=== PATIENT | female | born 1955 | race Caucasian/White ===

== ENCOUNTER → 2019-01-27 16:03 | Outpatient (CLI) | payer BC, SELFPAY ==
--- NOTE | 2019-01-27 16:05 | MM_ITS ---
PROCEDURE: MM DIG SCREENING MAMM BI W/CAD Patient Age:63Y CLINICAL INDICATION: SCREENING Screening outside films requested from [facility] patient has palpable area on chest wall superior margin of breast on right COMPARISON: DIG MAMMO BILAT SCREENING from 12/21/2009 from [facility]. TECHNIQUE: Standard CC and MLO images were obtained. R2 CAD reviewed. Bilateral axillary CC views as well as multiple additional CC views right breast included. Nipple profile MLO view left breast FINDINGS: Low-density breast with generalized fatty replacement. Scattered benign dense spherical calcifications No focal areas significant concern either breast. No dominant or suspicious mass. No suspicious calcifications Left breast. Minimal asymmetric breast tissue inferior left breast dissipates on one-view to another supporting merely minimal normal fibroglandular tissue.. Also note that is stable since previous studies. Not of concern Right breast: Stable No new findings Note the patient does have a palpable area this superior most aspect of the right breast at 11 o'clock position. No significant findings here on mammography. Only fatty density tissue is seen through this region. No areas of concern. Based on mammography follow-up in 1 year be recommended and encouraged. If the clinically palpable area should progress ultrasound may be of benefit to further evaluate although most likely it is merely focal fatty tissue based on mammography IMPRESSION: Stable mammogram no area of significant concern .No significant change since outside studies 2009 Bilateral follow-up 1 year recommended Added note:. The clinical palpable area at the superior most margin right breast shows no findings on mammography-Only fatty density tissue here. BI-RAD Category: 1 Negative FOLLOW-UP: 1YR 1 Year Follow-up (A letter has been sent to the patient regarding results of the study.) Dictated by: Stef Smart MD 01/28/2019 21:29 Electronically signed by Stef Smart MD in [place] 02/01/2019 10:33
== END ==
PROVIDERS: PCP Nurse Practitioner Family; Visit Provider Nurse Practitioner Family
DX: Z12.31 Encounter for screening mammogram for malignant neoplasm of breast (principal)
CPT/HCPCS: 77067

== ENCOUNTER 2021-07-04 17:32 | Observation (INO) | payer SELFPAY ==
[2021-07-04] VITALS (22 sets, daily range): BP systolic 121–202; BP diastolic 54–87; PULSE 70–88; RESP 16–18; TEMP 36.8–37.1; O2SAT 95–100; BMI 46.0
--- NOTE | 2021-07-04 17:40 | PC.NURSE ---
at bedside, Addison notified of stroke protocol
--- NOTE | 2021-07-04 17:43 | CT_ITS ---
PROCEDURE INFORMATION: Exam: CT Head Without Contrast Exam date and time: 07/04/2021 5:42 PM Age: 65 years old Clinical indication: Speech disturbance; Additional info: Expressive aphasia TECHNIQUE: Imaging protocol: Computed tomography of the head without contrast. Radiation optimization: All CT scans at this facility use at least one of these dose optimization techniques: automated exposure control; mA and/or kV adjustment per patient size (includes targeted exams where dose is matched to clinical indication); or iterative reconstruction. Other technique: STROKE PROTOCOL was implemented. COMPARISON: No relevant prior studies available. FINDINGS: Brain: There is white matter lucency most consistent with mild chronic microvascular disease. No evidence of acute infarct. No hemorrhage or extra-axial collection. No mass. Cerebral ventricles: There is no hydrocephalus. Paranasal sinuses: Visualized sinuses are unremarkable. No fluid levels. Mastoid air cells: Visualized mastoid air cells are well aerated. Bones/joints: Unremarkable. No acute fracture. Soft tissues: Unremarkable. IMPRESSION: No acute intracranial lesion or injury. ASSESSMENT: ASPECTS ([place] Stroke Program Early CT Score) is 10.
--- NOTE | 2021-07-04 17:44 | PC.NURSE ---
Pt to CT
[2021-07-04 17:56] LABS: Basophils # 0.1 K/mm3 (0-0.2); Basophils % 2.3 % (0.1-2.0); Eosinophils # 0.1 K/mm3 (0.0-0.4); Eosinophils % 1.7 % (0.1-12.0); Hematocrit 49.5 % (37.0-47.0); Hemoglobin 14.6 g/dL (12.2-16.2); Lymphocytes # 1.5 K/mm3 (0.7-4.5); Lymphocytes % 24.6 % (10-50); Mean Corpuscular HGB Conc 29.5 g/dL (31.8-35.4); Mean Corpuscular Hemoglobin 27.5 pg (27.0-31.2); Mean Corpuscular Volume 93.1 fl (81-99); Mean Platelet Volume 9.1 fl (7.4-10.4); Monocytes # 0.3 K/mm3 (0.1-1.0); Monocytes % 4.7 % (1.7-9.3); Neutrophils # 4.1 K/mm3 (1.8-7.8); Neutrophils % 66.7 % (37.0-80.0); Platelet Count 261 K/mm3 (142-424); Red Blood Count 5.32 M/mm3 (4.20-5.40); Red Cell Distribution Width 14.4 % (11.5-17.5); White Blood Count 6.2 K/mm3 (4.8-10.8)
[2021-07-04 18:01] LABS: Alanine Aminotransferase 38 U/L (12-78); Alkaline Phosphatase 266 U/L (38-126); Aspartate Amino Transferase 32 U/L (14-36); Bilirubin,Total 0.9 mg/dl (0.2-1.3); Blood Urea Nitrogen 25 mg/dl (7-17); Carbon Dioxide 31 mmol/L (22.0-30.0); Chloride 96 mmol/L (98-107); Estimated Glomerular Filt Rate 41 ml/min (>60); GFR (African American) 50 ML/MIN (>60); Globulin 4.2 g/dL (1.3-3.2); Sodium 133 mmol/L (136-145); Total Protein,Serum 8.2 g/dl (6.3-8.2)
[2021-07-04 18:03] LABS: Activated Partial Thrombo Time 26.5 seconds (22.8-30.6); INR 0.96 (0.9-1.1); Prothrombin Time 10.9 seconds (10.1-12.5)
--- NOTE | 2021-07-04 18:04 | PC.NURSE ---
speaking with virtual rad
[2021-07-04 18:05] LABS: Acetone, Serum (Rapid) None Detected (None Detect); Glucose 429 mg/dl (74-100)
--- NOTE | 2021-07-04 18:13 | CT_ITS ---
PROCEDURE INFORMATION: Exam: CT Angiography Neck With Contrast Exam date and time: 07/04/2021 6:18 PM Age: 65 years old Clinical indication: Speech disturbance; Slurred speech; Additional info: Trouble with speech TECHNIQUE: Imaging protocol: Computed tomography angiography of the neck with contrast. 3D rendering (Not supervised by radiologist): MIP and/or 3D reconstructed images were created by the technologist. Radiation optimization: All CT scans at this facility use at least one of these dose optimization techniques: automated exposure control; mA and/or kV adjustment per patient size (includes targeted exams where dose is matched to clinical indication); or iterative reconstruction. Contrast material: ISOVUE; Contrast volume: 100 ml; Contrast route: INTRAVENOUS (IV); COMPARISON: CT HEAD/BRAIN WO CON 07/04/2021 5:42 PM FINDINGS: Right common carotid artery: No stenosis. No dissection or occlusion. Right internal carotid artery: There is mild calcified plaque at the origin of the right internal carotid artery. No stenosis. No dissection. Right external carotid artery: No occlusion or stenosis of the origin. Left common carotid artery: No stenosis. No dissection or occlusion. Left internal carotid artery: There is mild calcified plaque at the origin of the left internal carotid artery. No stenosis. No dissection. Left external carotid artery: No occlusion or stenosis of the origin. Right vertebral artery: No stenosis. No dissection or occlusion. Left vertebral artery: No stenosis. No dissection or occlusion. Soft tissues: Normal. No significant soft tissue swelling. Bones/joints: No acute fracture. Heart: There is cardiomegaly. IMPRESSION: No carotid or vertebral artery stenosis. REFERENCES: NASCET CRITERIA. The degree of internal carotid artery stenosis is based on NASCET criteria. Normal is no stenosis. Mild is less than 50% stenosis. Moderate is 50-69% stenosis. Severe is 70% to 99% stenosis. Total occlusion is no detectable patent lumen.
--- NOTE | 2021-07-04 18:13 | CT_ITS ---
PROCEDURE INFORMATION: Exam: CT Angiography Head With Contrast, Venography Exam date and time: 07/04/2021 6:18 PM Age: 65 years old Clinical indication: Speech disturbance; Slurred speech; Additional info: Trouble with speech TECHNIQUE: Imaging protocol: Computed tomography angiography of the head with contrast. Exam focused on the veins. 3D rendering (Not supervised by radiologist): MIP and/or 3D reconstructed images were created by the technologist. Radiation optimization: All CT scans at this facility use at least one of these dose optimization techniques: automated exposure control; mA and/or kV adjustment per patient size (includes targeted exams where dose is matched to clinical indication); or iterative reconstruction. Contrast material: ISOVUE; Contrast volume: 75 ml; Contrast route: INTRAVENOUS (IV); COMPARISON: CT HEAD/BRAIN WO CON 07/04/2021 5:42 PM FINDINGS: ANTERIOR CIRCULATION: Right internal carotid artery: There is calcified plaque in the right carotid siphon. No stenosis. No aneurysm. Left internal carotid artery: There is calcified plaque in the left carotid siphon. No stenosis. No aneurysm. POSTERIOR CIRCULATION: Left posterior cerebral artery: There is a origin of the left posterior cerebral artery. No stenosis. No aneurysm. Cavernous Sinus: No thrombosis. Veins: Visualized superior sagittal sinus, straight sinus, deep venous system, transverse sinuses, sigmoid sinuses are patent. Limited visualized internal jugular veins are patent. Brain: See head CT IMPRESSION: No intracranial stenosis or occlusion.
[2021-07-04 18:18] LABS: Troponin I < 0.01 ng/ml (0.00-0.034)
--- NOTE | 2021-07-04 18:40 | ECG_ITS ---
APPROVED REPORT Exam: Resting ECG HR:72 bpm ECG Measurements Heart Rate 72 AXES AZ 172 P 54 QRSd 130 QRS -75 QT 395 T 13 QTc 419 Conclusion SINUS RHYTHM RIGHT BUNDLE BRANCH BLOCK [120+ ms QRS DURATION, UPRIGHT V1, 40+ ms S IN I/aVL/V4/V5/V6] LEFT ANTERIOR FASCICULAR BLOCK [QRS AXIS <= -45, QR IN I, RS IN II] MODERATE VOLTAGE CRITERIA FOR LVH, CONSIDER NORMAL VARIANT [MEETS CRITERIA IN ONE OF: R(aVL), S(V1), R(V5), R(V5/V6)+S(V1)] ANTERIOR MYOCARDIAL INFARCTION , OF INDETERMINATE AGE [40+ ms Q WAVE AND/OR ST/T ABNORMALITY IN V3/V4] INFERIOR MYOCARDIAL INFARCTION , PROBABLY OLD [40+ ms Q WAVE AND/OR ST/T ABNORMALITY IN II/aVF] ABNORMAL ECG UNCONFIRMED REPORT Electronically signed by : Donn Quinonez MD 07/07/2021 16:21:43
[2021-07-04 18:43] LABS: VBG Base Excess 0.6 mmol/L (-2.4-2.3); VBG HCO3 27.7 mmol/L (23-30); VBG Oxygen Saturation 61.6 % (50-70); VBG PH 7.25 mmol/L (7.31-7.41); VBG PO2 30.7 mmol/L (28-40); VBG Total CO2 29.7 mmol/L (23-27)
[2021-07-04 18:47] LABS: VBG PCO2 64.1 mmol/L (35-51)
--- NOTE | 2021-07-04 18:58 | PC.NURSE ---
speaking with Dr. Rehman. PT resting in bed. No new needs at this time. Daughter at bedside
--- NOTE | 2021-07-04 19:02 | HMH.EDGENADL ---
ED Disposition Clinical Impression: Transient cerebral ischemia Disposition: Admitted As Inpatient Condition on Discharge: Good - Critical Care Critical Care Time: Yes Attestation: On 07/04/21, the high probability of a clinically significant, sudden or life threatening deterioration of the following system(s) required my full and direct attention, intervention and personal management. The time I documented below is in addition to time spent performing reported procedures but includes the following listed in this critical care notation. Total Critical Care Time: 30 Vital system(s) involved:: Central Nervous System My critical care processes included: Assessment & monitoring of V/S, Initial and Re-exams, Data Review/Interpretation, Coordinating Care, Medication Orders and management Medical Decision Making - Medical Records Medical records reviewed: Yes: I reviewed the patient's medical records. - Mac Inquiry Pt receiving controlled substance: No Vital Signs: 07/04/21 17:32 07/04/21 18:01 07/04/21 18:10 Temperature 98.3 F Temperature Source Oral Pulse Rate 82 Pulse Rate [Right] 88 Respiratory Rate 16 Blood Pressure 177/81 H 187/87 H Blood Pressure [Right Arm] 202/86 H Blood Pressure Mean 113 Blood Pressure Mean [Right Arm] 124 Blood Pressure Source [Right Arm] Automatic Cuff Blood Pressure Position [Right Arm] Sitting 02 Sat by Pulse Oximetry 98 98 Oxygen Delivery Method Room Air 07/04/21 18:11 07/04/21 19:01 07/04/21 19:31 Temperature Temperature Source Pulse Rate 75 71 70 Pulse Rate [Right] Respiratory Rate Blood Pressure 155/72 H 160/75 H 136/54 L Blood Pressure [Right Arm] Blood Pressure Mean 99 Blood Pressure Mean [Right Arm] Blood Pressure Source [Right Arm] Blood Pressure Position [Right Arm] 02 Sat by Pulse Oximetry 96 96 98 Oxygen Delivery Method Room Air Room Air - Lab Data Lab results reviewed: Yes: I reviewed the patient's lab results. Lab Results 07/04/21 17:10: WBC 6.2, RBC 5.32, Hgb 14.6, Hct 49.5 H, MCV 93.1, MCH 27.5, MCHC 29.5 L, RDW 14.4, Plt Count 261, MPV 9.1, Neut % (Auto) 66.7, Lymph % (Auto) 24.6, [place] % (Auto) 4.7, Eos % (Auto) 1.7, Baso % (Auto) 2.3 H, Neut # (Auto) 4.1, Lymph # (Auto) 1.5, [place] # (Auto) 0.3, Eos # (Auto) 0.1, Baso # (Auto) 0.1 07/04/21 17:10: PT 10.9, INR 0.96, APTT 26.5 07/04/21 17:10: Sodium 133 L, Potassium 4.0, Chloride 96 L, Carbon Dioxide 31 H, Anion Gap 10.0, BUN 25 H, Creatinine 1.30 H, Estimated GFR 41 L, Est GFR ( Amer) 50 L, Glucose 429 H*, Calcium 9.0, Total Bilirubin 0.9, AST 32, ALT 38, Alkaline Phosphatase 266 H, Troponin I < 0.01, Total Protein 8.2, Albumin 4.0, Globulin 4.2 H, Albumin/Globulin Ratio 1.0 L 07/04/21 17:10: Acetone Level None detected 07/04/21 19:05: SARS-CoV-2 (PCR) Not detected, Influenza A Untype (PCR) Not detected, Influenza Type B (PCR) Not detected Result diagrams: 07/04/21 17:10 07/04/21 17:10 Orders (Tests/Meds): ED MEDICATIONS Generic Name Dose Route Start Last Admin Trade Name Freq PRN Reason Stop Dose Admin Atorvastatin Calcium 40 mg 07/05/21 09:00 Atorvastatin 40mg Tablet PO 08/04/21 08:59 DAILY CATHI Clopidogrel Bisulfate 75 mg 07/05/21 09:00 Clopidogrel 75mg Tab PO 08/04/21 08:59 DAILY CATHI Furosemide 20 mg 07/05/21 09:00 Furosemide 20mg Tablet PO 08/04/21 08:59 DAILY CATHI Glipizide 5 mg 07/05/21 07:00 Glipizide 5mg Tablet PO 08/04/21 06:59 DAILYDM CATHI Irbesartan 75 mg 07/05/21 09:00 Irbesartan 75mg Tablet PO 08/04/21 08:59 DAILY CATHI Discontinued Medications Generic Name Dose Route Start Last Admin Trade Name Freq PRN Reason Stop Dose Admin Iopamidol 100 ml 07/04/21 18:26 07/04/21 18:27 Iopamidol-370 (76%);100ml Bottle IV 07/04/21 18:27 100 ml ONCE ONE Administration Labetalol HCl 10 mg 07/04/21 17:44 07/04/21 18:10 Labetalol 5mg/Ml 20ml Mdv IV 07/04/21
--- NOTE | 2021-07-04 19:08 | PC.NURSE ---
Spoke with transfer center and was advised that it would be a few minutes before the DR would be available to speak, so they are going to call back.
[2021-07-04 19:12] LABS: Coronavirus 19, PCR Not Detected (NotDetected); Influenza A, PCR Not Detected (NotDetected); Influenza B, PCR Not Detected (NotDetected)
--- NOTE | 2021-07-04 19:27 | PC.NURSE ---
Dr. Rehman paged at this time
--- NOTE | 2021-07-04 19:27 | INFXCTL.NOTE ---
Dr. Rehman paged at this time.
--- NOTE | 2021-07-04 19:28 | PC.NURSE ---
ALEXIS RHOADES speaking with Dr. Rehman
--- NOTE | 2021-07-04 21:36 | PC.NURSE ---
NO ACUTE DISTRESS NOTED. PT AWARE OF PLAN TO ADMIT TO 2ND FLOOR. PT DENIES QUESTIONS. PT ASSISTED WITH REPOSITIONING FOR COMFORT. MEDICATIONS VERFIED WITH PATIENT. NO NEURO DEFICITS NOTED OR REPORTED.
--- NOTE | 2021-07-04 21:40 | PC.NURSE ---
patient up to floor via wheelchair @ this time.
[2021-07-04 22:01] LABS: Troponin I < 0.01 ng/ml (0.00-0.034)
[2021-07-04 22:15] LABS: POC Glucose,Bedside 295 (70-110)
[2021-07-05] VITALS: BP 147/64; PULSE 71; RESP 17; TEMP 36.9; O2SAT 94
[2021-07-05 04:00] VITALS: BP 175/71; PULSE 71; RESP 17; TEMP 36.8; O2SAT 97
[2021-07-05 06:00] VITALS: BMI 47.4
[2021-07-05 06:27] LABS: POC Glucose,Bedside 318 (70-110)
--- NOTE | 2021-07-05 07:08 | P.CONPHA_ITS ---
[facility] Pharmacy VTE Monitoring - Patient Demographics Admission date: 07/04/21 Report Date: 07/05/21 Time: 07:08 Allergies/Adverse Reactions: Patient Allergies No Known Allergies Allergy (Verified 04/06/21 09:36) Height: 1.73 m Weight: 142.02 kg Patient Problems: Current Active Problems Transient cerebral ischemia (Acute) - VTE Risk Labs: VTE Related Lab Results Hgb 14.6 g/dL (12.2-16.2) 07/04/21 17:10 Hct 49.5 % (37.0-47.0) H 07/04/21 17:10 Plt Count 261 K/mm3 (142-424) 07/04/21 17:10 PT 10.9 seconds (10.1-12.5) 07/04/21 17:10 INR 0.96 (0.9-1.1) 07/04/21 17:10 APTT 26.5 seconds (22.8-30.6) 07/04/21 17:10 BUN 25 mg/dl (7-17) H 07/04/21 17:10 Creatinine 1.30 mg/dl (0.52-1.04) H 07/04/21 17:10 VTE Risk Level: Low Risk - Prophylaxis VTE Prophylaxis Ordered?: Yes Types of VTE Prophylaxis: TEDS Knee High Location of Applied Device: Bilateral Lower Extremeties
[2021-07-05 07:17] LABS: INR 0.96 (0.9-1.1); Prothrombin Time 10.9 seconds (10.1-12.5)
[2021-07-05 07:18] LABS: Basophils % 0.6 % (0.1-2.0); Eosinophils # 0.1 K/mm3 (0.0-0.4); Eosinophils % 2.4 % (0.1-12.0); Hematocrit 42.4 % (37.0-47.0); Hemoglobin 13.5 g/dL (12.2-16.2); Lymphocytes # 1.1 K/mm3 (0.7-4.5); Lymphocytes % 23.7 % (10-50); Mean Corpuscular HGB Conc 31.8 g/dL (31.8-35.4); Mean Corpuscular Hemoglobin 29.5 pg (27.0-31.2); Mean Corpuscular Volume 92.7 fl (81-99); Mean Platelet Volume 8.9 fl (7.4-10.4); Monocytes # 0.3 K/mm3 (0.1-1.0); Monocytes % 5.2 % (1.7-9.3); Neutrophils # 3.2 K/mm3 (1.8-7.8); Neutrophils % 68.1 % (37.0-80.0); Platelet Count 200 K/mm3 (142-424); Red Blood Count 4.57 M/mm3 (4.20-5.40); Red Cell Distribution Width 14.6 % (11.5-17.5); White Blood Count 4.8 K/mm3 (4.8-10.8)
[2021-07-05 07:20] LABS: Alanine Aminotransferase 28 U/L (12-78); Albumin Level 3.1 g/dl (3.5-5.0); Albumin/Globulin Ratio 0.9 (1.1-1.8); Alkaline Phosphatase 223 U/L (38-126); Anion Gap 4.9 mEq/L (5-15); Aspartate Amino Transferase 24 U/L (14-36); Bilirubin,Total 0.8 mg/dl (0.2-1.3); Blood Urea Nitrogen 20 mg/dl (7-17); Calcium 8.4 mg/dl (8.4-10.2); Carbon Dioxide 30 mmol/L (22.0-30.0); Chloride 100 mmol/L (98-107); Chol/HDL Ratio 4.6 (1-3.5); Cholesterol 125 mg/dl (140-200); Creatinine Clearance Estimated 53 mL/min (50-200); Estimated Glomerular Filt Rate 50 ml/min (>60); GFR (African American) 61 ML/MIN (>60); Globulin 3.3 g/dL (1.3-3.2); Glucose 324 mg/dl (74-100); HDL Cholesterol 27 mg/dl (40-60); Potassium 3.9 mmoL/L (3.5-5.1); Sodium 131 mmol/L (136-145); Total Protein,Serum 6.4 g/dl (6.3-8.2); Triglycerides 182 mg/dl (30-150); VLDL Cholesterol 36 mg/dL (0-40)
[2021-07-05 07:31] LABS: Direct LDL Cholesterol 57.09 mg/dL (100-129)
--- NOTE | 2021-07-05 07:41 | CT_ITS ---
FINAL REPORT CLINICAL HISTORY: Stroke Alert FINDINGS: Axial images of the head were obtained without contrast. Coronal reformatted images were also obtained. This study was performed with techniques to keep radiation doses as low as reasonably achievable (ALARA). Individualized dose reduction techniques using automated exposure control or adjustment of mA and/or kV according to the patient's size were employed. Note is made of motion artifact. There is generalized age-appropriate atrophy. Periventricular low-attenuation areas are seen consistent with mild chronic ischemic changes. There is no evidence of intracranial hemorrhage or mass. There is no evidence of acute infarct. There is no evidence of shift of the midline structures. No skull abnormality is seen on the bone window images. IMPRESSION: Atrophy and mild periventricular chronic ischemic changes. No acute intracranial abnormality identified. Reviewed, Interpreted and Dictated by Chris Solorzano III, MD Transcribed by Melva Rosen Authenticated by Chris Solorzano III, MD on 07/05/2021 08:03:34 AM [facility]
--- NOTE | 2021-07-05 07:44 | PC.NURSE ---
stroke alert called at 0740. 0741 pt off of unit with primary RN and charge nurse r/t ct with stroke protocol and stroke alert.
[2021-07-05 08:00] VITALS: BP 153/60; PULSE 82; RESP 20; O2SAT 88
--- NOTE | 2021-07-05 08:03 | HMH.PHAINT ---
home medication list verified using list from outpatient pharmacy
[2021-07-05 08:04] VITALS: TEMP 36.9; O2SAT 93
--- NOTE | 2021-07-05 08:06 | PC.NURSE ---
Addendum entered by Yang Hammond RN 07/05/21 10:36: Stroke alert called at 0739. Addendum entered by Yang Hammond RN 07/05/21 08:35: Blood glucose also checked and it was 334. Original Note: Family member called at 0734 and stated she was just talking to pt and she stopped talking. This RN went and assessed pt to find her flaccid in mary grace arms, drool with blood noted coming out of R side of mouth, and tongue appears to be bitten on that side. Stroke alert called and pt was having ct at 0745 of head. BP stable as well as all other v/s. 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 She is resting with hob elevated. Seizure pads placed on bed rails. Mx continues. Dr. Vilchis and Flash Travis, LETICIA aware. Family on way to see pt as well.
--- NOTE | 2021-07-05 10:10 | MR_ITS ---
FINAL REPORT CLINICAL HISTORY: tia/seizure? FINDINGS: Multiplanar MR imaging of the brain was performed without contrast. Motion artifact is identified on many of the images. There is mild age-appropriate atrophy. There are scattered foci of increased T2 signal in the cerebral white matter that have a nonspecific appearance but likely represent moderate chronic ischemic/gliotic changes. There is no evidence of intracranial hemorrhage or mass. No abnormal ventricular dilatation is identified. No abnormal extra-axial fluid collection is seen. No abnormality is seen on the diffusion weighted images. The posterior fossa and brainstem are unremarkable. Normal major vessel vascular flow voids are seen. IMPRESSION: Age-appropriate atrophy and moderate chronic ischemic/gliotic changes. No acute intracranial abnormality. Reviewed, Interpreted and Dictated by Chris Solorzano III, MD Transcribed by Melva Rosen Authenticated by Chris Solorzano III, MD on 07/05/2021 01:45:49 PM [facility]
--- NOTE | 2021-07-05 10:10 | CA_ITS ---
APPROVED REPORT EXAM: Comprehensive 2D, Doppler, and color-flow Echocardiogram Cruise Agent: Erin Garcia, RCS, RVS Ht: 5 ft 8 in Wt: 313lbs BSA: 2.47 BP: 187/87 mmHg Rhythm: NSR Indications: TIA, HTN, Smoker, HLD, HTN, DM 2D Dimensions IVSd 1.54 cm LA Volume 91.50 mL PWd 1.23 cm LA Volume Index 37.00 mL/m2 (M/F) 16-34 LVDd 4.61 cm Aortic Root 2.66 cm Left Atrium 4.71 cm LVOT 1.95 cm (M/F) 1.5-2.5 M-Mode Dimensions RVDd 3.89 cm (0.9-2.6) LA Diam 5.31 cm (1.9-4.0) LVDd 5.10 cm (3.5-5.7) Ao Diam 3.05 cm (2.0-3.7) LVDs 3.31 cm (3.5-5.7) IVSd 1.52 cm (0.6-1.1) PWd 1.16 cm (0.6-1.1) EF (Teich) 64.10% EPSs 0.22 cm FS 35.10% EDV (Teich) 123.80 mL TAPSE 2.40 (<1.7) ESV (Teich) 44.50 mL LV Diastology E Decel Time 303.00 (160-240 msec) E/A Ratio 0.76 MED E' 4.30 (< 7 cm/sec) MED A' 10.50 cm/s E'/MED E' Ratio 24.79 (>14) LAT E' 4.40 (<10 cm/sec) LAT A' 10.20 cm/s E/LAT E' Ratio 24.23 (>14) Aortic Valve LVOT Max 114.00 (70-110 cm/s) LVOT VTI 27.47 cm AoV Peak Raymundo. 226.00 (50-130 cm/s) AO Peak GR. 20.40 mmHg AO Mean GR. 9.80 (<5 mmHg) AO VTI 45.10 (18-25 cm) GENET (VTI) 1.82 (2.5-4.5 cm2) Mitral Valve MV A Velocity 139.00 (40-130 cm/s) E/A Ratio 0.76 MV Decel. Time 303.00 (160-240 ms) MV Mean Gr. 3.70 (<2mmHg) MV PHT 90.00 ms Pulmonary Valve PV Peak Velocity 129.00 (50-150 cm/s) Tricuspid Valve TR P. Velocity 348.00 cm/s RAP Estimate 10.00 mmHg RVSP 58.40 mmHg Left Ventricle Left atrium is mildly enlarged, left ventricle is normal size, mild concentric left ventricular hypertrophy, visually estimated ejection fraction 55% with no regional wall motion abnormality, grade 1 diastolic dysfunction seen with tissue Doppler evidence of raise left atrial pressure. Right Ventricle Right atrium and right ventricle are normal size and contractility. Aortic Valve Aortic valve is thickened and calcified without significant aortic stenosis or aortic insufficiency. Mitral Valve Mitral valve grossly normal, there is trace mitral regurgitation. Tricuspid Valve Tricuspid grossly normal, there is trace tricuspid regurgitation, tricuspid regurgitation jet velocity is inadequate for calculation of the right ventricular systolic pressure. Pulmonic Valve Pulmonic valve is poorly visualized. Great Vessels Aortic root is normal size. Inferior vena cava is poorly visualized. Pericardium No significant pericardial effusion noted. Conclusion 1. Mildly enlarged left atrium, normal left ventricular size, mild concentric left ventricular hypertrophy, visually estimated ejection fraction 55% with no regional wall motion abnormality, grade 1 diastolic dysfunction seen with tissue Doppler evidence of raise left atrial pressure. 2. Thickened and calcified aortic valve without significant aortic stenosis or aortic insufficiency. 3. Trace mitral and tricuspid regurgitation. 4. No significant pericardial effusion 5. Inferior vena cava is poorly visualized. Electronically signed by : Chavo Swan MD 07/05/2021 19:42:45
--- NOTE | 2021-07-05 10:10 | CA_ITS ---
FINAL REPORT TECHNIQUE: Color Doppler, duplex Doppler and torres scale sonography of the bilateral neck arterial vasculature was performed. Velocities were measured in the carotid arteries. Stenosis evaluation based on the validated velocity criteria. CLINICAL HISTORY: TIA, HTN, Smoker,HLD, DM FINDINGS: The peak systolic velocity of the right common carotid artery is 105 cm/s. The peak systolic velocity of the right internal carotid artery is 104 cm/s and end diastolic velocity 15 cm/s. The ICA/CCA ratio is 0.99. A mild amount of plaque is present. The right external carotid artery is patent. The right vertebral artery is patent with antegrade flow. The peak systolic velocity of the left common carotid artery is 133 cm/s. The peak systolic velocity of the left internal carotid artery is 242 cm/s and end diastolic velocity 66 cm/s. The ICA/CCA ratio is 2.1. A mild amount of plaque is present. The left external carotid artery is patent.The left vertebral artery is patent with antegrade flow. IMPRESSION: Less than 50% right carotid stenosis. 70-99% left carotid stenosis based upon velocity criteria. Recommend CTA or catheter angiogram for further evaluation. Bilateral patent vertebral arteries with antegrade flow. Reviewed, Interpreted and Dictated by Chris Solorzano III, MD Transcribed by Love Monroy Authenticated by Chris Solorzano III, MD on 07/05/2021 12:16:33 PM [facility]
[2021-07-05 10:44] VITALS: BMI 47.4
--- NOTE | 2021-07-05 11:48 | HMH.HP ---
*Admission Date: 07/04/21 *Chief complaint: tia *History of present illness: 65-year-old female with past medical history for HTN, HLD, [id number] diabetes mellitus who presents to the emergency department for intermittent periods of expressive aphasia since sat evening. Patient reports Sunday she began to have periods where she had difficulty finding words. Patient states these episodes only last a few minutes and self resolved. She denies any headache. No other focal neurological deficits. No visual changes or gait ataxia. Patient denies any blood thinners or prior history of stroke or seizures. Pt admitted for further work up and eval. this am at 7:34 pt was talking to daughter on the phone and just stopped answering. pts daughter called into hospital and notified nursing. Nursing checked on pt and she was not talking and did open eyes when spoken to but was not focusing or answering questions, per staff episode lasted only a few mins but was not back to normal for 30 mins. pt did bite side of tongue during this episode. pt was taken down for ct of head per stroke protocol. upon rounding at 830 pt was alert answering all questions talking to daughter on phone. pt has no deficits [facility] History I have reviewed the patient's past medical history: Yes 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: Reports:: Diabetes Mellitus Type 2, Hyperlipidemia, Hypertension *Have you ever received a pneumonia vaccine?: No *Have you received a flu vaccine this season?: No Other 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: Reports: Other Other Surgeries: Yes: Cardiac Catheterization, Cholecystectomy Fractures: No - *Social History Smoking Status: Current every day smoker Tobacco Type: cigarettes # Packs/Day (cigarettes): 1 Alcohol Intake: never *Occupational Status:: retired Household Members: family *Travel in the last 8 weeks: None Family Hx:: Diabetes Review of Systems - Review of Systems Review of systems:: pertinent systems reviewed and negative unless documented below - Constitutional Denies body ache(s), Denies lack of energy - Eyes Denies discharge - ENT Denies facial pain - *Cardiovascular Denies chest pain at rest - *Respiratory Denies change in phlegm color - *Gastrointestinal Denies abdominal pain - *Genitourinary Denies abnormal periods - *Musculoskeletal Denies abnormal walking - Integumentary/Breasts Denies hair loss - *Neurologic Reports other, Denies abnormal walking - Psychiatric Denies abnormal sleep pattern - Endocrine Denies cold intolerance - Hematologic/Lymphatic Denies easy bleeding - Allergic/Immunologic Denies itchy eyes Meds Home Medications Medication Instructions Recorded Confirmed Type Losartan Potassium [Cozaar 50mg 50 mg PO DAILY 01/06/19 07/04/21 History Tablets] atorvastatin 40 mg tablet 40 mg PO DAILY tab 12/29/20 07/04/21 History furosemide 20 mg tablet 20 mg PO DAILY tab 12/29/20 07/04/21 History glipizide 5 mg tablet 5 mg PO BIDWMEAL tab 12/29/20 07/05/21 History pioglitazone 30 mg tablet 30 mg PO DAILYDM tab 04/06/21 07/05/21 History Aspirin [Aspirin 81mg EC Tab] 81 mg PO DAILY 07/04/21 07/04/21 History Allergies Allergy/AdvReac Type Severity Reaction Status Date / Time No Known Allergies Allergy Verified 04/06/21 09:36 Exam Vital signs and Labs for Last 24 Hours: Temp Pulse Resp BP Pulse Ox 98.5 F 82 20 153/60 H 93 L 07/05/21 08:04 07/05/21 08:00 07/05/21 08:00 07/05/21 08:00 07/05/21 08:04 Laboratory Results - last 24 hr 07/04/21 17:10: WBC 6.2, RBC 5.32, Hgb 14.6, Hct 49.5 H, MCV 93.1, MCH 27.5, MCHC 29.5 L, RDW 14.4, Plt Count 261, MPV 9.1, Neut % (Auto) 66.7, Lymph % (Auto) 24.6, [place] % (Auto) 4.7, Eos % (Auto) 1.7, Baso % (Auto) 2.3 H, Neut # (Auto) 4.1, Lymph # (Auto) 1.5, [place] # (Auto) 0.3, Eos # (Auto) 0.1, Baso # (Auto) 0.1 07/04/21 17:10: PT 10.9, INR 0.96, APTT 26.5 07/04/21 17:10: Sodium 133 L, Potassium 4.0, Chloride 96 L, Carbon Dioxide 31 H, Anion
[2021-07-05 11:59] LABS: POC Glucose,Bedside 344 (70-110)
--- NOTE | 2021-07-05 12:46 | PC.NURSE ---
Pt in MRI at this time.
--- NOTE | 2021-07-05 13:07 | PC.NURSE ---
Pt back on floor from MRI
[2021-07-05 13:27] LABS: POC Glucose,Bedside 345 (70-110)
--- NOTE | 2021-07-05 15:50 | HMH.CNCARD ---
History of Present Illness Consult date: 07/05/21 Requesting physician: Pancho Vilchis Chief complaint: expressive aphasia History of present illness: This is a 65-year-old white female who presented to the emergency department with complaints of expressive aphasia. The patient states that her symptoms began on Sunday where she started having periods of difficulty finding her words and expressing what she was feeling. She states that this only lasted for a few minutes and then resolved. She stated that it occurred a few times on Sunday and a few times on Sunday as well. She states that her expressive aphasia got worse on Sunday and she decided to come to the emergency department. She denies any slurred speech or numbness in her extremities. She denies any headache or any other focal neurological deficits. She has had no vision changes or changes in her gait. The patient denies any chest pain or pressure. She also denies any shortness of breath or edema. She denies any fever, chills, nausea, vomiting, diarrhea, PND or orthopnea. The patient denies any cardiac history. [facility] History I have reviewed the patient's past medical history: Yes 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: Reports:: Diabetes Mellitus Type 2, Hyperlipidemia, Hypertension *Have you ever received a pneumonia vaccine?: No *Have you received a flu vaccine this season?: No Other 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: Reports: Other Other Surgeries: Yes: Cardiac Catheterization, Cholecystectomy Fractures: No - *Social History Smoking Status: Current every day smoker Tobacco Type: cigarettes # Packs/Day (cigarettes): 1 Alcohol Intake: never *Occupational Status:: retired Household Members: family *Travel in the last 8 weeks: None Family Hx:: Diabetes Meds Home Medications Medication Instructions Recorded Confirmed Type Losartan Potassium [Cozaar 50mg 50 mg PO DAILY 01/06/19 07/04/21 History Tablets] atorvastatin 40 mg tablet 40 mg PO DAILY tab 12/29/20 07/04/21 History furosemide 20 mg tablet 20 mg PO DAILY tab 12/29/20 07/04/21 History glipizide 5 mg tablet 5 mg PO BIDWMEAL tab 12/29/20 07/05/21 History pioglitazone 30 mg tablet 30 mg PO DAILYDM tab 04/06/21 07/05/21 History Aspirin [Aspirin 81mg EC Tab] 81 mg PO DAILY 07/04/21 07/04/21 History Allergies Allergy/AdvReac Type Severity Reaction Status Date / Time No Known Allergies Allergy Verified 04/06/21 09:36 Exam Vital signs and Labs for Last 24 Hours: Temp Pulse Resp BP Pulse Ox 98.5 F 82 20 153/60 H 93 L 07/05/21 08:04 07/05/21 08:00 07/05/21 08:00 07/05/21 08:00 07/05/21 08:04 Laboratory Results - last 24 hr 07/04/21 17:10: WBC 6.2, RBC 5.32, Hgb 14.6, Hct 49.5 H, MCV 93.1, MCH 27.5, MCHC 29.5 L, RDW 14.4, Plt Count 261, MPV 9.1, Neut % (Auto) 66.7, Lymph % (Auto) 24.6, [place] % (Auto) 4.7, Eos % (Auto) 1.7, Baso % (Auto) 2.3 H, Neut # (Auto) 4.1, Lymph # (Auto) 1.5, [place] # (Auto) 0.3, Eos # (Auto) 0.1, Baso # (Auto) 0.1 07/04/21 17:10: PT 10.9, INR 0.96, APTT 26.5 07/04/21 17:10: Sodium 133 L, Potassium 4.0, Chloride 96 L, Carbon Dioxide 31 H, Anion Gap 10.0, BUN 25 H, Creatinine 1.30 H, Estimated GFR 41 L, Est GFR ( Amer) 50 L, Glucose 429 H*, Calcium 9.0, Total Bilirubin 0.9, AST 32, ALT 38, Alkaline Phosphatase 266 H, Troponin I < 0.01, Total Protein 8.2, Albumin 4.0, Globulin 4.2 H, Albumin/Globulin Ratio 1.0 L 07/04/21 17:10: Acetone Level None detected 07/04/21 19:05: SARS-CoV-2 (PCR) Not detected, Influenza A Untype (PCR) Not detected, Influenza Type B (PCR) Not detected 07/04/21 21:33: Troponin I < 0.01 07/04/21 22:09: POC Glucose 295 H 07/05/21 06:17: POC Glucose 318 H* 07/05/21 06:51: WBC 4.8, RBC 4.57, Hgb 13.5, Hct 42.4, MCV 92.7, MCH 29.5, MCHC 31.8, RDW 14.6, Plt Count 200, MPV 8.9, Neut % (Auto) 68.1, Lymph % (Auto) 23.7, [place] % (Auto) 5.2, Eos % (Auto) 2.4, Baso % (Auto) 0.6, Neut # (Auto) 3.2, Lymph # (Auto) 1.1, Major # (Auto) 0.3, Eos # (Auto) 0.1, Baso # (Auto) 0.0 07/05/21 06:51: PT 10
[2021-07-05 16:00] VITALS: BP 134/78; PULSE 70; RESP 15; TEMP 37.1; O2SAT 93
[2021-07-05 17:27] LABS: POC Glucose,Bedside 376 (70-110)
[2021-07-05 20:00] VITALS: BP 136/74; PULSE 68; RESP 15; TEMP 37.1; O2SAT 95
[2021-07-05 23:03] LABS: POC Glucose,Bedside 347 (70-110)
[2021-07-06] VITALS (16 sets, daily range): BP systolic 100–156; BP diastolic 50–87; PULSE 53–88; RESP 14–20; TEMP 36.6–37.2; O2SAT 88–99; BMI 47.9
--- NOTE | 2021-07-06 | IR_ITS ---
APPROVED REPORT Patient Location: Inpatient [facility]: JADYN Gross RT (R) PROCEDURES Catheter placement in the right common carotid artery angiogram Right internal carotid artery selective angiogram Catheter placed on the left common carotid artery Left internal carotid artery selective angiogram Left vertebral artery angiogram Right vertebral artery angiogram INDICATION Abnormal carotid ultrasound suggesting severe to critical left internal carotid artery stenosis, Abnormal carotid artery CAT scan suggesting mild disease, Disparity between 2 tests requiring a third test to definitively diagnose the severity of the carotid disease Informed consent was obtained prior to the procedure. COMPLICATIONS None Estimated Blood Loss: Less than 10 mls TECHNIQUE 1% lidocaine used anesthetize the right groin the right pulmonary was accessed via the Salinger technique and a 4 German sheath was placed in the right femoral artery. A JR4 catheter was used to perform bilateral selective renal angiography as well as the catheter placed in the bilateral common carotid arteries. Left and right internal angiography was performed. No intracerebral vasculature angiography was performed due to the previous CTA indicating no disease ANGIOGRAPHIC RESULTS Right vertebral artery is patent Left vertebral artery is patent and dominant Right common carotid artery is widely patent and gives rise to a mildly diseased right internal carotid artery Left common carotid artery is widely patent and gives rise to a mildly diseased left internal carotid artery IMPRESSION Patent bilateral vertebral arteries Mild bilateral internal carotid artery disease PLAN 1. Risk factor modification 2. LDL less than 55 to be achieved with high intensity statin 3. Aspirin 4. Recommend loop recorder due to cryptogenic stroke. Stroke cannot be identified or explained by carotid artery disease Electronically signed by : Moise Evans MD 07/06/2021 10:48:38
[2021-07-06 05:58] LABS: Basophils % 0.8 % (0.1-2.0); Eosinophils # 0.1 K/mm3 (0.0-0.4); Eosinophils % 2.6 % (0.1-12.0); Hematocrit 39.4 % (37.0-47.0); Hemoglobin 13.2 g/dL (12.2-16.2); Lymphocytes # 1.1 K/mm3 (0.7-4.5); Lymphocytes % 22.8 % (10-50); Mean Corpuscular HGB Conc 33.5 g/dL (31.8-35.4); Mean Corpuscular Volume 89.4 fl (81-99); Mean Platelet Volume 9.5 fl (7.4-10.4); Monocytes # 0.3 K/mm3 (0.1-1.0); Monocytes % 6.4 % (1.7-9.3); Neutrophils # 3.2 K/mm3 (1.8-7.8); Neutrophils % 67.3 % (37.0-80.0); Platelet Count 206 K/mm3 (142-424); Red Blood Count 4.41 M/mm3 (4.20-5.40); Red Cell Distribution Width 14.9 % (11.5-17.5); White Blood Count 4.7 K/mm3 (4.8-10.8)
[2021-07-06 06:06] LABS: Anion Gap 7.9 mEq/L (5-15); Blood Urea Nitrogen 24 mg/dl (7-17); Calcium 8.4 mg/dl (8.4-10.2); Carbon Dioxide 28 mmol/L (22.0-30.0); Chloride 101 mmol/L (98-107); Creatinine Clearance Estimated 53 mL/min (50-200); Estimated Glomerular Filt Rate 50 ml/min (>60); GFR (African American) 61 ML/MIN (>60); Glucose 255 mg/dl (74-100); Potassium 3.9 mmoL/L (3.5-5.1); Sodium 133 mmol/L (136-145)
[2021-07-06 07:10] LABS: POC Glucose,Bedside 251 (70-110)
[2021-07-06 08:00] LABS: Magnesium 1.4 mg/dl (1.6-2.3)
--- NOTE | 2021-07-06 10:16 | PC.NURSE ---
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
--- NOTE | 2021-07-06 11:58 | HMH.PNCARD ---
Subjective Date: 07/06/21 Time: 09:00 Principal diagnosis: FERNANDA, TIA Interval history: This is a 62-year-old white female who presented to the emergency department with complaints of expressive aphasia. Her symptoms started on Sunday so neurology was contacted at [facility] and she was out of the window for any further treatment. They did recommend aspirin, Plavix and a statin. She has a carotid ultrasound that shows 70 to 99% stenosis of the left internal carotid artery and a CTA of the neck which shows only mild bilateral carotid artery stenosis. Given the disparities between the [address] Evans wants to proceed with a carotid angiogram today to ensure that her expressive aphasia is not from a TIA/stroke originating from her carotid arteries. This morning she states that her expressive aphasia has improved. She denies any chest pain or pressure. She denies any shortness of breath or edema. She denies any fever, chills, nausea, vomiting, diarrhea, PND or orthopnea. Exam Vital signs and Labs for Last 24 Hours: Temp Pulse Resp BP Pulse Ox 98.1 F 74 17 107/87 L 98 07/06/21 07:50 07/06/21 07:50 07/06/21 07:50 07/06/21 07:50 07/06/21 07:50 Laboratory Results - last 24 hr 07/05/21 07:40: POC Glucose 344 H* 07/05/21 13:14: POC Glucose 345 H* 07/05/21 17:16: POC Glucose 376 H* 07/05/21 22:20: POC Glucose 347 H* 07/06/21 05:16: WBC 4.7 L, RBC 4.41, Hgb 13.2, Hct 39.4, MCV 89.4, MCH 30.0, MCHC 33.5, RDW 14.9, Plt Count 206, MPV 9.5, Neut % (Auto) 67.3, Lymph % (Auto) 22.8, [place] % (Auto) 6.4, Eos % (Auto) 2.6, Baso % (Auto) 0.8, Neut # (Auto) 3.2, Lymph # (Auto) 1.1, [place] # (Auto) 0.3, Eos # (Auto) 0.1, Baso # (Auto) 0.0 07/06/21 05:16: Sodium 133 L, Potassium 3.9, Chloride 101, Carbon Dioxide 28, Anion Gap 7.9, BUN 24 H, Creatinine 1.10 H, Estimated Creat Clear 53, Estimated GFR 50 L, Est GFR ( Amer) 61, Glucose 255 H D, Calcium 8.4 07/06/21 05:16: Magnesium 1.4 L 07/06/21 06:15: POC Glucose 251 H I & O for Last 24 hours: Intake & Output 07/03/21 07/04/21 07/05/21 07/06/21 23:59 23:59 23:59 23:59 Intake Total 0 / 0 Balance 0 / 0 Weight 303 lb 313 lb 0.902 oz 316 lb 1.6 oz Narrative: Echocardiogram shows: 1. Mildly enlarged left atrium, normal left ventricular size, mild concentric left ventricular hypertrophy, visually estimated ejection fraction 55% with no regional wall motion abnormality, grade 1 diastolic dysfunction seen with tissue Doppler evidence of raise left atrial pressure. 2. Thickened and calcified aortic valve without significant aortic stenosis or aortic insufficiency. 3. Trace mitral and tricuspid regurgitation. 4. No significant pericardial effusion 5. Inferior vena cava is poorly visualized. - Constitutional no acute distress, morbidly obese - *Routine HEENT Exam Head: Present: normocephalic, atraumatic Eye: Present: EOMI, PERRL ENT: Present: mucous membranes moist - *Routine Neck Exam Present: supple, full ROM, normal carotid upstroke. Absent: JVD, carotid bruit, lymphadenopathy - *Routine Respiratory Exam Present: CTA bilaterally - *Routine Cardiovascular Exam Present: RRR, Normal S1, Normal S2. Absent: murmur - *Routine Abdominal Exam Present: soft, normoactive bowel sounds. Absent: tenderness, distended - *Routine Extremities Exam Present: full ROM, pulses intact, normal capillary refill. Absent: cyanosis, clubbing, edema - *Routine Skin Exam Present: intact, warm. Absent: erythema, rash - *Routine Neurological Exam Present: alert, oriented X3, CN II-XII intact. Absent: sensory deficit, motor deficit Progress Note: A&P (1) Carotid artery stenosis Status: Acute (2) Transient cerebral ischemia Status: Acute (3) Diabetes mellitus Status: Acute (4) Expressive aphasia Status: Acute (5) Hypertension Status: Chronic (6) Hyperlipidemia Status: Chronic (7) Abnormal EKG Status: Acute (8) Morb
--- NOTE | 2021-07-06 15:53 | HMH.ACPN2 ---
Internal Medicine - PN: Subj *Date: 07/06/21 *Time: 08:50 Interval history: pt sitting up in chair answers all questions oh Exam Vital signs and Labs for Last 24 Hours: Temp Pulse Resp BP Pulse Ox 98.1 F 53 L 16 114/64 93 L 07/06/21 07:50 07/06/21 14:00 07/06/21 14:00 07/06/21 14:00 07/06/21 14:00 Laboratory Results - last 24 hr 07/05/21 17:16: POC Glucose 376 H* 07/05/21 22:20: POC Glucose 347 H* 07/06/21 05:16: WBC 4.7 L, RBC 4.41, Hgb 13.2, Hct 39.4, MCV 89.4, MCH 30.0, MCHC 33.5, RDW 14.9, Plt Count 206, MPV 9.5, Neut % (Auto) 67.3, Lymph % (Auto) 22.8, [place] % (Auto) 6.4, Eos % (Auto) 2.6, Baso % (Auto) 0.8, Neut # (Auto) 3.2, Lymph # (Auto) 1.1, [place] # (Auto) 0.3, Eos # (Auto) 0.1, Baso # (Auto) 0.0 07/06/21 05:16: Sodium 133 L, Potassium 3.9, Chloride 101, Carbon Dioxide 28, Anion Gap 7.9, BUN 24 H, Creatinine 1.10 H, Estimated Creat Clear 53, Estimated GFR 50 L, Est GFR ( Amer) 61, Glucose 255 H D, Calcium 8.4 07/06/21 05:16: Magnesium 1.4 L 07/06/21 06:15: POC Glucose 251 H I & O for Last 24 hours: Intake & Output 07/04/21 07/05/21 07/06/21 07/07/21 11:59 11:59 11:59 11:59 Intake Total 0 / 0 480 / 480 Output Total 575 / 575 Balance 0 / 0 -95 / -95 Weight 313 lb 0.902 oz 316 lb 1.6 oz - Constitutional no acute distress - *Routine HEENT Exam Head: Present: normocephalic Eye: Present: PERRL ENT: Present: mucous membranes moist - *Routine Neck Exam Present: supple. Absent: lymphadenopathy - *Routine Respiratory Exam Present: CTA bilaterally - *Routine Cardiovascular Exam Present: RRR - *Routine Abdominal Exam Present: soft, normoactive bowel sounds. Absent: tenderness - *Routine Extremities Exam Absent: cyanosis, clubbing, edema - *Routine Skin Exam Present: warm. 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 intermediate 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 Diabetes mellitus complication status: with hyperglycemia Qualified Code(s): E11.65 - Type 2 diabetes mellitus with hyperglycemia Category: Medical Code(s): E11.9 - Type 2 diabetes mellitus without complications (4) Expressive aphasia Status: Acute Category: Medical Code(s): R47.01 - Aphasia (5) Hypertension Status: Chronic Qualifiers: Hypertension type: primary hypertension Qualified Code(s): I10 - Essential (primary) hypertension Category: Medical Code(s): I10 - Essential (primary) hypertension (6) Hyperlipidemia Status: Chronic Qualifiers: Hyperlipidemia type: mixed hyperlipidemia Qualified Code(s): E78.2 - Mixed hyperlipidemia Category: Medical Code(s): E78.5 - Hyperlipidemia, unspecified (7) Abnormal EKG Status: Acute Category: Medical Code(s): R94.31 - Abnormal electrocardiogram [ECG] [EKG] (8) Morbid obesity with BMI of 45.0-49.9, adult Status: Chronic Category: Medical Code(s): E66.01 - Morbid (severe) obesity due to excess calories; Z68.42 - Body mass index [BMI] 45.0-49.9, adult - Assessment and plan all Dx Assessment and Plan for all problems:: rounded with dr polo all orders per dr persaud cardiology consult
[2021-07-06 18:55] LABS: POC Glucose,Bedside 280 (70-110)
[2021-07-06 18:55] LABS: POC Glucose,Bedside 241 (70-110)
[2021-07-06 21:13] LABS: POC Glucose,Bedside 279 (70-110)
[2021-07-07] VITALS: BP 139/56; PULSE 84; RESP 20; TEMP 36.9; O2SAT 92
[2021-07-07 05:09] VITALS: BMI 36.7
[2021-07-07 06:26] LABS: Basophils % 0.9 % (0.1-2.0); Eosinophils # 0.2 K/mm3 (0.0-0.4); Eosinophils % 4.1 % (0.1-12.0); Hematocrit 41.1 % (37.0-47.0); Hemoglobin 13.4 g/dL (12.2-16.2); Lymphocytes # 1.2 K/mm3 (0.7-4.5); Lymphocytes % 24.7 % (10-50); Mean Corpuscular HGB Conc 32.6 g/dL (31.8-35.4); Mean Corpuscular Hemoglobin 29.9 pg (27.0-31.2); Mean Corpuscular Volume 91.8 fl (81-99); Mean Platelet Volume 9.4 fl (7.4-10.4); Monocytes # 0.3 K/mm3 (0.1-1.0); Neutrophils % 63.2 % (37.0-80.0); Platelet Count 209 K/mm3 (142-424); Red Blood Count 4.48 M/mm3 (4.20-5.40); Red Cell Distribution Width 14.7 % (11.5-17.5); White Blood Count 4.7 K/mm3 (4.8-10.8)
[2021-07-07 06:42] LABS: Anion Gap 10.1 mEq/L (5-15); Blood Urea Nitrogen 30 mg/dl (7-17); Calcium 8.3 mg/dl (8.4-10.2); Carbon Dioxide 26 mmol/L (22.0-30.0); Chloride 103 mmol/L (98-107); Creatinine Clearance Estimated 83 mL/min (50-200); Estimated Glomerular Filt Rate 45 ml/min (>60); GFR (African American) 55 ML/MIN (>60); Glucose 178 mg/dl (74-100); Potassium 4.1 mmoL/L (3.5-5.1); Sodium 135 mmol/L (136-145)
[2021-07-07 07:19] LABS: POC Glucose,Bedside 202 (70-110)
[2021-07-07 08:00] VITALS: BP 140/67; PULSE 71; RESP 20; TEMP 36.7; O2SAT 93
--- NOTE | 2021-07-07 09:22 | HMH.PNCARD ---
Subjective Date: 07/07/21 Time: 09:00 Principal diagnosis: FERNANDA, TIA Interval history: This is a 65-year-old white female who presented to the emergency department complaints of expressive aphasia. [facility] was contacted but she was out of the window for treatment and per their recommendation she was started on aspirin, Plavix and a statin. The patient underwent carotid angiogram yesterday for evaluation of her carotid artery stenosis. She was found to have mild bilateral internal carotid artery disease not contributing to her TIA presentation. Dr. Evans does recommend a loop recorder placement due to cryptogenic stroke/TIA. This morning she denies any recurrence of her expressive aphasia today. She denies any chest pain or pressure. She denies any shortness of breath or edema. She denies any fever, chills, nausea, vomiting, diarrhea, PND or orthopnea. Exam Vital signs and Labs for Last 24 Hours: Temp Pulse Resp BP Pulse Ox 98.4 F 84 20 139/56 L 92 L 07/07/21 00:00 07/07/21 00:00 07/07/21 00:00 07/07/21 00:00 07/07/21 00:00 Laboratory Results - last 24 hr 07/06/21 11:58: POC Glucose 280 H 07/06/21 16:10: POC Glucose 241 H 07/06/21 20:52: POC Glucose 279 H 07/07/21 05:24: WBC 4.7 L, RBC 4.48, Hgb 13.4, Hct 41.1, MCV 91.8, MCH 29.9, MCHC 32.6, RDW 14.7, Plt Count 209, MPV 9.4, Neut % (Auto) 63.2, Lymph % (Auto) 24.7, [place] % (Auto) 7.0, Eos % (Auto) 4.1, Baso % (Auto) 0.9, Neut # (Auto) 3.0, Lymph # (Auto) 1.2, [place] # (Auto) 0.3, Eos # (Auto) 0.2, Baso # (Auto) 0.0 07/07/21 05:24: Sodium 135 L, Potassium 4.1, Chloride 103, Carbon Dioxide 26, Anion Gap 10.1, BUN 30 H, Creatinine 1.20 H, Estimated Creat Clear 83, Estimated GFR 45 L, Est GFR ( Amer) 55 L, Glucose 178 H, Calcium 8.3 L 07/07/21 06:29: POC Glucose 202 H I & O for Last 24 hours: Intake & Output 07/04/21 07/05/21 07/06/21 07/07/21 23:59 23:59 23:59 23:59 Intake Total 840 / 840 Output Total 575 / 575 Balance 265 / 265 Weight 303 lb 313 lb 0.902 oz 316 lb 1.6 oz 242 lb 9.6 oz Narrative: Telemetry strip shows sinus rhythm. - Constitutional no acute distress, obese - *Routine HEENT Exam Head: Present: normocephalic, atraumatic Eye: Present: EOMI, PERRL ENT: Present: mucous membranes moist - *Routine Neck Exam Present: supple, full ROM, normal carotid upstroke. Absent: JVD, carotid bruit, lymphadenopathy - *Routine Respiratory Exam Present: CTA bilaterally - *Routine Cardiovascular Exam Present: RRR, Normal S1, Normal S2. Absent: murmur - *Routine Abdominal Exam Present: soft, normoactive bowel sounds. Absent: tenderness, distended - *Routine Extremities Exam Present: full ROM, pulses intact, normal capillary refill. Absent: cyanosis, clubbing, edema - *Routine Skin Exam Present: intact, warm. Absent: erythema, rash - *Routine Neurological Exam Present: alert, oriented X3, CN II-XII intact. Absent: sensory deficit, motor deficit Progress Note: A&P (1) Transient cerebral ischemia Status: Acute (2) Carotid artery stenosis Status: Acute (3) Diabetes mellitus Status: Acute (4) Expressive aphasia Status: Acute (5) Hypertension Status: Chronic (6) Hyperlipidemia Status: Chronic (7) Abnormal EKG Status: Acute Assessment and Plan for All Diagnoses:: Plan: 1. This is a 65-year-old white female who presented to the emergency department with expressive aphasia. CTA of the brain and MRI were both negative for CVA. She is currently being treated for TIAs. [facility] was contacted when she arrived to the emergency department but she was out of the window for treatment. They have recommended aspirin, Plavix and atorvastatin. She has been started on these medications and tolerating this well. 2. The patient underwent carotid angiogram yesterday which showed mild bilateral carotid artery stenosis. Aspirin and a statin are recommended. 3. Dr. Evans recommends loo
--- NOTE | 2021-07-07 09:36 | HMH.DCSUM ---
General - General Admission date:: 07/04/21 Discharge date: 07/07/21 HPI HPI: 65-year-old female with past medical history for HTN, HLD, tvs-ydstmqd-ukxsezsiy diabetes mellitus who presents to the emergency department for intermittent periods of expressive aphasia since sat evening. Patient reports Sunday she began to have periods where she had difficulty finding words. Patient states these episodes only last a few minutes and self resolved. She denies any headache. No other focal neurological deficits. No visual changes or gait ataxia. Patient denies any blood thinners or prior history of stroke or seizures. Pt admitted for further work up and eval. this am at 7:34 pt was talking to daughter on the phone and just stopped answering. pts daughter called into hospital and notified nursing. Nursing checked on pt and she was not talking and did open eyes when spoken to but was not focusing or answering questions, per staff episode lasted only a few mins but was not back to normal for 30 mins. pt did bite side of tongue during this episode. pt was taken down for ct of head per stroke protocol. upon rounding at 830 pt was alert answering all questions talking to daughter on phone. pt has no deficits Hospital Course Hospital Course: 65-year-old female with past medical history for HTN, HLD, lui-oelqkjs-svlpefwxc diabetes mellitus who presents to the emergency department for intermittent periods of expressive aphasia since sat evening. Patient reports Sunday she began to have periods where she had difficulty finding words. Patient states these episodes only last a few minutes and self resolved. She denies any headache. No other focal neurological deficits. No visual changes or gait ataxia. Patient denies any blood thinners or prior history of stroke or seizures. Pt admitted for further work up and eval. this am at 7:34 pt was talking to daughter on the phone and just stopped answering. pts daughter called into hospital and notified nursing. Nursing checked on pt and she was not talking and did open eyes when spoken to but was not focusing or answering questions, per staff episode lasted only a few mins but was not back to normal for 30 mins. pt did bite side of tongue during this episode. pt was taken down for ct of head per stroke protocol. upon rounding at 830 pt was alert answering all questions talking to daughter on phone. pt has no deficits [facility] stroke team recommended: Neurology at was consulted for recommendations given patient's current status and timeframe neurology recommends starting aspirin, atorvastatin and Plavix for a stratification and nonemergent MRI in the morning. Patient is admitted to medicine for further management. 07/05/21 Carotid Atery Duplex: FINDINGS: The peak systolic velocity of the right common carotid artery is 105 cm/s. The peak systolic velocity of the right internal carotid artery is 104 cm/s and end diastolic velocity 15 cm/s. The ICA/CCA ratio is 0.99. A mild amount of plaque is present. The right external carotid artery is patent. The right vertebral artery is patent with antegrade flow. The peak systolic velocity of the left common carotid artery is 133 cm/s. The peak systolic velocity of the left internal carotid artery is 242 cm/s and end diastolic velocity 66 cm/s. The ICA/CCA ratio is 2.1. A mild amount of plaque is present. The left external carotid artery is patent.The left vertebral artery is patent with antegrade flow. IMPRESSION: Less than 50% right carotid stenosis. 70-99% left carotid stenosis based upon velocity criteria. Recommend CTA or catheter angiogram for further evaluation. Bilateral patent vertebral arteries with antegrade flow. Reviewed, Interpreted and Dictated by Chris Solorzano III, MD 07/05/[address]: FINDINGS: Axial images of the head were obtained without contrast. Coronal reformatted images were also obtained. This study was performed with techniques to
[2021-07-07 11:08] LABS: POC Glucose,Bedside 286 (70-110)
--- NOTE | 2021-07-07 14:38 | P.PCN_ITS ---
[facility] Loop Recorder Date: 07/07/21 Time: 14:30 Procedure Performed:: Implantation of loop recorder Indication:: Cryptogenic stroke/TIA Technique:: Patient was brought to the cardiac Mild Disabilities Teacher. After informed consent obtained, 1% lidocaine with epinephrine was used to anesthetize the site along the left anterior aspect of the chest near the sternal border. Using the preformed scalpel, an incision was made and using the supplied preloaded apparatus, the loop recorder was placed subcutaneously without difficulty. Following the deployment of the loop recorder interrogation of the device was performed to ensure appropriate voltage was being detected (0.20 mV). Once this was verified, Steri-Strips were placed over the incision and the patient was prepped to discharge home. Patient tolerated the procedure well with minimal discomfort. Impression:: Successful implantation of loop recorder. Serial Number:: Digital Lab M301 LUX-Dx Serial #[id number] Plan:: Routine postop care. Loop recorder inserted under the supervision of Dr. Moise Evans.
[2021-07-07 14:40] VITALS: BP 103/65; PULSE 67; RESP 18; O2SAT 95
--- NOTE | 2021-07-08 12:39 | CARE MANAGER ---
Spoke with patient about discharge from the hospital, patient states that she has all that she needs : meds, follow-up appointment.
== END 2021-07-07 16:00 | disposition home or self-care (01) ==
LOC: ER 19:39 → 2ND 19:51
PROVIDERS: Internal Medicine; Nurse Practitioner Family; Admitting Provider Family Medicine; Emergency Provider Student in an Organized Health Care Education/Training Program; PCP Nurse Practitioner; Visit Provider Family Medicine
DX: I65.23 Occlusion and stenosis of bilateral carotid arteries; E11.65 Type 2 diabetes mellitus with hyperglycemia; I10 Essential (primary) hypertension; F17.210 Nicotine dependence, cigarettes, uncomplicated; R47.01 Aphasia; I77.1 Stricture of artery; Z79.84 Long term (current) use of oral hypoglycemic drugs; Z79.899 Other long term (current) drug therapy; Z20.822 Contact with and (suspected) exposure to COVID-19
CPT/HCPCS: 33285; 36224; 36226; 36252; 36415; 70450; 70496; 70498; 70551; 80048; 80053; 80061; 82009; 82803; 82962; 83735; 84484; 85025; 85610; 85730; 93005; 93306; 93880; 95816; 96374; 99152; 99285; C1725; C1769; C9803; G0378; J1644; J1953; Q9967; U0003; U0005

== ENCOUNTER → 2021-07-11 11:35 | Outpatient (CLI) | payer BC, SELFPAY ==
[2021-07-11 12:40] LABS: Basophils # 0.1 K/mm3 (0-0.2); Eosinophils # 0.2 K/mm3 (0.0-0.4); Eosinophils % 3.9 % (0.1-12.0); Hematocrit 46.8 % (37.0-47.0); Hemoglobin 15.2 g/dL (12.2-16.2); Lymphocytes # 1.3 K/mm3 (0.7-4.5); Lymphocytes % 21.7 % (10-50); Mean Corpuscular HGB Conc 32.4 g/dL (31.8-35.4); Mean Corpuscular Hemoglobin 29.9 pg (27.0-31.2); Mean Corpuscular Volume 92.2 fl (81-99); Monocytes # 0.3 K/mm3 (0.1-1.0); Monocytes % 4.3 % (1.7-9.3); Neutrophils # 4.3 K/mm3 (1.8-7.8); Neutrophils % 69.1 % (37.0-80.0); Platelet Count 286 K/mm3 (142-424); Red Blood Count 5.07 M/mm3 (4.20-5.40); Red Cell Distribution Width 14.5 % (11.5-17.5); White Blood Count 6.2 K/mm3 (4.8-10.8)
[2021-07-11 12:48] LABS: Coronavirus 19, PCR Not Detected (NotDetected); Influenza A, PCR Not Detected (NotDetected); Influenza B, PCR Not Detected (NotDetected)
[2021-07-11 13:17] LABS: Anion Gap 9.5 mEq/L (5-15); Blood Urea Nitrogen 34 mg/dl (7-17); Calcium 9.3 mg/dl (8.4-10.2); Carbon Dioxide 32 mmol/L (22.0-30.0); Chloride 101 mmol/L (98-107); Estimated Glomerular Filt Rate 45 ml/min (>60); GFR (African American) 55 ML/MIN (>60); Glucose 227 mg/dl (74-100); Potassium 5.5 mmoL/L (3.5-5.1); Sodium 137 mmol/L (136-145)
[2021-07-11 13:34] LABS: Free T4 (Free Thyroxine) 1.33 ng/dl (0.78-2.19)
[2021-07-11 13:48] LABS: Thyroid Stimulating Hormone 3.61 uIU/mL (0.465-4.68)
== END ==
PROVIDERS: Visit Provider Nurse Practitioner Family
DX: Z01.812 Encounter for preprocedural laboratory examination (principal); Z11.52 Encounter for screening for COVID-19; G45.9 Transient cerebral ischemic attack, unspecified
CPT/HCPCS: 36415; 80048; 84439; 84443; 85025; 87186; C9803; U0003; U0005

== ENCOUNTER 2021-07-12 08:56 | Day surgery (SDC) | payer BC, SELFPAY ==
[2021-07-12] VITALS (10 sets, daily range): BP systolic 112–174; BP diastolic 61–109; PULSE 75–87; RESP 16–18; O2SAT 94–98; BMI 47.7
--- NOTE | 2021-07-12 07:10 | IR_ITS ---
APPROVED REPORT Patient Location: Outpatient Taxi Cab Driver: JADYN Ly RT (R) PROCEDURES 1. Pocket formation for Permanent Pacemaker Placement. 2. Placement of an atrial sensing and pacing coil into the right atrial appendage. 3. Placement of a ventricular sensing and pacing coil in the right ventricular apex. 4. Permanent Pacemaker Placement. INDICATION Symptomatic bradycardia which includes TIAs, Heart rate into the 30s with sinus arrest Informed consent was obtained prior to the procedure. COMPLICATIONS NONE Estimated Blood Loss: LESS THAN 10 ML TECHNIQUE 1% Lidocaine with epinephrine used to anesthetized the left anterior aspect of the chest. Scalpel was used to make the initial cutaneous incision while electrocautery was used to dissect down tinto the fascia. The fascia was lifted off the pectoralis muscle and digitally manipulated creating a pocket for the pacemaker. The patient was then placed in Trendelenburg position and the subclavian vein was accessed twice via the Selinger technique, there are two wires in the vein. A 6 [place] sheath was placed under fluoroscopic guidance into the subclavian vein over one of the wires while keeping the other wire in place within the subclavian vein. The dilator was removed from the sheath. Using fluoroscopic guidance, the ventricular lead was placed into the right ventricular apex, screwed and secured into place. Electronic interrogation proved acceptable thresholds and voltage within the lead. Using 3-0 silk, the ventricular lead was then secured into place. Lead was secured to the facia using the 3-0 silk. Following this, the sheath was pealed away. An additional 6 Trin[place] fresh sheath and dilator was placed over the existing wire. Using fluoroscopic guidance, the atrial lead was the placed into the right atrial appendage and screwed and secured in place. Electrical interrogation demonstrated acceptable thresholds and voltage number. The atrial lead was then secured into place using 3-0 silk. 1 gram of Ancef was used to flush the pocket. Following the pacemaker generator being secured to the fascia and in place, Monocryl was used to close the subcutaneous layers while fernando were used to close the cutaneous layer. A pressure dressing was placed and the patient was transferred to the postop holding area in stable condition for postoperative care. INTERROGATION Generator Model number: [employer] IS-1 L311 Generator Serial number: [id number] Atrial lead model number: 7840 Atrial lead serial number: [id number] P-wave: 3.0 mV Impedence: 550 ohms Threshold: 1.5 V @ 0.4 ms Right Ventricular lead model number: 7841 Right Ventricular lead serial number: [id number] R-wave: 12.0V Impedence: 900 ohms Threshold: 0.5V @ 0.4 ms Pacing Parameters: Mode: DDDR Base/Max Track:60 ppm / 130 ppm No diaphragmatic stimulation at 10 volts. IMPRESSION 1. Successful pocket formation for Permanent Pacemaker Placement. 2. Successful placement of an atrial sensing and pacing coil into the right atrial appendage. 3. Successful placement of a ventricular sensing and pacing coil in the right ventricular apex. 4. Successful permanent Pacemaker Placement. PLAN 1. POST OP WOUND CARE Electronically signed by : Moise Evans MD 07/14/2021 12:10:23
--- NOTE | 2021-07-12 14:47 | XR_ITS ---
FINAL REPORT CLINICAL HISTORY: post pacemaker placement, r/o pneumo FINDINGS: There is a left subclavian pacemaker. The heart size is normal. The mediastinum is normal. There is no focal infiltrate or edema. There are no pleural effusions. There is no pneumothorax. There is no osseous abnormality. IMPRESSION: Left subclavian pacemaker in place without pneumothorax. Reviewed, Interpreted and Dictated by Chris Solorzano III, MD Transcribed by Michael Davis Authenticated by Chris Solorzano III, MD on 07/12/2021 03:37:27 PM [facility]
--- NOTE | 2021-07-15 08:09 | HMH.ANESCL ---
[facility] Anesthesia Checklist - Patient Identification Patient Identification: Arm Band - Structural Data Admitted From: Home Planned Operative Procedure/s: Dual Chamber Pacemaker Consent for Planned Operative Procedure(s) Verified: Yes Verified Documents: Surgical Consent, History and Physical - NPO Status Verified Time NPO: 00:00 - Additional verifications Anesthesia Reactions: No - Airway Assessment C-Spine Mobility Assessed: Yes TMJ Mobility Assessed: Yes Dentition: Good Dentition - Neurological Assessment Level of Consciousness: Awake, Alert - Anesthesia Plan Anesthesia Risk discussed: Yes Anesthesia Plan: Verified ASA Class: III Anesthesia Type: MAC [facility] History I have reviewed the patient's past medical history: Yes 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: Reports:: Diabetes Mellitus Type 2, Hyperlipidemia, Hypertension, Seizures *Have you ever received a pneumonia vaccine?: Yes *Have you received a flu vaccine this season?: Yes Other 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: Reports: Other Anesthesia experience/problems:: nac Other Surgeries: Yes: Cardiac Catheterization, Cholecystectomy Fractures: No - *Social History Last grade of school completed: High school graduate Smoking Status: Current every day smoker Tobacco Type: cigarettes # Packs/Day (cigarettes): 1 Alcohol Intake: never Substance Use Type: denies use *Occupational Status:: retired Household Members: family *Travel in the last 8 weeks: None Family Hx:: Diabetes
== END 2021-07-12 17:10 | disposition home or self-care (01) ==
LOC: CATHLAB 08:57
PROVIDERS: PCP Nurse Practitioner; Visit Provider Internal Medicine
DX: I49.5 Sick sinus syndrome (principal); I65.23 Occlusion and stenosis of bilateral carotid arteries; R47.01 Aphasia; E11.65 Type 2 diabetes mellitus with hyperglycemia; F17.210 Nicotine dependence, cigarettes, uncomplicated; Z79.899 Other long term (current) drug therapy; G45.8 Other transient cerebral ischemic attacks and related syndromes
CPT/HCPCS: 33208; 71045; C1785; C1898

== ENCOUNTER → 2021-07-27 06:52 | Outpatient (CLI) | payer BC, SELFPAY ==
--- NOTE | 2021-07-27 | CA_ITS ---
APPROVED REPORT Exam: Pharmacologic Technologist: Maame Murdock, Ht: 5 ft 8 in Wt: 327 lbs BSA: 2.52 m2 HR: 67 bpm BP: 124/47 mmHg 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 Medications: Aspirin,,,,, Losartan,,,,, Atorvastatin,,,,, Pioglitazone,,,,, CloPIdogrel,,,,, Furosemide,,,,, GIipizide,,,,, Levetiacetan,,,,, Stress Test Details Test: LEXISCAN HR Resting HR: 67 bpm Max Heart Rate (APMHR): 157.292838 bpm Max HR Achieved: 86 bpm Target HR (85% APMHR): 133.348973 bpm % of APMHR: 54.78 Recovery HR: 76 bpm BP Resting BP: 124/47 mmHg Max BP: 124/47 mmHg Recovery BP: 118.0/52.0 mmHg ECG Resting ECG: NSR, ventricular paced Clinical Exercise duration: 04:00 min Highest Stage Achieved: Exercise capacity: 1.0 METs Stress ECG Conclusion Symptoms: Mild SOA, nausea, head discomfort. Arrhythmias/Ectopy: None ST-T Changes: No significant changes. Conclusion: Non-disgnostic Lexiscan stress. Myoview images reported separately. Test Summary RECOVERY 04:00 . . 76 . 118/ 52 . . REST 02:56 . . 67 . 124/ 47 . . Stage 1 01:00 . . 79 . . . . Stage 2 01:00 . . 79 . . . . Stage 3 01:00 . . 79 . 120/ 46 . . Stage 4 01:00 . . 77 . 113/ 44 . Stop exercise at 04:00 RECOVERY 01:00 . . 86 . 121/ 37 . . RECOVERY 02:00 . . 84 . 121/ 37 . . RECOVERY 03:00 . . 83 . 120/ 52 . . RECOVERY 04:00 . . 76 . 118/ 52 . . RECOVERY 04:27 . . 84 . 118/ 52 . . Electronically signed by : Chavo Swan MD 07/27/2021 20:15:45
--- NOTE | 2021-07-27 06:53 | NM_ITS ---
APPROVED REPORT Exam: Nuclear Stress Test Indication: HTN, D.M,HYPERLIPIDEMIA, TOB USE, SOB Patient Location: Outpatient Stress Tech: Talisha Vasquez NM Tech:JADYN Bautista RT (R)(N)(M) Ht: 5 ft 8 in Wt: 320 lbs Bra Size: 50DD HR: 67 bpm BP: 124/47 mmHg BSA: 2.50 m2 BMI: 48.6 History: HTN, D.M,HYPERLIPIDEMIA, TOB USE, SOB Procedure: Patient received a 0.4 mg of intravenous Lexiscan, resting heart rate 67 bpm, resting blood pressure 124/47 mmHg, with Lexiscan maximum heart rate achived was 86 bpm which is Less than 85 % of the maximum predicted heart rate and blood pressure was 121/37 mmHg. With Lexiscan, patient denied any complaint of chest pain. Electrocardiogram Resting electrocardiogram shows sinus rhythm, intraventricular conduction delay, with Lexiscan there is less than 1.[address] segment depression noted from the baseline EKG. The EKG portion of the Lexiscan is nondiagnostic. Cardiac Stress and Resting SPECT Images: Cardiac Stress and Resting SPECT images were obtained using technetium 99m Myoview 31.3 mCi stress and 10.62 mCi at rest. Gated SPECT for analysis of segmental wall motion and calculation of the ejection fraction also done, prone images were also obtained. Cardiac stress and resting SPECT images show mild fixed defect in the anterolateral wall with normal contractility gated SPECT is likely secondary to soft tissue attenuation, no reversible ischemia seen. Computer derived ejection fraction is 63% with no regional wall motion abnormality, however there is transient ischemic dilatation of the left ventricle seen, raising the concerns for presence of balanced ischemia. Right ventricle is normal size and contractility. Conclusion: 1. The EKG portion of the Lexiscan is nondiagnostic. 2. No scintigraphic evidence of reversible ischemia seen, computer derived ejection fraction 63% with no regional wall motion abnormality, however there is transient ischemic dilatation of the left ventricle seen, raising the concern for presence of balanced ischemia, right ventricle is normal size and contractility. 3. Abnormal Lexiscan Myoview study. Electronically signed by : Chavo Swan MD 07/27/2021 20:19:10
== END ==
PROVIDERS: PCP Nurse Practitioner; Visit Provider Physician Assistant
DX: R06.09 Other forms of dyspnea (principal)
CPT/HCPCS: 78452; 93017; A9502; J2785

== ENCOUNTER → 2021-08-01 11:44 | Outpatient (CLI) | payer BC, SELFPAY | PROVIDERS: Visit Provider Ophthalmology | DX: Z01.812 Encounter for preprocedural laboratory examination (principal); Z11.52 Encounter for screening for COVID-19 | CPT/HCPCS: C9803; U0003; U0005 ==

== ENCOUNTER 2021-08-02 10:22 | Day surgery (SDC) | payer BC, SELFPAY ==
[2021-07-28 11:15] VITALS: BMI 47.4
[2021-08-02 11:52] VITALS: BP 156/71; PULSE 66; RESP 18; TEMP 36.3; O2SAT 96
[2021-08-02 13:33] VITALS: RESP 20
[2021-08-02 13:52] VITALS: BP 151/76; PULSE 65; RESP 18; O2SAT 95
[2021-08-02 14:06] VITALS: BP 151/76; PULSE 65; RESP 18; O2SAT 95
[2022-01-05 10:59] LABS: POC Glucose,Bedside 71 (70-110)
== END 2021-08-02 14:06 | disposition home or self-care (01) ==
LOC: OR 10:24
PROVIDERS: PCP Nurse Practitioner; Visit Provider Ophthalmology
PROC: (CPT 66984; principal; 2021-08-02 14:00)
DX: H25.813 Combined forms of age-related cataract, bilateral (principal); H02.831 Dermatochalasis of right upper eyelid; H02.834 Dermatochalasis of left upper eyelid; E11.9 Type 2 diabetes mellitus without complications; I10 Essential (primary) hypertension; E78.5 Hyperlipidemia, unspecified; Z95.0 Presence of cardiac pacemaker; Z79.82 Long term (current) use of aspirin; Z79.899 Other long term (current) drug therapy
CPT/HCPCS: 66984; 82962; V2632

== ENCOUNTER → 2021-08-09 10:04 | Outpatient (CLI) | payer BC, SELFPAY ==
[2021-08-09 10:44] LABS: Basophils # 0.1 K/mm3 (0-0.2); Basophils % 1.7 % (0.1-2.0); Eosinophils # 0.2 K/mm3 (0.0-0.4); Eosinophils % 4.4 % (0.1-12.0); Hematocrit 39.7 % (37.0-47.0); Hemoglobin 13.1 g/dL (12.2-16.2); Lymphocytes # 1.2 K/mm3 (0.7-4.5); Lymphocytes % 22.2 % (10-50); Mean Corpuscular HGB Conc 33.1 g/dL (31.8-35.4); Mean Corpuscular Hemoglobin 30.8 pg (27.0-31.2); Mean Corpuscular Volume 93.1 fl (81-99); Mean Platelet Volume 8.6 fl (7.4-10.4); Monocytes # 0.3 K/mm3 (0.1-1.0); Monocytes % 6.2 % (1.7-9.3); Neutrophils # 3.5 K/mm3 (1.8-7.8); Neutrophils % 65.5 % (37.0-80.0); Platelet Count 207 K/mm3 (142-424); Red Blood Count 4.26 M/mm3 (4.20-5.40); Red Cell Distribution Width 16.2 % (11.5-17.5); White Blood Count 5.4 K/mm3 (4.8-10.8)
[2021-08-09 11:25] LABS: Anion Gap 11.4 mEq/L (5-15); Blood Urea Nitrogen 36 mg/dl (7-17); Calcium 9.2 mg/dl (8.4-10.2); Carbon Dioxide 31 mmol/L (22.0-30.0); Chloride 103 mmol/L (98-107); Estimated Glomerular Filt Rate 50 ml/min (>60); GFR (African American) 61 ML/MIN (>60); Glucose 80 mg/dl (74-100); Potassium 4.4 mmoL/L (3.5-5.1); Sodium 141 mmol/L (136-145)
== END ==
PROVIDERS: Visit Provider Physician Assistant
DX: Z01.812 Encounter for preprocedural laboratory examination (principal); Z11.52 Encounter for screening for COVID-19; I49.5 Sick sinus syndrome; I10 Essential (primary) hypertension; R56.9 Unspecified convulsions; R40.4 Transient alteration of awareness; E78.5 Hyperlipidemia, unspecified; I65.23 Occlusion and stenosis of bilateral carotid arteries; R94.30 Abnormal result of cardiovascular function study, unspecified; G47.30 Sleep apnea, unspecified; E66.9 Obesity, unspecified; Z68.43 Body mass index [BMI] 50.0-59.9, adult
CPT/HCPCS: 36415; 80048; 85025; C9803; G0399; U0003; U0005

== ENCOUNTER 2021-08-10 07:46 | Day surgery (SDC) | payer BC, SELFPAY ==
[2021-08-10] VITALS (12 sets, daily range): BP systolic 129–173; BP diastolic 64–91; PULSE 61–75; RESP 18; O2SAT 92–100; BMI 51.2
--- NOTE | 2021-08-10 | IR_ITS ---
APPROVED REPORT Patient Location: Outpatient [employer] Therapist: JADYN Ly RT (R) PROCEDURES Left heart catheterization Selective coronary angiogram Left ventriculogram FFR to the LAD Drug-eluting stent deployment to the proximal mid LAD in a contiguous manner Informed consent was obtained prior to the procedure. COMPLICATIONS None Estimated Blood Loss: Less than 10 mls TECHNIQUE One percent lidocaine used to anesthetize the right anterior aspect of the wrist. The right radial artery was accessed via the Seldinger technique. A 6 [place] sheath was placed in the right radial artery. 2.5 mg of verapamil, 800 mcg of nitroglycerin, 1mg Lidocaine and 5000 U Heparin were given through the arterial sheath. The papa catheter was also used to perform left heart catheterization, left ventriculogram and selective coronary angiogram. Patient had ambiguous disease in the proximal LAD which was greater than 40% but possibly less than 70% by angiographic criteria. There was suspicion this was a much worse lesion. Therapeutic heparin was administered and the guide catheter was placed in the left main artery followed by a Choice PT extra-support wire. Nevus catheter was then equalized and then advanced into the LAD where the FFR index immediately dropped to 0.81-0.82. Adenosine was infused and the FFR index dropped to 0.74 before the procedure was terminated at just 1 minute. Primary stenting could not be performed due to the severe calcification in the proximal segment therefore a 2.5 x 27 mm balloon was used to predilate the stenosis. Following this this allowed delivery of a 3 mm x 38 mm resolute Julio C stent to be deployed at 18 eloisa in the proximal LAD. An additional 3 mm x 18 mm resolute Julio C stent was placed distal to the first stent and deployed at 18 eloisa. The balloon was brought back and deployed at 20 and 24 eloisa up and down the LAD. At this point there was additional stenosis proximal to the first stent therefore a guide liner and a 3 mm balloon were used to predilate the stenosis. This was followed by a 3 mm x 18 mm resolute [employer] stent deployed in the proximal LAD overlapping the first stent which was placed and deployed at 22 eloisa. The balloon was then advanced and deployed at 22 and 24 eloisa to post dilate. At the end of the procedure there excellent angiographic results with JEANE-3 flow being present before and after the procedure. At the end of the procedure the apparatus was removed the sheath was removed and hemostasis achieved using TR banding patient was transferred to the postop putting in stable condition ANGIOGRAPHIC RESULTS The left main artery Normal The left anterior descending artery Has proximal 40 to 70% hazy stenosis followed by additional mid vessel 40% stenoses. There are 2 moderate-sized diagonal arteries which originate from the proximal mid LAD which are widely patent and free of disease The circumflex artery Nondominant with mild 10 to 20% stenoses The right coronary artery Is a dominant vessel and has proximal to mid vessel 40% stenoses The BURNETT ventriculogram reveals Mild left ventricular dilatation preserved ejection fraction at 60% The left ventricular end-diastolic pressure Elevated at 20 mmHg IMPRESSION Coronary artery disease as described above Successful stenting of the proximal mid LAD severe disease reduced to 0% with 3 contiguous drug-eluting stents Persistent moderate stenosis in the proximal dominant right coronary artery which is possibly ischemic or could be based on the transient LV dilatation. Preserved ejection fraction Mild to moderately elevated LVEDP PLAN 1. Dual antiplatelet therapy 2. Medical management for the right coronary at this carito
[2021-08-10 11:50] LABS: CATHL Activated Clotting Time > 400 SEC (74-125)
--- NOTE | 2021-08-10 13:55 | HMH.PHACLD ---
Bailey Camacho has received discharge medication counseling on the following medications: PATIENT IS CURRENTLY TAKING ASPIRIN 81 MG DAILY, PLAVIX 75 MG DAILY, LOSARTAN 50 MG DAILY, AND ATORVASTATIN 40 MG HS. STARTING BISOPROLOL 10 MG DAILY AT THIS TIME.
== END 2021-08-10 15:11 | disposition home or self-care (01) ==
LOC: CATHLAB 07:48
PROVIDERS: PCP Nurse Practitioner; Visit Provider Internal Medicine
DX: G47.34 Idiopathic sleep related nonobstructive alveolar hypoventilation (principal); I10 Essential (primary) hypertension; I49.5 Sick sinus syndrome; Z79.01 Long term (current) use of anticoagulants; R94.30 Abnormal result of cardiovascular function study, unspecified; Z95.0 Presence of cardiac pacemaker; E66.01 Morbid (severe) obesity due to excess calories; I25.2 Old myocardial infarction; I25.10 Atherosclerotic heart disease of native coronary artery without angina pectoris; G47.33 Obstructive sleep apnea (adult) (pediatric); Z79.899 Other long term (current) drug therapy; Z68.43 Body mass index [BMI] 50.0-59.9, adult
CPT/HCPCS: 85347; 92928; 93458; 93571; 99152; 99153; C1725; C1760; C1769; C1874; C1876; C1894; C9600; J0153; J1644; Q9967

== ENCOUNTER → 2021-08-27 10:19 | Outpatient (CLI) | payer BC, SELFPAY | PROVIDERS: Visit Provider Ophthalmology | DX: Z01.812 Encounter for preprocedural laboratory examination (principal); Z20.822 Contact with and (suspected) exposure to COVID-19 | CPT/HCPCS: C9803; U0003; U0005 ==

== ENCOUNTER 2021-08-30 08:48 | Day surgery (SDC) | payer BC, SELFPAY ==
[2021-08-26 12:18] VITALS: BMI 45.6
[2021-08-30 09:20] VITALS: BP 127/50; PULSE 60; RESP 18; TEMP 36.1; O2SAT 95
[2021-08-30 09:35] LABS: POC Glucose,Bedside 84 (70-110)
[2021-08-30 11:00] VITALS: BP 140/69; PULSE 60; RESP 18; O2SAT 99
[2021-08-30 11:05] VITALS: BP 128/66; PULSE 60; RESP 18; O2SAT 97
[2021-08-30 11:10] VITALS: BP 131/72; PULSE 60; RESP 18; O2SAT 97
[2021-08-30 11:13] VITALS: BP 128/65; PULSE 60; RESP 18; O2SAT 100
[2021-08-30 11:15] VITALS: BP 125/77; PULSE 60; RESP 16; TEMP 36.2; O2SAT 92
== END 2021-08-30 11:37 | disposition home or self-care (01) ==
LOC: OR 08:49
PROVIDERS: PCP Nurse Practitioner; Visit Provider Ophthalmology
PROC: (CPT 66984; principal; 2021-08-30 13:00)
DX: H25.813 Combined forms of age-related cataract, bilateral (principal); H02.831 Dermatochalasis of right upper eyelid; H02.834 Dermatochalasis of left upper eyelid; E78.5 Hyperlipidemia, unspecified; I10 Essential (primary) hypertension; E11.9 Type 2 diabetes mellitus without complications; Z95.0 Presence of cardiac pacemaker; Z72.0 Tobacco use; Z87.19 Personal history of other diseases of the digestive system; Z79.899 Other long term (current) drug therapy
CPT/HCPCS: 66984; 82962; V2632

== ENCOUNTER → 2021-11-01 13:15 | Outpatient (CLI) | payer BC, SELFPAY ==
--- NOTE | 2021-11-01 13:18 | US_ITS ---
FINAL REPORT CLINICAL HISTORY: LOCIALIZED SWELLING,MASS AND LUMP,NECK FINDINGS: Limited sonographic images of the posterior left neck were obtained. There is a hypoechoic mass at the area of interest measuring 6.5 x 3.7 cm. This is not a fluid collection, could represent a lipoma but other mass is not excluded. IMPRESSION: Posterior left neck mass, could possibly be a lipoma. Consider CT to confirm indicated. Reviewed, Interpreted and Dictated by Ale Escalante MD Transcribed by Melva Rosen Authenticated and . [facility]
== END ==
PROVIDERS: PCP Nurse Practitioner; Visit Provider Nurse Practitioner
DX: R22.1 Localized swelling, mass and lump, neck (principal)
CPT/HCPCS: 76536

== ENCOUNTER → 2021-11-07 14:38 | Outpatient (CLI) | payer BC, SELFPAY ==
--- NOTE | 2021-11-07 14:42 | CT_ITS ---
FINAL REPORT TECHNIQUE: Axial images of the soft tissues of the neck were obtained without IV contrast. Sagittal and coronal reformats were provided. This study was performed with techniques to keep radiation doses as low as reasonably achievable, (ALARA). Individualized dose reduction techniques using automated exposure control or adjustment of mA and/or kV according to the patient's size were employed. CLINICAL HISTORY: LOCALIZED SWELLING, MASS AND LUMP, NECK LEFT POSTERIOR NECK PALPABLE AREA, BB PLACED ON AREA COMPARISON: CTA Neck dated 07/04/2021, soft tissue neck ultrasound dated 11/01/2021 FINDINGS: CT NECK SOFT TISSUE WITHOUT CONTRAST There is a 6.4 x 3.9 x 7.7 cm fat attenuation mass in the left posterior neck, deep to the trapezium muscle. The appearance is consistent with a lipoma which is not significantly changed as compared to the prior CT from 07/04/2021. No other mass is identified. IMPRESSION: Left posterior neck mass consistent with a lipoma. Reviewed, Interpreted and Dictated by Chris Solorzano III, MD Transcribed by Priscila Courtney Authenticated and [facility]
== END ==
PROVIDERS: PCP Nurse Practitioner; Visit Provider Nurse Practitioner
DX: R22.1 Localized swelling, mass and lump, neck (principal)
CPT/HCPCS: 70490

== ENCOUNTER → 2021-12-31 10:57 | Outpatient (CLI) | payer BC, SELFPAY ==
[2021-12-31 11:20] LABS: Basophils # 0.1 K/mm3 (0-0.2); Basophils % 0.9 % (0.1-2.0); Eosinophils # 0.2 K/mm3 (0.0-0.4); Eosinophils % 3.1 % (0.1-12.0); Hematocrit 41.3 % (37.0-47.0); Hemoglobin 13.3 g/dL (12.2-16.2); Lymphocytes # 1.2 K/mm3 (0.7-4.5); Lymphocytes % 18.7 % (10-50); Mean Corpuscular HGB Conc 32.1 g/dL (31.8-35.4); Mean Corpuscular Hemoglobin 30.9 pg (27.0-31.2); Mean Corpuscular Volume 96.1 fl (81-99); Mean Platelet Volume 8.6 fl (7.4-10.4); Monocytes # 0.4 K/mm3 (0.1-1.0); Monocytes % 5.8 % (1.7-9.3); Neutrophils # 4.5 K/mm3 (1.8-7.8); Neutrophils % 71.4 % (37.0-80.0); Platelet Count 233 K/mm3 (142-424); Red Blood Count 4.29 M/mm3 (4.20-5.40); Red Cell Distribution Width 14.7 % (11.5-17.5); White Blood Count 6.3 K/mm3 (4.8-10.8)
[2021-12-31 11:44] LABS: Anion Gap 13.6 mEq/L (5-15); Blood Urea Nitrogen 31 mg/dl (7-17); Calcium 9.1 mg/dl (8.4-10.2); Carbon Dioxide 29 mmol/L (22.0-30.0); Chloride 103 mmol/L (98-107); Estimated Glomerular Filt Rate 45 ml/min (>60); GFR (African American) 55 ML/MIN (>60); Glucose 80 mg/dl (74-100); Potassium 4.6 mmoL/L (3.5-5.1); Sodium 141 mmol/L (136-145)
== END ==
PROVIDERS: PCP Physician Assistant; Visit Provider Surgery
DX: Z01.812 Encounter for preprocedural laboratory examination (principal); Z20.822 Contact with and (suspected) exposure to COVID-19; D17.9 Benign lipomatous neoplasm, unspecified
CPT/HCPCS: 36415; 80048; 85025; C9803; U0003; U0005

== ENCOUNTER → 2022-01-02 08:01 | Day surgery (SDC) | payer BC, SELFPAY ==
[2021-12-27 14:46] VITALS: BMI 51.7
[2022-01-02 08:17] VITALS: BP 138/48; PULSE 66; RESP 20; TEMP 36.4; O2SAT 98
--- NOTE | 2022-01-02 08:44 | SUR.PREOP ---
Surgery cancelled per MD Mcallister d/t to pt taking home Plavix yesterday. Pt was instructed by cardiology to Hold ASA and Xarelto for 3-5 days, but Plavix was not addressed.
--- NOTE | 2022-01-02 08:46 | SUR.PREOP ---
0846- Pt discharged to home. Pt instructed that MD Mcallister's office will call her to reschedule procedure.
[2022-01-02 09:09] LABS: POC Glucose,Bedside 77 (70-110)
== END ==
PROVIDERS: PCP Nurse Practitioner; Visit Provider Surgery
PROC: (CPT 11420; principal; 2022-01-02 09:30)
DX: Z53.09 Procedure and treatment not carried out because of other contraindication (principal); D17.0 Benign lipomatous neoplasm of skin and subcutaneous tissue of head, face and neck; Z72.0 Tobacco use; Z79.899 Other long term (current) drug therapy; E11.9 Type 2 diabetes mellitus without complications
CPT/HCPCS: 11420; 82962

== ENCOUNTER 2022-01-23 09:02 | Day surgery (SDC) | payer BC, SELFPAY ==
[2022-01-20 12:47] VITALS: BMI 48.6
[2022-01-23] VITALS (17 sets, daily range): BP systolic 87–172; BP diastolic 56–94; PULSE 60–70; RESP 16–20; TEMP 36.4–43; O2SAT 92–100
[2022-01-23 09:28] LABS: POC Glucose,Bedside 91 (70-110)
--- NOTE | 2022-01-23 09:46 | EXP.ANES.CKL ---
[facility] 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 CAD (coronary artery disease) Carotid artery stenosis History of diverticulitis Hyperlipidemia Hypertension Neuropathy PAF (paroxysmal atrial fibrillation) Transient cerebral ischemia Surgical History History of cholecystectomy Presence of cardiac pacemaker Stented coronary artery Family History (Reviewed 01/23/22 @ 09: by Laura Hope, RN) Other Family history of diabetes mellitus type II Family history of hypertension Social History (Updated 01/23/22 @ 09:27 by Laura Hope, RN) Smoking Status: Current every day smoker tobacco type: cigarettes packs per day: 1 pack-years: 40 alcohol intake: never substance use type: denies use current occupational status: retired Travel in the last 8 weeks: None household members: family housing: house current occupational exposures/hazards: No caffeine: Yes special [place] needs: No agree to transfusion: No do you feel safe at home: Yes victim of physical abuse: No victim of emotional abuse: No victim of sexual abuse: No would you like helpful sources: No [facility] Anesthesia Checklist Patient Identification Patient Identification: Arm Band and Verbal (Name & ) Structural Data Admitted From: Home Planned Operative Procedure/s: Excision of neck lesion Consent for Planned Operative Procedure(s) Verified: Yes Verified Documents: Surgical Consent NPO Status Verified Time NPO: 00:00 Chart Verification Results Verified: CBC and BMP Additional verifications Anesthesia Reactions: No Hx Blood Transfusions: No Blood Transfusion Reaction: No Airway Assessment C-Spine Mobility Assessed: Yes TMJ Mobility Assessed: Yes Dentition: Good Dentition Neurological Assessment Level of Consciousness: Awake, Alert and Appropriate Anesthesia Plan Anesthesia Risk discussed: Yes ASA Class: III Anesthesia Type: General
--- NOTE | 2022-01-23 10:14 | EXP.GEN.HP ---
HPI HPI HPI: Patient presents for excision of her left neck, presumed lipoma.? She is a 66-year-old female from [place] with history of hypertension, carotid artery stenosis, prior seizure, coronary artery disease, prior coronary stents, newly diagnosed paroxysmal atrial fibrillation, sick sinus syndrome with pacemaker in place, type 2 diabetes, with BMI 50.? She is on Xarelto and Plavix.? Patient describes a swelling on the lateral side of the left neck for quite a few years.? It however has increased in size.? She has developed symptoms from this.? She describes a pulling sensation.? She underwent ultrasound as well as CT scan which revealed findings most consistent with lipoma measuring about 6.5 cm.? I had seen her in the office and she had what appeared to be moderate lipoma on the left lateral neck area.? I had plan for MRI to better evaluate for potential imaging findings consistent with liposarcoma.? She was unable to undergo this due to the fact that she has a pacemaker. [facility] 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 CAD (coronary artery disease) Carotid artery stenosis History of diverticulitis Hyperlipidemia Hypertension Neuropathy PAF (paroxysmal atrial fibrillation) Transient cerebral ischemia Surgical History History of cholecystectomy Presence of cardiac pacemaker Stented coronary artery Family History Family history of hypertension Family history of diabetes mellitus type II Social History (Updated 01/23/22 @ 09:27 by Laura Hope RN) Smoking Status: Current every day smoker tobacco type: cigarettes packs per day: 1 pack-years: 40 alcohol intake: never substance use type: denies use current occupational status: retired Travel in the last 8 weeks: None household members: family housing: house current occupational exposures/hazards: No caffeine: Yes special [place] needs: No agree to transfusion: No do you feel safe at home: Yes victim of physical abuse: No victim of emotional abuse: No victim of sexual abuse: No would you like helpful sources: No Meds Home Medications and Allergies Home Medications Medication Instructions Recorded Confirmed Type losartan 50 mg tablet 50 mg PO DAILY High blood pressure 01/06/19 01/23/22 History atorvastatin 40 mg tablet 40 mg PO DAILY Cholesterol 12/29/20 01/23/22 History furosemide 20 mg tablet 20 mg PO DAILY Fluid 12/29/20 01/23/22 History pioglitazone 30 mg tablet 30 mg PO DAILYDM Diabetes 04/06/21 01/23/22 History glipizide 10 mg tablet 10 mg PO BID Diabetes 07/25/21 01/23/22 History bisoprolol fumarate 5 mg tablet 5 mg PO DAILY heart #30 tabs 11/07/21 01/23/22 Rx clopidogrel 75 mg tablet 75 mg PO DAILY Blood thinner #30 11/07/21 01/23/22 Rx tabs aspirin 81 mg tablet,delayed 81 mg PO DAILY Blood thinner 12/15/21 01/23/22 History release (Adult Aspirin Regimen) rivaroxaban 20 mg tablet (Xarelto) 20 mg PO DAILY Blood thinner 12/27/21 01/23/22 History New Prescriptions to Start Prescriptions: Allergies Allergy/AdvReac Type Severity Reaction Status Date / Time No Known Allergies Allergy Verified 01/23/22 09:12 Exam Data for Last 24 hours Vital signs and Labs for Last 24 Hours: Temp Pulse Resp BP Pulse Ox 97.5 F L 65 18 152/59 H 96 01/23/22 09:15 01/23/22 09:15 01/23/22 09:15 01/23/22 09:15 01/23/22 09:15 Laboratory Results - last 24 hr 01/23/22 09:19: POC Glucose 91 I & O for Last 24 hours: Intake & Output 01/20/22 01/21/22 01/22/22 01/23/22 11:59 11:59 11:59 11:59 Weight 320 lb *Routine HEENT Exam Head: Present normocephalic Eye: Present PERRL ENT: Present mucous membranes moist *Routine Neck Exam Comments: Lipoma left posterior neck. *Routine Respiratory Exam Respiratory: Present able to speak in complete sentences *Routine
--- NOTE | 2022-01-23 11:48 | P.OP_ITS ---
Date of procedure: 01/23/22 Pre-op Diagnosis:: Left posterior neck mass, probable lipoma Post-op Diagnosis:: Same Procedure performed:: Excision of deep lipoma from left posterior lateral neck (excisional length 6.0 cm) with complex closure Surgeon:: Chris Mcallister MD HARNESS PREPARER:: Chan Hubbard Anesthesia: LMA Estimated blood loss (mL): 10 Clinical Note:: Patient presents for excision of her left neck, presumed lipoma.? She is a 66-year-old female from [place] with history of hypertension, carotid artery stenosis, prior seizure, coronary artery disease, prior coronary stents, newly diagnosed paroxysmal atrial fibrillation, sick sinus syndrome with pacemaker in place, type 2 diabetes, with BMI 50.? She is on Xarelto and Plavix.? Patient describes a swelling on the lateral side of the left neck for quite a few years.? It however has increased in size.? She has developed symptoms from this.? She describes a pulling sensation.? She underwent ultrasound as well as CT scan which revealed findings most consistent with lipoma measuring about 6.5 cm.? I had seen her in the office and she had what appeared to be moderate lipoma on the left posterior lateral neck area.? I had plan for MRI to better evaluate for potential imaging findings consistent with liposarcoma or atypical lipomatous lesion.? She was unable to undergo this due to the fact that she has a pacemaker. She wished to pursue excision. Risks including, but not limited to, nerve damage, damage to adjacent structures, and recurrence were explained to the patient. She understood and consented to proceed Operative findings:: Somewhat well encapsulated but friable mature lipomatous tissue deep posterior lateral left neck Operative note:: Consent was obtained patient taken the operating room. She was positioned in a supine position. General anesthesia was induced via LMA. She was repositioned in lateral decubitus position and somewhat upright to allow for exposure to the area. The area was prepped and draped. The lesion was easily palpable and marked with a skin marker for planned incision along normal skin lines. Skin incision was made. Dissection was carried down through subcutaneous tissue. Dissection was carried down to the muscle layer. Limited division of the muscle was performed using electrocautery. Blunt dissection was used to deliver encapsulated lipomatous lesion. Capsule was incised. Underlying lipomatous tissue was dissected free from surrounding structures. It was very friable and difficult to determine if the very significant deep tissues were able to be e xcised. This was all sent off as a specimen. Wound was thoroughly irrigated. There appeared to be good hemostasis. Local anesthetic was infiltrated. Tissues were closed in layers using 3-0 Vicryl with closure of the limited division of muscles as well. Subdermal tissues were closed with an interrupted 3-0 Vicryl. Skin was closed with 4 Monocryl in subcuticular fashion. Dermabond and dressing were applied. Condition: stable Disposition: PACU Complications:: None immediately obviously apparent
--- NOTE | 2022-01-23 11:55 | P.PNANES_ITS ---
[facility] Anesthesia Record Part I Anesthesia Record I Intake, IV Amount: 700 Estimated blood loss (mL): 2 Urine output (mL): 0 Blood Pressure: 111/56 SaO2: 92 Pulse Rate: 60 Respiratory Rate: 16 Temperature: 97.6 F Patient is:: Drowsy Stable to PACU at:: 12:02
--- NOTE | 2022-01-23 12:00 | SUR.PHASEI ---
RT at bedside to provide breathing tx.
--- NOTE | 2022-01-23 12:12 | SUR.PHASEI ---
pt fsbs 59, pt given orange juice. pt AO x 3.
[2022-01-23 12:17] LABS: POC Glucose,Bedside 59 (70-110)
[2022-01-23 12:48] LABS: POC Glucose,Bedside 63 (70-110)
--- NOTE | 2022-01-23 12:48 | SUR.PHASEI ---
1227- fsbs 43 1242- fsbs 63 pt has been given two juices with sugar. Roxanna Hubbard notified and order given for D5LR. D5LR started at this time. pt AO x 3.
--- NOTE | 2022-01-23 13:14 | SUR.PHASEI ---
fsbs-96, pt AO x3.
--- NOTE | 2022-01-23 13:17 | SUR.PHASEI ---
report given to Mumtaz Hussein RN Post Op.
[2022-01-23 13:21] LABS: POC Glucose,Bedside 96 (70-110)
--- NOTE | 2022-01-24 10:30 | P.PNANES_ITS ---
[facility] Anesthesia Record Part II Anesthesia Record Part II Discharge Time: 13:20 Destination: Surgical Day Care (OP Surgery) PACU nurse assessment reviewed?: Yes Patient Condition:: Good Anesthesia Complications:: None Swallowing reflex intact?: Yes Cyanosis?: No Blood Pressure: 122/79 Pulse Rate: 64 Temperature: 97.5 F Mental Status: Alert & Oriented Pain level:: 0 Nausea and/or vomitting:: None Intake, IV Amount: 0
[2022-01-24 10:32] VITALS: BP 122/79; PULSE 64; TEMP 36.4
== END 2022-01-23 13:52 | disposition home or self-care (01) ==
PROVIDERS: PCP Nurse Practitioner; Visit Provider Surgery
PROC: (CPT 11426; principal; 2022-01-23 10:30)
DX: Z72.0 Tobacco use; Z79.899 Other long term (current) drug therapy; D17.0 Benign lipomatous neoplasm of skin and subcutaneous tissue of head, face and neck; E11.9 Type 2 diabetes mellitus without complications
CPT/HCPCS: 11426; 13132; 82962; 96374; J2405

== ENCOUNTER → 2022-02-21 09:42 | Outpatient (CLI) | payer BC, SELFPAY ==
[2022-02-21 10:30] VITALS: PULSE 71; PULSE 74
== END ==
PROVIDERS: PCP Nurse Practitioner; Visit Provider Specialist
DX: R06.2 Wheezing (principal)
CPT/HCPCS: 94060; 94640; 94727; 94729

== ENCOUNTER → 2022-03-15 14:22 | Outpatient (CLI) | payer BC, SELFPAY ==
--- NOTE | 2022-02-21 09:17 | XR_ITS ---
FINAL REPORT TECHNIQUE: Chest PA & Lateral CLINICAL HISTORY: Wheezing, intolerance to exercise FINDINGS: 2 views of the chest were performed. A left subclavian pacemaker is present. There is mild cardiomegaly. The mediastinum is within normal limits. There is no acute cardiopulmonary process. There are no pleural effusions. There is no pneumothorax. The bony thorax appears intact. IMPRESSION: No acute cardiopulmonary process. Reviewed, Interpreted and Dictated by Bala Baxter MD Transcribed by Love Monroy Authenticated and [facility]
== END ==
PROVIDERS: PCP Nurse Practitioner; Visit Provider Specialist
DX: R06.2 Wheezing (principal)
CPT/HCPCS: 71046

== ENCOUNTER → 2022-05-17 09:25 | Outpatient (CLI) | payer BC, SELFPAY ==
[2022-05-17 10:20] LABS: Basophils % 0.4 % (0.1-2.0); Eosinophils # 0.1 K/mm3 (0.0-0.4); Eosinophils % 1.5 % (0.1-12.0); Hematocrit 21.3 % (37.0-47.0); Lymphocytes # 0.7 K/mm3 (0.7-4.5); Lymphocytes % 15.3 % (10-50); Mean Corpuscular HGB Conc 30.4 g/dL (31.8-35.4); Mean Corpuscular Volume 95.2 fl (81-99); Mean Platelet Volume 7.8 fl (7.4-10.4); Monocytes # 0.2 K/mm3 (0.1-1.0); Monocytes % 4.6 % (1.7-9.3); Neutrophils # 3.7 K/mm3 (1.8-7.8); Neutrophils % 78.2 % (37.0-80.0); Platelet Count 328 K/mm3 (142-424); Red Blood Count 2.23 M/mm3 (4.20-5.40); Red Cell Distribution Width 16.1 % (11.5-17.5); White Blood Count 4.7 K/mm3 (4.8-10.8)
[2022-05-17 10:48] LABS: Hemoglobin 6.5 g/dL (12.2-16.2)
[2022-05-17 12:04] LABS: Alanine Aminotransferase 15 U/L (12-78); Albumin Level 3.5 g/dl (3.5-5.0); Alkaline Phosphatase 93 U/L (38-126); Anion Gap 9.3 mEq/L (5-15); Aspartate Amino Transferase 20 U/L (14-36); Bilirubin,Direct 0.2 mg/dl (0.0-0.4); Bilirubin,Indirect 0.1 mg/dL (0.0-0.9); Bilirubin,Total 0.3 mg/dl (0.2-1.3); Blood Urea Nitrogen 40 mg/dl (7-17); Calcium 8.3 mg/dl (8.4-10.2); Carbon Dioxide 22 mmol/L (22.0-30.0); Chloride 112 mmol/L (98-107); Chol/HDL Ratio 4.1 (1-3.5); Cholesterol 118 mg/dl (140-200); Estimated Glomerular Filt Rate 38 ml/min (>60); GFR (African American) 46 ML/MIN (>60); Glucose 114 mg/dl (74-100); HDL Cholesterol 29 mg/dl (40-60); Magnesium 1.9 mg/dl (1.6-2.3); Potassium 4.3 mmoL/L (3.5-5.1); Sodium 139 mmol/L (136-145); Total Protein,Serum 6.2 g/dl (6.3-8.2); Triglycerides 133 mg/dl (30-150); VLDL Cholesterol 27 mg/dL (0-40)
[2022-05-17 12:14] LABS: Direct LDL Cholesterol 61.15 mg/dL (100-129)
[2022-05-17 12:18] LABS: Free T4 (Free Thyroxine) 1.15 ng/dl (0.78-2.19)
[2022-05-17 12:33] LABS: Thyroid Stimulating Hormone 1.93 uIU/mL (0.465-4.68)
== END ==
PROVIDERS: PCP Nurse Practitioner; Visit Provider Physician Assistant
DX: I25.118 Atherosclerotic heart disease of native coronary artery with other forms of angina pectoris (principal); I48.0 Paroxysmal atrial fibrillation; R55 Syncope and collapse
CPT/HCPCS: 36415; 80048; 80061; 80076; 83735; 84439; 84443; 85025

== ENCOUNTER 2022-05-17 13:35 | Observation (INO) | payer BC, SELFPAY ==
[2022-05-17] VITALS (17 sets, daily range): BP systolic 97–140; BP diastolic 42–76; PULSE 61–71; RESP 15–20; TEMP 36.5–37.1; O2SAT 80–100; BMI 45.6; BMI 27.8; BMI 52.9
--- NOTE | 2022-05-17 14:04 | HMH.EDGENADL ---
Discharge Plan Disposition Patient Disposition: Admitted As Inpatient Condition: Good Chief Complaint: Weakness Prescriptions Prescriptions: No Action pioglitazone 30 mg tablet 30 mg PO DAILYDM aspirin [Adult Aspirin Regimen] 81 mg tablet,delayed release (DR/EC) 81 mg PO DAILY furosemide 20 mg tablet 20 mg PO DAILY Label Comments: TAKE 1 TABLET BY MOUTH ONCE DAILY bisoprolol fumarate 5 mg tablet 5 mg PO DAILY Qty: 30 5RF clopidogrel 75 mg tablet 75 mg PO DAILY Qty: 30 5RF Xarelto 20 mg tablet 20 mg PO DAILY Rx Instructions: must administer with evening meal losartan 50 MG tablet 50 mg PO DAILY Referrals Follow up/Referrals: Michelle Gray APRN [Primary Care Provider] - See instructions Clinical Impressions Clinical Impression: Anemia Discharge ED Provider: Guillermo Tong General Adult HPI General Chief complaint: Weakness Stated complaint: Phys ref blood infusion Time Seen by Provider: 05/17/22 13:40 History of Present Illness HPI narrative: 66-year-old female with history of coronary disease presents with anemia. She has been generally weak and has seen that she has had darker stools recently she is on Xarelto as well. No abdominal pain chest pain difficulty breathing vomiting diarrhea. She was evaluated cardiology clinic today and and sent to the emergency department because her hemoglobin was 6.6. Related Data Home Medications Medication Instructions Recorded Confirmed losartan 50 mg tablet 50 mg PO DAILY High blood pressure 01/06/19 05/17/22 furosemide 20 mg tablet 20 mg PO DAILY Fluid 12/29/20 05/17/22 pioglitazone 30 mg tablet 30 mg PO DAILYDM Diabetes 04/06/21 05/17/22 aspirin 81 mg tablet,delayed 81 mg PO DAILY Blood thinner 12/15/21 05/17/22 release (Adult Aspirin Regimen) rivaroxaban 20 mg tablet (Xarelto) 20 mg PO DAILY Blood thinner 12/27/21 05/17/22 Previous Rx's Medication Instructions Recorded bisoprolol fumarate 5 mg tablet 5 mg PO DAILY heart #30 tabs 11/07/21 clopidogrel 75 mg tablet 75 mg PO DAILY Blood thinner #30 11/07/21 tabs Allergies Allergy/AdvReac Type Severity Reaction Status Date / Time No Known Allergies Allergy Verified 05/17/22 14:20 [facility] Disclaimer: The information contained in this section may have been updated after the patient was seen, as this information can be updated by other users. 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 CAD (coronary artery disease) Carotid artery stenosis History of diverticulitis Hyperlipidemia Hypertension Near syncope Neuropathy PAF (paroxysmal atrial fibrillation) Transient cerebral ischemia Surgical History History of cholecystectomy Presence of cardiac pacemaker Stented coronary artery Family History Other Family history of diabetes mellitus type II Family history of hypertension Social History Smoking Status: Current every day smoker tobacco type: cigarettes packs per day: 1 pack-years: 40 alcohol intake: never substance use type: denies use current occupational status: retired Travel in the last 8 weeks: None household members: family housing: house current occupational exposures/hazards: No caffeine: Yes special [place] needs: No agree to transfusion: No do you feel safe at home: Yes victim of physical abuse: No victim of emotional abuse: No victim of sexual abuse: No would you like helpful sources: No ROS Obtained: Yes All systems reviewed & no additional complaints except as documented Constitutional Constitutional: Reports fatigue and Denies headache(s) Eyes Eyes: Denies dry eyes ENT Ears, Nose, Mouth, and Throat: Denies dry mouth and Denies headache(s) Cardiovascular Cardiovascular: Denies diaphoresis and D
--- NOTE | 2022-05-17 14:08 | ECG_ITS ---
APPROVED REPORT Exam: Resting ECG HR:69 bpm ECG Measurements Heart Rate 69 AXES WA 154 P 21 QRSd 123 QRS -59 QT 398 T 64 QTc 416 Conclusion SINUS RHYTHM RIGHT BUNDLE BRANCH BLOCK Old inferior and anterior changes ABNORMAL ECG UNCONFIRMED REPORT Electronically signed by : Donn Quinonez MD 05/17/2022 21:23:49
[2022-05-17 14:20] LABS: Occult Blood,Stool Positive (Negative)
[2022-05-17 14:40] LABS: Coronavirus 19, PCR Not Detected (NotDetected); Influenza A, PCR Not Detected (NotDetected); Influenza B, PCR Not Detected (NotDetected)
--- NOTE | 2022-05-17 15:08 | PC.NURSE ---
lab states pts covid swab will be next in line to go on the analyzer
--- NOTE | 2022-05-17 15:35 | PC.NURSE ---
called report to 2nd floor, awaiting swab results
--- NOTE | 2022-05-17 17:11 | EXP.HP ---
History of Present Illness *Admission Date: 05/17/22 *Reason for visit:: weakness, dizziness, black stools *History of present illness: Janice is a 66-year-old female with paroxysmal A-fib, pacemaker, on chronic Xarelto therapy for at least 6 months. She originally presented to cardiology clinic today as an outpatient because of weakness and concern for symptoms related to her heart. States that for the past few weeks that she has had progressive weakness, fatigue, dizziness when standing. Is gotten worse over the past few days. States that she is noted black stools that are tarry in appearance over the past several weeks to month. Denies any chest pain, shortness of breath, nausea or vomiting. No coffee-ground emesis or bright red blood per rectum. Cardiology clinic obtained labs showing a hemoglobin of 6.5, was 13.3 in December. Has not had anemia previously. Patient was sent to the ER for further evaluation prior to admission. Upon arrival to the ER, patient was determined to be hemodynamically stable. Was typed and crossed for transfusion and medicine consulted for admission. Upon arriving to the floor, patient is interactive, alert. Appears pale and weak but stable on room air. No further complaints. No recent overt signs of bleeding. No recent hospitalizations. Has been taking her medications as prescribed. [facility] Disclaimer: The information contained in this section may have been updated after the patient was seen, as this information can be updated by other users. 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 CAD (coronary artery disease) Carotid artery stenosis History of diverticulitis Hyperlipidemia Hypertension Near syncope Neuropathy Pacemaker PAF (paroxysmal atrial fibrillation) Transient cerebral ischemia Surgical History History of cholecystectomy Presence of cardiac pacemaker Stented coronary artery Family History Family history of hypertension Family history of diabetes mellitus type II Social History Smoking Status: Current every day smoker tobacco type: cigarettes packs per day: 1 pack-years: 40 alcohol intake: never substance use type: denies use current occupational status: retired Travel in the last 8 weeks: None household members: family housing: house current occupational exposures/hazards: No caffeine: Yes special [place] needs: No agree to transfusion: No do you feel safe at home: Yes victim of physical abuse: No victim of emotional abuse: No victim of sexual abuse: No would you like helpful sources: No Review of Systems Review of Systems Review of systems (narrative): 14 point review of systems performed, pertinent positives and negatives as per HPI Constitutional Constitutional: Denies headache(s) ENT Ears, Nose, Mouth, and Throat: Denies headache(s) *Neurologic Neurologic: Denies headache(s) Meds Home Medications and Allergies Home Medications Medication Instructions Recorded Confirmed Type losartan 50 mg tablet 50 mg PO DAILY High blood pressure 01/06/19 05/17/22 History furosemide 20 mg tablet 20 mg PO DAILY Fluid 12/29/20 05/17/22 History pioglitazone 30 mg tablet 30 mg PO DAILYDM Diabetes 04/06/21 05/17/22 History clopidogrel 75 mg tablet 75 mg PO DAILY Blood thinner #30 11/07/21 05/17/22 Rx tabs aspirin 81 mg tablet,delayed 81 mg PO DAILY Blood thinner 12/15/21 05/17/22 History release (Adult Aspirin Regimen) rivaroxaban 20 mg tablet (Xarelto) 20 mg PO QPMWITHMEAL Blood thinner 12/27/21 05/17/22 History bisoprolol fumarate 5 mg tablet 5 mg PO DAILY blood pressure 05/17/22 05/17/22 History glipizide 10 mg tablet 10 mg PO BID Diabetes 05/17/22 05/17/22 History New Prescriptions to Start Prescriptions: Allergies Allergy/AdvReac Type Severity Reactio
--- NOTE | 2022-05-17 17:49 | PC.NURSE ---
PT ARRIVED TO FLOOR VIA WHEELCHAIR @ 16:08
[2022-05-17 18:49] LABS: POC Glucose,Bedside 140 (70-110)
[2022-05-17 22:27] LABS: POC Glucose,Bedside 133 (70-110)
[2022-05-18] VITALS (41 sets, daily range): BP systolic 94–142; BP diastolic 30–84; PULSE 60–85; RESP 16–20; TEMP 36.2–36.9; O2SAT 90–100; BMI 52.4
[2022-05-18] LABS: Hemoglobin A1C 5.3 % (4.0-6.0)
[2022-05-18 04:41] LABS: Hemoglobin 7.6 g/dL (12.2-16.2)
--- NOTE | 2022-05-18 06:37 | PC.NURSE ---
spoke with lab. States unit of blood is not ready at this time
--- NOTE | 2022-05-18 06:54 | EXP.SURG.CON ---
History of Present Illness *Admission Date: 05/17/22 *Reason for visit:: Anemia *History of present illness: This is a 66-year-old female seen in consultation from the hospitalist service for evaluation regarding anemia and possible gastrointestinal hemorrhage. Please see HPI forwarded from admission H&P below. Forwarded from admission H&P: Janice is a 66-year-old female with paroxysmal A-fib, pacemaker, on chronic Xarelto therapy for at least 6 months. She originally presented to cardiology clinic today as an outpatient because of weakness and concern for symptoms related to her heart. States that for the past few weeks that she has had progressive weakness, fatigue, dizziness when standing. Is gotten worse over the past few days. States that she is noted black stools that are tarry in appearance over the past several weeks to month. Denies any chest pain, shortness of breath, nausea or vomiting. No coffee-ground emesis or bright red blood per rectum. Cardiology clinic obtained labs showing a hemoglobin of 6.5, was 13.3 in December. Has not had anemia previously. Patient was sent to the ER for further evaluation prior to admission. Upon arrival to the ER, patient was determined to be hemodynamically stable. Was typed and crossed for transfusion and medicine consulted for admission. Upon arriving to the floor, patient is interactive, alert. Appears pale and weak but stable on room air. No further complaints. No recent overt signs of bleeding. No recent hospitalizations. Has been taking her medications as prescribed. [facility] Disclaimer: The information contained in this section may have been updated after the patient was seen, as this information can be updated by other users. 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 CAD (coronary artery disease) Carotid artery stenosis History of diverticulitis Hyperlipidemia Hypertension Near syncope Neuropathy Pacemaker PAF (paroxysmal atrial fibrillation) Transient cerebral ischemia Surgical History History of cholecystectomy Presence of cardiac pacemaker Stented coronary artery Family History Family history of hypertension Family history of diabetes mellitus type II Social History Smoking Status: Current every day smoker tobacco type: cigarettes packs per day: 1 pack-years: 40 alcohol intake: never substance use type: denies use current occupational status: retired Travel in the last 8 weeks: None household members: family housing: house current occupational exposures/hazards: No caffeine: Yes special [place] needs: No agree to transfusion: No do you feel safe at home: Yes victim of physical abuse: No victim of emotional abuse: No victim of sexual abuse: No would you like helpful sources: No Review of Systems Constitutional Constitutional: Denies headache(s) ENT Ears, Nose, Mouth, and Throat: Denies headache(s) *Neurologic Neurologic: Denies headache(s) Meds Home Medications and Allergies Home Medications Medication Instructions Recorded Confirmed Type losartan 50 mg tablet 50 mg PO DAILY High blood pressure 01/06/19 05/17/22 History furosemide 20 mg tablet 20 mg PO DAILY Fluid 12/29/20 05/17/22 History pioglitazone 30 mg tablet 30 mg PO DAILYDM Diabetes 04/06/21 05/17/22 History clopidogrel 75 mg tablet 75 mg PO DAILY Blood thinner #30 11/07/21 05/17/22 Rx tabs aspirin 81 mg tablet,delayed 81 mg PO DAILY Blood thinner 12/15/21 05/17/22 History release (Adult Aspirin Regimen) rivaroxaban 20 mg tablet (Xarelto) 20 mg PO QPMWITHMEAL Blood thinner 12/27/21 05/17/22 History bisoprolol fumarate 5 mg tablet 5 mg PO DAILY blood pressure 05/17/22 05/17/22 History glipizide 10 mg tablet 10 mg PO BID Diabetes 05/17/22 05/17/22 History New Prescriptions to S
[2022-05-18 07:38] LABS: Basophils % 0.6 % (0.1-2.0); Eosinophils # 0.1 K/mm3 (0.0-0.4); Eosinophils % 2.9 % (0.1-12.0); Hematocrit 22.8 % (37.0-47.0); Hemoglobin 7.2 g/dL (12.2-16.2); Lymphocytes # 1.1 K/mm3 (0.7-4.5); Mean Corpuscular HGB Conc 31.6 g/dL (31.8-35.4); Mean Corpuscular Hemoglobin 29.7 pg (27.0-31.2); Mean Corpuscular Volume 93.9 fl (81-99); Monocytes # 0.3 K/mm3 (0.1-1.0); Neutrophils # 2.6 K/mm3 (1.8-7.8); Neutrophils % 63.5 % (37.0-80.0); Platelet Count 246 K/mm3 (142-424); Red Blood Count 2.43 M/mm3 (4.20-5.40); White Blood Count 4.1 K/mm3 (4.8-10.8)
[2022-05-18 07:55] LABS: Chloride 113 mmol/L (98-107)
[2022-05-18 07:56] LABS: Potassium 4.2 mmoL/L (3.5-5.1); Sodium 140 mmol/L (136-145)
[2022-05-18 07:58] LABS: Alanine Aminotransferase 13 U/L (12-78); Alkaline Phosphatase 81 U/L (38-126); Anion Gap 9.2 mEq/L (5-15); Aspartate Amino Transferase 20 U/L (14-36); Bilirubin,Total 0.4 mg/dl (0.2-1.3); Blood Urea Nitrogen 39 mg/dl (7-17); Carbon Dioxide 22 mmol/L (22.0-30.0); Creatinine Clearance Estimated 44 mL/min (50-200); Estimated Glomerular Filt Rate 41 ml/min (>60); GFR (African American) 50 ML/MIN (>60)
[2022-05-18 07:59] LABS: Albumin/Globulin Ratio 1.2 (1.1-1.8); Calcium 7.9 mg/dl (8.4-10.2); Globulin 2.6 g/dL (1.3-3.2); Glucose 92 mg/dl (74-100); Magnesium 1.9 mg/dl (1.6-2.3); Total Protein,Serum 5.6 g/dl (6.3-8.2)
--- NOTE | 2022-05-18 08:11 | EXP.PN ---
Subjective *Date: 05/18/22 *Time: 18:54 Interval history: Date of service May 18, 2022 The patient reports no acute hematemesis, melena or hematochezia. She underwent an upper endoscopy this morning which identified no active bleeding or ulcer. 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 She denies abdominal pain. Nursing staff report that she remains afebrile with improved blood pressures and stable heart rates. She is saturating appropriately on room air. She is tolerating her blood transfusion with no adverse events. I have personally interpreted her lab results and we have discussed and reviewed them today. Her CBC identifies a normal white blood cell count with a hemoglobin of 7.2 and hematocrit 22.8 with platelet count 246. Her electrolytes are normal, her BUN is 39 and her creatinine is 1.3. Her glucose are trending under 150. Her hemoglobin A1c is 5.3%. Exam Data for Last 24 hours Vital signs and Labs for Last 24 Hours: Temp Pulse Resp BP Pulse Ox 97.8 F 71 17 124/56 L 95 05/18/22 07:16 05/18/22 07:16 05/18/22 07:16 05/18/22 07:16 05/18/22 07:16 Laboratory Results - last 24 hr 05/17/22 09:45: Hemoglobin A1c 5.3 05/17/22 09:45: Blood Type Confirm A Negative 05/17/22 14:00: Blood Type A Negative, Antibody Screen Negative, Crossmatch (AHG) See Detail 05/17/22 14:10: Stool Occult Blood Positive A 05/17/22 14:35: SARS-CoV-2 (PCR) Not detected, Influenza A Untype (PCR) Not detected, Influenza Type B (PCR) Not detected 05/17/22 18:42: POC Glucose 140 H 05/17/22 19:56: POC Glucose 133 H 05/18/22 03:15: Hgb 7.6 L D, Hct 23.0 L 05/18/22 07:20: WBC 4.1 L, RBC 2.43 L, Hgb 7.2 L, Hct 22.8 L, MCV 93.9, MCH 29.7, MCHC 31.6 L, RDW 16.0, Plt Count 246, MPV 8.0, Neut % (Auto) 63.5, Lymph % (Auto) 26.0, [place] % (Auto) 7.0, Eos % (Auto) 2.9, Baso % (Auto) 0.6, Neut # (Auto) 2.6, Lymph # (Auto) 1.1, [place] # (Auto) 0.3, Eos # (Auto) 0.1, Baso # (Auto) 0.0 05/18/22 07:20: Sodium 140, Potassium 4.2, Chloride 113 H, Carbon Dioxide 22, Anion Gap 9.2, BUN 39 H, Creatinine 1.30 H, Estimated Creat Clear 44, Estimated GFR 41 L, Est GFR ( Amer) 50 L, Glucose 92, Calcium 7.9 L, Magnesium 1.9, Total Bilirubin 0.4, AST 20, ALT 13, Alkaline Phosphatase 81, Total Protein 5.6 L, Albumin 3.0 L D, Globulin 2.6, Albumin/Globulin Ratio 1.2 I & O for Last 24 hours: Intake & Output 05/15/22 05/16/22 05/17/22 05/18/22 23:59 23:59 23:59 23:59 Intake Total 850 / 850 290.59 / 290.59 Output Total 0 / 0 0 / 0 Balance 850 / 850 290.59 / 290.59 Weight 158.02 kg 157 kg Constitutional Constitutional: no acute distress *Routine HEENT Exam Head: Present normocephalic Eye: Present EOMI and PERRL ENT: Present mucous membranes moist *Routine Neck Exam Neck: Present supple; Absent lymphadenopathy *Routine Respiratory Exam Respiratory: Present CTA bilaterally, normal respiratory effort and symmetric chest movement *Routine Cardiovascular Exam Cardiovascular: Present RRR *Routine Abdominal Exam Abdominal: Present soft and normoactive bowel sounds; Absent tenderness *Routine Extremities Exam Extremities: Absent cyanosis, clubbing or edema *Routine Skin Exam Skin: Present warm; Absent rash *Routine Neurological Exam Neurological: Present alert, oriented X3, moving all extremities, vision grossly intact, hearing grossly intact and normal speech Routine Psychiatric Exam Psychiatric: Present normal affect, normal thought process, cooperative, good insight and good judgment Assessment and Plan *Assessment and plan (1) GI bleed: Status: Acute Qualifiers: GI bleed type/associated pathology: melena Qualified Code(s): K92.1 - Melena Category: Medical Code(s): K92.2 - Gastrointestinal hemorrhage, unspecified (2) CAD (coronary artery disease): Status: Chronic Qualifiers: Coronary Disease-Associated Artery/Lesion type: [place] artery [place] vs. transplanted heart:
--- NOTE | 2022-05-18 08:38 | HMH.PHAINT1 ---
Pharmacy Intervention Comments: medication reconciliation completed utilizing external fill history
--- NOTE | 2022-05-18 09:37 | HMH.SCOPE ---
Procedure: Date: 05/18/22 Patient Date of :: 1955 Procedure Performed:: Esophagogastroduodenoscopy with biopsy and argon plasma coagulation Indications:: Anemia Performing Provider:: Ishan Escalona MD Referring Provider:: Hospitalist service Sedation:: Monitored anesthesia care Procedure:: After informed consent was obtained the patient was taken to the endoscopy suite. Sedation ensued after the patient was transferred to the left lateral decubitus position. Pulse, blood pressure, and oxygen saturation were monitored throughout the procedure. The endoscope was advanced beyond the duodenal bulb. Retroflexion within the gastric lumen was accomplished. The gastroscope was carefully removed and the patient was transferred to recovery in stable condition. Please see findings and specimens below for detail. 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
[2022-05-18 09:45] LABS: POC Glucose,Bedside 99 (70-110)
--- NOTE | 2022-05-18 11:06 | P.PN_ITS ---
[facility] Disclaimer: The information contained in this section may have been updated after the patient was seen, as this information can be updated by other users. 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 CAD (coronary artery disease) Carotid artery stenosis History of diverticulitis Hyperlipidemia Hypertension Near syncope Neuropathy Pacemaker PAF (paroxysmal atrial fibrillation) Transient cerebral ischemia Surgical History History of cholecystectomy Presence of cardiac pacemaker Stented coronary artery Family History Family history of hypertension Family history of diabetes mellitus type II Social History Smoking Status: Current every day smoker tobacco type: cigarettes packs per da y: 1 pack-years: 40 alcohol intake: never substance use type: denies use current occupational status: retired Travel in the last 8 weeks: None household members: family housing: house current occupational exposures/hazards: No caffeine: Yes special [place] needs: No agree to transfusion: No do you feel safe at home: Yes victim of physical abuse: No victim of emotional abuse: No victim of sexual abuse: No would you like helpful sources: No [facility] Anesthesia Checklist Patient Identification Patient Identification: Arm Band Structural Data Admitted From: Home Planned Operative Procedure/s: EGD Consent for Planned Operative Procedure(s) Verified: Yes Verified Documents: Surgical Consent and History and Physical NPO Status Verified Time NPO: 00:00 Additional verifications Patient : No Anesthesia Reactions: No Hx Blood Transfusions: No Blood Transfusion Reaction: No Cephalosporin Allergy: No Previous Colonoscopy: Yes Airway Assessment C-Spine Mobility Assessed: Yes TMJ Mobility Assessed: Yes Dentition: Edentulous Neurological Assessment Level of Consciousness: Awake and Lethargic Hx Seizures: No Numbness or tingling in extremities: No Anesthesia Plan Anesthesia Risk discussed: Yes ASA Class: III Anesthesia Type: MAC Preoperative Comments Pre-Operative Comments: morbid obesity. NIDDM, TIA, Pacemaker. HTN, HL, CAD Stents X2, Anemia
[2022-05-18 12:30] LABS: POC Glucose,Bedside 117 (70-110)
[2022-05-18 16:25] LABS: Hemoglobin 8.5 g/dL (12.2-16.2)
[2022-05-18 17:04] LABS: POC Glucose,Bedside 119 (70-110)
--- NOTE | 2022-05-18 19:37 | PC.NURSE ---
pt has done well this shift, vss. no complications with blood transfusion. pt as been up to chair all shift, up as che to br. pt has not needed insulin coverage this shift. no concerns or questions from pt at this time.
[2022-05-18 21:03] LABS: POC Glucose,Bedside 118 (70-110)
[2022-05-19 04:00] VITALS: BP 107/49; PULSE 67; RESP 16; TEMP 36.6; O2SAT 96; BMI 52.4
[2022-05-19 05:20] LABS: POC Glucose,Bedside 105 (70-110)
[2022-05-19 07:34] LABS: Basophils % 0.4 % (0.1-2.0); Eosinophils # 0.1 K/mm3 (0.0-0.4); Eosinophils % 2.5 % (0.1-12.0); Hematocrit 25.2 % (37.0-47.0); Hemoglobin 7.9 g/dL (12.2-16.2); Lymphocytes % 25.4 % (10-50); Mean Corpuscular HGB Conc 31.5 g/dL (31.8-35.4); Mean Corpuscular Hemoglobin 29.3 pg (27.0-31.2); Mean Platelet Volume 8.3 fl (7.4-10.4); Monocytes # 0.3 K/mm3 (0.1-1.0); Monocytes % 6.8 % (1.7-9.3); Neutrophils # 2.7 K/mm3 (1.8-7.8); Platelet Count 272 K/mm3 (142-424); Red Cell Distribution Width 16.2 % (11.5-17.5); White Blood Count 4.1 K/mm3 (4.8-10.8)
[2022-05-19 07:47] LABS: Chloride 112 mmol/L (98-107); Potassium 4.1 mmoL/L (3.5-5.1); Sodium 139 mmol/L (136-145)
[2022-05-19 07:50] LABS: Blood Urea Nitrogen 31 mg/dl (7-17); Creatinine Clearance Estimated 44 mL/min (50-200); Estimated Glomerular Filt Rate 41 ml/min (>60); GFR (African American) 50 ML/MIN (>60)
[2022-05-19 07:51] LABS: Anion Gap 7.1 mEq/L (5-15); Calcium 8.3 mg/dl (8.4-10.2); Carbon Dioxide 24 mmol/L (22.0-30.0); Glucose 90 mg/dl (74-100)
[2022-05-19 08:00] VITALS: BP 135/72; PULSE 67; RESP 18; TEMP 36.5; O2SAT 96; O2SAT 97
--- NOTE | 2022-05-19 08:23 | EXP.SURG.PN ---
Subjective Patient reports: no new complaints Narrative: The patient states that she feels fine . She wishes to go home. Exam Data for Last 24 hours Vital signs and Labs for Last 24 Hours: Temp Pulse Resp BP Pulse Ox 97.9 F 67 16 107/49 L 96 05/19/22 04:00 05/19/22 04:00 05/19/22 04:00 05/19/22 04:00 05/19/22 04:00 Laboratory Results - last 24 hr 05/17/22 14:00: Blood Type A Negative, Antibody Screen Negative, Crossmatch (AHG) See Detail 05/18/22 06:15: POC Glucose 99 05/18/22 12:20: POC Glucose 117 H 05/18/22 15:51: Hgb 8.5 L D, Hct 26.0 L 05/18/22 16:57: POC Glucose 119 H 05/18/22 20:54: POC Glucose 118 H 05/19/22 05:13: POC Glucose 105 05/19/22 06:50: WBC 4.1 L, RBC 2.70 L, Hgb 7.9 L, Hct 25.2 L, MCV 93.0, MCH 29.3, MCHC 31.5 L, RDW 16.2, Plt Count 272, MPV 8.3, Neut % (Auto) 65.0, Lymph % (Auto) 25.4, [place] % (Auto) 6.8, Eos % (Auto) 2.5, Baso % (Auto) 0.4, Neut # (Auto) 2.7, Lymph # (Auto) 1.0, [place] # (Auto) 0.3, Eos # (Auto) 0.1, Baso # (Auto) 0.0 05/19/22 06:50: Sodium 139, Potassium 4.1, Chloride 112 H, Carbon Dioxide 24, Anion Gap 7.1, BUN 31 H, Creatinine 1.30 H, Estimated Creat Clear 44, Estimated GFR 41 L, Est GFR ( Amer) 50 L, Glucose 90, Calcium 8.3 L I & O for Last 24 hours: Intake & Output 05/16/22 05/17/22 05/18/22 05/19/22 11:59 11:59 11:59 11:59 Intake Total 1140.59 / 1140.59 719 / 719 Output Total 0 / 0 0 / 0 Balance 1140.59 / 1140.59 719 / 719 Weight 346 lb 2.012 oz 346 lb 2.012 oz Constitutional Constitutional: no acute distress *Routine Respiratory Exam Respiratory: Absent respiratory distress *Routine Cardiovascular Exam Cardiovascular: Absent tachycardia Progress Note: A&P Assessment and plan (1) Gastric antral vascular ectasia: Status: Acute Assessment and plan: No active bleeding noted per EGD yesterday. Argon plasma coagulation therapy completed. Continue PPI May require repeat EGD in near future (2) GI bleed: Status: Acute Assessment and plan: Possibly from gastric antral vascular ectasia. Additional source remains a possibility. UGI/SBFT followed by capsule endoscopy in near future remains a consideration (3) Anemia: Status: Acute Assessment and plan: Hemoglobin 7.9 this morning. Remains difficult to ascertain if she has continued blood loss or is simply equilibrating. May be stable for discharge if additional serial hemoglobin later today shows stability.
[2022-05-19 12:35] LABS: POC Glucose,Bedside 84 (70-110)
[2022-05-19 13:02] LABS: Hematocrit 26.1 % (37.0-47.0)
[2022-05-19 13:06] LABS: Hemoglobin 8.5 g/dL (12.2-16.2)
--- NOTE | 2022-05-19 13:45 | EXP.DC.SUM ---
General Admission date:: 05/17/22 Discharge date: 05/19/22 HPI HPI HPI: This is a 66-year-old female seen for evaluation regarding anemia and possible gastrointestinal hemorrhage. She will be admitted for observation. Ms. Camacho is a 66-year-old female with paroxysmal A-fib, pacemaker, on chronic Xarelto therapy for at least 6 months. She originally presented to cardiology clinic today as an outpatient because of weakness and concern for symptoms related to her heart. States that for the past few weeks that she has had progressive weakness, fatigue, dizziness when standing. Is gotten worse over the past few days. States that she is noted black stools that are tarry in appearance over the past several weeks to month. Denies any chest pain, shortness of breath, nausea or vomiting. No coffee-ground emesis or bright red blood per rectum. Cardiology clinic obtained labs showing a hemoglobin of 6.5, was 13.3 in December. Has not had anemia previously. Patient was sent to the ER for further evaluation prior to admission. Upon arrival to the ER, patient was determined to be hemodynamically stable. Was typed and crossed for transfusion and medicine consulted for admission. Upon arriving to the floor, patient is interactive, alert. Appears pale and weak but stable on room air. No further complaints. No recent overt signs of bleeding. No recent hospitalizations. Has been taking her medications as prescribed. Hospital Course Hospital Course Hospital Course: The patient is admitted to the medical unit for observation with telemetry monitoring and general surgery consultation. She was started on IV Protonix twice daily with routine hemoglobin monitoring. A stool study identified positive guaiac. She was transfused 2 units and her hemoglobin remained stable. Her aspirin was discontinued and her Xarelto was held. She was continued on her P2 Y12 inhibitor therapy with her heart cath under 1 year ago (August 2021). She was made n.p.o. and she underwent EGD by general surgery on 05/18/2022 identifying GAVE. After her procedure she tolerated a diet, reported no further abdominal discomfort and eliminated with no further concerns for blood loss. Her hemoglobin was continued to be monitored and identified improvement after transfusion and stability. She inquired about discharge home. We recommended that she continue with her P2 Y12 inhibitor therapy, discontinue aspirin and hold her Xarelto until further evaluation by general surgery as outpatient for consideration of pill endoscopy. She will follow-up with her PCP in 1 week for routine CBC. I spent 35 minutes in [id number] time with the patient and nursing staff (Jenaro GUILLEN) concerning the discharge process. We discussed the admitting diagnoses and hospital course. We discussed identified improvement and the patient's desire to be discharged. We reviewed inpatient studies and imaging. The patient voiced understanding on the importance of follow-up with her primary care provider and general surgeon. The patient plans to be compliant with the medication regimen prescribed and follow-up appointments. She understands that she can return to the emergency department with any sudden changes or concerns. Exam Data for Last 24 hours Vital signs and Labs for Last 24 Hours: Temp Pulse Resp BP Pulse Ox 97.7 F 67 18 135/72 97 05/19/22 08:00 05/19/22 08:00 05/19/22 08:00 05/19/22 08:00 05/19/22 08:00 Laboratory Results - last 24 hr 05/17/22 14:00: Crossmatch (AHG) See Detail 05/18/22 15:51: Hgb 8.5 L D, Hct 26.0 L 05/18/22 16:57: POC Glucose 119 H 05/18/22 20:54: POC Glucose 118 H 05/19/22 05:13: POC Glucose 105 05/19/22 06:50: WBC 4.1 L, RBC 2.70 L, Hgb 7.9 L, Hct 25.2 L, MCV 93.0, MCH 29.3, MCHC 31.5 L, RDW 16.2, Plt Count 272, MPV 8.3, Neut % (Auto) 65.0, Lymph % (Auto) 25.4, [place] % (Auto) 6.8, Eos % (Auto) 2.5, Baso % (Auto) 0.4, Neut # (Auto) 2.7, Lymph # (Auto) 1.0, [place] # (Auto) 0.3, Eos
--- NOTE | 2022-05-22 12:46 | CARE MANAGER ---
Spoke with patient who states she is doing well. She denies any questions or concerns and is aware of follow up appointments. She is taking Omeprazole until insurance approves her Protonix per MD recommendations.
== END 2022-05-19 15:50 | disposition home or self-care (01) ==
LOC: ER 14:35 → 2ND 15:50
PROVIDERS: Family Medicine; Nurse Practitioner Family; Surgery; Admitting Provider Internal Medicine Adolescent Medicine; Emergency Provider Emergency Medicine; PCP Nurse Practitioner; Visit Provider Internal Medicine Adolescent Medicine
PROC: 0DJ08ZZ Inspection of Upper Intestinal Tract, Via Natural or Artificial Opening Endoscopic (ICD-10-PCS; CPT 43235; principal; 2022-05-18 08:30)
DX: D64.89 Other specified anemias (principal); E11.65 Type 2 diabetes mellitus with hyperglycemia; E66.01 Morbid (severe) obesity due to excess calories; I25.118 Atherosclerotic heart disease of native coronary artery with other forms of angina pectoris; I48.0 Paroxysmal atrial fibrillation; Z95.0 Presence of cardiac pacemaker; I10 Essential (primary) hypertension; E78.2 Mixed hyperlipidemia; G47.33 Obstructive sleep apnea (adult) (pediatric); K31.811 Angiodysplasia of stomach and duodenum with bleeding; Z68.43 Body mass index [BMI] 50.0-59.9, adult; Z79.01 Long term (current) use of anticoagulants; Z79.899 Other long term (current) drug therapy; Z20.822 Contact with and (suspected) exposure to COVID-19
CPT/HCPCS: 43255; 43239; 36415; 80048; 80053; 80061; 80076; 82272; 82962; 83036; 83735; 84439; 84443; 85014; 85018; 85025; 86850; 93005; 99285; C2618; C9803; G0328; G0378; P9016; U0003; U0005

== ENCOUNTER → 2022-05-22 10:46 | Outpatient (CLI) | payer BC, SELFPAY ==
--- NOTE | 2022-05-22 10:46 | CA_ITS ---
FINAL REPORT TECHNIQUE: Color Doppler, duplex Doppler and torres scale sonography of the bilateral neck arterial vasculature was performed. Velocities were measured in the carotid arteries. Stenosis evaluation based on the validated velocity criteria. CLINICAL HISTORY: FERNANDA,NEAR SYNCOPE,HTN,HLD,DM,SMOKER FINDINGS: The peak systolic velocity of the right common carotid artery is 131 cm/s. The peak systolic velocity of the right internal carotid artery is 136 cm/s and end diastolic velocity 24 cm/s. The ICA/CCA ratio is 1.0. No significant plaque is present. The right external carotid artery is patent. The right vertebral artery is patent with antegrade flow. The peak systolic velocity of the left common carotid artery is 111 cm/s. The peak systolic velocity of the left internal carotid artery is 273 cm/s and end diastolic velocity 80 cm/s. The ICA/CCA ratio is 2.5. There is mild atherosclerotic plaque in the distal common and proximal ICA. The left external carotid artery is patent. The left vertebral artery is patent with antegrade flow. IMPRESSION: Less than 50% right carotid stenosis. 50-69% left carotid stenosis. Bilateral patent vertebral arteries with antegrade flow. If indicated, CTA or MRA could further evaluate. Reviewed, Interpreted and Dictated by Ale Escalante MD Transcribed by Love Monroy Authenticated and [facility]
== END ==
PROVIDERS: PCP Nurse Practitioner; Visit Provider Physician Assistant
DX: R55 Syncope and collapse (principal); I25.118 Atherosclerotic heart disease of native coronary artery with other forms of angina pectoris; I48.0 Paroxysmal atrial fibrillation
CPT/HCPCS: 93880

== ENCOUNTER → 2022-06-06 08:36 | Outpatient (CLI) | payer BC, SELFPAY ==
--- NOTE | 2022-06-06 08:37 | CT_ITS ---
FINAL REPORT TECHNIQUE: Thin section axial CT with IV contrast supplemented with multiplanar reconstruction under CT angiogram protocol. This study was performed with techniques to keep radiation doses as low as reasonably achievable (ALARA). Individualized dose reduction techniques using automated exposure control or adjustment of mA and/or kV according to the patient''s size were employed. NASCET criteria was utilized during interpretation. CLINICAL HISTORY: abnormal carotid u/s COMPARISON: 07/04/2021 FINDINGS: Aortic arch: Arch shows no significant narrowing. Great vessel origins are patent. Right carotid: No significant stenosis is seen of the cervical common or internal carotid artery. There is a small amount of calcification at the carotid bulb, stable. Left carotid: No significant stenosis is seen of the cervical common or internal carotid artery. There is a small amount of calcification at the carotid bulb, stable. Vertebral: Left vertebral artery is dominant. No significant stenosis is present. Other: No acute soft tissue abnormality is identified. IMPRESSION: No significant carotid stenosis. Exam similar to previous. Reviewed, Interpreted and Dictated by Ale Escalante MD Transcribed by Melva Rosen Authenticated and [facility]
[2022-06-06 09:19] LABS: Blood Urea Nitrogen 29 mg/dl (7-17); Estimated Glomerular Filt Rate 41 ml/min (>60); GFR (African American) 50 ML/MIN (>60)
== END ==
PROVIDERS: Internal Medicine; PCP Nurse Practitioner; Visit Provider Physician Assistant
DX: R93.89 Abnormal findings on diagnostic imaging of other specified body structures; I65.23 Occlusion and stenosis of bilateral carotid arteries
CPT/HCPCS: 36415; 70498; 82565; 84520; Q9967

== ENCOUNTER → 2022-06-21 09:28 | Outpatient (CLI) | payer BC, SELFPAY ==
[2022-06-21 10:00] LABS: Hematocrit 33.4 % (37.0-47.0); Hemoglobin 10.2 g/dL (12.2-16.2)
== END ==
PROVIDERS: PCP Nurse Practitioner; Visit Provider Surgery
DX: D64.9 Anemia, unspecified (principal)
CPT/HCPCS: 36415; 85014; 85018

== ENCOUNTER → 2022-06-29 10:28 | Outpatient (CLI) | payer BC, SELFPAY ==
[2022-06-29 11:05] LABS: Basophils % 0.6 % (0.1-2.0); Eosinophils # 0.1 K/mm3 (0.0-0.4); Eosinophils % 2.3 % (0.1-12.0); Hematocrit 32.8 % (37.0-47.0); Hemoglobin 10.1 g/dL (12.2-16.2); Lymphocytes # 1.3 K/mm3 (0.7-4.5); Lymphocytes % 21.3 % (10-50); Mean Corpuscular HGB Conc 30.9 g/dL (31.8-35.4); Mean Corpuscular Hemoglobin 28.2 pg (27.0-31.2); Mean Corpuscular Volume 91.1 fl (81-99); Mean Platelet Volume 8.3 fl (7.4-10.4); Monocytes # 0.4 K/mm3 (0.1-1.0); Monocytes % 5.9 % (1.7-9.3); Neutrophils # 4.2 K/mm3 (1.8-7.8); Platelet Count 246 K/mm3 (142-424)
[2022-06-29 12:09] LABS: Anion Gap 10.6 mEq/L (5-15); Blood Urea Nitrogen 33 mg/dl (7-17); Calcium 8.5 mg/dl (8.4-10.2); Carbon Dioxide 27 mmol/L (22.0-30.0); Chloride 106 mmol/L (98-107); Estimated Glomerular Filt Rate 38 ml/min (>60); GFR (African American) 46 ML/MIN (>60); Glucose 120 mg/dl (74-100); Potassium 4.6 mmoL/L (3.5-5.1); Sodium 139 mmol/L (136-145)
== END ==
PROVIDERS: PCP Nurse Practitioner; Visit Provider Nurse Practitioner
DX: I25.118 Atherosclerotic heart disease of native coronary artery with other forms of angina pectoris (principal); I48.0 Paroxysmal atrial fibrillation; I10 Essential (primary) hypertension; E78.2 Mixed hyperlipidemia; Z95.0 Presence of cardiac pacemaker
CPT/HCPCS: 36415; 80048; 85025

== ENCOUNTER 2022-07-04 11:12 | Emergency (ER) | payer BC, SELFPAY ==
[2022-07-04 11:15] VITALS: PULSE 70; RESP 20; O2SAT 95; BMI 51.7
--- NOTE | 2022-07-04 11:25 | XR_ITS ---
FINAL REPORT CLINICAL HISTORY: fall yesterday FINDINGS: AP, lateral and oblique views of the left knee were obtained. There is no prior exam for comparison. There is mild degenerative disease. There is a lucency through the lateral tibial plateau, may represent a fracture. Small joint effusion is identified. IMPRESSION: Possible lateral tibial plateau fracture. Consider CT or MRI. Reviewed, Interpreted and Dictated by Ale Escalante MD Transcribed by Melva Rosen Authenticated and . [facility]
--- NOTE | 2022-07-04 11:41 | EXP.UTC ---
Discharge Plan Disposition Patient Disposition: Home, Self-Care Condition: Good Prescriptions Prescriptions: No Action pioglitazone 30 mg tablet 30 mg PO DAILYDM bisoprolol fumarate 5 mg tablet 5 mg PO DAILY Qty: 90 3RF pantoprazole [Protonix] 40 mg tablet,delayed release (DR/EC) 40 mg PO BID Qty: 60 5RF atorvastatin 40 mg tablet 40 mg PO DAILY albuterol sulfate 90 mcg/actuation HFA aerosol inhaler 2 puff inhalation Q6H PRN (Reason: shortness of breath or wheezing) Qty: 8.5 0RF furosemide 20 mg tablet 20 mg PO DAILY Label Comments: TAKE 1 TABLET BY MOUTH ONCE DAILY clopidogrel 75 mg tablet 75 mg PO DAILY Qty: 30 5RF Xarelto 15 mg tablet 15 mg PO DAILY Rx Instructions: must administer with evening meal losartan 50 MG tablet 50 mg PO DAILY glipizide 10 mg Tablet 10 mg PO BID Referrals Follow up/Referrals: Michelle Gray APRN [Primary Care Provider] - See instructions Haydee Hurd PA [Physician Tester/Lift Trucker] - 07/06/22 10:30 am (appointment as scheduled for ) Activity Restrictions/Add. Instructions Additional Instructions/Restrictions: *Use Wheelchair with raised leg rest NO WEIGHT BEARING unable to use walker at this time *RICE, Rest the extremity, Ice 15-20 minutes 3-4 times daily, Compress- wear the kashif wrap/Brace as discussed to help reduce swelling and pain, Elevate the extremity to help with pain and swelling *TROM Brace is for support and help control swelling, Be sure that is not to tight but not to loose either *Elevate when resting? *Ibuprofen 600-800mg every 6-8 hours as needed for pain an inflammation. If need something more can take Tylenol in between doses of Ibuprofen to help The orders/prescription for your walker and wheelchair was sent to [facility] they should be contacting you soon Clinical Impressions Clinical Impression: Closed fracture of lateral portion of left tibial plateau Qualifiers: Encounter type: initial encounter Qualified Code(s): S82.122A - Displaced fracture of lateral condyle of left tibia, initial encounter for closed fracture Instructions Patient Instructions: How to Choose and Use a Walker, How to Choose and Use a Wheelchair, How To Perform RICE (Rest, Ice, Compress, Elevate) Discharge ED Provider: Norma Nunez [facility] HPI General Stated complaint: Fall@home 07/03 LT knee pain Mode of Arrival: Ambulatory Source of Information: Patient Limitations: No Limitations Time Seen by Provider: 07/04/22 12:48 Description of Symptoms (Recalled from Triage Doc. by RN): fell at home yesterday HEENT Symptoms (Recalled from RN notes): No Resp Symptoms (Recalled from RN notes): No Skin Symptoms (Recalled from RN notes): No MS Symptoms (Recalled from RN notes): Yes Functional Status (Recalled from RN notes): n/a History of Present Illness Provider Complaint: Patient states that she slipped in her kitchen yesterday and fell and landed on her left knee States that since then she has been having pain in her knee especially behind her knee and pain when she tries to put weight on it Related Data Home Medications Medication Instructions Recorded Confirmed losartan 50 mg tablet 50 mg PO DAILY High blood pressure 01/06/19 07/04/22 furosemide 20 mg tablet 20 mg PO DAILY Fluid 12/29/20 07/04/22 pioglitazone 30 mg tablet 30 mg PO DAILYDM Diabetes 04/06/21 07/04/22 glipizide 10 mg tablet 10 mg PO BID Diabetes 05/17/22 07/04/22 atorvastatin 40 mg tablet 40 mg PO DAILY High cholesterol 06/21/22 07/04/22 rivaroxaban 15 mg tablet (Xarelto) 15 mg PO DAILY Blood thinner 07/04/22 07/04/22 Previous Rx's Medication Instructions Recorded clopidogrel 75 mg tablet 75 mg PO DAILY Blood thinner #30 11/07/21 tabs bisoprolol fumarate 5 mg tablet 5 mg PO DAILY blood pressure #90 06/22/22 tabs pantoprazole 40 mg tablet,delayed 40 mg PO BID GI Bleeding #60 tabs 06/22/22 release (Protonix) albuterol sulfate 90 mcg/actuati
[2022-07-04 14:30] VITALS: BP 106/64; PULSE 70; RESP 20; TEMP 36.7; O2SAT 95
== END 2022-07-04 14:44 | disposition home or self-care (01) ==
PROVIDERS: Emergency Provider Nurse Practitioner; PCP Nurse Practitioner
DX: S82.122A Displaced fracture of lateral condyle of left tibia, initial encounter for closed fracture (principal); W01.0XXA Fall on same level from slipping, tripping and stumbling without subsequent striking against object, initial encounter; F17.210 Nicotine dependence, cigarettes, uncomplicated; Z95.0 Presence of cardiac pacemaker
CPT/HCPCS: 29355; 73562; 99212; 99214; G0463

== ENCOUNTER 2022-07-04 13:43 | Outpatient (RCR) | payer BC, SELFPAY | END 2022-07-04 14:50 | disposition home or self-care (01) | LOC: PT 13:43 | PROVIDERS: Visit Provider Nurse Practitioner | DX: M25.562 Pain in left knee (principal) | CPT/HCPCS: 97760 ==

== ENCOUNTER → 2022-07-14 07:04 | Outpatient (CLI) | payer BC, SELFPAY ==
--- NOTE | 2022-07-14 07:09 | CT_ITS ---
FINAL REPORT TECHNIQUE: Axial images through the left knee were performed by computed tomography. Sagittal and coronal reconstruction images were performed. This study was performed with techniques to keep radiation doses as low as reasonably achievable (ALARA). Individualized dose reduction techniques using automated exposure control or adjustment of mA and/or kV according to the patient's size were employed. CLINICAL HISTORY: knee pain, fall , possible lateral tibial plateau fracture COMPARISON: Left knee radiograph 07/04/2022 FINDINGS: No dislocation identified. There is moderate narrowing of the medial compartment joint space with osteophytes at the medial joint margin. There may be a subtle fracture through the posterior tibial plateau, best seen on image 45 of series 601. Lateral tibial plateau appears intact. No depression is seen. No soft tissue abnormality. IMPRESSION: Question subtle nondisplaced fracture of the medial posterior tibial plateau. MRI could better assess for underlying marrow edema. Reviewed, Interpreted and Dictated by Bala Baxter MD Transcribed by Araseli Niño Authenticated and [facility]
== END ==
PROVIDERS: PCP Nurse Practitioner; Visit Provider Orthopaedic Surgery
DX: M25.562 Pain in left knee (principal); S82.122A Displaced fracture of lateral condyle of left tibia, initial encounter for closed fracture
CPT/HCPCS: 73700

== ENCOUNTER 2023-05-24 09:50 | Outpatient (CLI) | payer MEDICARE, BC, SELFPAY ==
--- NOTE | 2023-05-24 09:59 | XR_ITS ---
FINAL REPORT CLINICAL HISTORY: lt elbow pain knot on elbow COMPARISON: None FINDINGS: 3 views of the left elbow were obtained. There is no acute fracture or dislocation. There is mild degenerative change. There is mild calcification in the region of the distal triceps tendon. Posterior soft tissue swelling may represent olecranon bursitis. IMPRESSION: Possible olecranon bursitis Reviewed, Interpreted and Dictated by Chris Solorzano III, MD Transcribed by Araseli Niño Authenticated and [facility]
== END 2023-05-24 23:59 ==
LOC: RAD 09:51
PROVIDERS: PCP Nurse Practitioner; Visit Provider Orthopaedic Surgery
DX: M25.522 Pain in left elbow (principal)
CPT/HCPCS: 73080

== ENCOUNTER 2023-12-16 12:55 | Emergency (ER) | payer MEDICARE, SELFPAY ==
[2023-12-16 12:52] VITALS: BP 126/104; PULSE 88; RESP 20; TEMP 36.9; O2SAT 95; BMI 50.1
--- NOTE | 2023-12-16 12:58 | ED_ITS ---
Discharge Plan Disposition Chief Complaint: Fall Prescriptions Prescriptions: No Action pioglitazone 30 mg tablet 30 mg PO DAILYDM atorvastatin 40 mg tablet 40 mg PO DAILY Qty: 90 3RF albuterol sulfate 90 mcg/actuation HFA aerosol inhaler See Rx Instructions .ROUTE .COMPLEX Qty: 9 3RF Dose Instruction: INHALE 2 PUFFS BY MOUTH EVERY 6 HOURS NEEDED FOR SHORTNESS OF BREATH OR WHEEZING. Rx Instructions: INHALE 2 PUFFS BY MOUTH EVERY 6 HOURS NEEDED FOR SHORTNESS OF BREATH OR WHEEZING. Xarelto 20 mg tablet 20 mg PO DAILY Patient Comments: TAKE 1 TABLET BY MOUTH ONCE DAILY WITH EVENING MEAL Trulicity 0.75 mg/0.5 mL pen injector 0.75 mg SQ WEEKLY Patient Comments: INJECT 0.75 MG SUBCUTANEOUSLY EVERY WEEK FOR 4 WEEKS, THEN 1.5 MG EVERY WEEK furosemide 20 mg tablet 20 mg PO Q OTHER DAY Patient Comments: TAKE 1 TABLET BY MOUTH ONCE DAILY ergocalciferol (vitamin D2) 1,250 mcg (50,000 unit) capsule 50,000 unit PO .COMPLEX Patient Comments: TAKE 1 CAPSULE BY MOUTH ONCE EVERY MONTH Rx Instructions: 50,000 units orally monthly; bisoprolol fumarate 5 mg tablet 5 mg PO DAILY Qty: 90 3RF losartan 50 MG tablet 50 mg PO DAILY glipizide 10 mg Tablet 10 mg PO BID Referrals Follow up/Referrals: Michelle Gray APRN [Primary Care Provider] - See instructions Stand Alone Forms Stand Alone Forms: Transfer Record - ED Print Language Print Language: Divehi Discharge ED Provider: aGge Pompa General Adult HPI General Chief complaint: Fall Stated complaint: Fall, R knee pain & open wound above knee Time Seen by Provider: 12/16/23 12:58 History of Present Illness HPI narrative: The patient presents with a chief complaint of right leg pain following a fall on concrete and gravel. The pain is localized to the right leg, with no numbness or tingling reported. She denies any other injuries or pain in other areas. She also reports a scraped hand from the fall. She has a history of hypertension, hypercholesterolemia, and a pacemaker. She is currently taking Plavix and Xarelto as blood thinners, with Xarelto taken at night. She also mentions taking Trulicity. She is unsure about her tetanus vaccination status but believes she is probably not up to date. She has not had any surgeries on the affected leg and reports her last meal was this morning. She mentions she runs on gravel, which may be relevant to the injury. Please note that above description of symptoms, in this electronic medical record under categorization of recalled from ER triage doctor by RN are reflective of an initial nursing assessment, however, is not reflective of my full history and physical exam that was personally taken and clarified. Consequentially, this preceding description of symptoms, which may include the patient's categorized chief complaint in the EMR, do not reflect my personal clinical impression, and the ultimate description of history of present illness and patient stated complaints should be deferred to this section of the note. Unless stated otherwise or congruent with this section of the note, additional signs, symptoms, or incongruence should be interpreted as inaccurate with my clinical impression. Related Data Home Medications ?Medication ?Instructions ?Recorded ?Confirmed losartan 50 mg tablet 50 mg PO DAILY High blood pressure 01/06/19 10/23/23 pioglitazone 30 mg tablet 30 mg PO DAILYDM Diabetes 04/06/21 10/23/23 glipizide 10 mg tablet 10 mg PO BID Diabetes 05/17/22 10/23/23 ergocalciferol (vitamin D2) 1,250 50,000 unit PO .COMPLEX 02/22/23 10/23/23 mcg (50,000 unit) capsule furosemide 20 mg tablet 20 mg PO Q OTHER DAY Fluid 02/22/23 10/23/23 dulaglutide 0.75 mg/0.5 mL 0.75 mg SQ WEEKLY 09/20/23 10/23/23 subcutaneous pen injector (Trulicity) rivaroxaban 20 mg tablet (Xarelto) 20 mg PO DAILY 09/20/23 10/23/23 Previous Rx's ?Medication ?Instructions ?Recorded albuterol sulfate 90 mcg/actuation See Rx Instructions .Route 03/27/23 aerosol inhaler .COMPLEX #9 grams atorvastatin 40 mg tablet 40 mg PO DAILY High cholesterol 03/27/23 #90 tabs bisoprolol fumarate 5 mg tablet 5 mg PO DAILY blood pressure #90 05/22/23 tabs Allergies Allergy/AdvReac Type Severity Reaction Status Date / Time No Known Allergies Allergy Verified 10/23/23 11:20 [facility] Disclaimer: The information contained in this section may have been updated after the patient was seen, as this information can be updated by other users. 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 Abnormal carotid ultrasound Stenosis of carotid artery Pacemaker History of diverticulitis Neuropathy PAF (paroxysmal atrial fibrillation) On Xarelto CAD (coronary artery disease) Hyperlipidemia Hypertension Transient cerebral ischemia Surgical History Stented coronary artery History of cholecystectomy Presence of cardiac pacemaker Family History Other Family history of diabetes mellitus type II Family history of hypertension Social History Smoking Status: Never smoker alcohol intake: never substance use type: denies use current occupational status: retired Travel in the last 8 weeks: None household members: family housing: house current occupational exposures/hazards: No caffeine: Yes special [place] needs: No agree to transfusion: No do you feel safe at home: Yes victim of physical abuse: No victim of emotional abuse: No victim of sexual abuse: No would you like helpful sources: No ROS Obtained: Yes other As per HPI Physical Exam General General appearance: alert and in distress Head Head exam: atraumatic and normocephalic Eye Eye exam: Present normal appearance Neck Neck exam: Present normal inspection Chest Chest inspection: Present normal inspection and symmetric chest wall rise Respiratory Respiratory exam: Present normal lung sounds bilaterally; Absent respiratory distress Cardiovascular Cardiovascular exam: Present regular rate and normal rhythm Abdominal Exam Abdominal exam: Present soft Neurological Exam Neurological exam: Present alert and oriented X3 Psychiatric Psychiatric exam: Present normal affect and normal mood Skin Skin exam: Present warm and dry Other Other exam information: Tenderness to palpation of right thigh, compartments soft, open wound, puncture wound, to right thigh, lateral aspect, distally neurovascularly intact, no evidence of injury above the clavicles. Medical Decision Making Medical Records Medical records reviewed: Yes I reviewed the patient's medical records. Mac Inquiry Pt receiving controlled substance: No Vital Signs: 12/16/23 12:52 Temperature 98.4 F Temperature Source Oral Pulse Rate [Right] 88 Respiratory Rate 20 Blood Pressure [Right Arm] 126/104 H Blood Pressure Mean [Right Arm] 111 02 Sat by Pulse Oximetry 95 Oxygen Delivery Method Room Air Lab Data Lab Results 12/16/23 12:54: WBC 8.8, RBC 4.12 L, Hgb 13.0, Hct 41.6, MCV 101.1 H, MCH 31.5 H , MCHC 31.2 L, RDW 15.7, Plt Count 206, MPV 8.5, Neut % (Auto) 80.8 H, Lymph % (Auto) 11.4, [place] % (Auto) 5.1, Eos % (Auto) 2.1, Baso % (Auto) 0.6, Neut # (Auto) 7.1, Lymph # (Auto) 1.0, [place] # (Auto) 0.5, Eos # (Auto) 0.2, Baso # (Auto) 0.1, PT 12.7 H, INR 1.15 H, Sodium 140, Potassium 5.1, Chloride 110 H, Carbon Dioxide 27, Anion Gap 8.1, BUN 34 H, Creatinine 1.30 H, Estimated Creat Clear 43, Estimated GFR 41 L, Est GFR ( Amer) 50 L, Glucose 162 H, Calcium 8.7, Total Bilirubin 0.7, AST 30, ALT 23, Alkaline Phosphatase 78, Total Protein 7.1 D, Albumin 3.7, Globulin 3.4 H, Albumin/Globulin Ratio 1.1 12/16/23 13:30: Blood Type A Negative, Antibody Screen Negative 12/16/23 12:54 12/16/23 12:54 Orders (Tests/Meds): ED MEDICATIONS Discontinued Medications Generic Name Dose Route Start Last Admin Trade Name Freq PRN Reason Stop Dose Admin Hydromorphone HCl 0.5 mg 12/16/23 13:55 12/16/23 13:59 Hydromorphone 4 Mg/Ml Syringe IV 12/16/23 13:56 0.5 mg ONCE ONE Administration Cefazolin Sodium 2 gm/ Sodium 100 mls @ 200 mls/hr 12/16/23 13:18 12/16/23 14:30 Chloride IV 12/16/23 13:47 200 mls/hr ONCE ONE Administration Iopamidol 120 ml 12/16/23 15:02 12/16/23 15:03 Iopamidol-370 (76%);100ml Bottle IV 12/16/23 15:03 120 ml ONCE ONE Administration Sodium Chloride 50 ml 12/16/23 15:02 12/16/23 15:03 0.9 % Sodium Chloride 50 Ml Vial IV 12/16/23 15:03 50 ml ONCE ONE Administration Sodium Chloride 10 ml 12/16/23 15:02 12/16/23 15:03 Sodium Chloride 0.9% 10ml Syr (Rad Only) IV 12/16/23 15:03 10 ml ONCE ONE Administration Tetanus/Reduced Diphtheria/Acell Pertussis 0.5 ml 12/16/23 13:16 12/16/23 15:36 Tet/Diphth/Pert-Adult 0.5ml Syringe IM 12/16/23 13:17 0.5 ml .ONCE ONE Administration ORDERS Category Date Time Status Type and Screen Stat BBK 12/16/23 13:[address] angio femur RT Stat Cat Scan 12/16/23 13:55 Completed XR femur RT 2V Stat Exams 12/16/23 13:16 Completed XR hip RT 2-3V w/pelvis Stat Exams 12/16/23 13:16 Completed XR knee RT 2V Stat Exams 12/16/23 13:16 Completed CBC w/Auto Diff [Complete Blood Count Auto Diff] Stat Lab 12/16/23 12:54 Completed CMP [Comprehensive Metabolic Panel] Stat Lab 12/16/23 12:54 Completed PT INR [Prothrombin Time INR] Stat Lab 12/16/23 12:54 Completed Medical Decision Narrative: Patient with history and exam per above presenting for evaluation of right lower extremity injury Diagnoses considered include fracture, open fracture, vascular injury, nerve injury ED workup and treatment included: ED MEDICATIONS Discontinued Medications Generic Name Dose Route Start Last Admin Trade Name Freq PRN Reason Stop Dose Admin Hydromorphone HCl 0.5 mg 12/16/23 13:55 12/16/23 13:59 Hydromorphone 4 Mg/Ml Syringe IV 12/16/23 13:56 0.5 mg ONCE ONE Administration Cefazolin Sodium 2 gm/ Sodium 100 mls @ 200 mls/hr 12/16/23 13:18 12/16/23 14:30 Chloride IV 12/16/23 13:47 200 mls/hr ONCE ONE Administration Iopamidol 120 ml 12/16/23 15:02 12/16/23 15:03 Iopamidol-370 (76%);100ml Bottle IV 12/16/23 15:03 120 ml ONCE ONE Administration Sodium Chloride 50 ml 12/16/23 15:02 12/16/23 15:03 0.9 % Sodium Chloride 50 Ml Vial IV 12/16/23 15:03 50 ml ONCE ONE Administration Sodium Chloride 10 ml 12/16/23 15:02 12/16/23 15:03 Sodium Chloride 0.9% 10ml Syr (Rad Only) IV 12/16/23 15:03 10 ml ONCE ONE Administration Tetanus/Reduced Diphtheria/Acell Pertussis 0.5 ml 12/16/23 13:16 12/16/23 15:36 Tet/Diphth/Pert-Adult 0.5ml Syringe IM 12/16/23 13:17 0.5 ml .ONCE ONE Administration ORDERS Category Date Time Status Type and Screen Stat BBK 12/16/23 13:[address] angio femur RT Stat Cat Scan 12/16/23 13:55 Completed XR femur RT 2V Stat Exams 12/16/23 13:16 Completed XR hip RT 2-3V w/pelvis Stat Exams 12/16/23 13:16 Completed XR knee RT 2V Stat Exams 12/16/23 13:16 Completed CBC w/Auto Diff [Complete Blood Count Auto Diff] Stat Lab 12/16/23 12:54 Completed CMP [Comprehensive Metabolic Panel] Stat Lab 12/16/23 12:54 Completed PT INR [Prothrombin Time INR] Stat Lab 12/16/23 12:54 Completed Labs were independently interpreted by me, significant for no leukocytosis, other labs pending Imaging was independently visualized and interpreted by me, significant for no acute extravasation, however femur fracture, intra-articular, comminuted Please refer to radiology report for full details. Patient will require higher level of care for further management in the setting of multiple comorbidities, blood thinner usage, she was accepted for transfer to [facility]. Critical Care Critical Care Time Critical Care Time: No
--- NOTE | 2023-12-16 13:13 | PC.NURSE ---
Dr. Pompa at bedside
--- NOTE | 2023-12-16 13:16 | XR_ITS ---
PROCEDURE INFORMATION: Exam: XR Right Hip Exam date and time: 12/16/2023 1:34 PM Age: 68 years old Clinical indication: Injury or trauma; Fall; Blunt trauma (contusions or hematomas); Right; Hip; Additional info: Fall, possible puncture wound, concern for open FX TECHNIQUE: Imaging protocol: Radiologic exam of the right hip. Views: 2 or 3 views hip with pelvis when performed. COMPARISON: CR XR HIP RT 2-3V W/PELVIS 12/16/2023 1:34 PM FINDINGS: Limitations: Study is limited due to body habitus. Bones/joints: There are [id number] degenerative changes both hip joints. No evidence of underlying fracture, dislocation or malalignment. Soft tissues: Unremarkable. IMPRESSION: Limited study. No acute bony abnormalities detected.
--- NOTE | 2023-12-16 13:16 | XR_ITS ---
PROCEDURE INFORMATION: Exam: XR Right Knee Exam date and time: 12/16/2023 1:34 PM Age: 68 years old Clinical indication: Injury or trauma; Fall; Blunt trauma; Knee; Right; Additional info: Fall, possible puncture wound, concern for open FX TECHNIQUE: Imaging protocol: Radiologic exam of the right knee. Views: 1 or 2 views. COMPARISON: CR XR KNEE RT 3V 12/16/2023 1:34 PM FINDINGS: Limitations: Study is limited single AP projection of the right knee Bones/joints: There is a comminuted fracture distal shaft right femur with horizontal and vertically oriented fracture lines that extends to the articular surface along the intercondylar fossa. There is some displacement difficult to further evaluate. Soft tissues: Unremarkable. IMPRESSION: Acute comminuted fracture distal shaft right femur with extension to the articular surface of the right knee.
--- NOTE | 2023-12-16 13:16 | XR_ITS ---
PROCEDURE INFORMATION: Exam: XR Right Femur Exam date and time: 12/16/2023 1:34 PM Age: 68 years old Clinical indication: Injury or trauma; Fall; Blunt trauma; Thigh or upper leg; Right; Additional info: Fall, possible puncture wound, concern for open FX TECHNIQUE: Imaging protocol: Radiologic exam of the right femur. Views: 2 views. COMPARISON: CR XR HIP RT 2-3V W/PELVIS 12/16/2023 1:34 PM FINDINGS: Limitations: Study is limited AP projection of the right femur. Bones/joints: There is a comminuted fracture involving the distal shaft of the femur with the some overriding of fracture components difficult to further assess. Mainly visualized osseous structures are intact. Soft tissues: Difficult to evaluate due to body habitus. IMPRESSION: Acute comminuted fracture distal shaft right femur.
[2023-12-16 13:30] LABS: Basophils # 0.1 K/mm3 (0-0.2); Basophils % 0.6 % (0.1-2.0); Eosinophils # 0.2 K/mm3 (0.0-0.4); Eosinophils % 2.1 % (0.1-12.0); Hematocrit 41.6 % (37.0-47.0); Lymphocytes % 11.4 % (10-50); Mean Corpuscular HGB Conc 31.2 g/dL (31.8-35.4); Mean Corpuscular Hemoglobin 31.5 pg (27.0-31.2); Mean Corpuscular Volume 101.1 fl (81-99); Mean Platelet Volume 8.5 fl (7.4-10.4); Monocytes # 0.5 K/mm3 (0.1-1.0); Monocytes % 5.1 % (1.7-9.3); Neutrophils # 7.1 K/mm3 (1.8-7.8); Neutrophils % 80.8 % (37.0-80.0); Platelet Count 206 K/mm3 (142-424); Red Blood Count 4.12 M/mm3 (4.20-5.40); Red Cell Distribution Width 15.7 % (11.5-17.5); White Blood Count 8.8 K/mm3 (4.8-10.8)
[2023-12-16 13:32] LABS: Albumin Level 3.7 g/dl (3.5-5.0); Chloride 110 mmol/L (98-107)
[2023-12-16 13:33] LABS: Potassium 5.1 mmoL/L (3.5-5.1); Sodium 140 mmol/L (136-145)
[2023-12-16 13:35] LABS: Blood Urea Nitrogen 34 mg/dl (7-17); Creatinine Clearance Estimated 43 mL/min (50-200); Estimated Glomerular Filt Rate 41 ml/min (>60); GFR (African American) 50 ML/MIN (>60)
[2023-12-16 13:36] LABS: Alanine Aminotransferase 23 U/L (12-78); Albumin/Globulin Ratio 1.1 (1.1-1.8); Alkaline Phosphatase 78 U/L (38-126); Anion Gap 8.1 mEq/L (5-15); Aspartate Amino Transferase 30 U/L (14-36); Bilirubin,Total 0.7 mg/dl (0.2-1.3); Calcium 8.7 mg/dl (8.4-10.2); Carbon Dioxide 27 mmol/L (22.0-30.0); Globulin 3.4 g/dL (1.3-3.2); Glucose 162 mg/dl (74-100); Total Protein,Serum 7.1 g/dl (6.3-8.2)
[2023-12-16 13:37] LABS: INR 1.15 (0.9-1.1); Prothrombin Time 12.7 seconds (10.1-12.5)
--- NOTE | 2023-12-16 13:55 | CT_ITS ---
PROCEDURE INFORMATION: Exam: CTA Right Lower Extremity With Contrast Exam date and time: 12/16/2023 2:29 PM Age: 68 years old Clinical indication: Injury or trauma; Fall; Blunt trauma; Thigh or upper leg; Right; Additional info: Open FX rle, +bt TECHNIQUE: Imaging protocol: Computed tomographic angiography of the right lower extremity with contrast. 3D rendering (Not supervised by radiologist): MIP and/or 3D reconstructed images were created by the technologist. Radiation optimization: All CT scans at this facility use at least one of these dose optimization techniques: automated exposure control; mA and/or kV adjustment per patient size (includes targeted exams where dose is matched to clinical indication); or iterative reconstruction. Contrast material: ISOVUE; Contrast volume: 120 ml; Contrast route: INTRAVENOUS (IV); COMPARISON: CR XR FEMUR RT 2V 12/16/2023 1:34 PM FINDINGS: Right femoral/popliteal arteries: Diffuse atherosclerotic changes right SFA and popliteal artery.. No severe stenosis or occlusion detected. No compelling evidence of vascular injury. Right infrapopliteal arteries: No occlusion or significant stenosis. Bones/joints: Comminuted fracture distal shaft of the right femur with 4 cm posterior displacement of the distal fracture component with overriding at the fracture site. There is a vertical component that extends inferiorly to the lateral aspect of the intercondylar fossa. Soft tissues: Soft tissue swelling at the fracture site. Small lipohemarthrosis present. IMPRESSION: 1. Diffuse atherosclerotic changes right SFA and popliteal artery. No evidence of vascular occlusion or injury. 2. Comminuted displaced fracture involving distal shaft of the femur extending to the articular surface with a small accompanying lipohemarthrosis.
[2023-12-16] MEDS: CEFAZOLIN SODIUM 2 GM in 0.9 % SODIUM CHLORIDE 100 ML IV (14:30)
[2023-12-16] MEDS: SODIUM CHLORIDE 0.9% 10ML SYR (RAD ONLY) 10 ML IV (15:03)
[2023-12-16] MEDS: 0.9 % SODIUM CHLORIDE 50 ML VIAL IV (15:03)
[2023-12-16] MEDS: IOPAMIDOL-370 (76%);100ML BOTTLE 120 ML IV (15:03)
--- NOTE | 2023-12-16 15:32 | PC.NURSE ---
[facility] CONTACTED AT THIS TIME FOR TRANSFER FOR ORTHO
--- NOTE | 2023-12-16 15:34 | PC.NURSE ---
DR WINTER SPEAKING WITH DR. SANDERS AT [facility]
[2023-12-16] MEDS: TET/DIPHTH/PERT-ADULT 0.5ML SYRINGE 0.5 ML IM (15:36)
--- NOTE | 2023-12-16 15:57 | PC.NURSE ---
Called report to [facility] William Childs RN
[2023-12-16 17:15] VITALS: BP 101/69; PULSE 75; RESP 18; TEMP 36.5; O2SAT 98
[2023-12-16 17:32] LABS: Microscopic, Urine URINE MICROSCOPIC (MICROSCOPIC)
[2023-12-16 17:33] LABS: Appearance,Urine CLEAR (Clear); Bilirubin,Urine Negative (Negative); Blood, Urine TRACE-I (Negative); Color,Urine YELLOW (Yellow); Glucose,Urine (UA) Negative (Negative); Ketones,Urine Negative (Negative); Leukocyte Esterase,Urine Negative (Negative); Nitrate,Urine Negative (Negative); PH,Urine 5.5 (5.0-8.5); Protein,Urine Negative (Negative); Specific Gravity, Urine 1.015 (1.005-1.030); Urobilinogen,Urine 0.2 EU/dl (0.2)
[2023-12-16 17:40] LABS: RBC,Urine Occasional #/hpf (0-3); Squamous Epithelial Cell,Urine Occasional #/hpf (0-5); WBC,Urine Occasional #/hpf (0-3)
== END 2023-12-16 17:30 | disposition short-term general hospital (02) ==
PROVIDERS: Emergency Medicine; Emergency Provider Emergency Medicine; PCP Nurse Practitioner
DX: S72.351B Displaced comminuted fracture of shaft of right femur, initial encounter for open fracture type I or II (principal); W18.00XA Striking against unspecified object with subsequent fall, initial encounter; Y93.02 Activity, running; I10 Essential (primary) hypertension; E78.00 Pure hypercholesterolemia, unspecified; Z79.01 Long term (current) use of anticoagulants; I48.0 Paroxysmal atrial fibrillation; Z23 Encounter for immunization
CPT/HCPCS: 51702; 73502; 73552; 73560; 73706; 80053; 81001; 85025; 85610; 86850; 90471; 90715; 96365; 96375; 99285; J0690; J1170; Q9967

== ENCOUNTER 2024-02-23 13:50 | Emergency (ER) | payer MEDICARE, SELFPAY ==
[2024-02-23] VITALS (15 sets, daily range): BP systolic 95–193; BP diastolic 30–97; PULSE 65–87; RESP 18–22; TEMP 36.7–36.9; O2SAT 88–99; BMI 48.6
--- NOTE | 2024-02-23 14:08 | XR_ITS ---
PROCEDURE INFORMATION: Exam: XR Chest Exam date and time: 02/23/2024 2:16 PM Age: 68 years old Clinical indication: Other: Low o2 TECHNIQUE: Imaging protocol: Radiologic exam of the chest. Views: 1 view. COMPARISON: No relevant prior studies available. FINDINGS: Lungs: Lung volumes are decreased. No infiltrates or overt CHF. Pleural spaces: Unremarkable. No pleural effusion. No pneumothorax. Heart/Mediastinum: Heart is borderline enlarged. Pacemaker wires extending through the right atrium and right ventricle. Questionable gas-filled hiatal hernia. Bones/joints: No acute bony abnormalities detected. IMPRESSION: Borderline cardiomegaly. Decreased lung volumes, otherwise negative chest.
--- NOTE | 2024-02-23 14:08 | XR_ITS ---
PROCEDURE INFORMATION: Exam: XR Right Knee Exam date and time: 02/23/2024 2:16 PM Age: 68 years old Clinical indication: Pain; Knee; Right TECHNIQUE: Imaging protocol: Radiologic exam of the right knee. Views: 3 views. COMPARISON: No relevant prior studies available. FINDINGS: Bones/joints: There is an intramedullary dorothea with multiple distal interlocking screws through the distal femur redemonstrated transfixing a comminuted fracture of the distal femoral shaft resulting in multiple fracture components.. Visualized hardware is intact. There are moderate degenerative changes of the medial and lateral knee compartments as well as the patellofemoral joint with joint space narrowing, subchondral sclerosis and mild marginal spurring. There is a small joint effusion. Soft tissues: Unremarkable. IMPRESSION: 1. Internally fixed comminuted fracture distal femoral shaft. 2. Moderate tricompartmental osteoarthritis.
[2024-02-23 14:18] LABS: Basophils # 0.1 K/mm3 (0-0.2); Basophils % 0.6 % (0.1-2.0); Eosinophils # 0.1 K/mm3 (0.0-0.4); Eosinophils % 1.7 % (0.1-12.0); Hematocrit 34.3 % (37.0-47.0); Lymphocytes # 0.9 K/mm3 (0.7-4.5); Lymphocytes % 10.7 % (10-50); Mean Corpuscular HGB Conc 31.9 g/dL (31.8-35.4); Mean Corpuscular Hemoglobin 30.1 pg (27.0-31.2); Mean Corpuscular Volume 94.3 fl (81-99); Monocytes # 0.3 K/mm3 (0.1-1.0); Monocytes % 3.2 % (1.7-9.3); Neutrophils % 83.8 % (37.0-80.0); Platelet Count 365 K/mm3 (142-424); Red Blood Count 3.64 M/mm3 (4.20-5.40); Red Cell Distribution Width 16.3 % (11.5-17.5); White Blood Count 8.4 K/mm3 (4.8-10.8)
[2024-02-23 14:19] LABS: Albumin Level 3.3 g/dl (3.5-5.0); Chloride 106 mmol/L (98-107); Potassium 4.8 mmoL/L (3.5-5.1); Sodium 137 mmol/L (136-145)
[2024-02-23 14:21] LABS: Blood Urea Nitrogen 32 mg/dl (7-17); Creatinine Clearance Estimated 40 mL/min (50-200); Estimated Glomerular Filt Rate 38 ml/min (>60); GFR (African American) 46 ML/MIN (>60)
--- NOTE | 2024-02-23 14:21 | PC.NURSE ---
XR AT BEDSIDE
[2024-02-23 14:22] LABS: Alanine Aminotransferase 18 U/L (12-78); Albumin/Globulin Ratio 0.8 (1.1-1.8); Alkaline Phosphatase 134 U/L (38-126); Anion Gap 13.8 mEq/L (5-15); Aspartate Amino Transferase 25 U/L (14-36); Bilirubin,Total 0.9 mg/dl (0.2-1.3); Calcium 8.9 mg/dl (8.4-10.2); Carbon Dioxide 22 mmol/L (22.0-30.0); Glucose 211 mg/dl (74-100); Total Protein,Serum 7.3 g/dl (6.3-8.2)
[2024-02-23 14:27] LABS: C-Reactive Protein 6.9 mg/L (0-4)
--- NOTE | 2024-02-23 14:27 | HMH.EDGENADL ---
Discharge Plan Disposition Chief Complaint: Extremity Problem,Nontraumatic Prescriptions Prescriptions: No Action pioglitazone 30 mg tablet 30 mg PO DAILYDM atorvastatin 40 mg tablet 40 mg PO DAILY Qty: 90 3RF albuterol sulfate 90 mcg/actuation HFA aerosol inhaler See Rx Instructions .ROUTE .COMPLEX Qty: 9 3RF Dose Instruction: INHALE 2 PUFFS BY MOUTH EVERY 6 HOURS NEEDED FOR SHORTNESS OF BREATH OR WHEEZING. Rx Instructions: INHALE 2 PUFFS BY MOUTH EVERY 6 HOURS NEEDED FOR SHORTNESS OF BREATH OR WHEEZING. Xarelto 20 mg tablet 20 mg PO DAILY Patient Comments: TAKE 1 TABLET BY MOUTH ONCE DAILY WITH EVENING MEAL Trulicity 0.75 mg/0.5 mL pen injector 0.75 mg SQ WEEKLY Patient Comments: INJECT 0.75 MG SUBCUTANEOUSLY EVERY WEEK FOR 4 WEEKS, THEN 1.5 MG EVERY WEEK furosemide 20 mg tablet 20 mg PO Q OTHER DAY Patient Comments: TAKE 1 TABLET BY MOUTH ONCE DAILY ergocalciferol (vitamin D2) 1,250 mcg (50,000 unit) capsule 50,000 unit PO .COMPLEX Patient Comments: TAKE 1 CAPSULE BY MOUTH ONCE EVERY MONTH Rx Instructions: 50,000 units orally monthly; bisoprolol fumarate 5 mg tablet 5 mg PO DAILY Qty: 90 3RF losartan 50 MG tablet 50 mg PO DAILY glipizide 10 mg Tablet 10 mg PO BID Referrals Follow up/Referrals: Michelle Gray APRN [Primary Care Provider] - See instructions Clinical Impressions Clinical Impression: Post-operative pain, Physical deconditioning, Pain and swelling of right knee Stand Alone Forms Stand Alone Forms: Transfer Record - ED Print Language Print Language: Belarusian Discharge ED Provider: Cristian Guevara General Adult HPI <Pedro Pablo Travis ([facility]), PHYSICAL THERAPY RESIDENT - Last Filed: 02/23/24 19:41> General Chief complaint: Extremity Problem,Nontraumatic Stated complaint: RIGHT KNEE PAIN Time Seen by Provider: 02/23/24 13:57 Mode of Arrival: EMS Source of Information: Patient and EMS Limitations: No Limitations Description of Symptoms (Recalled from ER Triage Doc. by RN): r leg pain. unable to bear weight History of Present Illness HPI narrative: 68-year-old female presents for right knee pain and unable to bare weight. Patient states she had a open fractured leg December 15 and was sent to for surgery after surgery she was sent to a intermediate for rehab stay there for 20 days and has been home since the middle of January. Patient states she was doing fine until this morning when she got up to use the potty chair was unable to bear weight. Patient states pains mainly and behind her knee. Edema noted to then entire leg patient and family states the swelling is improved. Related Data Home Medications ?Medication ?Instructions ?Recorded ?Confirmed losartan 50 mg tablet 50 mg PO DAILY High blood pressure 01/06/19 10/23/23 pioglitazone 30 mg tablet 30 mg PO DAILYDM Diabetes 04/06/21 10/23/23 glipizide 10 mg tablet 10 mg PO BID Diabetes 05/17/22 10/23/23 ergocalciferol (vitamin D2) 1,250 50,000 unit PO .COMPLEX 02/22/23 10/23/23 mcg (50,000 unit) capsule furosemide 20 mg tablet 20 mg PO Q OTHER DAY Fluid 02/22/23 10/23/23 dulaglutide 0.75 mg/0.5 mL 0.75 mg SQ WEEKLY 09/20/23 10/23/23 subcutaneous pen injector (Trulicity) rivaroxaban 20 mg tablet (Xarelto) 20 mg PO DAILY 09/20/23 10/23/23 Previous Rx's ?Medication ?Instructions ?Recorded albuterol sulfate 90 mcg/actuation See Rx Instructions .Route 03/27/23 aerosol inhaler .COMPLEX #9 grams atorvastatin 40 mg tablet 40 mg PO DAILY High cholesterol 03/27/23 #90 tabs bisoprolol fumarate 5 mg tablet 5 mg PO DAILY blood pressure #90 05/22/23 tabs Allergies Allergy/AdvReac Type Severity Reaction Status Date / Time No Known Allergies Allergy Verified 10/23/23 11:20 [facility] <Pedro Pablo Travis ([facility]), PHYSICAL THERAPY RESIDENT - Last Filed: 02/23/24 19:41> [facility] Disclaimer: The information contained in this section may have been updated after the patient was seen, as this information can be updated by other users. 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 , PHYSICAL THERAPY RESIDENT) Abnormal carotid ultrasound Stenosis of carotid artery Pacemaker History of diverticulitis Neuropathy PAF (paroxysmal atrial fibrillation) CAD (coronary artery disease) Hyperlipidemia Hypertension Transient cerebral ischemia Surgical History , PHYSICAL THERAPY RESIDENT) Stented coronary artery History of cholecystectomy Presence of cardiac pacemaker Family History , PHYSICAL THERAPY RESIDENT) Family history of hypertension Family history of diabetes mellitus type II Social History , PHYSICAL THERAPY RESIDENT) Smoking Status: Never smoker alcohol intake: never substance use type: denies use current occupational status: retired Travel in the last 8 weeks: None household members: family housing: house current occupational exposures/hazards: No caffeine: Yes special [place] needs: No agree to transfusion: No do you feel safe at home: Yes victim of physical abuse: No victim of emotional abuse: No victim of sexual abuse: No would you like helpful sources: No Other 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 Have you received the Flu Vaccine for this season: No Have you received the Pneumonia Vaccine: Yes <[facility] PHYSICAL THERAPY RESIDENT - Last Filed: 02/23/24 19:41> ROS Obtained: Yes Systems reviewed as appropriate & no additional complaints except as documented Constitutional Constitutional: Reports system reviewed and no additional complaints, except as documented and Reports as per HPI Musculoskeletal Musculoskeletal: Reports system reviewed and no additional complaints, except as documented, Reports as per HPI, Reports limited range of motion and Reports radiating pain into limb Physical Exam <[facility], PHYSICAL THERAPY RESIDENT - Last Filed: 02/23/24 19:41> General General appearance: alert and in no apparent distress Head Head exam: atraumatic Eye Eye exam: Present normal appearance Neck Neck exam: Present normal inspection and full ROM Respiratory Respiratory exam: Present normal lung sounds bilaterally Cardiovascular Cardiovascular exam: Present irregular rhythm Abdominal Exam Abdominal exam: Present soft and normal bowel sounds Expanded Lower Extremity Exam Right: Hip/Pelvis exam: Present normal inspection and full ROM Upper leg exam: Present normal inspection Leg image: 1. Healing scar 2. Redness 3. Swelling Knee exam: Present tenderness, swelling and erythema Lower leg exam: Present tenderness and swelling Neurological Exam Neurological exam: Present alert and oriented X3 Skin Skin exam: Present warm Lymphatic Lymphatic Findings: no adenopathy Medical Decision Making <Pedro [facility], PHYSICAL THERAPY RESIDENT - Last Filed: 02/23/24 19:41> Medical Records Medical records reviewed: Yes I reviewed the patient's medical records. Screening: Per USPSTF and CDC recommendations, given the prevalence of disease in our region, it is our hospital?s policy to screen for HIV and viral Hepatitis for all patients aged 18 and over and those with ongoing risk factors. Mac Inquiry Pt receiving controlled substance: No Mac was queried for this patient: No Vital Signs: 02/23/24 13:50 02/23/24 14:41 02/23/24 15:01 Temperature 98.4 F Temperature Source Oral Pulse Rate 87 77 Pulse Rate [Right] 68 Respiratory Rate 22 20 18 Blood Pressure 95/73 L 193/90 H Blood Pressure [Right Arm] 109/91 L Blood Pressure Mean 80 124 Blood Pressure Mean [Right Arm] 97 02 Sat by Pulse Oximetry 88 L 91 L 96 Oxygen Delivery Method Room Air Oxygen Flow Rate (LPM) 02/23/24 15:21 02/23/24 15:31 02/23/24 16:17 Temperature Temperature Source Pulse Rate 74 65 68 Pulse Rate [Right] Respiratory Rate 18 Blood Pressure 193/30 H 131/77 118/97 H Blood Pressure [Right Arm] Blood Pressure Mean 103 103 Blood Pressure Mean [Right Arm] 02 Sat by Pulse Oximetry 97 99 91 L Oxygen Delivery Method Nasal Cannula Oxygen Flow Rate (LPM) 2 02/23/24 16:31 02/23/24 17:01 02/23/24 17:30 Temperature Temperature Source Pulse Rate 72 73 73 Pulse Rate [Right] Respiratory Rate 18 Blood Pressure 137/52 L 131/58 L 143/94 H Blood Pressure [Right Arm] Blood Pressure Mean 80 72 106 Blood Pressure Mean [Right Arm] 02 Sat by Pulse Oximetry 98 96 95 Oxygen Delivery Method Room Air Room Air Oxygen Flow Rate (LPM) 02/23/24 18:00 02/23/24 18:30 02/23/24 19:00 Temperature Temperature Source Pulse Rate 72 80 76 Pulse Rate [Right] Respiratory Rate Blood Pressure 149/66 H 132/69 132/69 Blood Pressure [Right Arm] Blood Pressure Mean 104 98 Blood Pressure Mean [Right Arm] 02 Sat by Pulse Oximetry 95 94 L 98 Oxygen Delivery Method Room Air Room Air Oxygen Flow Rate (LPM) Lab Data Lab results reviewed: Yes I reviewed the patient's lab results. Lab Results 02/23/24 13:57: WBC 8.4, RBC 3.64 L, Hgb 11.0 L, Hct 34.3 L, MCV 94.3, MCH 30.1, MCHC 31.9, RDW 16.3, Plt Count 365, MPV 8.0, Neut % (Auto) 83.8 H, Lymph % (Auto) 10.7, [place] % (Auto) 3.2, Eos % (Auto) 1.7, Baso % (Auto) 0.6, Neut # (Auto) 7.0, Lymph # (Auto) 0.9, [place] # (Auto) 0.3, Eos # (Auto) 0.1, Baso # (Auto) 0.1, ESR 122 H, PT 12.7 H, INR 1.15 H, Sodium 137, Potassium 4.8, Chloride 106, Carbon Dioxide 22, Anion Gap 13.8, BUN 32 H, Creatinine 1.40 H, Estimated Creat Clear 40, Estimated GFR 38 L, Est GFR ( Amer) 46 L, Glucose 211 H, Calcium 8.9, Total Bilirubin 0.9, AST 25, ALT 18, Alkaline Phosphatase 134 H, C-Reactive Protein 6.9 H, NT-Pro-B Natriuret Pep 916 H, Total Protein 7.3, Albumin 3.3 L, Globulin 4.0 H, Albumin/Globulin Ratio 0.8 L, HIV 1&2 Antibody Rapid Nonreactive 02/23/24 15:05: Lactate 1.1 02/23/24 13:57 02/23/24 13:57 Orders (Tests/Meds): ED MEDICATIONS Discontinued Medications Generic Name Dose Route Start Last Admin Trade Name Radha PRN Reason Stop Dose Admin Hydromorphone HCl 0.5 mg 02/23/24 15:42 02/23/24 15:44 Hydromorphone 2mg/Ml Syringe IV 02/23/24 15:43 0.5 mg ONCE ONE Administration Sodium Chloride 1,000 mls @ 999 mls/hr 02/23/24 15:42 02/23/24 15:45 Sod Chlor 0.9% 1000ml Bag IV 02/23/24 16:42 999 mls/hr .Q1H1M ONE Administration Iopamidol 70 ml 02/23/24 16:01 02/23/24 16:02 Iopamidol-370 (76%);100ml Bottle IV 02/23/24 16:02 70 ml ONCE ONE Administration Sodium Chloride 10 ml 02/23/24 16:01 02/23/24 16:02 Sodium Chloride 0.9% 10ml Syr (Rad Only) IV 02/23/24 16:02 10 ml ONCE ONE Administration Sodium Chloride 50 ml 02/23/24 16:01 02/23/24 16:02 0.9 % Sodium Chloride 50 Ml Vial IV 02/23/24 16:02 50 ml ONCE ONE Administration ORDERS Category Date Time Status CT angio chest PE protocol Stat Cat Scan 02/23/24 15:16 Completed Chest XR -- portable [XR chest portable] Stat Exams 02/23/24 14:08 Completed Knee XR right 3 views [XR knee RT 3V] Stat Exams 02/23/24 14:08 Completed POCUS Point of Care (ER Only) Stat Exams 02/23/24 14:11 Completed BNP [NT Pro Brain Natriuretic Pep.] Stat Lab 02/23/24 13:57 Completed CBC w/Auto Diff [Complete Blood Count Auto Diff] Stat Lab 02/23/24 13:57 Completed CMP [Comprehensive Metabolic Panel] Stat Lab 02/23/24 13:57 Completed CRP [C-Reactive Protein] Stat Lab 02/23/24 13:57 Completed Erythrocyte Sedimentation Rate Stat Lab 02/23/24 13:57 Completed HIV (1&2) Antibody Rapid Stat Lab 02/23/24 13:57 Completed Hep C Ab with Reflex to RNA Stat Lab 02/23/24 13:57 Received Lactic Acid Stat Lab 02/23/24 15:05 Completed PT/INR [Prothrombin Time INR] Stat Lab 02/23/24 13:57 Completed Medical Decision Narrative: In summary patient is a 68-year-old female who presents to the emergency department for evaluation of right knee pain and unable to bare weight via EMS. Patient states on December 15 she had a fall with an open fracture to the right lower extremity was at for surgery and to a intermediate for rehab. Patient is hemodynamically stable upon arrival, afebrile. On physical exam the right lower extremity swelling greater than left, warmth and redness noted to lower extremity. Differential diagnosis includes DVT versus cellulitis, problem with hardware. Initial workup will be conducted with labs, chest x-ray due to needing oxygen Ultrasound at bedside to rule out DVT was unable to get good visualization due to size and patient's pain. Patient states once she was discharged from the intermediate she was able to walk around and get around on her own but over the last week she is unable to walk due to pain. Did see her primary care doctor and was given pain pills but she states that it is not helping. Patient does have home health. Initial inventions include pain medicine, labs, x-ray knee and chest. Initial workup reviewed by me CT negative for PE. Upon repeat evaluation patient states pain improved slightly but she is unable to walk or get in a car and she is scared to go home by herself. Given this patient/family does not feel she is safe to go home. She lives alone has no assistance. Patient states with this pain and immobility she feels she may need to go back to the rehab facility. Patient does have home health. I informally interpreted patient's chest x-ray or CT and is remarkable for? Documented with court recording monitor shows rate and rhythm with time <Cristian Guevara MD - Last Filed: 02/23/24 19:45> Vital Signs: 02/23/24 13:50 02/23/24 14:41 02/23/24 15:01 Temperature 98.4 F Temperature Source Oral Pulse Rate 87 77 Pulse Rate [Right] 68 Respiratory Rate 22 20 18 Blood Pressure 95/73 L 193/90 H Blood Pressure [Right Arm] 109/91 L Blood Pressure Mean 80 124 Blood Pressure Mean [Right Arm] 97 02 Sat by Pulse Oximetry 88 L 91 L 96 Oxygen Delivery Method Room Air Oxygen Flow Rate (LPM) 02/23/24 15:21 02/23/24 15:31 02/23/24 16:17 Temperature Temperature Source Pulse Rate 74 65 68 Pulse Rate [Right] Respiratory Rate 18 Blood Pressure 193/30 H 131/77 118/97 H Blood Pressure [Right Arm] Blood Pressure Mean 103 103 Blood Pressure Mean [Right Arm] 02 Sat by Pulse Oximetry 97 99 91 L Oxygen Delivery Method Nasal Cannula Oxygen Flow Rate (LPM) 2 02/23/24 16:31 02/23/24 17:01 02/23/24 17:30 Temperature Temperature Source Pulse Rate 72 73 73 Pulse Rate [Right] Respiratory Rate 18 Blood Pressure 137/52 L 131/58 L 143/94 H Blood Pressure [Right Arm] Blood Pressure Mean 80 72 106 Blood Pressure Mean [Right Arm] 02 Sat by Pulse Oximetry 98 96 95 Oxygen Delivery Method Room Air Room Air Oxygen Flow Rate (LPM) 02/23/24 18:00 02/23/24 18:30 02/23/24 19:00 Temperature Temperature Source Pulse Rate 72 80 76 Pulse Rate [Right] Respiratory Rate Blood Pressure 149/66 H 132/69 132/69 Blood Pressure [Right Arm] Blood Pressure Mean 104 98 Blood Pressure Mean [Right Arm] 02 Sat by Pulse Oximetry 95 94 L 98 Oxygen Delivery Method Room Air Room Air Oxygen Flow Rate (LPM) Lab Data Lab Results 02/23/24 13:57: WBC 8.4, RBC 3.64 L, Hgb 11.0 L, Hct 34.3 L, MCV 94.3, MCH 30.1, MCHC 31.9, RDW 16.3, Plt Count 365, MPV 8.0, Neut % (Auto) 83.8 H, Lymph % (Auto) 10.7, [place] % (Auto) 3.2, Eos % (Auto) 1.7, Baso % (Auto) 0.6, Neut # (Auto) 7.0, Lymph # (Auto) 0.9, [place] # (Auto) 0.3, Eos # (Auto) 0.1, Baso # (Auto) 0.1, ESR 122 H, PT 12.7 H, INR 1.15 H, Sodium 137, Potassium 4.8, Chloride 106, Carbon Dioxide 22, Anion Gap 13.8, BUN 32 H, Creatinine 1.40 H, Estimated Creat Clear 40, Estimated GFR 38 L, Est GFR ( Amer) 46 L, Glucose 211 H, Calcium 8.9, Total Bilirubin 0.9, AST 25, ALT 18, Alkaline Phosphatase 134 H, C-Reactive Protein 6.9 H, NT-Pro-B Natriuret Pep 916 H, Total Protein 7.3, Albumin 3.3 L, Globulin 4.0 H, Albumin/Globulin Ratio 0.8 L, HIV 1&2 Antibody Rapid Nonreactive 02/23/24 15:05: Lactate 1.1 Orders (Tests/Meds): ED MEDICATIONS Discontinued Medications Generic Name Dose Route Start Last Admin Trade Name Freq PRN Reason Stop Dose Admin Hydromorphone HCl 0.5 mg 02/23/24 15:42 02/23/24 15:44 Hydromorphone 2mg/Ml Syringe IV 02/23/24 15:43 0.5 mg ONCE ONE Administration Sodium Chloride 1,000 mls @ 999 mls/hr 02/23/24 15:42 02/23/24 15:45 Sod Chlor 0.9% 1000ml Bag IV 02/23/24 16:42 999 mls/hr .Q1H1M ONE Administration Iopamidol 70 ml 02/23/24 16:01 02/23/24 16:02 Iopamidol-370 (76%);100ml Bottle IV 02/23/24 16:02 70 ml ONCE ONE Administration Sodium Chloride 10 ml 02/23/24 16:01 02/23/24 16:02 Sodium Chloride 0.9% 10ml Syr (Rad Only) IV 02/23/24 16:02 10 ml ONCE ONE Administration Sodium Chloride 50 ml 02/23/24 16:01 02/23/24 16:02 0.9 % Sodium Chloride 50 Ml Vial IV 02/23/24 16:02 50 ml ONCE ONE Administration ORDERS Category Date Time Status CT angio chest PE protocol Stat Cat Scan 02/23/24 15:16 Completed Chest XR -- portable [XR chest portable] Stat Exams 02/23/24 14:08 Completed Knee XR right 3 views [XR knee RT 3V] Stat Exams 02/23/24 14:08 Completed POCUS Point of Care (ER Only) Stat Exams 02/23/24 14:11 Completed BNP [NT Pro Brain Natriuretic Pep.] Stat Lab 02/23/24 13:57 Completed CBC w/Auto Diff [Complete Blood Count Auto Diff] Stat Lab 02/23/24 13:57 Completed CMP [Comprehensive Metabolic Panel] Stat Lab 02/23/24 13:57 Completed CRP [C-Reactive Protein] Stat Lab 02/23/24 13:57 Completed Erythrocyte Sedimentation Rate Stat Lab 02/23/24 13:57 Completed HIV (1&2) Antibody Rapid Stat Lab 02/23/24 13:57 Completed Hep C Ab with Reflex to RNA Stat Lab 02/23/24 13:57 Received Lactic Acid Stat Lab 02/23/24 15:05 Completed PT/INR [Prothrombin Time INR] Stat Lab 02/23/24 13:57 Completed Medical Decision Narrative: In summary patient is a 68-year-old female who presents to the emergency department for evaluation of right knee pain and unable to bare weight via EMS. Patient states on December 15 she had a fall with an open fracture to the right lower extremity was at for surgery and to a intermediate for rehab. Patient is hemodynamically stable upon arrival, afebrile. On physical exam the right lower extremity swelling greater than left, warmth and redness noted to lower extremity. Differential diagnosis includes DVT versus cellulitis, hardware failure, septic joint, acute on chronic injury, among others. Initial workup will be conducted with labs, chest x-ray due to needing oxygenUltrasound at bedside to rule out DVT was unable to get good visualization due to habitus and patient's pain. Patient states once she was discharged from the intermediate she was able to walk around and get around on her own but over the last week she is unable to walk due to pain. Did see her primary care doctor and was given pain pills but she states that it is not helping. Patient does have home health. Initial inventions include pain medicine, labs, x-ray knee and chest. Initial workup reviewed by me CT negative for PE. Upon repeat evaluation patient states pain improved slightly but she is unable to walk or get in a car and she is scared to go home by herself. Given this patient/family does not feel she is safe to go home. She lives alone has no assistance. Patient states with this pain and immobility she feels she may need to go back to the rehab facility. Patient does have home health. I was consulted by the [facility], and we discussed the complexity of the problems being addressed. I approved the treatment and management plan for this patient's care in the Emergency Department, thus performing a substantive portion of the medical decision making. I also independently interviewed and examined patient. Right greater than left swelling, erythema, diffuse tenderness. Largely unable to move leg secondary to exquisite pain. Narcotic medications were administered. Independent interpretation of workup demonstrate no leukocytosis, but ESR is elevated at 122, CRP mildly elevated at 7. Mild GIOVANNA on CKD with creatinine 1.4, BUN 32 (normal creatinine appears to be 1.1-1.2). Lactate negative. Independent interpretation of x-rays with soft tissue swelling and does not appear to have hardware failure. Patient intermittently having desaturations into the low 80s, because of this, despite being on Xarelto for DVT/PE in the past, CT PE was obtained to rule out postoperative pneumonia, clotting through anticoagulation, etc. On independent interpretation, this was also negative. I feel patient's desaturations are due to her habitus and restrictive lung disease in the setting of laying nearly flat in ER bed. Patient was sat up in bed greater than 45 degrees, oxygen saturation improved. Hospitalist here was contacted and case was discussed, interactive discussion had. Because patient has elevated ESR, exquisitely tender knee, inability to ambulate secondary to pain and physical deconditioning, patient deemed appropriate for transfer to [facility] to rule out septic joint in postoperative period. [facility] was contacted and case was discussed at length with Dr. Flores in the transfer center, graciously excepted transfer to [facility] ED for orthopedics evaluation. Cristian Guevara MD Critical Care <Cristian Guevara MD - Last Filed: 02/23/24 19:45> Critical Care Time Critical Care Time: No
[2024-02-23 14:34] LABS: INR 1.15 (0.9-1.1); Prothrombin Time 12.7 seconds (10.1-12.5)
[2024-02-23 15:10] LABS: Erythrocyte Sedimentation Rate 122 mm/hr (0-30)
--- NOTE | 2024-02-23 15:16 | CT_ITS ---
PROCEDURE INFORMATION: Exam: CTA Chest With Contrast Exam date and time: 02/23/2024 4:00 PM Age: 68 years old Clinical indication: Shortness of breath; Additional info: Recent surgery, new o2 req TECHNIQUE: Imaging protocol: Computed tomographic angiography of the chest with contrast. Exam focused on the arteries. 3D rendering (Not supervised by radiologist): MIP and/or 3D reconstructed images were created by the technologist. Radiation optimization: All CT scans at this facility use at least one of these dose optimization techniques: automated exposure control; mA and/or kV adjustment per patient size (includes targeted exams where dose is matched to clinical indication); or iterative reconstruction. Contrast material: ISOVUE 370; Contrast volume: 70 ml; Contrast route: INTRAVENOUS (IV); COMPARISON: CR XR CHEST PORTABLE 02/23/2024 2:16 PM FINDINGS: Limitations: Study is technically limited due to motion artifact. Tubes, catheters and devices: There is a left-sided pacemaker terminating within the right atrium right ventricle. Pulmonary arteries: Main pulmonary trunk, right and left pulmonary arteries, interlobar branches and 1st order segmental branches are adequately opacified without filling defects or other evidence of acute pulmonary embolism. However more distal subsegmental branches cannot be adequately assessed due to technical limitations of the study. Aorta: Unremarkable. No aortic aneurysm. No aortic dissection. Lungs: Decreased lung volumes with minor atelectatic changes left lung base. Pleural spaces: Unremarkable. No pneumothorax. No pleural effusion. Heart: Heart is mildly enlarged. Moderate calcification of coronary arteries. No significant pericardial effusion. Mediastinal space: Scattered granulomatous calcifications within the mediastinum. Lymph nodes: Unremarkable. No enlarged lymph nodes. Bones/joints: Degenerative changes of the thoracic spine. No acute bony abnormalities. Soft tissues: Unremarkable. IMPRESSION: 1. Limited study. 2. Technically limited but negative CT angiogram of the chest. No evidence of acute pulmonary embolism to major branches of the pulmonary vascular tree. 3. Decreased lung volumes with minor atelectatic changes left lung base.
[2024-02-23 15:27] LABS: NT Pro Brain Natriuretic Pep. 916 pg/mL (0-125)
[2024-02-23 15:29] LABS: Lactic Acid 1.1 mmol/L (0.7-2.1)
[2024-02-23] MEDS: HYDROMORPHONE 2MG/ML SYRINGE 0.5 MG IV ×2 (15:44→20:22)
[2024-02-23] MEDS: 0.9 % SODIUM CHLORIDE 1000ML 1,000 ML 999 ML IV (15:45)
[2024-02-23 15:49] LABS: HIV (1&2) Antibody Rapid NONREACTIVE (NONREACTIVE)
[2024-02-23] MEDS: 0.9 % SODIUM CHLORIDE 50 ML VIAL IV (16:02)
[2024-02-23] MEDS: SODIUM CHLORIDE 0.9% 10ML SYR (RAD ONLY) 10 ML IV (16:02)
[2024-02-23] MEDS: IOPAMIDOL-370 (76%);100ML BOTTLE 70 ML IV (16:02)
--- NOTE | 2024-02-23 17:13 | PC.NURSE ---
turned off o2 on patient to see if she would stabilze or desat per er
--- NOTE | 2024-02-23 18:06 | PC.NURSE ---
called [facility] for transfer, was told they would call back later and may be a while due to high volume intake
--- NOTE | 2024-02-23 18:39 | PC.NURSE ---
SUPPER TRAY SET-UP FOR PT
--- NOTE | 2024-02-23 19:45 | PC.NURSE ---
Report called to [facility] William Younger RN
[2024-02-26 05:29] LABS: HCV Ab Non Reactive (Non Reactive)
== END 2024-02-23 21:25 | disposition short-term general hospital (02) ==
PROVIDERS: Nurse Practitioner Family; Student in an Organized Health Care Education/Training Program; Emergency Provider Emergency Medicine; PCP Nurse Practitioner
DX: M25.561 Pain in right knee (principal); R53.81 Other malaise; G89.18 Other acute postprocedural pain
CPT/HCPCS: 71045; 71275; 73562; 80053; 83605; 83880; 85025; 85610; 85651; 86140; 86803; 87389; 96361; 96374; 96375; 99285; J1171; J7030; Q9967

== ENCOUNTER 2024-04-04 23:31 | Emergency (ER) | payer MEDICARE, SELFPAY ==
[2024-04-04 23:32] VITALS: BP 140/61; PULSE 61; RESP 16; TEMP 36.6; O2SAT 99; BMI 48.6
--- NOTE | 2024-04-04 23:46 | CT_ITS ---
PROCEDURE INFORMATION: Exam: CT Head Without Contrast Exam date and time: 04/05/2024 12:12 AM Age: 68 years old Clinical indication: Speech disturbance; Additional info: Possible stroke TECHNIQUE: Imaging protocol: Computed tomography of the head without contrast. Radiation optimization: All CT scans at this facility use at least one of these dose optimization techniques: automated exposure control; mA and/or kV adjustment per patient size (includes targeted exams where dose is matched to clinical indication); or iterative reconstruction. COMPARISON: MR HEAD/BRAIN WO CON 07/05/2021 12:32 PM FINDINGS: Brain: Mild subcortical white matter disease. There is no area of intraparenchymal or extra-axial hemorrhage present. There is no intra-axial mass. There is no midline shift. The torres-white matter junction is intact. Cerebral ventricles: No ventriculomegaly. Paranasal sinuses: Visualized sinuses are unremarkable. No fluid levels. Mastoid air cells: Visualized mastoid air cells are well aerated. Bones: Unremarkable. No acute fracture. Soft tissues: Unremarkable. IMPRESSION: 1. Mild subcortical white matter disease. This is unchanged over last 2 and half years. 2. Otherwise unremarkable examination of the brain. There is no acute intracranial abnormality seen.
--- NOTE | 2024-04-04 23:46 | CT_ITS ---
PROCEDURE INFORMATION: Exam: CTA Neck With Contrast Exam date and time: 04/05/2024 12:27 AM Age: 68 years old Clinical indication: Speech disturbance; Additional info: Possible stroke TECHNIQUE: Imaging protocol: Computed tomographic angiography of the neck with contrast. Exam focused on the cervical segments of the vasculature. 3D rendering (Not supervised by radiologist): MIP and/or 3D reconstructed images were created by the technologist. Radiation optimization: All CT scans at this facility use at least one of these dose optimization techniques: automated exposure control; mA and/or kV adjustment per patient size (includes targeted exams where dose is matched to clinical indication); or iterative reconstruction. Contrast material: ISOUVE 370; Contrast volume: 80 ml; Contrast route: INTRAVENOUS (IV); COMPARISON: CT ANGIO NECK 06/06/2022 9:44 AM FINDINGS: Right common carotid artery: No stenosis. No dissection or occlusion. Right internal carotid artery: No significant stenosis. No dissection or occlusion. Right external carotid artery: No occlusion or stenosis of the origin. Left common carotid artery: No stenosis. No dissection or occlusion. Left internal carotid artery: No significant stenosis. No dissection or occlusion. Left external carotid artery: No occlusion or stenosis of the origin. Right vertebral artery: No stenosis. No dissection or occlusion. Left vertebral artery: No stenosis. No dissection or occlusion. Soft tissues: Normal. No significant soft tissue swelling. Bones/joints: No acute fracture. Heart: The heart is moderately enlarged. IMPRESSION: 1. No evidence for a embolism, occlusion, dissection, or aneurysm. There is no significant stenosis. 2. Moderate cardiomegaly. REFERENCES: NASCET CRITERIA. The degree of stenosis in the cervical segment of the internal carotid artery is based on NASCET criteria. Normal is no stenosis. Mild is less than 50% stenosis. Moderate is 50-69% stenosis. Severe is 70% to 99% stenosis. Total occlusion is no detectable patent lumen.
--- NOTE | 2024-04-04 23:46 | CT_ITS ---
PROCEDURE INFORMATION: Exam: CTA Head With Contrast, Arteriography Exam date and time: 04/05/2024 12:27 AM Age: 68 years old Clinical indication: Speech disturbance; Additional info: Possible stroke TECHNIQUE: Imaging protocol: Computed tomographic angiography of the head with contrast. Exam focused on the arteries. 3D rendering (Not supervised by radiologist): MIP and/or 3D reconstructed images were created by the technologist. Radiation optimization: All CT scans at this facility use at least one of these dose optimization techniques: automated exposure control; mA and/or kV adjustment per patient size (includes targeted exams where dose is matched to clinical indication); or iterative reconstruction. Contrast material: ISOUVE 370; Contrast volume: 80 ml; Contrast route: INTRAVENOUS (IV); COMPARISON: CT HEAD/BRAIN WO CON 04/05/2024 12:12 AM FINDINGS: ANTERIOR CIRCULATION: Right internal carotid artery: Intracranial segment is patent with no significant stenosis or occlusion. No aneurysm. Right middle cerebral artery: No occlusion or significant stenosis. No aneurysm. Right anterior cerebral artery: No occlusion or significant stenosis. No aneurysm. Left internal carotid artery: Intracranial segment is patent with no significant stenosis. No aneurysm. Left middle cerebral artery: No occlusion or significant stenosis. No aneurysm. Left anterior cerebral artery: No occlusion or significant stenosis. No aneurysm. POSTERIOR CIRCULATION: Right vertebral artery: No occlusion or significant stenosis. No aneurysm. Left vertebral artery: No occlusion or significant stenosis. No aneurysm. Basilar artery: No occlusion or significant stenosis. No aneurysm. Right posterior cerebral artery: No occlusion or significant stenosis. No aneurysm. Left posterior cerebral artery: No occlusion or significant stenosis. No aneurysm. Veins: No venous sinus thrombosis. Brain: Normal. No hemorrhage. Unremarkable white matter. No mass effect. Cerebral ventricles: Normal. No ventriculomegaly. Bones/joints: Unremarkable. No acute fracture. Soft tissues: Unremarkable. IMPRESSION: No evidence for a embolism, occlusion, dissection, stenosis, or aneurysm.
--- NOTE | 2024-04-04 23:47 | HMH.EDGENADL ---
Discharge Plan Disposition Patient Disposition: Xfer Short-Term Hosp Condition: Fair Prescriptions Prescriptions: No Action pioglitazone 30 mg tablet 30 mg PO DAILYDM atorvastatin 40 mg tablet 40 mg PO DAILY Qty: 90 3RF albuterol sulfate 90 mcg/actuation HFA aerosol inhaler See Rx Instructions .ROUTE .COMPLEX Qty: 9 3RF Dose Instruction: INHALE 2 PUFFS BY MOUTH EVERY 6 HOURS NEEDED FOR SHORTNESS OF BREATH OR WHEEZING. Rx Instructions: INHALE 2 PUFFS BY MOUTH EVERY 6 HOURS NEEDED FOR SHORTNESS OF BREATH OR WHEEZING. Xarelto 20 mg tablet 20 mg PO DAILY Patient Comments: TAKE 1 TABLET BY MOUTH ONCE DAILY WITH EVENING MEAL Trulicity 0.75 mg/0.5 mL pen injector 0.75 mg SQ WEEKLY Patient Comments: INJECT 0.75 MG SUBCUTANEOUSLY EVERY WEEK FOR 4 WEEKS, THEN 1.5 MG EVERY WEEK furosemide 20 mg tablet 20 mg PO Q OTHER DAY Patient Comments: TAKE 1 TABLET BY MOUTH ONCE DAILY ergocalciferol (vitamin D2) 1,250 mcg (50,000 unit) capsule 50,000 unit PO .COMPLEX Patient Comments: TAKE 1 CAPSULE BY MOUTH ONCE EVERY MONTH Rx Instructions: 50,000 units orally monthly; bisoprolol fumarate 5 mg tablet 5 mg PO DAILY Qty: 90 3RF losartan 50 MG tablet 50 mg PO DAILY glipizide 10 mg Tablet 10 mg PO BID Referrals Follow up/Referrals: Michelle Gray APRN [Primary Care Provider] - See instructions Clinical Impressions Clinical Impression: Dysarthria, GIOVANNA (acute kidney injury) Stand Alone Forms Stand Alone Forms: Transfer Record - ED Instructions Patient Instructions: DI for Altered Mental Status Print Language Print Language: Emirati Discharge ED Provider: Pepe Silver General Adult HPI General Chief complaint: Altered Mental Status Stated complaint: speech issues Time Seen by Provider: 04/04/24 23:42 Mode of Arrival: EMS Source of Information: Patient and EMS Limitations: No Limitations Description of Symptoms (Recalled from ER Triage Doc. by RN): Patient states she is having trouble finding her words since around 1200 this afternoon. Denies any other symptoms. History of Present Illness HPI narrative: 68-year-old female with history of previous TIA, type 2 diabetes, CAD, ZANE, hypertension, hyperlipidemia, paroxysmal A-fib on rivaroxaban as well as recent open fracture of distal femur that was subsequently complicated by septic joint who is still on IV antibiotics through PICC line at her nursing facility presents to the ER for 12 hours of difficulty producing her words. Patient states she can think of the words but is unable to get them out. According to patient and daughter at bedside, patient had a similar episode a few years ago that was diagnosed as a TIA. Since that time she had completely recovered to normal and had no issues. She denies any fevers, chills, chest pain, difficulty breathing, nausea, vomiting, diarrhea, she states she walked today for the first time since her last surgery and did well with that. She does not have any numbness, tingling, or weakness. She denies headaches, dysuria, hematuria but states that she has only been using a bedpan because of inability to ambulate. Related Data Home Medications ?Medication ?Instructions ?Recorded ?Confirmed losartan 50 mg tablet 50 mg PO DAILY High blood pressure 01/06/19 10/23/23 pioglitazone 30 mg tablet 30 mg PO DAILYDM Diabetes 04/06/21 10/23/23 glipizide 10 mg tablet 10 mg PO BID Diabetes 05/17/22 10/23/23 ergocalciferol (vitamin D2) 1,250 50,000 unit PO .COMPLEX 02/22/23 10/23/23 mcg (50,000 unit) capsule furosemide 20 mg tablet 20 mg PO Q OTHER DAY Fluid 02/22/23 10/23/23 dulaglutide 0.75 mg/0.5 mL 0.75 mg SQ WEEKLY 09/20/23 10/23/23 subcutaneous pen injector (Trulicity) rivaroxaban 20 mg tablet (Xarelto) 20 mg PO DAILY 09/20/23 10/23/23 Previous Rx's ?Medication ?Instructions ?Recorded albuterol sulfate 90 mcg/actuation See Rx Instructions .Route 03/27/23 aerosol inhaler .COMPLEX #9 grams atorvastatin 40 mg tablet 40 mg PO DAILY High cholesterol 03/27/23 #90 tabs bisoprolol fumarate 5 mg tablet 5 mg PO DAILY blood pressure #90 05/22/23 tabs Allergies Allergy/AdvReac Type Severity Reaction Status Date / Time No Known Allergies Allergy Verified 10/23/23 11:20 [facility] Disclaimer: The information contained in this section may have been updated after the patient was seen, as this information can be updated by other users. 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) Smoking Status: Never smoker alcohol intake: never substance use type: denies use current occupational status: retired Travel in the last 8 weeks: None household members: family housing: house current occupational exposures/hazards: No caffeine: Yes special [place] needs: No agree to transfusion: No do you feel safe at home: Yes victim of physical abuse: No victim of emotional abuse: No victim of sexual abuse: No would you like helpful sources: No Other 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 Have you received the Flu Vaccine for this season: No Have you received the Pneumonia Vaccine: Yes ROS Obtained: Yes Systems reviewed as appropriate & no additional complaints except as documented Physical Exam General General appearance: alert, in no apparent distress and obese Head Head exam: atraumatic and normocephalic Eye Eye exam: Present PERRL and EOMI ENT ENT exam: Present mucous membranes moist Neck Neck exam: Present normal inspection and full ROM Chest Chest inspection: Present symmetric chest wall rise Respiratory Respiratory exam: Present normal lung sounds bilaterally; Absent respiratory distress, wheezes or stridor Cardiovascular Cardiovascular exam: Present regular rate and normal rhythm Abdominal Exam Abdominal exam: Present soft; Absent distention or tenderness Extremities Exam Extremities exam: Present full ROM; Absent tenderness, edema or joint swelling (Right knee surgical incision appears clean, dry, well-healed, the knee is not tender, decent range of motion, no erythema or swelling) Neurological Exam Neurological exam: Present alert, oriented X3 and other (NIH 1 for mild dysarthria); Absent motor sensory deficit Psychiatric Psychiatric exam: Present normal affect and normal mood Skin Skin exam: Present warm and dry Medical Decision Making Medical Records Medical records reviewed: Yes I reviewed the patient's medical records. Screening: Per USPSTF and CDC recommendations, given the prevalence of disease in our region, it is our hospital?s policy to screen for HIV and viral Hepatitis for all patients aged 18 and over and those with ongoing risk factors. MR Comment: Review of records demonstrates that patient had intra-articular fracture of distal right femur and Cheri and was transferred to [facility] for higher level of care. Mac Inquiry Pt receiving controlled substance: No Vital Signs: 04/04/24 23:32 04/05/24 00:01 04/05/24 00:33 Temperature 97.9 F Temperature Source Oral Pulse Rate 63 65 Pulse Rate [Right Radial] 61 Respiratory Rate 16 Blood Pressure 144/71 H 159/137 H Blood Pressure [Left Arm] 140/61 Blood Pressure Mean [Left Arm] 87 Blood Pressure Source Blood Pressure Source [Left Arm] Automatic Cuff Blood Pressure Position Blood Pressure Position [Left Arm] Supine 02 Sat by Pulse Oximetry 99 98 98 Oxygen Delivery Method Room Air 04/05/24 00:35 04/05/24 01:01 04/05/24 01:30 Temperature Temperature Source Pulse Rate 69 66 63 Pulse Rate [Right Radial] Respiratory Rate Blood Pressure 153/62 H 125/67 154/65 H Blood Pressure [Left Arm] Blood Pressure Mean [Left Arm] Blood Pressure Source Blood Pressure Source [Left Arm] Blood Pressure Position Blood Pressure Position [Left Arm] 02 Sat by Pulse Oximetry 98 100 96 Oxygen Delivery Method 04/05/24 02:01 04/05/24 02:30 04/05/24 03:01 Temperature Temperature Source Pulse Rate 70 68 64 Pulse Rate [Right Radial] Respiratory Rate Blood Pressure 141/60 H 125/104 H 163/64 H Blood Pressure [Left Arm] Blood Pressure Mean [Left Arm] Blood Pressure Source Blood Pressure Source [Left Arm] Blood Pressure Position Blood Pressure Position [Left Arm] 02 Sat by Pulse Oximetry 97 97 96 Oxygen Delivery Method 04/05/24 03:17 Temperature 97.9 F Temperature Source Oral Pulse Rate 64 Pulse Rate [Right Radial] Respiratory Rate 16 Blood Pressure 163/64 H Blood Pressure [Left Arm] Blood Pressure Mean [Left Arm] Blood Pressure Source Automatic Cuff Blood Pressure Source [Left Arm] Blood Pressure Position Supine Blood Pressure Position [Left Arm] 02 Sat by Pulse Oximetry Oxygen Delivery Method Room Air Lab Data Lab Results 04/04/24 00:00: Urine Opiates Screen Negative, Urine Methadone Screen Negative, Ur Barbituates Screen Negative, Ur Phencyclidine Scrn Negative, Ur Amphetamines Screen Negative, U Benzodiazepines Scrn Negative, Urine Cocaine Screen Negative, U Marijuana (THC) Screen Negative 04/04/24 23:35: WBC 6.1, RBC 3.25 L, Hgb 9.6 L, Hct 30.4 L, MCV 93.5, MCH 29.5, MCHC 31.6 L, RDW 16.0, Plt Count 170, MPV 10.8 H, Neut % (Auto) 67.1, Lymph % (Auto) 17.1, [place] % (Auto) 8.6, Eos % (Auto) 6.2, Baso % (Auto) 0.7, Neut # (Auto) 4.1, Lymph # (Auto) 1.1, [place] # (Auto) 0.5, Eos # (Auto) 0.4, Baso # (Auto) 0.0, PT 15.1 H, INR 1.39 H, APTT 33.8 H, Sodium 138, Potassium 3.8, Chloride 108 H, Carbon Dioxide 18 L, Anion Gap 15.8 H, BUN 50 H, Creatinine 2.80 H, Estimated Creat Clear 20, Estimated GFR 17 L*, Est GFR ( Amer) 20 L, Glucose 182 H, Lactate 1.1, Calcium 9.0, Total Bilirubin 0.6, AST 22, ALT 19, Alkaline Phosphatase 96, Troponin I < 0.01, Total Protein 7.0, Albumin 3.6, Globulin 3.4 H, Albumin/Globulin Ratio 1.1, Triglycerides 122, Cholesterol 81 L, LDL Cholesterol Direct 33.12 L, VLDL Cholesterol 24, HDL Cholesterol 24 L, Cholesterol/HDL Ratio 3.4, Plasma/Serum Alcohol < 10 04/05/24 00:00: Urine Color Yellow, Urine Appearance Clear, Urine pH 6.0, Ur Specific [place] 1.025, Urine Protein 2+ A, Urine Glucose (UA) Negative, Urine Ketones Trace, Urine Blood 2+ A, Urine Nitrate Negative, Urine Bilirubin Negative, Urine Urobilinogen 0.2, Ur Leukocyte Esterase Negative, Urine RBC 5-10, Urine WBC Occasional, Ur Squamous Epith Cells 3-5, Urine Bacteria Trace 04/05/24 02:55: Troponin I < 0.01 04/04/24 23:35 04/04/24 23:35 Orders (Tests/Meds): ED MEDICATIONS Generic Name Dose Route Start Last Admin Trade Name Fredrea PRN Reason Stop Dose Admin Sodium Chloride 10 ml 04/04/24 23:46 Sodium Chloride 0.9% 10ml Flush Syringe IV 05/04/24 23:45 NEEDED PRN Maintain IV Site Sodium Chloride 10 ml 04/05/24 00:36 04/05/24 00:37 Sodium Chloride 0.9% 10ml Syr (Rad Only) IV 05/05/24 00:35 10 ml NEEDED PRN Administration Maintain IV Site Discontinued Medications Generic Name Dose Route Start Last Admin Trade Name Freq PRN Reason Stop Dose Admin Lactated Ringer's 1,000 mls @ 999 mls/hr 04/05/24 00:15 04/05/24 00:24 Lactated Ringer's 1000 Ml Bag IV 04/05/24 01:15 999 mls/hr .Q1H1M ONE Administration Iopamidol 80 ml 04/05/24 00:36 04/05/24 00:37 Iopamidol-370 (76%);100ml Bottle IV 04/05/24 00:37 80 ml ONCE ONE Administration Sodium Chloride 50 ml 04/05/24 00:36 04/05/24 00:37 0.9 % Sodium Chloride 50 Ml Vial IV 04/05/24 00:37 50 ml ONCE ONE Administration ORDERS Category Date Time Status CT angio head Stat Cat Scan 04/04/24 23:[address] angio neck Stat Cat Scan 04/04/24 23:[address] head/brain wo con Stat Cat Scan 04/04/24 23:46 Completed Activated Partial Thrombo Time Stat Lab 04/04/24 23:35 Completed Complete Blood Count Auto Diff Stat Lab 04/04/24 23:35 Completed Comprehensive Metabolic Panel Stat Lab 04/04/24 23:35 Completed Drug Screen,Urine Stat Lab 04/04/24 00:00 Completed Ethyl Alcohol Stat Lab 04/04/24 23:35 Completed Lactic Acid Stat Lab 04/04/24 23:35 Completed Lipid Panel Stat Lab 04/04/24 23:35 Completed Prothrombin Time INR Stat Lab 04/04/24 23:35 Completed Troponin I Q3H Lab 04/05/24 02:55 Completed Troponin I Q3H Lab 04/05/24 06:00 Ordered Troponin I Stat Lab 04/04/24 23:35 Completed Urinalysis and Microscopic Stat Lab 04/05/24 00:00 Completed Medical Decision Narrative: In summary, this 68-year-old female with comorbidities described in the HPI which complicate her overall condition and overall morbidity presents to the emergency department today with difficulty with word forming for the last 12 hours. On initial evaluation patient is hemodynamically stable, afebrile, GCS 15, no motor or sensory deficits, however patient has an NIH 1 for mild dysarthria, she had significant difficulty with word forming of tiptop and papa specifically. Remainder of exam reassuring including of the right lower extremity where she recently had infection. Differential diagnosis includes but is not limited to intracranial bleed, mass, ischemic stroke, TIA, metabolic abnormality such as hyperglycemia, infection especially considering possible UTI with her recent inability to use the toilet and only using a bedpan. Based on these concerns, I ordered serum labs, CT imaging including angiography of the head and neck, urine studies. Patient is not within the 4.5-hour window for thrombolysis so she is not a stroke alert at this time but is receiving her CT scans expediently. ECG personally interpreted demonstrates sinus rhythm, rate 63, normal [place], normal QTc at 414, no STEMI. Labs personally reviewed demonstrate no leukocytosis, anemia present with hemoglobin 9.6, down from 11 in February. Platelets normal, PT/INR and APTT nonactionable but slightly elevated, patient does take blood thinners. CMP is notable for significant new kidney dysfunction, BUN 50, creatinine 2.8 which is up from 1.4 in mid February. Her GFR is now only 17. Because of this, I had a conversation with the patient and her daughter at bedside about the risks of IV contrast and potential for contrast-induced nephropathy. We discussed the risks of the contrast but also the benefits of having contrasted studies. After this discussion, patient and daughter agreed to contrasted studies and provided consent. Patient is receiving IV fluids for treatment of her kidney dysfunction and renal protection. Lactic normal at 1.1, initial troponin undetectably low less than 0.01. I have very low suspicion for cardiac etiology since patient does not have any chest pain or shortness of breath and has reassuring ECG. Cath UA was performed and does not demonstrate any findings of infection. CT head and CT angiography of the head and neck were personally interpreted, I do not appreciate acute intracranial abnormality such as bleed, mass, midline shift, or acute large vessel occlusion. See radiology reads for final interpretations. V rad radiologist called me at 0055 and inform me of his findings and reassuring scans. I reassessed the patient who is still having dysarthria. At 0111 I initiated neurology transfer via [facility]. After discussion via the [facility], I spoke with the neurologist Dr. Arango who thought the patient should be evaluated at if they had availability as he has concerns for possible intracranial abnormality such as stroke but also concern for possible neurotoxicity from the cefepime. Unfortunately in discussion with the transfer center, they are on divert and because the patient does not have necessity for an acute emergent neurologic intervention, they are unable to accept the patient. I spoke with Dr. Espana at the transfer center as well as with Dr. Bonner who is the neurology attending. Dr. Bonner recommended transfer to [facility] for neurology. [place] [facility] [place] and after a long discussion with the transfer center and them also looping in their neurologist and ice house supervisor, they declined to except the patient at 0234 due to not having MRI on the weekend and patient potentially needing it. We reached out to [facility] through [facility]. I was able to discuss this case with GREG Mcgraw with their hospitalist service and after reviewing the case including patient's labs, imaging findings, and current symptoms, she excepted the patient for transfer to [facility] to a direct admission [facility] bed at [address] Desai. Bed assignment provided. Patient is waiting in the ER at this time for ambulance availability for transport. She will be transferred via BLS. She was transferred in stable condition. Critical Care Critical Care Time Critical Care Time: No
[2024-04-04 23:53] LABS: Basophils % 0.7 % (0.1-2.0); Eosinophils # 0.4 K/mm3 (0.0-0.4); Eosinophils % 6.2 % (0.1-12.0); Hematocrit 30.4 % (37.0-47.0); Hemoglobin 9.6 g/dL (12.2-16.2); Lymphocytes # 1.1 K/mm3 (0.7-4.5); Lymphocytes % 17.1 % (10-50); Mean Corpuscular HGB Conc 31.6 g/dL (31.8-35.4); Mean Corpuscular Hemoglobin 29.5 pg (27.0-31.2); Mean Corpuscular Volume 93.5 fl (81-99); Mean Platelet Volume 10.8 fl (7.4-10.4); Monocytes # 0.5 K/mm3 (0.1-1.0); Monocytes % 8.6 % (1.7-9.3); Neutrophils # 4.1 K/mm3 (1.8-7.8); Neutrophils % 67.1 % (37.0-80.0); Platelet Count 170 K/mm3 (142-424); Red Blood Count 3.25 M/mm3 (4.20-5.40); White Blood Count 6.1 K/mm3 (4.8-10.8)
[2024-04-05] VITALS (9 sets, daily range): BP systolic 125–163; BP diastolic 60–137; PULSE 63–70; RESP 16; TEMP 36.6; O2SAT 96–100
[2024-04-05] LABS: Alanine Aminotransferase 19 U/L (12-78); Albumin Level 3.6 g/dl (3.5-5.0); Albumin/Globulin Ratio 1.1 (1.1-1.8); Alkaline Phosphatase 96 U/L (38-126); Anion Gap 15.8 mEq/L (5-15); Aspartate Amino Transferase 22 U/L (14-36); Bilirubin,Total 0.6 mg/dl (0.2-1.3); Blood Urea Nitrogen 50 mg/dl (7-17); Carbon Dioxide 18 mmol/L (22.0-30.0); Chloride 108 mmol/L (98-107); Chol/HDL Ratio 3.4 (1-3.5); Cholesterol 81 mg/dl (140-200); Creatinine Clearance Estimated 20 mL/min (50-200); Estimated Glomerular Filt Rate 17 ml/min (>60); GFR (African American) 20 ML/MIN (>60); Globulin 3.4 g/dL (1.3-3.2); Glucose 182 mg/dl (74-100); HDL Cholesterol 24 mg/dl (40-60); Lactic Acid 1.1 mmol/L (0.7-2.1); Potassium 3.8 mmoL/L (3.5-5.1); Sodium 138 mmol/L (136-145); Triglycerides 122 mg/dl (30-150); VLDL Cholesterol 24 mg/dL (0-40)
[2024-04-05 00:01] LABS: Ethyl Alcohol < 10 mg/dl (0-10)
--- NOTE | 2024-04-05 00:05 | ECG_ITS ---
APPROVED REPORT Exam: Resting ECG HR:63 bpm ECG Measurements Heart Rate 63 AXES IL 150 P -79 QRSd 118 QRS -66 QT 407 T 46 QTc 414 Conclusion Sinus rhythm LOW QRS VOLTAGE IN PRECORDIAL LEADS [QRS DEFLECTION < 1.0 mV IN CHEST LEADS] INCOMPLETE RIGHT BUNDLE BRANCH BLOCK [90+ ms QRS DURATION, TERMINAL R IN V1/V2, 40+ ms S IN I/aVL/V4/V5/V6] ANTERIOR MYOCARDIAL INFARCTION , OF INDETERMINATE AGE [40+ ms Q WAVE AND/OR ST/T ABNORMALITY IN V3/V4] INFERIOR MYOCARDIAL INFARCTION , PROBABLY OLD [40+ ms Q WAVE AND/OR ST/T ABNORMALITY IN II/aVF] No STEMI Electronically signed by : ANGLE SAHNI, 04/05/2024 07:19:00
[2024-04-05 00:07] LABS: Activated Partial Thrombo Time 33.8 seconds (22.8-30.6); INR 1.39 (0.9-1.1); Prothrombin Time 15.1 seconds (10.1-12.5)
[2024-04-05 00:11] LABS: Direct LDL Cholesterol 33.12 mg/dL (100-129); Troponin I < 0.01 ng/ml (0.00-0.034)
[2024-04-05 00:14] LABS: Appearance,Urine CLEAR (Clear); Bilirubin,Urine Negative (Negative); Blood, Urine 2+ (Negative); Color,Urine YELLOW (Yellow); Glucose,Urine (UA) Negative (Negative); Ketones,Urine TRACE (Negative); Leukocyte Esterase,Urine Negative (Negative); Microscopic, Urine URINE MICROSCOPIC (MICROSCOPIC); Nitrate,Urine Negative (Negative); Protein,Urine 2+ (Negative); Specific Gravity, Urine 1.025 (1.005-1.030); Urobilinogen,Urine 0.2 EU/dl (0.2)
[2024-04-05] MEDS: LACTATED RINGERS 1000ML 1,000 ML 999 ML IV (00:24)
[2024-04-05] MEDS: 0.9 % SODIUM CHLORIDE 50 ML VIAL IV (00:37)
[2024-04-05] MEDS: SODIUM CHLORIDE 0.9% 10ML SYR (RAD ONLY) 10 ML IV (00:37)
[2024-04-05] MEDS: IOPAMIDOL-370 (76%);100ML BOTTLE 80 ML IV (00:37)
[2024-04-05 00:50] LABS: Bacteria,Urine Trace /lpf; WBC,Urine Occasional #/hpf (0-3)
--- NOTE | 2024-04-05 01:05 | PC.NURSE ---
spoke with Eleni at [facility] regarding current antibiotic use.
[2024-04-05 01:14] LABS: Amphetamine/Metha Screen,Urine Negative ng/ml (<1000)
[2024-04-05 01:15] LABS: Barbiturates Screen,Urine Negative ng/ml (<200)
[2024-04-05 01:16] LABS: Benzodiazepines Screen,Urine Negative ng/ml (<200); Cannabinoid Screen,Urine Negative ng/ml (<50)
[2024-04-05 01:17] LABS: Cocaine Screen,Urine Negative ng/ml (<300)
[2024-04-05 01:18] LABS: Methadone Screen,Urine Negative ng/ml (<300); Phencyclidine Screen,Urine Negative ng/ml (<25)
[2024-04-05 01:19] LABS: Opiate Screen,Urine Negative ng/ml (<300)
--- NOTE | 2024-04-05 01:29 | PC.NURSE ---
Called for transfer, speaking with the [facility] transfer physician at this time.
--- NOTE | 2024-04-05 01:47 | PC.NURSE ---
Spoke with [facility] about transferring and they have informed me that they are at max capacity at this time.
--- NOTE | 2024-04-05 02:04 | PC.NURSE ---
Spoke with [facility] transfer center and she thinks that [facility] sent me to the wrong transfer center. they have now started an open case for this pt and is speaking with the transferring doctor.
--- NOTE | 2024-04-05 02:41 | PC.NURSE ---
Spoke [facility], they are supposed to be giving us a call back as soon as possible.
[2024-04-05 03:24] LABS: Troponin I < 0.01 ng/ml (0.00-0.034)
== END 2024-04-05 04:34 | disposition short-term general hospital (02) ==
PROVIDERS: Emergency Provider Emergency Medicine; PCP Nurse Practitioner
DX: N17.9 Acute kidney failure, unspecified (principal); R47.1 Dysarthria and anarthria; R41.82 Altered mental status, unspecified; R47.9 Unspecified speech disturbances
CPT/HCPCS: 70450; 70496; 70498; 80053; 80061; 80307; 80320; 81001; 83605; 84484; 85025; 85610; 85730; 93005; 96360; 99285; G0480; J7120; Q9967

== ENCOUNTER 2024-10-02 14:00 | Outpatient (RCR) | payer MEDICARE, MEDICAID, SELFPAY | END 2024-10-02 23:59 | disposition home or self-care (01) | LOC: PT.CARL 14:00 | PROVIDERS: PCP Internal Medicine; Visit Provider Nurse Practitioner | DX: M25.561 Pain in right knee (principal) | CPT/HCPCS: 97110; 97162 ==

== ENCOUNTER 2024-10-21 14:00 | Outpatient (RCR) | payer MEDICARE, MEDICAID, SELFPAY | END 2024-10-29 13:10 | disposition home or self-care (01) | LOC: PT.CARL 14:00 | PROVIDERS: PCP Internal Medicine; Visit Provider Nurse Practitioner | DX: M25.561 Pain in right knee (principal) | CPT/HCPCS: 97110; 97530 ==

== ENCOUNTER 2025-01-05 12:34 | Outpatient (CLI) | payer MEDICARE, MEDICAID, SELFPAY ==
--- OUTSIDE RECORDS SUMMARY | 2024-11-11 08:27 | XMS_ITS | Encounter Summary ---
Author Organization Healthcare Address [address] 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 No 02/25/2024 Within the last year, have y ou been humiliated or emotionally abused in other ways by your partner or ex-partner? No Within the last year, have y ou been kicked, hit, slapped, or otherwise physically hurt by your partner or ex-partner? No 02/25/2024 Within the last year, have y ou been raped or forced to have any kind of sexual activity by your partner or ex-partner? No 02/25/2024 Social Connection and Isolation Panel Answer Date Recorded Frequency of Communication with Friends and Fami ly Not on file 02/25/2024 Frequency of Social Gatherings with Friends and Family Not on file 02/25/2024 Attends [employer] Not on file 02/24 Active Member of Clubs or Organizations Not on f ile 02/25/2024 Attends Club or Organization Meetings Not on yuliana e 02/25/2024 Are you , , di vorced, , never , or living with a partner? 02/25/2024 AUDIT-C Answer Date Recorded Q1: How often do you have a drink containing alcohol? Never 02/25/2024 Q2: How many drinks containi ng alcohol do you have on a typical day when you are drinking? Patient does not drink Q3: How often do you have si x or more drinks on one occasion? Never 02/25/2024 PHQ-2 Answer Date Recorded Patient Health Questionnaire-2 Score 0 10/23/2024 Hunger Vital Sign Answer Date Recorded Within the past 12 months, y ou worried that your food would run out before you got the money to buy more. Never true 02/25/20 24 Within the past 12 months, t he food you bought just didn't last and you didn't have money to get more. Never true 02/25/2024 PRAPARE - Transportation Answer Date Re corded In the past 12 months, has l ack of transportation kept you from medical appointments or from getting medications? No 02/07 In the past 12 months, has l ack of transportation kept you from meetings, work, or from getting things needed for daily living? No 02/25/2024 Housing Stability Vital Sign Answer Dickson e Recorded In the last 12 months, was t here a time when you were not able to pay the mortgage or rent on time? No 12/19/2023 Number of Places Lived in the Last Year Not on f ile 12/19/2023 In the last 12 months, was t here a time when you did not have a steady place to sleep or slept in a correction (including now)? No 12/19/2023 PHQ-9 Answer Date Recorded Patient Health Questionnaire-9 Score 0 07/24/2024 Housing Stability Vital Sign Answer Dickson e Recorded In the last 12 months, was t here a time when you were not able to pay the mortgage or rent on time? No 02/25/2024 Number of Times Moved in the Last Year Not on fi le 02/25/2024 At any time in the past 12 m [facility], were you homeless or living in a correction (including now)? No 02/25/2024 AUDIT-C Answer Date Recorded Frequency of Alcohol Consumption Not on file 10/23/2024 Q2: How many drinks containi ng alcohol do you have on a typical day when you are drinking? Patient does not drink Frequency of Binge Drinking Not on file 10/07 Utilities Answer Date Recorded In the past 12 months has [employer], gas, oil, or water [employer] threatened to shut off services in your home? No 02/25/2024 Comments No Sex and Gender Information Value Date Recorded Sex Assigned at Female 02/24/2024 4:46 AM EST Legal Sex Female 7:06 PM EDT Gender Identity Not on file Sexual Orientation Not on file documented as of this encounter Medications at Time of Discharge Abaloparatide (Tymlos) 3120 MCG/1.56ML solution pen-injector Inject 80 mcg under the skin daily. 1.56 mL 2 10/31/2024 Accu-Chek Guide Test test strip USE TO CHECK BLOOD GLUCOSE BEFORE MEAL(S) AND AT BEDTIME 09/12/2024 Accu-Chek Softclix Lancets lancets USE TO CHECK BLOOD GLUCOSE BEFORE MEAL(S) AND AT BEDTIME 09/12/2024 acetaminophen (Tylenol 8 Hour Arthritis Pain) 650 MG ER tablet Take 1 tablet by mouth every 8 hours as needed for mild pain. Do not crush, chew, or split. 30 tablet 2 10/23/2024 albuterol 108 (90 Base) MCG/ACT inhaler Inhale 2 puffs every 6 (six) hours if needed for wheezing or shortness of breath. 03/08/2024 atorvastatin (Lipitor) 20 MG tablet Take 1 tablet (20 mg) by mouth every night. 03/08/2024 bisoprolol (Zebeta) 5 MG tablet Take 1 tablet (5 mg) by mouth 1 (one) time each day. 03/08/2024 dulaglutide (Trulicity) 1.5 MG/0.5ML solution pen-injector inj. pen Inject 1.5 mg under the skin 1 (one) time per week. Dulera 100-5 MCG/ACT inhaler Inhale 2 puffs 2 times a day. 08/28/2024 ferrous sulfate 324 (65 Fe) MG EC tablet Take 1 tablet by mouth daily. 10/06/2024 furosemide (Lasix) 20 MG tablet Take 1 tablet (20 mg) by mouth every other day. 03/08/2024 glipiZIDE (Glucotrol) 10 MG tablet Take 1 tablet (10 mg) by mouth 2 (two) times a day before meals. 03/08/2024 losartan (Cozaar) 50 MG tablet Take 1 tablet by mouth daily. 05/12/2024 oxybutynin (Ditropan) 5 MG tablet Take 1 tablet by mouth daily. 10/01/2024 pen needle, diabetic (B-D UF III MINI PEN NEEDLES) 31G X 5 MM misc 1 each daily. Use with Tymlos 100 each 11 10/31/2024 pioglitazone (Actos) 30 MG tablet Take 1 tablet (30 mg) by mouth 1 (one) time each day in the evening. 03/08/2024 rivaroxaban (Xarelto) 20 MG tablet Take 1 tablet (20 mg) by mouth 1 (one) time each day with dinner. Take with food. 03/08/2024 Trulicity 1.5 MG/0.5ML solution auto-injector INJECT 1 PEN SUBCUTANEOUSLY ONCE A WEEK 10/27/2024 Vitamin D3 1.25 MG (95817 UT) capsule Take 1 capsule by mouth once a week 6 capsule 10/07/2024 cyanocobalamin (Vitamin B-12) 1,000 mcg/mL oral liquid Take by mouth. 09/15/2024 12/15/19 25 lidocaine (Lidoderm) 5 % patch Apply 1 patch topically daily over 12 hours. Remove & discard patch within 12 hours or as directed by . 30 patch 1 10/23/2024 12/23/19 25 Nutritional Supplements (Boost Original) liquid Take 8 fluid ounces by mouth daily. 237 mL 2 10/23/2024 12/23/19 25 documented as of this encounter Plan of Treatment Upcoming Encounters Date Type Department Care Team (Late st Contact Info) Description 02/05/2025 10:00 AM EDT Office Visit [facility] [address] [facility] [place] [address] Carmen Houser MD [address] [facility] [address] [place] [address] 02/24/2025 10:40 AM EST Office Visit [facility] [address], [address] [place] [address] Becky Moralez APRN [address] [place] [address] 03/17/2025 9:30 AM EST Appointment [facility] Radiology [address], [address] [place] [address] 03/17/2025 10:10 AM EST Office Visit [facility]opa[facility] Surgery & Sports Medicine [address] [place] [address] Terry Santoyo MD [address] [facility] [address] [place] [address] documented as of this encounter Procedures Procedure Name Priority Date/Time Associated Diagnosis Comments XR KNEE RIGHT 4+ VIEWS Routine 11/11/2024 9:18 AM EDT 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 Persistent lucency is appreciated in the fracture. CRITICAL RESULT: No. COMMUNICATION: Per this written report. Drafted by Frandy Garcia MD on 11/11/2024 9:57 AM Final report signed by Frandy Garcia MD on 11/11/2024 9:59 AM Narrative 11/11/2024 9:59 AM EDT CLINICAL INDICATION: pain TECHNIQUE: XR FEMUR RIGHT 2+ VIEWS, XR KNEE RIGHT 4+ VIEWS COMPARISON: August 05, 2024. FINDINGS: 2 views of the right femur and 4 views of the right knee show retrograde intramedullary fixation of comminuted fracture of the distal femoral diametaphysis with persistent lucency at the fracture site. No hardware complication. Severe osteoarthritis of the right knee with unchanged kzvn-ro-fmhv articulation in both the medial and lateral compartment. Generalized osteopenia. Procedure Note Frandy Garcia MD - 11/11/2024 CLINICAL INDICATION: pain TECHNIQUE: XR FEMUR RIGHT 2+ VIEWS, XR KNEE RIGHT 4+ VIEWS COMPARISON: August 05, 2024. FINDINGS: 2 views of the right femur and 4 views of the right knee show retrogradeintramedullary fixation of comminuted fracture of the distal femoraldiametaphysis with persistent lucency at the fracture site. No hardwarecomplication. Severe osteoarthritis of the right knee with kggbgqykpwnvf-zk-foec articulation in both the medial and lateral compartment.Generalized osteopenia. IMPRESSION: Retrograde intramedullary fixation of comminuted fracture of the distalfemoral diametaphysis without hardware complication or change in fracturefragment alignment. Persistent lucency is appreciated in the fracture. CRITICAL RESULT: No. COMMUNICATION: Per this written report. Drafted by Frandy Garcia MD on 11/11/2024 9:57 AM Final report signed by Frandy Garcia MD on 11/11/2024 9:59 AM Terry Santoyo MD IMG XR PROCEDURES Final Re sult * XR Knee Right 4+ Views (11/11/2024 9:18 AM EDT) Anatomical Region Laterality Modality Lower Extremities, Knee Right Digital Radiography Impressions 11/11/2024 9:59 AM EDT Retrograde intramedullary fixation of comminuted fracture of the distal femoral diametaphysis without hardware complication or change in fracture fragment alignment. Persistent lucency is appreciated in the fracture. CRITICAL RESULT: No. COMMUNICATION: Per this written report. Drafted by Frandy Garcia MD on 11/11/2024 9:57 AM Final report signed by Frandy Garcia MD on 11/11/2024 9:59 AM Narrative 11/11/2024 9:59 AM EDT CLINICAL INDICATION: pain TECHNIQUE: XR FEMUR RIGHT 2+ VIEWS, XR KNEE RIGHT 4+ VIEWS COMPARISON: August 05, 2024. FINDINGS: 2 views of the right femur and 4 views of the right knee show retrograde intramedullary fixation of comminuted fracture of the distal femoral diametaphysis with persistent lucency at the fracture site. No hardware complication. Severe osteoarthritis of the right knee with unchanged oxzf-sa-pqdu articulation in both the medial and lateral compartment. Generalized osteopenia. Procedure Note Frandy Garcia MD - 11/11/2024 CLINICAL INDICATION: pain TECHNIQUE: XR FEMUR RIGHT 2+ VIEWS, XR KNEE RIGHT 4+ VIEWS COMPARISON: August 05, 2024. FINDINGS: 2 views of the right femur and 4 views of the right knee show retrogradeintramedullary fixation of comminuted fracture of the distal femoraldiametaphysis with persistent lucency at the fracture site. No hardwarecomplication. Severe osteoarthritis of the right knee with iwxgzfbsqewhj-pa-oqgn articulation in both the medial and lateral compartment.Generalized osteopenia. IMPRESSION: Retrograde intramedullary fixation of comminuted fracture of the distalfemoral diametaphysis without hardware complication or change in fracturefragment alignment. Persistent lucency is appreciated in the fracture. CRITICAL RESULT: No. COMMUNICATION: Per this written report. 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
--- OUTSIDE RECORDS SUMMARY | 2024-11-11 08:50 | XMS_ITS | Encounter Summary ---
Author Organization [facility] Address [address] 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 No 12/19/2023 PHQ-9 Answer Date [...] any time in the past 12 m [facility], were you homeless or living in a retirement (including now)? No 02/25/2024 AUDIT-C Answer Date Recorded Frequency of Alcohol Consumption Not on file 10/23/2024 Q2: How many drinks containi ng alcohol do you have on a typical day when you are drinking? Patient does not drink Frequency of Binge Drinking Not on file 10/07 Utilities Answer Date Recorded In the past 12 months has th e electric, gas, oil, or water company threatened to shut off services in your home? No 02/25/2024 Comments No Sex and Gender Information Value Date Recorded Sex Assigned at Female 02/24/2024 4:46 AM EST Legal Sex Female 7:06 PM EDT Gender Identity Not on file Sexual Orientation Not on file documented as of this encounter Last Filed Vital Signs Vital Sign Reading Time Taken Comments Blood Pressure 120/56 11/11/2024 9:19 AM EDT Pulse 60 11/11/2024 9:19 AM EDT Temperature 36.4 C (97.6 F) 11/11/2024 9:19 AM EDT Respiratory Rate - - Oxygen Saturation 97% 11/11/2024 9:19 AM EDT Inhaled Oxygen Concentration - - Weight 160 kg (352 lb) 11/11/2024 9:19 AM EDT Height 172.7 cm (5' 8 ) 11/11/2024 9:19 AM EDT Body Mass Index 53.52 11/11/2024 9:19 AM EDT documented in this encounter Miscellaneous Notes * Progress Notes - Cheryl Hernández PA - 11/11/2024 8:50 AM EDT Chief complaint: s/p I&D and IMN open right distal femur fracture DOS: 12/17/2023, non-operative management right medial tibial plateau fracture, s/p I&D right knee septic arthritis DOS: 02/24/2024 HPI: Bailey Camacho is a 69 year old female who presents to clinic for follow up 11 months s/p the above stated procedure. Patient states she is doing the same since her prior appointment. Denies any improvement in pain or mobility. She completed PT 2 weeks ago but states she was not really seeing any progress. She remains largely nonambulatory and using a wheelchair for mobilization. He ambulatesminimally into and out of the bathroom with a walker as her wheelchair does not fit into the bathroom well. She was able to get in with [facility] who started her on Tymlos last week. She last saw ID in August who stopped her abx at this time. 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 Continue WBAT RLE. Continue Tymlos. Will repeat infectious labs today. We will see her back in 4 months with repeat imaging. The patients images were discussed with them. The patient was given an opportunity to ask questions and all their questions were answered to their satisfaction. The patient was seen and evaluated by Dr. Santoyo. Cheryl Hernández PA-C Department of Orthopaedic Surgery and Sports Medicine Consult Pager: [phone] Service Pager:[phone] Cosigned by Terry Santoyo MD at 11/19/2024 3:07 PM EDT Associated attestation - Terry Santoyo MD - 11/19/2024 3:07 PM EDT I attest to being involved in providing substantive part of the medical decision making in patient care. She has a fairly significant problem. It looks like she still has some persistent changes in her knee that may be consistent with ongoing sepsis. We are going to repeat infection labs to furtherevaluate. 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 I had a long conversation with her that there maynot be can great options for salvage for her limb given her infectious history. We are going to see her back in repeat imaging after she continues with her Tymlos. If her inflammatory labs are elevated she may need to be re- evaluated by Infectious Disease. documented in this encounter Plan of Treatment Upcoming Encounters Date Type Department Care Team (Late st Contact Info) Description 02/05/2025 10:00 AM EDT Office Visit [facility] [address] [place] [address] Carmen Houser MD [address] [facility] [address] [place] [address] 02/24/2025 10:40 AM EST Office Visit [facility] [address] [facility] [place] [address] Becky Moralez APRN [address] [facility] [address] [place] [address] 03/17/2025 9:30 AM EST Appointment [facility] Radiology [address], [address] [place] [address] 03/17/2025 10:10 AM EST Office Visit [facility]opa[facility] Surgery [facility] Sports Medicine [address], [address] [place] [address] Terry Santoyo MD [address] [place] [address] Scheduled Orders Name Type Priority Associated Diagnoses Orde r Schedule XR Femur Right 2+ Views Imaging Routine 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 1 Occurrences starting 11/11/2024 until 05/15/2026 XR Knee Right 3 Views Imaging Routine 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 1 Occurrences starting 11/11/2024 until 05/15/2026 documented as of this encounter Results * (ABNORMAL) Sedimentation Rate, Automated (11/11/2024 10:15 AM EDT) Sedimentation Rate 32(H) <30 mm/hr 2024 11:28 AM EDT [facility] Blood Venous blood specimen / Unknown Venipuncture / Unknown 11/11/2024 10:15 AM EDT 11/11/2024 10:15 AM EDT us Cheryl [facility] BLOOD ORDERABLES Final Re sult [facility] [address] [place] [address] documented in this encounter Visit Diagnoses Diagnosis 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
--- OUTSIDE RECORDS SUMMARY | 2025-01-05 12:38 | XMS_ITS | Encounter Summary ---
Author Organization Healthcare Address [address] [place] [address] Care Team Providers Care Dye Can Operator Name Role Phone Michelle Gray APRN Primary Care Provider [phone] Reason for Visit * Reason Onset Date Comments Medication Therapy Management 12/16/2024 Encounter Details Date Type Department Care Team (Late st Contact Info) Description 12/16/2024 Telephone [facility] [address] [place] [phone] Valentina Brown, PharmD [place] [address] Medication Therapy Management Social History Tobacco Use Types Packs/Day Years [...] and Family Not on file 02/25/2024 Attends Yazdanism Services Not on file 02/24 Active Member [...] place to sleep or slept in a nursing home (including now)? No 12/19/2023 PHQ-9 Answer Date [...] any time in the past 12 m [facility], were you homeless or living in a nursing home (including now)? No 02/25/2024 AUDIT-C Answer Date Recorded Frequency of Alcohol Consumption Not on file 10/23/2024 Q2: How many drinks containi ng alcohol do you have on a typical day when you are drinking? Patient does not drink Frequency of Binge Drinking Not on file 10/07 Utilities Answer Date Recorded In the past 12 months has th e [employer], gas, oil, or water [employer] threatened to shut off services in your home? No 02/25/2024 Comments No Sex and Gender Information Value Date Recorded Sex Assigned at Female 02/24/2024 4:46 AM EST Legal Sex Female 7:06 PM EDT Gender Identity Not on file Sexual Orientation Not on file documented as of this encounter Miscellaneous Notes * Clinician Note - Valentina Brown PharmD - 12/24/2024 10:13 AM EDT Patient reached by Medication Therapy Management team. MTM Platform: [employer] Adherence Successful Intervention(s): Patient filled medication(s): Losartan Additional information: confirmed 90 day fill 12/16/24 Valentina Brown PharmD [facility] MTM Team documented in this encounter Plan of Treatment Upcoming Encounters Date Type Department Care Team (Late st Contact Info) Description 02/05/2025 10:00 AM EDT Office Visit [facility] [address] [place] [address] Carmen Houser MD [address] [facility] [address] [place] [address] 02/24/2025 10:40 AM EST Office Visit [facility] Bone [facility] Mineral Metabolism [address] [facility] [address] [facility], [address] [place] [address] Becky Moralez APRN [address] [facility] [address] [place] [address] 03/17/2025 9:30 AM EST Appointment [facility] Radiology [address], [address] [place] [address] 03/17/2025 10:10 AM EST Office Visit [facility] Orthopaedic Surgery & Sports Medicine [address], [address] [place] [address] Terry Santoyo MD [address] [facility] [address] [place] [address] documented as of this encounter Visit Diagnoses Not on filedocumented in this encounter Additional Health Concerns Assessment Noted Time PHQ-9 Depression Total Score: 0 07/25/19 25 9:22 AM EDT A fall risk assessment has been complete d for the patient 11/11/2024 9:18 AM EDT A Body Mass Index follow-up plan has been documented for the patient 11/11/2024 9:51 AM EDT documented as of this encounter Care Teams Dye Can Operator Relationship Specialty Start Date End Date Michelle Gray APRN [address] [place] [address] PCP - General 11/17/23 documented as of this encounter
--- OUTSIDE RECORDS SUMMARY | 2025-01-05 12:38 | XMS_ITS | Encounter Summary ---
Author Organization Healthcare Address [address] [place] [address] Care Team Providers Care Facility Supervisor Name Role Phone Michelle Gray APRN Primary Care Provider [phone] Encounter Details Date Type Department Care Team (Latest Contact Info) Description 11/11/2024 Travel Social History Tobacco Use Types Packs/Day Years [...] and Family Not on file 02/25/2024 Attends Restorationism Services Not on file 02/24 Active Member [...] place to sleep or slept in a longterm (including now)? No 12/19/2023 PHQ-9 Answer Date [...] any time in the past 12 m [facility], were you homeless or living in a longterm (including now)? No 02/25/2024 AUDIT-C Answer Date [...] on file documented as of this encounter Plan of Treatment Upcoming Encounters Date Type Department Care Team (Late st Contact Info) Description 02/05/2025 10:00 AM EDT Office Visit [facility] [address] [place] [address] Carmen Houser MD [address] [facility] [address] [place] [address] 02/24/2025 10:40 AM EST [facility] [address] [facility], [address] [place] [address] Becky Moralez APRN [address] [facility] [address] [place] [address] 03/17/2025 9:30 AM EST Appointment [facility] Radiology [address], [address] [place] [address] 03/17/2025 10:10 AM EST Office Visit [facility] Orthopaedic Surgery & Sports Medicine [address], [address] [place] [address] Terry Santoyo MD [address] [place] [address] documented as of this encounter [...] documented as of this encounter Care Teams Facility Supervisor Relationship Specialty Start Date End Date Michelle Gray APRN [address] [place] [address] PCP - General 11/17/23 documented as of this encounter
--- OUTSIDE RECORDS SUMMARY | 2025-01-05 12:38 | XMS_ITS | Encounter Summary ---
Author Organization Healthcare Address [address] [place] [address] Care Team Providers Care Development And Housing Director Name Role Phone Michelle Gray APRN Primary Care Provider [phone] Encounter Details Date Type Department Care Team (Latest Contact Info) Description 11/09/2024 Travel Social History Tobacco Use Types Packs/Day [...] and Family Not on file 02/25/2024 Attends Mandaeism Services Not on file 02/24 Active Member [...] any time in the past 12 m [facility], were you homeless or living in [...] Description 02/05/2025 10:00 AM EDT Office Visit [facility] [address] [place] [address] Carmen Houser MD [address] [facility] [address] [place] [address] 02/24/2025 10:40 AM EST [facility] [address] [facility], [address] [place] [address] Becky Moralez APRN [address] [facility] [address] [place] [address] 03/17/2025 9:30 AM EST Appointment [facility] [place] Radiology [address], [address] [place] [address] 03/17/2025 10:10 AM EST Office Visit [facility] Orthopaedic Surgery & Sports Medicine [address], [address] [place] [address] Terry Santoyo MD [address] [place] [address] documented as of this encounter Visit Diagnoses Not on filedocumented in this encounter Additional Health Concerns Assessment Noted Time PHQ-9 Depression Total Score: 0 07/25/19 25 9:22 AM EDT A fall risk assessment has been complete d for the patient 10/23/2024 11:59 AM EDT A Body Mass Index follow-up plan has been documented for the patient 10/24/2024 8:02 AM EDT documented as of this encounter Care Teams Development And Housing Director Relationship Specialty Start Date End Date Michelle Gray APRN [address] [place] [address] PCP - General 11/17/23 documented as of this encounter
--- OUTSIDE RECORDS SUMMARY | 2025-01-05 12:39 | XMS_ITS | Clinical Summary ---
Author Organization [facility] Address [facility] [place] [address] Phone Care Team Providers Care Home Day Care Provider Name Role Phone Unavailable Primary Care Provider Unavailabl e Social History Tobacco Use Types Packs/Day Years Used Date Smoking Tobacco: Never Assessed Comments Unknown Sex and Gender Information Value Date Recorded Sex Assigned at Not on file Legal Sex Female 1:34 PM EST Gender Identity Not on file Sexual Orientation Not on file Plan of Treatment Health Maintenance Due Date Last Done Comments Wellness Exam Medicare 1958 Hepatitis C Screening 09/09/1975 Cologuard 2002 Colon Cancer Screening 2002 Colonoscopy 2002 FIT 2002 Sigmoidoscopy 2002 Virtual Colonography 2002 Pneumococcal Vaccine 50+ (1 of 1 - PCV) 09/09/2007 Zoster (1 of 2) 09/09/2007 Bone Density Screening 2022 COVID-19 Vaccine ( - 2023-2 5 season) 2024 Influenza Vaccine (#1) 2024 2, 01/30/2019 Breast Cancer Screening 05/18/2025 05/18/2023 DTaP/TDaP/Td (2 - Td or Tdap) 11/08/2031 11/07/2021 Hepatitis B Vaccine Aged Out No longe r eligible based on patient's age to complete this topic Meningococcal B Vaccine Aged Out No l onger eligible based on patient's age to complete this topic Procedures Procedure Name Priority Date/Time Associated Diagnosis Comments MM MAMMO DIGITAL PAM SCREEN BILAT Routine 05/18/2023 11:41 AM EST Encounter for screening mammogram for malignant neoplasm of breast from Last 3 Months or Most Recently Relevant to Health Maintenance Results * MM MAMMO DIGITAL PAM SCREEN BILAT (05/18/2023 11:41 AM EST) Anatomical Region Laterality Modality Breast Bilateral Mammography 05/24/2023 1:52 PM EST Impressions 05/24/2023 1:52 PM EST Negative ([id number]) ~ RECOMMENDATION: Routine screening mammogram in 1 year. ~ DISCLAIMER * Any patient with a palpable abnormality, unexplained by breast imaging, should be managed on clinical basis by the attending physician. * Breast imaging has a false negative rate of 15%. * The patient was notified by mail of the results of this examination. *The patient's information was entered into a reminder system with a target due date for the next mammogram, in accordance with the [employer] and the Society of Breast Imaging recommendations. Narrative 05/24/2023 1:52 PM EST Procedure:MM MAMMO DIGITAL PAM SCREEN BILAT ~ Reason for exam: screening, asymptomatic. Z12.31-Encounter for screening mammogram for malignant neoplasm of [id number]-[id number]-CM ~ MM MAMMO DIGITAL PAM SCREEN BILAT Bilateral CC and MLO view(s) were taken. There are scattered fibroglandular densities. Prior study comparison: Compared with prior studies the most recent being outside studies dated December 21, 2009 No mammographic evidence of malignancy. ~ Procedure Note Karin Meadows MD - 05/24/2023 Procedure:MM MAMMO DIGITAL PAM SCREEN BILAT ~ Reason for exam: screening, asymptomatic. Z12.31-Encounter for screening mammogram for malignant neoplasm of ssjbpi-[id number]-92-CM ~ MM MAMMO DIGITAL PAM SCREEN BILAT Bilateral CC and MLO view(s) were taken. There are scattered fibroglandular densities. Prior study comparison: Compared with prior studies the most recentbeing outside studies dated December 21, 2009 No mammographic evidence of malignancy. ~ IMPRESSION: Negative ([id number]) ~ RECOMMENDATION: Routine screening mammogram in 1 year. ~ DISCLAIMER * Any patient with a palpable abnormality, unexplained by breast imaging, should be managed on clinical basis by the attending physician. * Breast imaging has a false negative rate of 15%. * The patient was notified by mail of the results of this examination. *The patient's information was entered into a reminder system with atarget due date for the next mammogram, in accordance with the [employer] and the Society of Breast Imaging recommendations. us Not In Epic Provider IMG MAMMOGRAPHY ORDERABLES Final Result from Last 3 Months or Most Recently Relevant to Health Maintenance Insurance MEDICARE ADVANTAGE MR
--- OUTSIDE RECORDS SUMMARY | 2025-01-05 12:39 | XMS_ITS | Encounter Summary ---
Author Organization [facility] Address [address] [place] [address] Care Team Providers Care Food Or Baggage Handling [place]ampman Name Role Phone Michelle Gray ALYCIA Primary Care Provider [phone] Reason for Visit * Reason Onset Date Comments [facility] Clinical Concern/Question 10/14/2024 Encounter Details Date Type Department Care Team (Late st Contact Info) Description 10/14/2024 Telephone [facility]phrology, Bone & Mineral Metabolism [address] [facility], [address] [place] [address] Becky Moralez APRN [address] [place] [address] [facility] Clinical Concern/Question Social History Tobacco Use Types Packs/Day Years [...] and Family Not on file 02/25/2024 Attends Sikh Services Not on file 02/24 Active Member [...] place to sleep or slept in a residential (including now)? No 12/19/2023 PHQ-9 Answer Date [...] were you homeless or living in a residential (including now)? No 02/25/2024 AUDIT-C Answer Date Recorded Frequency of Alcohol Consumption Not on file 10/23/2024 Q2: How many drinks containi ng alcohol do you have on a typical day when you are drinking? Patient does not drink Frequency of Binge Drinking Not on file 10/07 Utilities Answer Date Recorded In the past 12 months has th e [employer], gas, oil, or water company threatened to shut off services in your home? No 02/25/2024 Comments No Sex and Gender Information Value Date Recorded Sex Assigned at Female 02/24/2024 4:46 AM EST Legal Sex Female 7:06 PM EDT Gender Identity Not on file Sexual Orientation Not on file documented as of this encounter Functional Status * Over the past 2 weeks, how often have you been bothered by any of the following problems? Question Answer Date of Assessment Author Little interest or pleasure in doing things Not at all 10/23/2024 11:59 AM EDT Bassem Tejada Feeling down, depressed, or hopeless Not at all 10/23/2024 11:59 AM EDT Bassem Tejada Patient Health Questionnaire -2 Score 0 10/23/2024 11:59 AM EDT Bassem Tejada documented as of this encounter Miscellaneous Notes * Telephone Encounter - Olga Lidia Lizarraga LPN - 10/14/2024 1:06 PM EDT Faxed lab orders to [facility] and informed patient. Fax confirmation received. P# [phone]. F# [phone]. * Telephone Encounter - Kiara Rascon - 10/14/2024 8:34 AM EDT Clinical Concern/Question Reason for Call: Patient would like her lab orders faxed to her PCP at [facility], fax number is [phone]. Best contact number: [phone] (home) Optimal time of day to reach caller: ANYTIME Additional comments/information from caller: None Note: Please do not reply to this message. Follow-up communication and further actions as a result of this message need to be communicated with the patient directly, if the patient is not active onMyChart. If the patient is active on MyChart, they will receive notification of the communication/outcome via [employer]. documented in this encounter Plan of Treatment Upcoming Encounters Date Type Department Care Team ([facility] st Contact Info) Description 02/05/2025 10:00 AM EDT Office Visit [facility] [address] [place] [address] Carmen Houser MD [address] [facility] [address] [place] [address] 02/24/2025 10:40 AM EST Office Visit [facility] Bone & Mineral Metabolism [address], [address] [place] [address] Becky Moralez APRN [address] [facility] [address] [place] [address] 03/17/2025 9:30 AM EST Appointment [facility] Radiology [address], [address] [place] [address] 03/17/2025 10:10 AM EST Office Visit [facility] Orthopaedic Surgery & Sports Medicine [address], [address] [place] [address] Terry Santoyo MD [address] [place] [address] documented as of this encounter Visit Diagnoses Not on filedocumented in this encounter Additional Health Concerns Assessment Noted Time PHQ-9 Depression Total Score: 0 07/25/19 25 9:22 AM EDT A fall risk assessment has been complete d for the patient 09/18/2024 12:50 PM EDT A Body Mass Index follow-up plan has been documented for the patient 09/18/2024 1:20 PM EDT documented as of this encounter Care Teams Food Or Baggage Handling [place]ampman Relationship Specialty Start Date End Date Michelel Gray APRN [address] [place] [address] PCP - General 11/17/23 documented as of this encounter
--- OUTSIDE RECORDS SUMMARY | 2025-01-05 12:39 | XMS_ITS | Clinical Summary ---
Author Organization [facility] Address [address] [place] [address] Care Team Providers Care Canoe Inspector Name Role Phone Michelle Gray APRN Primary Care Provider [phone] Allergies No known active allergies Medications dulaglutide (Trulicity) 1.5 MG/0.5ML solution pen-injector inj. pen Inject 1.5 mg under the skin 1 (one) time per week. Active rivaroxaban (Xarelto) 20 MG tablet Take 1 tablet (20 mg) by mouth 1 (one) time each day with dinner. Take with food. 03/08/20 Active furosemide (Lasix) 20 MG tablet Take 1 tablet (20 mg) by mouth every other day. 03/08/20 Active atorvastatin (Lipitor) 20 MG tablet Take 1 tablet (20 mg) by mouth every night. 03/08/20 24 Active Additional Information Patient taking differently: 40 mgOral Nightly, Reported on 11/11/2024 albuterol 108 (90 Base) MCG/ACT inhaler Inhale 2 puffs every 6 (six) hours if needed for wheezing or shortness of breath. 03/08/20 Active pioglitazone (Actos) 30 MG tablet Take 1 tablet (30 mg) by mouth 1 (one) time each day in the evening. 03/08/20 Active glipiZIDE (Glucotrol) 10 MG tablet Take 1 tablet (10 mg) by mouth 2 (two) times a day before meals. 03/08/20 Active bisoprolol (Zebeta) 5 MG tablet Take 1 tablet (5 mg) by mouth 1 (one) time each day. 03/08/20 24 Active losartan (Cozaar) 50 MG tablet Take 1 tablet by mouth daily. 05/12/19 25 Active Vitamin D3 1.25 MG (26846 UT) capsule Take 1 capsule by mouth once a week 6 capsule 10/08/19 25 Active Dulera 100-5 MCG/ACT inhaler Inhale 2 puffs 2 times a day. 08/29/19 25 Active Accu-Chek Softclix Lancets lancets USE TO CHECK BLOOD GLUCOSE BEFORE MEAL(S) AND AT BEDTIME 09/13/19 25 Active Accu-Chek Guide Test test strip USE TO CHECK BLOOD GLUCOSE BEFORE MEAL(S) AND AT BEDTIME 09/13/19 25 Active ferrous sulfate 324 (65 Fe) MG EC tablet Take 1 tablet by mouth daily. 10/07/19 25 Active oxybutynin (Ditropan) 5 MG tablet Take 1 tablet by mouth daily. 10/02/19 25 Active acetaminophen (Tylenol 8 Hour Arthritis Pain) 650 MG ER tablet Take 1 tablet by mouth every 8 hours as needed for mild pain. Do not crush, chew, or split. 30 tablet 2 10/24/19 25 Active Abaloparatide (Tymlos) 3120 MCG/1.56ML solution pen-injector Inject 80 mcg under the skin daily. 1.56 mL 2 11/01/19 25 Active pen needle, diabetic (B-D UF III MINI PEN NEEDLES) 31G X 5 MM misc 1 each daily. Use with Tymlos 100 each 11 11/01/19 25 Active Trulicity 1.5 MG/0.5ML solution auto-injector INJECT 1 PEN SUBCUTANEOUSLY ONCE A WEEK 10/28/19 25 Active cyanocobalamin (Vitamin B-12) 1,000 mcg/mL oral liquid Take by mouth. 09/16/19 25 025 lidocaine (Lidoderm) 5 % patch Apply 1 patch topically daily over 12 hours. Remove & discard patch within 12 hours or as directed by . 30 patch 1 10/24/19 25 025 Nutritional Supplements (Boost Original) liquid Take 8 fluid ounces by mouth daily. 237 mL 2 10/24/19 25 025 Active Problems Problem Noted Date Diagnosed Date Acquired pes planus of both feet 07/24/2024 Adverse effect of antibacterial drug 07/24/2024 Anemia 07/24/2024 Bilateral carotid artery stenosis 07/24/2024 CAD (coronary artery disease) 07/24/2024 Confusional state 07/24/2024 Diabetic foot 07/24/2024 Expressive aphasia 07/24/2024 Gastric antral vascular ectasia 07/24/2024 GI bleed 07/24/2024 Hypertension 07/24/2024 Injury of left knee 07/24/2024 Knee pain, left 07/24/2024 Low back pain 07/24/2024 Nocturnal hypoxemia 07/24/2024 Olecranon bursitis, left elbow 07/24/2024 Onychodystrophy 07/24/2024 ZANE on CPAP 07/24/2024 Pincer nail deformity 07/24/2024 Presence of cardiac pacemaker 07/24/2024 Seizure 07/24/2024 Syncope 07/24/2024 SSS (sick sinus syndrome) 07/24/2024 Stenosis of carotid artery 07/24/2024 Symptomatic sinus bradycardia 07/24/2024 Transient cerebral ischemia 07/24/2024 Infection associated with internal right knee pr osthesis 07/24/2024 Abnormal gait 03/27/2024 Chronic kidney disease 03/27/2024 Chronic obstructive pulmonary disease 03/27/2024 Closed fracture of femur, distal end 03/27/2024 Constipation 03/27/2024 Gastroesophageal reflux disease without esophagi tis 03/27/2024 Hyperlipidemia 03/27/2024 Infection due to Enterococcus 03/27/2024 Insomnia 03/27/2024 Muscle atrophy 03/27/2024 Muscle weakness 03/27/2024 Obstructive sleep apnea syndrome 03/27/2024 PAF (paroxysmal atrial fibrillation) 03/27/2024 Pulmonary embolism 03/27/2024 Unsteadiness on feet 03/27/2024 Vitamin D deficiency 03/27/2024 Class III obesity with body mass index (BMI) of 40.0 or higher 03/04/2024 Arthritis, septic 02/23/2024 Difficulty swallowing 12/25/2023 Overview (12/25/2023): OPTIONS ADVISOR consulted More globus sensation, can follow up outpatient GI for treatment Femur fracture, right 12/17/2023 Overview (12/18/2023): Ortho consulted 12/16: right femur ORIF, IMN RLE: WBAT Ortho: Follow up 12/30 @ 1:[address] Moralez Closed fracture of lateral portion of right tibi al plateau 12/17/2023 Overview (12/18/2023): Ortho consulted 12/16: right femur ORIF, IMN RLE: WBAT Ortho: Follow up 12/30 @ 1:[address] Moralez Obesity 12/17/2023 Overview (12/17/2023): BMI 55.34 Complicates all aspects of care Fall from steps, initial encounter 12/16/2023 Overview (12/18/2023): -Admit SGT 5 -Tertiary 12/16 Hyperlipidemia, unspecified 08/20/2023 Essential hypertension 08/20/2023 Type II diabetes mellitus 08/20/2023 Nicotine dependence 04/13/2020 Overview (09/18/2024): Problem Code: F17.200; Problem Code Type: ICD-10; Mononeuropathy due to type 2 diabetes mellitus 0 08/03/2017 Overview (09/18/2024): Problem Code: E11.41; Problem Code Type: ICD-10; Resolved Problems Problem Noted Date Diagnosed Date Resolved Date Abnormal carotid ultrasound 07/24/2024 09/18/2024 Total self-care deficit 07/24/2024 09/2 04/2024 Acute kidney injury 07/24/2024 12/29/19 25 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 02/24/20 24 09/18/2024 ABLA (acute blood loss anemia) 12/19/2023 09/18/2024 Overview (12/22/2023): 12/18: 1 U PRBC for hgb 6.6 Hgb stable 7.5 Trend H&H 12/20: 6.9; Transfuse 1 u PRBC ; Repeat H&H Mnznu-bw-gkdijud kidney injury 12/18/2023 12/28/2024 Overview (12/23/2023): Contacted Dr. Cortez's office 12/17, report 10/29/23 creatinine 1.5, February 2023 creatinine 1.7 FEUrea suggestive of prerenal etiology Avoid nephrotoxins Consulted nephrology-supportive measure Abnormal CT scan 12/17/2023 09/18/2024 Overview (12/17/2023): -Incidental -Noted on imaging; 2.2 cm cyst, with punctate wall calcifications caudal right lobe of the liver at the gallbladder bed, with exophytic rim calcified cystic structure measuring 18 mm just caudal to the gallbladder bed, which could represent an exophytic cyst with wall calcifications, no adjacent inflammation -Follow up with pcp for surveillance Encounters Date Type Department Care Team Description 12/16/2024 Telephone [facility] [address] [place] [address] Valentina Brown, PharmD Medication Therapy Management 11/11/2024 8:50 AM EDT Office Visit [facility] Orthopaedic Surgery & Sports Medicine [address], [address] [place] [phone] Terry Santoyo MD 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) 11/11/2024 8:27 AM EDT - 11/11/2024 11:59 PM EDT Hospital Encounter [facility] Radiology [address], [address] [place] [phone] 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 Discharge Disposition: Home or Self Care 11/11/2024 Travel 11/09/2024 Travel 10/31/2024 Telephone [facility] Bone & Mineral Metabolism [address] [facility], [address] [place] [address] Nam Swanson, PharmD 10/31/2024 [facility] Bone [facility] Mineral Metabolism [address] [facility], [address] [place] [address] MlBecky hathaway APRN 10/23/2024 12:20 PM EDT Office Visit [facility] [address] [facility] [address], [address] [place] [address] Becky Moralez APRN Osteopenia, unspecified location (Primary Dx); Mononeuropathy due to type 2 diabetes mellitus ([facility]); Gastroesophageal reflux disease without esophagitis; Vitamin D deficiency; Chronic kidney disease, unspecified CKD stage; Closed fracture of right femur, unspecified fracture morphology, unspecified portion of femur, initial encounter 10/23/2024 10:48 AM EDT - 10/23/2024 11:59 PM EDT Hospital Encounter [facility]eral [facility] [address] [facility], [address] [place] [address] Age-related osteoporosis without current pathological fracture Discharge Disposition: Home or Self Care 10/23/2024 9:30 AM EDT Office Visit [facility] [address] [place] [phone] Carmen Houser MD 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 ([facility]) (Primary Dx) 10/23/2024 Travel 10/22/2024 Travel 10/22/2024 Telephone [facility] Mineral Metabolism [address] [facility], [address] [place] [address] Bassem Tejada 10/20/2024 Travel 10/15/2024 Telephone [facility] [address] [facility], [address] [place] [address] Bassem Tejada 10/14/2024 Telephone [facility] Nephrology, Bone & Mineral Metabolism [address] [facility], [address] [place] [address] Becky Moralez APRN HCN Clinical Concern/Question 10/14/2024 Telephone [facility] Nephrology, Bone & Mineral Metabolism [address] [facility], [address] [place] [address] Becky Moralez APRN 10/09/2024 Telephone [facility] Bone [facility] Mineral [facility]abolism [address] [facility], [address] [place] [phone] TejadaBassem olivares 10/09/2024 Telephone [facility] [address] [facility], [address] [place] [address] Bassem Tejada from Last 3 Months Immunizations Immunization Administration Dates Next Due Influenza Vaccine, Quadrivalent, Adjuvanted 03/09 Influenza, high-dose, quadrivalent 01/03/2022, Influenza, injectable, quadrivalent, preservativ e free 01/03/2022,01/30/2019 Tdap 12/16/2023,11/07/2021 Zoster, Recombinant 11/20/2023,08/20/2023 Family History 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 Relation Name Comments Diabetes Mother Katharine Relation Name Status Comments Mother Katharine Social History Tobacco Use Types Packs/Day Years [...] place to sleep or slept in a fpc (including now)? No 12/19/2023 PHQ-9 Answer Date [...] any time in the past 12 m [facility], were you homeless or living in a fpc (including now)? No 02/25/2024 AUDIT-C Answer Date [...] on file Sexual Orientation Not on file Last Filed Vital Signs Vital Sign Reading Time Taken Comments Blood Pressure 120/56 11/11/2024 9:19 AM EDT Pulse 60 11/11/2024 9:19 AM EDT Temperature 36.4 C (97.6 F) 11/11/2024 9:19 AM EDT Respiratory Rate 16 07/24/2024 9:24 AM EDT Oxygen Saturation 97% 11/11/2024 9:19 AM EDT Inhaled Oxygen Concentration - - Weight 160 kg (352 lb) 11/11/2024 9:19 AM EDT Height 172.7 cm (5' 8 ) 11/11/2024 9:19 AM EDT Body Mass Index 53.52 11/11/2024 9:19 AM EDT Plan of Treatment Upcoming Encounters Date Type Department Care Team (Late st Contact Info) Description 02/05/2025 10:00 AM EDT Office Visit [facility] [address] [place] [address] Carmen Houser MD [address] [place] [address] 02/24/2025 10:40 AM EST Office Visit [facility] [address] [facility], [address] [place] [address] Becky Moralez APRN [address] [facility] [address] [place] [address] 03/17/2025 9:30 AM EST Appointment [facility] Radiology [address] [place] [address] 03/17/2025 10:10 AM EST Office Visit [facility] Orthopaedic Surgery & Sports Medicine [address] [place] [address] Terry Santoyo MD [address] [place] [address] Health Maintenance Due Date Last Done Comments [facility]-Diabetes: Hemoglobin A1C 1957 [facility]-Medicare Annual Wellness (AWV) 1955 [facility]-Infant/Child/Adol SDOH Screenings 1955 Diabetes: Dental Exam 09/09/1967 [facility]-Pneumococcal Vaccine: 50+ Years (1 of 2 - PCV) 1976 CT Colonography 2002 Colonoscopy 2002 FIT-DNA 2002 FIT 2002 FOBT 2002 Sigmoidoscopy 2002 [facility]-Colorectal Cancer Screening 2002 [facility]-RSV Vaccine: 60+ Years or (1 - Risk 60-74 years 1-dose series) 2017 [facility]- SDOH Screenings 08/24/2024 [facility]-Adult SDOH Screenings 08/24/2024 02/25/2024 [id number] Vaccine ( season) 2024 [facility]-Influenza Vaccine (#1) 12/08/202403/23, 01/03/2022, 01/03/2022, Additional history exists [facility]-Breast Cancer Screening 05/18/2025 05/18/2023, 0 05/18/2023 [facility]-Bone Density Scan 10/23/2025 10/23/2024 [facility]-Depression Screening 10/23/2025 10/23/2024, 04/1 10/2024 [facility]-DTaP,Tdap,and Td Vaccines (3 - Td or Tdap) 12/15/2033 12/16/2023, 11/07/2021 [facility]-Zoster Vaccines Completed 11/20/2023, [facility]-Hepatitis C Screening Completed 12/16/2023 [facility]-Obesity Intervention Completed 025, 10/23/2024, 10/23/2024, Additional history exists HPV Vaccines Aged Out No longer eligi ble based on patient's age to complete this topic [facility]-HIB Vaccines Aged Out No longer e ligible based on patient's age to complete this topic [facility]-Hepatitis A Vaccines Aged Out No longer eligible based on patient's age to complete this topic [facility]-IPV Vaccines Aged Out No longer e ligible based on patient's age to complete this topic [facility]-Rotavirus Vaccines Aged Out No lo nger eligible based on patient's age to complete this topic Medical Devices Implanted Type Area Storage And Backup Administrator Device Identifier Shelf Expiration Date Model / Serial / Lot Nail Femoral Retro T2 Alpha 12mm X 400mm - S. - [id number] Implanted:Qty: 1 on 12/17/2023 by Terry Santoyo MD at [facility] Nail Right: Femur [employer] ([facility])-[id number] 02/06/2033 [id number] / . / Wire Radha Trocar Point Small 2mm X 150mm - [id number] Implanted:Qty: 6 on 12/17/2023 by Terry Santoyo MD at [facility] Pin Right: Femur [employer] [facility]-[id number] 12/16/2024 292.20 / / Plate Fixator Temp Ao Fitting - [id number] Implanted:Qty: 1 on 12/17/2023 by Terry Santoyo MD at [facility] Plate Right: Femur [employer] ([facility])-[id number] 12/16/2024 [id number] / / Screw Locking T2 D5xl45 - [id number] Implanted:Qty: 1 on 12/17/2023 by Terry Santoyo MD at [facility] Screw Right: Femur [employer] ([facility])-[id number] 07/07/2033 [id number] / / Screw 3.5mm Ti Cortex Selftap 65mm - S. - [id number] Implanted:Qty: 1 on 12/17/2023 by Terry Santoyo MD at [facility] Screw Right: Femur [employer] ([facility])-[id number] 12/16/2024 [id number] / . / Screw 3.5mm Ti Cortex Selftap 70mm - [id number] Implanted:Qty: 1 on 12/17/2023 by Terry Santoyo MD at [facility] Screw Right: Femur [employer] ([facility])-[id number] 68 12/16/2024 [id number] / / Screw Locking Adv T2 T2 D5xl85 - [id number] Implanted:Qty: 1 on 12/17/2023 by Terry Santoyo MD at [facility] Screw Right: Femur [employer] ([facility])-[id number] 10/06/2033 [id number] / / Screw Locking Adv T2 T2 D5xl65 - [id number] Implanted:Qty: 1 on 12/17/2023 by Terry Santoyo MD at [facility] Screw Right: Femur [employer] ([facility])-[id number] 68 10/07/2031 [id number] / / Screw Locking Adv T2 T2 D5xl80 - [id number] Implanted:Qty: 1 on 12/17/2023 by Terry Santoyo MD at [facility] Screw Right: Femur [employer] ([facility])-[id number] 68 10/06/2033 2361-5080S / / Screw Locking Adv T2 T2 D5xl70 - [id number] Implanted:Qty: 1 on 12/17/2023 by Terry Santoyo MD at [facility] Screw Right: Femur [employer] ([facility])-[id number] 68 09/06/2033 2361-5070S / / Screw Locking T2 D5x37.5 - [id number] Implanted:Qty: 1 on 12/17/2023 by Terry Santoyo MD at [facility] Screw Right: Femur [employer] ([facility])-[id number] 10/06/2033 [id number] / / Washer Tit Screw 4mm - [id number] Implanted:Qty: 3 on 12/17/2023 by Terry Santoyo MD at [facility] Right: Femur [employer] ([facility])-[id number] 68 12/16/2024 [id number] / / Procedures Procedure Name Priority Date/Time Associated Diagnosis Comments SEDIMENTATION RATE, AUTOMATED Routine 11/11/2024 10:15 AM EDT 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 CBC WITH AUTO DIFFERENTIAL Routine 11/11/2024 10:15 AM EDT 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 ([facility]) COMPREHENSIVE METABOLIC PANEL, PLASMA Routine 11/11/2024 10:15 AM EDT 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 ([facility]) C-REACTIVE PROTEIN, PLASMA Routine 11/11/2024 10:15 AM EDT 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 ([facility]) XR FEMUR RIGHT 2+ VIEWS Routine 11/11/2024 9:18 AM EDT 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 XR KNEE RIGHT 4+ VIEWS Routine 11/11/2024 9:18 AM EDT 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 IONIZED CALCIUM, SERUM Routine 10/23/2024 12:47 PM EDT Osteopenia, unspecified location PTH INTACT TOTAL Routine 10/23/2024 12:4 7 PM EDT Osteopenia, unspecified location CYSTATIN C Routine 10/23/2024 12:47 PM EDT Osteopenia, unspecified location VITAMIN D, 1, 25-DIHYDROXY Routine 10/23/2024 12:47 PM EDT Osteopenia, unspecified location PTH PANEL 1 Routine 10/23/2024 12:47 PM EDT Osteopenia, unspecified location RENAL FUNCTION PANEL, PLASMA Routine 10/23/2024 12:47 PM EDT Osteopenia, unspecified location VITAMIN D 25 HYDROXY Routine 10/23/2024 12:47 PM EDT Osteopenia, unspecified location DEXA BONE DENSITY AXIAL SKELETON W VFA Routine 10/23/2024 11:11 AM EDT Age-related osteoporosis without current pathological fracture HEPATITIS C ANTIBODY - ED W/REFLEX TO HCV QUANT PCR STAT 12/16/2023 7:02 PM EDT from Last 3 Months or Most Recently Relevant to Health Maintenance Results * (ABNORMAL) Sedimentation Rate, Automated (11/11/2024 10:15 AM EDT) Sedimentation Rate 32(H) <30 mm/hr 2024 11:28 AM EDT [facility] Blood Venous blood specimen / Unknown Venipuncture / Unknown 11/11/2024 10:15 AM EDT 11/11/2024 10:15 AM EDT us Cheryl CASH LAB BLOOD ORDERABLES Final Re sult [facility] [address] [place] [address] * (ABNORMAL) CBC and differential (11/11/2024 10:15 AM EDT) WBC Count 4.64 3.70 - 10.30 10*3/uL LAB HEMATOLOGY METHOD 11/11/2024 11:05 AM EDT [facility] RBC Count 3.51(L) 3.90 - 5.20 10*6/uL LAB HEMATOLOGY METHOD 11/11/2024 11:05 AM EDT [facility] HGB 10.3(L) 11.2 - 15.7 g/dL LAB HEMATOLOGY METHOD 11/11/2024 11:05 AM EDT [facility] HCT 33.6(L) 34.0 - 45.0 % LAB HEMATOLOGY METHOD 11/11/2024 11:05 AM EDT [facility] Platelet Count 179 155 - 369 10*3/uL LAB HEMATOLOGY METHOD 11/11/2024 11:05 AM EDT [facility] MCV 96 79 - 98 fL LAB HEMATOLOGY METHOD 11/11/2024 11:05 AM EDT [facility] MCH 29.3 26.0 - 32.0 pg LAB HEMATOLOGY METHOD 11/11/2024 11:05 AM EDT [facility] MCHC 30.7 30.7 - 35.5 g/dL LAB HEMATOLOGY METHOD 11/11/2024 11:05 AM EDT [facility] RDW 17.5(H) 11.5 - 14.5 % LAB HEMATOLOGY METHOD 11/11/2024 11:05 AM EDT [facility] MPV 10.2 8.8 - 12.5 fL LAB HEMATOLOGY METHOD 11/11/2024 11:05 AM EDT [facility] nRBC 0.0 <=0.0 per 100 WBCs LAB HEMATOLOGY METHOD 11/11/2024 11:05 AM EDT [facility] Differential Type Automated LAB HEMATOLOGY METHOD 11/11/2024 11:05 AM EDT [facility] Neutrophils % 68 % LAB HEMATOLOGY METHOD 11/11/2024 11:05 AM EDT [facility] Lymphocytes % 16 % LAB HEMATOLOGY METHOD 11/11/2024 11:05 AM EDT [facility] Monocytes % 9 % LAB HEMATOLOGY METHOD 11/11/2024 11:05 AM EDT [facility] Eosinophils % 5 % LAB HEMATOLOGY METHOD 11/11/2024 11:05 AM EDT [facility] Basophils % 1 % LAB HEMATOLOGY METHOD 11/11/2024 11:05 AM EDT [facility] Immature Granulocytes % 1 % LAB HEMATOLOGY METHOD 11/11/2024 11:05 AM EDT [facility] Neutrophils Absolute 3.21 1.60 - 6.10 10*3/uL LAB HEMATOLOGY METHOD 11/11/2024 11:05 AM EDT [facility] Lymphocytes Absolute 0.73(L) 1.20 - 3.90 10*3/uL LAB HEMATOLOGY METHOD 11/11/2024 11:05 AM EDT [facility] Monocytes Absolute 0.40 0.30 - 0.90 10*3/uL LAB HEMATOLOGY METHOD 11/11/2024 11:05 AM EDT [facility] Eosinophils Absolute 0.24 0.00 - 0.50 10*3/uL LAB HEMATOLOGY METHOD 11/11/2024 11:05 AM EDT [facility] Basophils Absolute 0.03 0.00 - 0.10 10*3/uL LAB HEMATOLOGY METHOD 11/11/2024 11:05 AM EDT [facility] Immature Granulocytes Absolute 0.03 0.00 - 0.06 10*3/uL LAB HEMATOLOGY METHOD 11/11/2024 11:05 AM EDT [facility] Blood Venous blood specimen / Unknown Venipuncture / Unknown 11/11/2024 10:15 AM EDT 11/11/2024 10:15 AM EDT Narrative [facility] - 11/11/2024 11:05 AM EDT Therapeutic decision making should be based on absolute values, rather than percentages. us Carmen Houser MD LAB BLOOD ORDERABLES Final Res ult Performing Organization Address [facility]/ZIP Co de Phone Number [facility] [address] [place] [address] * C-reactive protein (11/11/2024 10:15 AM EDT) [facility] CRP, Plasma <3.0 <=8.0 mg/L 11/11/2024 11:51 AM EDT [facility] Blood Venous blood specimen / Unknown Venipuncture / Unknown 11/11/2024 10:15 AM EDT 11/11/2024 10:15 AM EDT Narrative [facility] - 11/11/2024 11:51 AM EDT This CRP test is appropriate for assessment of infection, systemic inflammation and/or tissue injury. To assess cardiovascular disease risk order high sensitivity CRP (CRPH). us Carmen Houser MD LAB BLOOD ORDERABLES Final Res ult Performing Organization Address City/[facility]/ZIP Co de Phone Number [facility] [address] [place] [address] * (ABNORMAL) Comprehensive metabolic panel (11/11/2024 10:15 AM EDT) Glucose, Plasma 87 74 - 99 mg/dL 11/11/2024 11:51 AM EDT [facility] BUN, Plasma 39(H) 8 - 23 mg/dL 11/11/2024 11:51 AM EDT [facility] Creatinine, Plasma 1.16(H) 0.60 - 1.10 mg/dL 11/11/2024 11:51 AM EDT [facility] BUN/Creatinine Ratio 34 11/11/2024 11:51 AM EDT [facility] Sodium, Plasma 144 136 - 145 mmol/L 11/11/2024 11:51 AM EDT [facility] Potassium, Plasma 4.6 3.6 - 4.9 mmol/L 11/11/2024 11:51 AM EDT [facility] Chloride, Plasma 110(H) 97 - 107 mmol/L 11/11/2024 11:51 AM EDT [facility] CO2, Plasma 23 22 - 29 mmol/L 11/11/2024 11:51 AM EDT [facility] Anion Gap 11 6 - 16 mmol/L 11/11/2024 11:51 AM EDT [facility] Total Calcium, Plasma 9.5 8.9 - 10.2 mg/dL 11/11/2024 11:51 AM EDT [facility] Total Protein 7.0 6.3 - 7.9 g/dL 11/11/2024 11:51 AM EDT [facility] Albumin, Plasma 4.0 3.5 - 5.2 g/dL 11/11/2024 11:51 AM EDT [facility] AST, Plasma 20 10 - 35 U/L 11/11/2024 11:51 AM EDT [facility] ALT, Plasma 17 10 - 35 U/L 11/11/2024 11:51 AM EDT [facility] Alkaline Phosphatase, Plasma 87 46 - 142 U/L 11/11/2024 11:51 AM EDT [facility] Total Bilirubin, Plasma 0.4 0.2 - 1.1 mg/dL 11/11/2024 11:51 AM EDT [facility] eGFRcr 51.8 mL/min/1.7 3m*2 11/11/2024 11:51 AM EDT [facility] Comment:Reported eGFRcr in m L/min/1.73m2 is based the CKD-EPI 2020 equation that does not use a race coefficient. Blood Venous blood specimen / Unknown Venipuncture / Unknown 11/11/2024 10:15 AM EDT 11/11/2024 10:15 AM EDT us Carmen Houser MD LAB BLOOD ORDERABLES Final Res ult [facility] [address] [place] [address] * XR Knee Right 4+ Views (11/11/2024 [...] osteoarthritis of the right knee with unchanged pehe-un-agjn articulation in both the medial and lateral [...] Severe osteoarthritis of the right knee with anzxmbmhxmdpe-ie-zqto articulation in both the medial and lateral [...] XR PROCEDURES Final Re sult * XR Femur Right 2+ Views (11/11/2024 [...] osteoarthritis of the right knee with unchanged lfsv-bt-dpfv articulation in both the medial and lateral [...] Severe osteoarthritis of the right knee with cjmjehdrrsgde-cp-cjlv articulation in both the medial and lateral [...] IMG XR PROCEDURES Final Re sult * Ionized calcium, serum (10/23/2024 12:47 PM EDT) [facility] Ionized Calcium, Serum 5.0 4.6 - 5.3 mg/dL LAB HEMATOLOGY METHOD 10/23/2024 2:30 PM EDT [facility] Blood Venous blood specimen / Unknown Venipuncture / Unknown 10/23/2024 12:47 PM EDT 10/23/2024 12:48 PM EDT Becky Moralez APRN LAB BLOOD ORDERABLES Final Result [facility] [address] [place] [address] * (ABNORMAL) Cystatin C (10/23/2024 12:47 PM EDT) Pathologist [facility] Cystatin C 2.37(H) 0.61 - 0.95 mg/L 10/23/2024 5:11 PM EDT [facility] Blood Venous blood specimen / Unknown Venipuncture / Unknown 10/23/2024 12:47 PM EDT 10/23/2024 12:48 PM EDT Becky Moralez [employer] LAB BLOOD ORDERABLES Final Result Performing Organization Address City/[facility]/ZIP Co de Phone Number [facility] [address] [place] [address] * Vitamin D 1,25 Dihydroxy (10/23/2024 12:47 PM EDT) VITAMIN D, 1, 25-DIHYDROXY 23.0 19.9 - 79.3 pg/mL 10/23/2024 5:49 PM EDT [facility] Blood Venous blood specimen / Unknown Venipuncture / Unknown 10/23/2024 12:47 PM EDT 10/23/2024 12:48 PM EDT Becky Moralez [employer] LAB BLOOD ORDERABLES Final Result Performing Organization Address [facility]/[place] [address] * Vitamin D 25 Hydroxy (10/23/2024 12:47 PM EDT) Vitamin D 25 Hydroxy 62.6 20.0 - 80.0 ng/mL 10/23/2024 5:12 PM EDT [facility] Blood Venous blood specimen / Unknown Venipuncture / Unknown 10/23/2024 12:47 PM EDT 10/23/2024 12:48 PM EDT Narrative [facility] - 10/23/2024 5:12 PM EDT Testing performed on [employer], standardized against NIST SRM 2972. When testing samples from patients whose predominant form of vitamin D is vitamin D2, such as patients receiving vitamin D2 supplementation, results that are subtherapeutic should be confirmed with another method, such as LC-MS/MS, before being used for patient management. Vitamin D, 25-Hydroxy reference range, age 18 years and up: Deficiency: <12 ng/mL Insufficiency: 12 to 19 ng/mL Sufficiency: 20 to 80 ng/mL Possible toxicity: >100 ng/mL Becky Moralez [employer] LAB BLOOD ORDERABLES Final Result Performing Organization Address City/[facility]/ZIP Co de Phone Number [facility] [address] [place] [address] * PTH Intact Total (10/23/2024 12:47 PM EDT) PTH Intact Total 65 9 - 77 pg/mL 10/23/2024 4:24 PM EDT [facility] Blood Venous blood specimen / Unknown Venipuncture / Unknown 10/23/2024 12:47 PM EDT 10/23/2024 12:48 PM EDT Narrative [facility] - 10/23/2024 4:24 PM EDT Assay performed by immunoassay at the [facility]. Performed on [employer] chemiluminescent immunoassay, tractable to the World Health Organization's first international standard for PTH from the NIBS, Code 79/500. Results obtained from different test methods or kits cannot be used interchangeably. Becky Moralez [employer] LAB BLOOD ORDERABLES Final Result [facility] [address] [place] [address] * (ABNORMAL) Renal Function Panel, Plasma (10/23/2024 12:47 PM EDT) Pathologist [facility] Glucose, Plasma 61(L) 74 - 99 mg/dL 10/23/2024 3:17 PM EDT [facility] BUN, Plasma 39(H) 8 - 23 mg/dL 10/23/2024 3:17 PM EDT [facility] Creatinine, Plasma 1.48(H) 0.60 - 1.10 mg/dL 10/23/2024 3:17 PM EDT [facility] BUN/Creatinine Ratio 26 10/23/2024 3:17 PM EDT [facility] Sodium, Plasma 141 136 - 145 mmol/L 10/23/2024 3:17 PM EDT [facility] Potassium, Plasma 4.5 3.6 - 4.9 mmol/L 10/23/2024 3:17 PM EDT [facility] Chloride, Plasma 109(H) 97 - 107 mmol/L 10/23/2024 3:17 PM EDT [facility] CO2, Plasma 23 22 - 29 mmol/L 10/23/2024 3:17 PM EDT [facility] Anion Gap 9 6 - 16 mmol/L 10/23/2024 3:17 PM EDT [facility] Total Calcium, Plasma 9.5 8.9 - 10.2 mg/dL 10/23/2024 3:17 PM EDT [facility] Phosphorus, Plasma 3.8 2.5 - 4.5 mg/dL 10/23/2024 3:17 PM EDT [facility] Albumin, Plasma 4.0 3.5 - 5.2 g/dL 10/23/2024 3:17 PM EDT [facility] eGFRcr 38.7 mL/min/1.7 3m*2 10/23/2024 3:17 PM EDT [facility] Comment:Reported eGFRcr in m L/min/1.73m2 is based the CKD-EPI 2020 equation that does not use a race coefficient. Blood Venous blood specimen / Unknown Venipuncture / Unknown 10/23/2024 12:47 PM EDT 10/23/2024 12:48 PM EDT Becky Moralez APRN LAB BLOOD ORDERABLES Final Result [facility] [address] [place] [address] * Dexa Bone Density Axial Skeleton W VFA (10/23/2024 11:11 AM EDT) Anatomical Region Laterality Modality Body Radiographic Fe ging Narrative 11/02/2024 11:11 AM EDT [facility] [address] [place] [address] DXA Bone Densitometry Report: [ 10/23/2024] BMD test performed using the [employer] [place] DXA System (analysis version: 14.10) manufactured by [employer]. REFERRING PROVIDER: Dr. Becky Moralez, ALYCIA CLINICAL INFORMATION: osteoporosis PATIENT NAME: Bailey Camacho PATIENT AGE: 69 y.o. LEGAL SEX: female RADIOGRAPHIC VIEWS: Sites scanned: AP Spine, HIP Left, RADIUS Left, and VFA COMPARISON STUDY: DXA Axial Prior studies are not available for comparison, DXA Extremity Prior studies are not available for comparison, and VFA Prior studies are not available for comparison FINDINGS: Based on WHO criteria (post-menopausal female) the diagnosis is Osteopenia The lowest T- score is -1.6 in the L total hip FRAX (10-year probability of fracture) - Major Osteoporotic: 11.5 %; Hip: 1.0 % The presence of arthritic or degenerative joint changes in the spine could artefactually increase measured BMD. VFA: LVA Morphometry performed on T8-L4 vertebrae: There is no e/o vertebral compression deformity on the VFA study TREATMENT RECOMMENDATIONS: Work up for secondary osteoporosis and metabolic bone disease could be considered based on clinical indications. Treatment decisions may be based on clinical considerations. Consider additional imaging of the spine if clinically indicated Currently available DXA measurement sites, and FRAX could underestimate fracture risk. Suggest general measures to optimize calcium and vitamin D status, fall prevention measures and reduce fracture risk. Consider repeating this study in 1 year(s) or as clinically indicated to assess bone density change or response to treatment (should be performed on the same DXA scanner to allow for direct comparison and calculation of change in BMD). us Becky Moralez APRN IMG DXA PROCEDURES Final Re sult * Hepatitis C Antibody - ED (12/16/2023 7:02 PM EDT) Pathologist [facility] Hepatitis C Antibody Negative Negative 12/16/2023 8:02 PM EDT [email or web address] Blood Venous blood specimen / Unknown Venipuncture / Unknown 12/16/2023 7:02 PM EDT 12/16/2023 7:20 PM EDT us Heike Cruz LAB BLOOD ORDERABLES Final Resul t [facility] [address] [place] [address] from Last 3 Months or Most Recently Relevant to Health Maintenance Insurance [facility] MEDICARE Advance Directives * Full Code (Latest Code Status on File) Date Activated Date Inactivated Comments 02/24/2024 7:10 AM 03/08/2024 3:38 PM Question Answer Comments Patient has decision-making capacity? Yes * Full Code Date Activated Date Inactivated Comments 12/16/2023 11:54 PM 12/25/2023 3:53 PM Question Answer Comments Patient has decision-making capacity? Yes Care Teams Canoe Inspector Relationship Specialty Start Date End Date Michelle Gray APRN [address] [place] [address] PCP - General 11/17/23
--- OUTSIDE RECORDS SUMMARY | 2025-01-05 12:39 | XMS_ITS | Encounter Summary ---
Author Organization Healthcare Address [address] [place] [address] Care Team Providers Care Director Information Security Name Role Phone Michelle Gray ALYCIA Primary Care Provider [phone] Encounter Details Date Type Department Care Team ([facility] Contact Info) Description 10/14/2024 Telephone [facility] [address], [address] [place] [address] Becky Moralez APRN [address] [place] [address] Social History Tobacco Use Types Packs/Day Years [...] and Family Not on file 02/25/2024 Attends [employer] Not on file 02/24 Active Member [...] place to sleep or slept in a alf (including now)? No 12/19/2023 PHQ-9 Answer Date [...] any time in the past 12 m [facility], were you homeless or living in a alf (including now)? No 02/25/2024 AUDIT-C Answer Date Recorded Frequency of Alcohol Consumption Not on file 10/23/2024 Q2: How many drinks containi ng alcohol do you have on a typical day when you are drinking? Patient does not drink Frequency of Binge Drinking Not on file 10/07 Utilities Answer Date Recorded In the past 12 months has e electric, gas, oil, or water company [...] Bassem Tejada documented as of this encounter Plan of Treatment Upcoming Encounters Date Type Department Care Team ([facility] Contact Info) Description 02/05/2025 10:00 AM EDT Office Visit [facility] [address] [place] [address] Carmen Houser MD [address] [facility] [address] [place] [address] 02/24/2025 10:40 AM EST Office Visit [facility] [address], [address] [place] [address] Becky Moralez APRN [address] [place] [address] 03/17/2025 9:30 AM EST Appointment [facility] Radiology [address] [place] [address] 03/17/2025 10:10 AM EST Office Visit [facility] Orthopaedic Surgery & Sports Medicine [address] [place] [address] Terry Santoyo MD [address] [facility] [address] [place] [address] documented as of this encounter Visit Diagnoses Not on filedocumented in this encounter Additional Health Concerns Assessment Noted Time PHQ-9 Depression Total Score: 0 07/25/19 9:22 AM EDT A fall risk assessment has been complete d for the patient 09/18/2024 12:50 PM EDT A Body Mass Index follow-up plan has been documented for the patient 09/18/2024 1:20 PM EDT documented as of this encounter Care Teams Director Information Security Relationship Specialty Start Date End Date Michelle Gray APRN [address] [place] [id number] PCP - General 11/17/23 documented as of this encounter
--- NOTE | 2025-01-05 12:43 | XR_ITS ---
FINAL REPORT CLINICAL HISTORY: Evaluation of left foot bone infection COMPARISON: None FINDINGS: LEFT FOOT Three views of the left foot demonstrate no acute fracture or dislocation. The bones are osteopenic. There are moderate vascular calcifications consistent with underlying diabetes. No evidence of bony erosion. No periosteal reaction is seen. The visualized joint spaces are normally aligned. IMPRESSION: No acute bony abnormality. Reviewed, Interpreted and Dictated by Bala Baxter MD Transcribed by Araseli Niño Authenticated and [facility]
[2025-01-05 13:24] LABS: Hematocrit 31.6 % (37.0-47.0); Hemoglobin 9.6 g/dL (12.2-16.2); Immature Granulocytes % 0.2 %; Mean Corpuscular HGB Conc 30.4 g/dL (31.8-35.4); Mean Corpuscular Hemoglobin 29.4 pg (27.0-31.2); Mean Corpuscular Volume 96.9 fl (81-99); Nucleated Red Blood Cells % 0 %; Platelet Count 221 K/mm3 (142-424); Red Blood Count 3.26 M/mm3 (4.20-5.40); Red Cell Distribution Width-SD 65.2 fL; White Blood Count 4.6 K/mm3 (4.8-10.8)
[2025-01-05 15:00] LABS: Alanine Aminotransferase 13 U/L (12-78); Albumin Level 3.7 g/dl (3.5-5.0); Albumin/Globulin Ratio 1.1 (1.1-1.8); Alkaline Phosphatase 95 U/L (38-126); Anion Gap 12.9 mEq/L (5-15); Aspartate Amino Transferase 20 U/L (14-36); Bilirubin,Total 0.6 mg/dl (0.2-1.3); Blood Urea Nitrogen 39 mg/dl (7-17); Calcium 9.2 mg/dl (8.4-10.2); Carbon Dioxide 27 mmol/L (22.0-30.0); Chloride 107 mmol/L (98-107); Creatinine,Serum 1.20 mg/dl (0.52-1.04); Estimated Glomerular Filt Rate 45 ml/min (>60); GFR (African American) 54 ML/MIN (>60); Globulin 3.3 g/dL (1.3-3.2); Glucose 67 mg/dl (74-100); Potassium 4.9 mmoL/L (3.5-5.1); Sodium 142 mmol/L (136-145); Total Protein,Serum 7.0 g/dl (6.3-8.2)
[2025-01-05 15:05] LABS: C-Reactive Protein 2.1 mg/L (0-4)
[2025-01-05 19:04] LABS: Hemoglobin A1C 5.1 % (4.0-6.0)
== END 2025-01-05 23:59 | disposition home or self-care (01) ==
PROVIDERS: PCP Nurse Practitioner; Visit Provider Podiatrist
DX: E11.621 Type 2 diabetes mellitus with foot ulcer (principal); L97.509 Non-pressure chronic ulcer of other part of unspecified foot with unspecified severity
CPT/HCPCS: 36415; 73630; 80053; 83036; 85025; 85651; 86140

== ENCOUNTER 2025-01-12 10:45 | Outpatient (CLI) | payer MEDICARE, MEDICAID, SELFPAY ==
--- OUTSIDE RECORDS SUMMARY | 2025-01-12 10:48 | XMS_ITS | Data Portability ---
Author Organization [place] [employer], [employer] [facility] Address [address] [place] [address] Care Team Providers Care Supervisor Industrial Garment Name Role Phone BRITNI GIL Enterprise Project Manager SKYLAR DANIELS Fruit Preserver [phone] EMELIA FALL Neurologist MICHELLE GRAY Primary Care Provider EMA Candelario Operator [employer] Assessment Encounter Date Assessment Date Assessment LastModified by Organization Details LastModified Time 11/20/2023 11/20/2023 Patient presented for medication refill. Patient tolerating medication well at current dose without adverse effects. Refilled as below. Discussed plan with patient, who expressed understanding . Follow up as noted below. [email or web address] [id number] Not available 11/20/2023 09:47:09 Plan of Treatment Reminders Order Date Submit Date Provider Last Modified By Organization Details Last Modified Time Details Appointments None recorded. Lab HbA1c (hemoglobin A1c), blood [address], [address] [place] [address], [id number], 5 12:52:28 lipid panel, serum 2024 025 [facility], [address] [place] [address], [place], [address], 5 07:07:55 HbA1c (hemoglobin A1c), blood [address], [address] [place] [address], [address], 5 16:30:47 CBC w/ auto diff 2024 025 [facility]), [address] [place], [address], 5 07:07:54 CMP, serum or plasma 2024 025 [facility]), [address] [place], [address], 5 07:07:55 TSH + free T4, serum 2024 025 [facility]), [address] [place], [address], 5 07:07:54 vitamin D, 25-hydroxy, total, serum 2024 025 [facility]), [address] [place], [address], 5 07:07:56 cobalamin and folate panel, serum 2024 025 [facility]), [address] [place] [address], [address], 5 07:07:56 HbA1c (hemoglobin A1c), blood [address], [address] [place] [address], [address], 5 18:20:28 HbA1c (hemoglobin A1c), blood [address], [address] [place] [address], [address], 4 09:36:24 Referral non cdl driver referral - first available appt 2024 [facility], [address], [place], [address], 09:35:59 home health referral - DEE DEE. to help pt with bathing and LLE wound care 2024 [email or web address], [address] [place], [place], [address], 15:56:28 physical therapist referral - Eval and Treat 2024 [facility], [address] [place], [address], 12:38:00 Procedures None recorded. Surgeries None recorded. Imaging None recorded. Medication Orders cephalexin 500 mg capsule 2024 [facility], [address] [place] [address], [address], 05:02:28 atorvastati n 20 mg tablet 2024 [facility], [address] [place] [address], [address], 13:26:37 Accu-Chek Guide test strips 2024 [facility], [address] [place] [address], [address], 10:26:50 glipizide 10 mg tablet 2024 [facility], [address] [place] [address], [address], 10:36:00 Trulicity 1.5 mg/0.5 mL subcutaneou s pen injector 2024 [facility], [address] [place] [address], [address], 5 10:26:52 cyanocobala min (vit B-12) 1,000 mcg tablet 2024 025 [facility], [address] [place] [address], [address], 5 10:35:59 bisoprolol fumarate 5 mg tablet 2024 025 [facility] [address], [address] [place] [address], [address], 5 16:27:58 furosemide 20 mg tablet 2024 025 [place] [address], [address] [place] [address], [address], 5 16:27:57 losartan 50 mg tablet 2024 025 [place] [address], [address] [place] [address], [address], 5 16:27:54 Xarelto 20 mg tablet 2024 025 [place] [address], [address] [place] [address], [address], 5 16:27:56 Dulera 100 mcg-5 mcg/actuati on HFA aerosol inhaler 2024 025 [place] [address], [address] [place] [address], [address], 5 16:27:51 atorvastati n 20 mg tablet 2024 025 [place] [address], [address] [place] [address], [address], 5 16:27:56 Accu-Chek Guide test strips 2024 025 [place] [address], [address] [place], [address], 5 16:27:53 glipizide 10 mg tablet 2024 025 [facility] [address], [address] [place] [address], [address], 5 16:27:52 pioglitazon e 30 mg tablet 2024 025 [facility] [address], [address] [place] [address], [address], 5 16:27:53 Trulicity 1.5 mg/0.5 mL subcutaneou s pen injector 2024 025 [facility] [address], [address] [place] [address], [address], 5 16:27:56 bisoprolol fumarate 5 mg tablet 2024 025 [facility] [address], [address] [place] [address], [address], 5 17:59:30 furosemide 20 mg tablet 2024 025 [facility] [address], [address] [place] [address], [address], 5 17:59:28 losartan 50 mg tablet 2024 025 [facility] [address], [address] [place] [address], [address], 5 17:59:27 Xarelto 20 mg tablet 2024 025 [facility] [address], [address] [place] [address], [address], 5 17:59:28 glipizide 10 mg tablet 2024 025 [facility] [address], [address] [place] [address], [address], 5 17:59:33 pioglitazon e 30 mg tablet 2024 025 [facility] [address], [address] [place] [address], [address], 5 17:59:29 Trulicity 1.5 mg/0.5 mL subcutaneou s pen injector 2024 025 [facility] [address], [address] [place] [address], [address], 5 17:59:32 Dulera 100 mcg-5 mcg/actuati on HFA aerosol inhaler 2024 025 [facility] [address], [address] [place] [address], [address], 5 17:59:27 atorvastati n 20 mg tablet 2024 025 [facility] [address], [address] [place] [address], [address], 5 17:59:29 Nicoderm CQ 7 mg/24 hr daily transdermal patch 2023 025 [facility] [address], [address] [place] [address], [address], 5 14:19:12 hydrocodone 5 mg-acetamin ophen 325 mg tablet 2023 025 [facility] [address], [address] [place] [address], [address], 5 14:18:27 furosemide 20 mg tablet 2023 024 [facility] [address], [address] [place] [address], [address], 4 09:36:27 losartan 50 mg tablet 2023 024 [facility] [address], [address] [place] [address], [address], 4 09:36:31 Accu-Chek Guide test strips 2023 [place] [address], [address] [place] [address], [address], 4 09:36:28 glipizide 10 mg tablet 2023 [facility], [address] [place] [address], [address], 4 09:36:31 pioglitazon e 30 mg tablet 2023 [place] [address], [address] [place] [address], [address], 4 09:36:30 Trulicity 1.5 mg/0.5 mL subcutaneou s pen injector 2023 [place] [address], [address] [place] [address], [address], 4 09:36:29 atorvastati n 40 mg tablet 2023 [place] [address], [address] [place] [address], [address], 4 13:55:07 Patient TargetsNo targets recorded. Patient InstructionsNo instructions recorded. Reason for Referral Physical Therapist Referral for Pain of right knee joint Eval and Treat Referring Physician: [facility], Encounter Date: 09/12/2024 Electrical Engineering Teacher Referral for Ulce r of left foot first available appt Referring Physician: Family [facility], Encounter Date: 12/29/2024 Home Health Referral for Ulc er of left foot DEE DEE. to help pt with bathing and LLE wound care Referring Physician: [facility], Encounter Date: 12/29/2024 Results Created Date Observation Date Name Description Value Unit Range Abnormal Flag Note LastModifiedBy Organization Detail LastModifiedTime 11/20/19 24 11/20/2023 HbA1c (hemo globi n A1c), blood HbA1c 5.8 Not Available [address], [address], 11/20/2023 09:11:07 05/06/19 25 05/06/2024 HbA1c (hemo globi n A1c), blood HbA1c 7.5 Not Available [address], [address], 05/06/2024 14:27:47 06/03/19 25 06/04/2024 CBC WITH DIFFE RENTI AL/PL ATELE T WBC 5.7 x10e3 /uL 3.4-10 .8 normal Not Available [facility] ([facility]) [address] [place], [address], 06/04/2024 13:08:39 06/03/19 25 06/04/2024 CBC WITH DIFFE RENTI AL/PL ATELE T RBC 3.35 x10e6 /uL 3.77-5 .28 below low normal Not Available [facility] ([facility]) [address] [place], [address], 06/04/2024 13:08:39 06/03/19 25 06/04/2024 CBC WITH DIFFE RENTI AL/PL ATELE T hemoglobin 9.8 g/dL 11.1-1 5.9 below low normal Not Available [facility] ([facility]) [address] [place], [address], 06/04/2024 13:08:39 06/03/19 25 06/04/2024 CBC WITH DIFFE RENTI AL/PL ATELE T hematocrit 31.1 % 34.0-4 6.6 below low normal Not Available [facility] ([facility]) [address] [place], [address], 06/04/2024 13:08:39 06/03/19 25 06/04/2024 CBC WITH DIFFE RENTI AL/PL ATELE T MCV 93 fL 79-97 normal Not Available [facility] ([facility]) [address] [facility], [place], [address], 06/04/2024 13:08:39 06/03/19 25 06/04/2024 CBC WITH DIFFE RENTI AL/PL ATELE T MCH 29.3 pg 26.6-3 3.0 normal Not Available [facility] ([facility]) [address] [facility], [place], [address], 06/04/2024 13:08:39 06/03/19 25 06/04/2024 CBC WITH DIFFE RENTI AL/PL ATELE T MCHC 31.5 g/dL 31.5-3 5.7 normal Not Available [facility] ([facility]) [address] [facility], [place], [address], 06/04/2024 13:08:39 06/03/19 25 06/04/2024 CBC WITH DIFFE RENTI AL/PL ATELE T RDW 15.0 % 11.7-1 5.4 Not Available [facility] ([facility]) [address] [facility], [place], [address], 06/04/2024 13:08:39 06/03/19 25 06/04/2024 CBC WITH DIFFE RENTI AL/PL ATELE T platelets 234 x10e3 /uL 150-45 0 normal Not Available [facility] ([facility]) [address] [place], [address], 06/04/2024 13:08:39 06/03/19 25 06/04/2024 CBC WITH DIFFE RENTI AL/PL ATELE T neutrophils 76 % not estab. normal Not Available [facility] ([facility]) [address] [place], [address], 06/04/2024 13:08:39 06/03/19 25 06/04/2024 CBC WITH DIFFE RENTI AL/PL ATELE T lymphs 16 % not estab. normal Not Available [facility] ([facility]) [address] [facility], [place], [address], 06/04/2024 13:08:39 06/03/19 25 06/04/2024 CBC WITH DIFFE RENTI AL/PL ATELE T monocytes 7 % not estab. normal Not Available [facility] ([facility]) [address] [facility], [place], [address], 06/04/2024 13:08:39 06/03/19 25 06/04/2024 CBC WITH DIFFE RENTI AL/PL ATELE T eos 1 % not estab. normal Not Available [facility] ([facility]) [address] [facility], [place], [address], 06/04/2024 13:08:39 06/03/19 25 06/04/2024 CBC WITH DIFFE RENTI AL/PL ATELE T basos 0 % not estab. normal Not Available [facility] ([facility]) [address] [place], [address], 06/04/2024 13:08:39 06/03/19 25 06/04/2024 CBC WITH DIFFE RENTI AL/PL ATELE T immature cells CONTINUOUS PICKLING LINE PICKLER Not Available [facility] ([facility]) [address] [place], [address], 06/04/2024 13:08:39 06/03/19 25 06/04/2024 CBC WITH DIFFE RENTI AL/PL ATELE T neutrophils (absolute) 4.3 x10e3 /uL 1.4-7. 0 normal Not Available [facility] ([facility]) [address] [place], [address], 06/04/2024 13:08:39 06/03/19 25 06/04/2024 CBC WITH DIFFE RENTI AL/PL ATELE T lymphs (absolute) 0.9 x10e3 /uL 0.7-3. 1 normal Not Available [facility] ([facility]) [address] [place], [address], 06/04/2024 13:08:39 06/03/19 25 06/04/2024 CBC WITH DIFFE RENTI AL/PL ATELE T monocytes(ab solute) 0.4 x10e3 /uL 0.1-0. 9 normal Not Available [facility] ([facility]) [address] [place], [address], 06/04/2024 13:08:39 06/03/19 25 06/04/2024 CBC WITH DIFFE RENTI AL/PL ATELE T eos (absolute) 0.1 x10e3 /uL 0.0-0. 4 normal Not Available [facility] ([facility]) [address] [place], [address], 06/04/2024 13:08:39 06/03/19 25 06/04/2024 CBC WITH DIFFE RENTI AL/PL ATELE T baso (absolute) 0.0 x10e3 /uL 0.0-0. 2 normal Not Available [facility] ([facility]) [address] [place], [address], 06/04/2024 13:08:39 06/03/19 25 06/04/2024 CBC WITH DIFFE RENTI AL/PL ATELE T immature granulocytes 0 % not estab. Not Available [facility] ([facility]) [address] [place], [address], 06/04/2024 13:08:39 06/03/19 25 06/04/2024 CBC WITH DIFFE RENTI AL/PL ATELE T immature grans (abs) 0.0 x10e3 /uL 0.0-0. 1 Not Available [facility] ([facility]) [address] [place], [address], 06/04/2024 13:08:39 06/03/19 25 06/04/2024 CBC WITH DIFFE RENTI AL/PL ATELE T NRBC CONTINUOUS PICKLING LINE PICKLER Not Available [facility] ([facility]) [address] [facility], [place], [address], 06/04/2024 13:08:39 06/03/19 25 06/04/2024 CBC WITH DIFFE RENTI AL/PL ATELE T hematology comments: CONTINUOUS PICKLING LINE PICKLER Not Available [facility] ([facility]) [address] [facility], [place], [address], 06/04/2024 13:08:39 06/03/19 25 06/04/2024 COMP. METAB OLIC PANEL (14) glucose 120 mg/dL 70-99 above high normal Not Available [facility] ([facility]) [address] [place], [address], 06/04/2024 13:08:40 06/03/19 25 06/04/2024 COMP. METAB OLIC PANEL (14) BUN 38 mg/dL 8-27 above high normal Not Available [facility] ([facility]) [address] [place], [address], 06/04/2024 13:08:40 06/03/19 25 06/04/2024 COMP. METAB OLIC PANEL (14) creatinine 1.41 mg/dL 0.57-1 .00 above high normal Not Available [facility] ([facility]) [address] [place], [address], 06/04/2024 13:08:40 06/03/19 25 06/04/2024 COMP. METAB OLIC PANEL (14) eGFR 41 mL/mi n/1.7 3 >59 below low normal Not Available [facility] ([facility]) [address] [place], [address], 06/04/2024 13:08:40 06/03/19 25 06/04/2024 COMP. METAB OLIC PANEL (14) BUN/creatini ne ratio 27 12-28 normal Not Available [facility] ([facility]) [address] [place], [address], 06/04/2024 13:08:40 06/03/19 25 06/04/2024 COMP. METAB OLIC PANEL (14) sodium 142 mmol/ L 134-14 4 normal Not Available [facility] ([facility]) [address] [place], [address], 06/04/2024 13:08:40 06/03/19 25 06/04/2024 COMP. METAB OLIC PANEL (14) potassium 4.2 mmol/ L 3.5-5. 2 normal Not Available [facility] ([facility]) [address] [place], [address], 06/04/2024 13:08:40 06/03/19 25 06/04/2024 COMP. METAB OLIC PANEL (14) chloride 107 mmol/ L 96-106 above high normal Not Available [facility] ([facility]) [address] [place], [address], 06/04/2024 13:08:40 06/03/19 25 06/04/2024 COMP. METAB OLIC PANEL (14) carbon dioxide, total 21 mmol/ L 20-29 normal Not Available [facility] ([facility]) [address] [place], [address], 06/04/2024 13:08:40 06/03/19 25 06/04/2024 COMP. METAB OLIC PANEL (14) calcium 8.5 mg/dL 8.7-10 .3 below low normal Not Available [facility] ([facility]) [address] [place], [address], 06/04/2024 13:08:40 06/03/19 25 06/04/2024 COMP. METAB OLIC PANEL (14) protein, total 6.5 g/dL 6.0-8. 5 normal Not Available [facility] ([facility]) [address] [place], [address], 06/04/2024 13:08:40 06/03/19 25 06/04/2024 COMP. METAB OLIC PANEL (14) albumin 3.6 g/dL 3.9-4. 9 below low normal Not Available [facility] ([facility]) [address] [place], [address], 06/04/2024 13:08:40 06/03/19 25 06/04/2024 COMP. METAB OLIC PANEL (14) globulin, total 2.9 g/dL 1.5-4. 5 Not Available [facility] ([facility]) [address] [place], [address], 06/04/2024 13:08:40 06/03/19 25 06/04/2024 COMP. METAB OLIC PANEL (14) bilirubin, total 0.3 mg/dL 0.0-1. 2 normal Not Available [facility] ([facility]) [address] [place], [address], 06/04/2024 13:08:40 06/03/19 25 06/04/2024 COMP. METAB OLIC PANEL (14) alkaline phosphatase 82 IU/L 44-121 normal Not Available [facility] ([facility]) [address] [place], [address], 06/04/2024 13:08:40 06/03/19 25 06/04/2024 COMP. METAB OLIC PANEL (14) AST (SGOT) 13 IU/L 0-40 normal Not Available [facility] ([facility]) [address] [place], [address], 06/04/2024 13:08:40 06/03/19 25 06/04/2024 COMP. METAB OLIC PANEL (14) ALT (SGPT) 7 IU/L 0-32 normal Not Available [facility] ([facility]) [address] [place], [address], 06/04/2024 13:08:40 06/03/19 25 06/04/2024 C-ELLYN CTIVE PROTE IN, QUANT C-reactive protein, quant <1 mg/L 0-10 Not Available [facility] ([facility]) [address] [place], [address], 06/04/2024 13:08:41 09/13/19 25 09/13/2024 TSH+F REE T4 TSH 4.300 uIU/m L 0.450- 4.500 normal Not Available [facility] ([facility]) [address] [place], [address], 09/13/2024 07:07:54 09/13/19 25 09/13/2024 TSH+F REE T4 T4,free(dire ct) 1.13 NG/dL 0.82-1 .77 normal Not Available [facility] ([facility]) [address] [place], [address], 09/13/2024 07:07:54 09/13/19 25 09/13/2024 CBC WITH DIFFE RENTI AL/PL ATELE T WBC 5.6 x10e3 /uL 3.4-10 .8 normal Not Available [facility] ([facility]) [address] [place], [address], 09/13/2024 07:07:54 09/13/19 25 09/13/2024 CBC WITH DIFFE RENTI AL/PL ATELE T RBC 3.33 x10e6 /uL 3.77-5 .28 below low normal Not Available [facility] ([facility]) [address] [place], [address], 09/13/2024 07:07:54 09/13/19 25 09/13/2024 CBC WITH DIFFE RENTI AL/PL ATELE T hemoglobin 9.6 g/dL 11.1-1 5.9 below low normal Not Available [facility] ([facility]) [address] [place], [address], 09/13/2024 07:07:54 09/13/19 25 09/13/2024 CBC WITH DIFFE RENTI AL/PL ATELE T hematocrit 31.6 % 34.0-4 6.6 below low normal Not Available [facility] ([facility]) [address] [place], [address], 09/13/2024 07:07:54 09/13/19 25 09/13/2024 CBC WITH DIFFE RENTI AL/PL ATELE T MCV 95 fL 79-97 normal Not Available [facility] ([facility]) [address] [facility], [place], [address], 09/13/2024 07:07:54 09/13/19 25 09/13/2024 CBC WITH DIFFE RENTI AL/PL ATELE T MCH 28.8 pg 26.6-3 3.0 normal Not Available [facility] ([facility]) [address] [place], [address], 09/13/2024 07:07:54 09/13/19 25 09/13/2024 CBC WITH DIFFE RENTI AL/PL ATELE T MCHC 30.4 g/dL 31.5-3 5.7 below low normal Not Available [facility] ([facility]) [address] [place], [address], 09/13/2024 07:07:54 09/13/19 25 09/13/2024 CBC WITH DIFFE RENTI AL/PL ATELE T RDW 15.2 % 11.7-1 5.4 Not Available [facility] ([facility]) [address] [place], [address], 09/13/2024 07:07:54 09/13/19 25 09/13/2024 CBC WITH DIFFE RENTI AL/PL ATELE T platelets 201 x10e3 /uL 150-45 0 normal Not Available [facility] ([facility]) [address] [place], [address], 09/13/2024 07:07:54 09/13/19 25 09/13/2024 CBC WITH DIFFE RENTI AL/PL ATELE T neutrophils 71 % not estab. normal Not Available [facility] ([facility]) [address] [facility], [place], [address], 09/13/2024 07:07:54 09/13/19 25 09/13/2024 CBC WITH DIFFE RENTI AL/PL ATELE T lymphs 16 % not estab. normal Not Available [facility] ([facility]) [address] [facility], [place], [address], 09/13/2024 07:07:54 09/13/19 25 09/13/2024 CBC WITH DIFFE RENTI AL/PL ATELE T monocytes 9 % not estab. normal Not Available [facility] ([facility]) [address] [facility], [place], [address], 09/13/2024 07:07:54 09/13/19 25 09/13/2024 CBC WITH DIFFE RENTI AL/PL ATELE T eos 4 % not estab. normal Not Available [facility] ([facility]) [address] [place], [address], 09/13/2024 07:07:54 09/13/19 25 09/13/2024 CBC WITH DIFFE RENTI AL/PL ATELE T basos 0 % not estab. normal Not Available [facility] ([facility]) [address] [place], [address], 09/13/2024 07:07:54 09/13/19 25 09/13/2024 CBC WITH DIFFE RENTI AL/PL ATELE T immature cells CONTINUOUS PICKLING LINE PICKLER Not Available [facility] ([facility]) [address] [place], [address], 09/13/2024 07:07:54 09/13/19 25 09/13/2024 CBC WITH DIFFE RENTI AL/PL ATELE T neutrophils (absolute) 4.0 x10e3 /uL 1.4-7. 0 normal Not Available [facility] ([facility]) [address] [facility], [place], [address], 09/13/2024 07:07:54 09/13/19 25 09/13/2024 CBC WITH DIFFE RENTI AL/PL ATELE T lymphs (absolute) 0.9 x10e3 /uL 0.7-3. 1 normal Not Available [facility] ([facility]) [address] [place], [address], 09/13/2024 07:07:54 09/13/19 25 09/13/2024 CBC WITH DIFFE RENTI AL/PL ATELE T monocytes(ab solute) 0.5 x10e3 /uL 0.1-0. 9 normal Not Available [facility] ([facility]) [address] [place], [address], 09/13/2024 07:07:54 09/13/19 25 09/13/2024 CBC WITH DIFFE RENTI AL/PL ATELE T eos (absolute) 0.2 x10e3 /uL 0.0-0. 4 normal Not Available [facility] ([facility]) [address] [place], [address], 09/13/2024 07:07:54 09/13/19 25 09/13/2024 CBC WITH DIFFE RENTI AL/PL ATELE T baso (absolute) 0.0 x10e3 /uL 0.0-0. 2 normal Not Available [facility] ([facility]) [address] [place], [address], 09/13/2024 07:07:54 09/13/19 25 09/13/2024 CBC WITH DIFFE RENTI AL/PL ATELE T immature granulocytes 0 % not estab. Not Available [facility] ([facility]) [address] [place] [place] [address], [place], [address], 09/13/2024 07:07:54 09/13/19 25 09/13/2024 CBC WITH DIFFE RENTI AL/PL ATELE T immature grans (abs) 0.0 x10e3 /uL 0.0-0. 1 Not Available [facility] ([facility]) [address] [facility], [place], [address], 09/13/2024 07:07:54 09/13/19 25 09/13/2024 CBC WITH DIFFE RENTI AL/PL ATELE T NRBC CONTINUOUS PICKLING LINE PICKLER Not Available [facility] ([facility]) [address] [facility], [place], [address], 09/13/2024 07:07:54 09/13/19 25 09/13/2024 CBC WITH DIFFE RENTI AL/PL ATELE T hematology comments: CONTINUOUS PICKLING LINE PICKLER Not Available [facility] ([facility]) [address] [facility], [place], [address], 09/13/2024 07:07:54 09/13/19 25 09/13/2024 COMP. METAB OLIC PANEL (14) glucose 53 mg/dL 70-99 below low normal Not Available [facility] ([facility]) [address] [place], [address], 09/13/2024 07:07:55 09/13/19 25 09/13/2024 COMP. METAB OLIC PANEL (14) BUN 42 mg/dL 8-27 above high normal Not Available [facility] ([facility]) [address] [place], [address], 09/13/2024 07:07:55 09/13/19 25 09/13/2024 COMP. METAB OLIC PANEL (14) creatinine 1.33 mg/dL 0.57-1 .00 above high normal Not Available [facility] ([facility]) [address] [place], [address], 09/13/2024 07:07:55 09/13/19 25 09/13/2024 COMP. METAB OLIC PANEL (14) eGFR 44 mL/mi n/1.7 3 >59 below low normal Not Available [facility] ([facility]) [address] [place], [address], 09/13/2024 07:07:55 09/13/19 25 09/13/2024 COMP. METAB OLIC PANEL (14) BUN/creatini ne ratio 32 12-28 above high normal Not Available [facility] ([facility]) [address] [place], [address], 09/13/2024 07:07:55 09/13/19 25 09/13/2024 COMP. METAB OLIC PANEL (14) sodium 141 mmol/ L 134-14 4 normal Not Available [facility] ([facility]) [address] [place], [address], 09/13/2024 07:07:55 09/13/19 25 09/13/2024 COMP. METAB OLIC PANEL (14) potassium 4.4 mmol/ L 3.5-5. 2 normal Not Available [facility] ([facility]) [address] [facility] [place], [address], 09/13/2024 07:07:55 09/13/19 25 09/13/2024 COMP. METAB OLIC PANEL (14) chloride 106 mmol/ L 96-106 normal Not Available [facility] ([facility]) [address] [facility] [place], [address], 09/13/2024 07:07:55 09/13/19 25 09/13/2024 COMP. METAB OLIC PANEL (14) carbon dioxide, total 20 mmol/ L 20-29 normal Not Available [facility] ([facility] [facility] [address] [facility] [place], [address], 09/13/2024 07:07:55 09/13/19 25 09/13/2024 COMP. METAB OLIC PANEL (14) calcium 9.2 mg/dL 8.7-10 .3 normal Not Available [facility] ([facility]) [address] [place], [address], 09/13/2024 07:07:55 09/13/19 25 09/13/2024 COMP. METAB OLIC PANEL (14) protein, total 6.7 g/dL 6.0-8. 5 normal Not Available [facility] ([facility]) [address] [place], [address], 09/13/2024 07:07:55 09/13/19 25 09/13/2024 COMP. METAB OLIC PANEL (14) albumin 3.9 g/dL 3.9-4. 9 normal Not Available [facility] ([facility]) [address] [place], [address], 09/13/2024 07:07:55 09/13/19 25 09/13/2024 COMP. METAB OLIC PANEL (14) globulin, total 2.8 g/dL 1.5-4. 5 Not Available [facility] ([facility]) [address] [place], [address], 09/13/2024 07:07:55 09/13/19 25 09/13/2024 COMP. METAB OLIC PANEL (14) bilirubin, total 0.5 mg/dL 0.0-1. 2 normal Not Available [facility] ([facility]) [address] [place], [address], 09/13/2024 07:07:55 09/13/19 25 09/13/2024 COMP. METAB OLIC PANEL (14) alkaline phosphatase 93 IU/L 44-121 normal Not Available [facility] ([facility]) [address] [place], [address], 09/13/2024 07:07:55 09/13/19 25 09/13/2024 COMP. METAB OLIC PANEL (14) AST (SGOT) 14 IU/L 0-40 normal Not Available [facility] ([facility]) [address] [place], [address], 09/13/2024 07:07:55 09/13/19 25 09/13/2024 COMP. METAB OLIC PANEL (14) ALT (SGPT) 10 IU/L 0-32 normal Not Available [facility] ([facility]) [address] [place], [address], 09/13/2024 07:07:55 09/13/19 25 09/13/2024 LIPID PANEL cholesterol, total 77 mg/dL 100-19 9 below low normal Not Available [facility] ([facility]) [address] [place], [address], 09/13/2024 07:07:55 09/13/19 25 09/13/2024 LIPID PANEL triglyceride s 52 mg/dL 0-149 normal Not Available [facility] ([facility]) [address] [place], [address], 09/13/2024 07:07:55 09/13/19 25 09/13/2024 LIPID PANEL HDL cholesterol 36 mg/dL >39 below low normal Not Available [facility] ([facility]) [address] [place], [address], 09/13/2024 07:07:55 09/13/19 25 09/13/2024 LIPID PANEL VLDL cholesterol darío 13 mg/dL 5-40 Not Available [facility] ([facility]) [address] [place], [address], 09/13/2024 07:07:55 09/13/19 25 09/13/2024 LIPID PANEL LDL chol calc ([facility]) 28 mg/dL 0-99 Not Available [facility] ([facility]) [address] [place], [address], 09/13/2024 07:07:55 09/13/19 25 09/13/2024 LIPID PANEL LDL calc comment: CONTINUOUS PICKLING LINE PICKLER Not Available [facility] ([facility]) [address] [facility], [place], [address], 09/13/2024 07:07:55 09/13/19 25 09/13/2024 VITAM IN B12 AND FOLAT E vitamin B12 226 pg/mL 232-12 45 below low normal Not Available [facility] ([facility]) [address] [facility], [place], [address], 09/13/2024 07:07:56 09/13/19 25 09/13/2024 VITAM IN B12 AND FOLAT E folate (folic acid), serum 17.8 NG/mL >3.0 normal A serum folat e conor ntrat ion of less than 3.1 ng/mL is consi dered to repre sent clini darío defic iency . Not Available [facility] ([facility]) [address] [facility], [place], [address], 09/13/2024 07:07:56 09/13/19 25 09/13/2024 VITAM IN D, 25-HY DROXY vitamin D, 25-hydroxy 63.2 NG/mL 30.0-1 00.0 Vitam in D defic iency has been defin ed by the Insti tute of Medic ine and an Endoc rine Socie ty pract ice guide line as a level of serum 25-OH vitam in D less than 20 ng/mL (1,2) . The Endoc rine Socie ty went on to furth er defin e vitam in D insuf ficie ncy as a level betwe en 21 and 29 ng/mL (2). 1. IOM (Inst itute of Medic ine). 2010. Dieta ry refer ence intak es for calci um and D. Wally bateman [place]: The Natio nal [facility] Press . 2. Kingsley morales MF, Joe ey [place], Antonio off-F errar i KELLEY, et al. Evalu ation , treat ment, and preve ntion of vitam in D defic iency : an Endoc rine Socie ty clini darío pract ice guide line. JCEM. 2010; 96(7) :1911 -30. Not Available [facility] ([facility]) [address] [facility], [place], [address], 09/13/2024 07:07:56 09/13/19 25 09/12/2024 HbA1c (hemo globi n A1c), blood HbA1c 5.4 Not Available [address], [address], 09/12/2024 15:25:57 10/03/1910/03/2024 URINA LYSIS , COMPL ETE specific gravity 1.021 1.005- 1.030 normal Not Available [facility] ([facility]) [address] [facility], [place], [address], 10/03/2024 06:09:14 10/03/19 25 10/03/2024 URINA LYSIS , COMPL ETE pH 6.0 5.0-7. 5 normal Not Available [facility] ([facility]) [address] [place], [address], 10/03/2024 06:09:14 10/03/19 25 10/03/2024 URINA LYSIS , COMPL ETE urine-color Yellow yellow Not Available [facility] ([facility]) [address] [place], [address], 10/03/2024 06:09:14 10/03/19 25 10/03/2024 URINA LYSIS , COMPL ETE appearance Clear clear Not Available [facility] ([facility]) [address] [place], [address], 10/03/2024 06:09:14 10/03/19 25 10/03/2024 URINA LYSIS , COMPL ETE WBC esterase Negati ve negati ve Not Available [facility] ([facility]) [address] [facility], [address], 10/03/2024 06:09:14 10/03/19 25 10/03/2024 URINA LYSIS , COMPL ETE protein Trace negati ve/tra ce Not Available [facility] ([facility]) [address] [facility], [place], [address], 10/03/2024 06:09:14 10/03/19 25 10/03/2024 URINA LYSIS , COMPL ETE glucose Negati ve negati ve Not Available [facility] ([facility]) [address] [place], [address], 10/03/2024 06:09:14 10/03/19 25 10/03/2024 URINA LYSIS , COMPL ETE ketones Negati ve negati ve Not Available [facility] ([facility]) [address] [place], [address], 10/03/2024 06:09:14 10/03/19 25 10/03/2024 URINA LYSIS , COMPL ETE occult blood Negati ve negati ve Not Available [facility] ([facility]) [address] [place], [address], 10/03/2024 06:09:14 10/03/19 25 10/03/2024 URINA LYSIS , COMPL ETE bilirubin Negati ve negati ve Not Available [facility] ([facility]) [address] [place], [address], 10/03/2024 06:09:14 10/03/19 25 10/03/2024 URINA LYSIS , COMPL ETE urobilinogen ,semi-qn 0.2 mg/dL 0.2-1. 0 normal Not Available [facility] ([facility]) [address] [place], [address], 10/03/2024 06:09:14 10/03/19 25 10/03/2024 URINA LYSIS , COMPL ETE nitrite, urine Negati ve negati ve Not Available [facility] ([facility]) [address] [facility], [place], [address], 10/03/2024 06:09:14 10/03/19 25 10/03/2024 URINA LYSIS , COMPL ETE microscopic examination Commen t Micro scopi c follo ws if indic ated. Not Available [facility] ([facility]) [address] [facility], [place], [address], 10/03/2024 06:09:14 10/03/19 25 10/03/2024 URINA LYSIS , COMPL ETE microscopic examination See below: Micro scopi c was indic ated and was perfo rmed. Not Available [facility] ([facility]) [address] [facility], [place], [address], 10/03/2024 06:09:14 10/03/19 25 10/03/2024 URINA LYSIS , COMPL ETE WBC None seen /hpf 0 - 5 Not Available [facility] ([facility]) [address] [facility], [place], [address], 10/03/2024 06:09:14 10/03/19 25 10/03/2024 URINA LYSIS , COMPL ETE RBC None seen /hpf 0 - 2 Not Available [facility] ([facility]) [address] [facility], [place], [address], 10/03/2024 06:09:14 10/03/19 25 10/03/2024 URINA LYSIS , COMPL ETE epithelial cells (non renal) 0-10 /hpf 0 - 10 Not Available [facility] ([facility]) [address] [place], [address], 10/03/2024 06:09:14 10/03/19 25 10/03/2024 URINA LYSIS , COMPL ETE epithelial cells (renal) CONTINUOUS PICKLING LINE PICKLER Not Available [facility] ([facility]) [address] [place], [address], 10/03/2024 06:09:14 10/03/19 25 10/03/2024 URINA LYSIS , COMPL ETE casts None seen /lpf none seen Not Available [facility] ([facility]) [address], [place], [address], 10/03/2024 06:09:14 10/03/19 25 10/03/2024 URINA LYSIS , COMPL ETE cast type CONTINUOUS PICKLING LINE PICKLER Not Available [facility] ([facility]) [address], [place], [address], 10/03/2024 06:09:14 10/03/19 25 10/03/2024 URINA LYSIS , COMPL ETE crystals CONTINUOUS PICKLING LINE PICKLER Not Available [facility] ([facility]) [address] [facility], [place], [address], 10/03/2024 06:09:14 10/03/19 25 10/03/2024 URINA LYSIS , COMPL ETE crystal type CONTINUOUS PICKLING LINE PICKLER Not Available [facility] ([facility]) [address], [place], [address], 10/03/2024 06:09:14 10/03/19 25 10/03/2024 URINA LYSIS , COMPL ETE mucus threads CONTINUOUS PICKLING LINE PICKLER Not Available [facility] ([facility]) [address] [facility], [place], [address], 10/03/2024 06:09:14 10/03/1910/03/2024 URINA LYSIS , COMPL ETE bacteria None seen none seen/f ew Not Available [facility] ([facility]) [address] [facility], [place], [address], 10/03/2024 06:09:14 10/03/19 25 10/03/2024 URINA LYSIS , COMPL ETE yeast CONTINUOUS PICKLING LINE PICKLER Not Available [facility] ([facility]) [address] [facility], [place], [address], 10/03/2024 06:09:14 10/03/19 25 10/03/2024 URINA LYSIS , COMPL ETE trichomonas CONTINUOUS PICKLING LINE PICKLER Not Available [facility] ([facility]) [address] [place], [address], 10/03/2024 06:09:14 10/03/19 25 10/03/2024 URINA LYSIS , COMPL ETE comment CONTINUOUS PICKLING LINE PICKLER Not Available [facility] ([facility]) [address] [place], [address], 10/03/2024 06:09:14 10/18/19 25 10/18/2024 PROTE IN ELEC + INTER P, SERUM protein, total 6.8 g/dL 6.0-8. 5 normal Not Available [facility] ([facility]) [address] [place], [address], 10/20/2024 15:07:45 10/18/19 25 10/18/2024 PROTE IN ELEC + INTER P, SERUM please note: Commen t Prote in elect ropho resis scan will follo w via compu ter, mail, or couri er emma ingram. Not Available [facility] ([facility]) [address] [place], [address], 10/20/2024 15:07:45 10/18/19 25 10/20/2024 PROTE IN ELEC + INTER P, SERUM albumin 3.3 g/dL 2.9-4. 4 Not Available [facility] ([facility]) [address] [place], [address], 10/20/2024 15:07:45 10/18/19 25 10/20/2024 PROTE IN ELEC + INTER P, SERUM djkwr-7-urxt ulin 0.3 g/dL 0.0-0. 4 Not Available [facility] ([facility]) [address] [place], [address], 10/20/2024 15:07:45 10/18/19 25 10/20/2024 PROTE IN ELEC + INTER P, SERUM npdff-3-npvr ulin 0.7 g/dL 0.4-1. 0 Not Available [facility] ([facility]) [address] [place], [address], 10/20/2024 15:07:45 10/18/19 25 10/20/2024 PROTE IN ELEC + INTER P, SERUM beta globulin 1.0 g/dL 0.7-1. 3 Not Available [facility] ([facility]) [address] [place], [address], 10/20/2024 15:07:45 10/18/19 25 10/20/2024 PROTE IN ELEC + INTER P, SERUM gamma globulin 1.5 g/dL 0.4-1. 8 Not Available [facility] ([facility]) [address] [place], [address], 10/20/2024 15:07:45 10/18/19 25 10/20/2024 PROTE IN ELEC + INTER P, SERUM M-spike Not Observ ed g/dL not observ ed Not Available [facility] ([facility]) [address] [place], [address], 10/20/2024 15:07:45 10/18/19 25 10/20/2024 PROTE IN ELEC + INTER P, SERUM globulin, total 3.5 g/dL 2.2-3. 9 Not Available [facility] ([facility]) [address] [place], [address], 10/20/2024 15:07:45 10/18/19 25 10/20/2024 PROTE IN ELEC + INTER P, SERUM A/G ratio 0.9 0.7-1. 7 Not Available [facility] ([facility]) [address] [place], [address], 10/20/2024 15:07:45 10/18/19 25 10/20/2024 PROTE IN ELEC + INTER P, SERUM P E interpretati on, S Commen t The SPE yancyte rn appea rs unrem arkab le. Evide nce of monoc lonal prote in is not appar ent. Not Available [facility] ([facility]) [address] [facility], [place], [address], 10/20/2024 15:07:45 10/18/19 25 10/20/2024 PROTE IN ELEC + INTER P, SERUM pdf . Not Available [facility] ([facility]) [address] [facility], [place], [address], 10/20/2024 15:07:45 10/18/19 25 10/18/2024 CALCI UM, RANDO M URINE calcium, urine <0.8 mg/dL not estab. Monika ified by el t jay sis Not Available [facility] ([facility]) [address] [facility], [place], [address], 10/20/2024 15:07:46 10/18/19 25 10/18/2024 PHOSP HORUS , RANDO M URINE phosphorus, urine 57.9 mg/dL not estab. Not Available [facility] ([facility]) [address] [facility], [place], [address], 10/20/2024 15:07:47 10/18/19 25 10/18/2024 CREAT ININE , URINE creatinine, urine 107.2 mg/dL not estab. normal Not Available [facility] ([facility]) [address] [facility], [place], [address], 10/20/2024 15:07:48 12/30/19 25 12/29/2024 HbA1c (hemo globi n A1c), blood HbA1c 5.3 Not Available [address], [place], [address], 12/29/2024 11:14:29 12/16/19 24 12/16/2023 XR, femur , 2 or more view No observ ation record ed. [facility] [address], [place], [address], 01/15/2024 13:59:21 12/16/19 24 12/16/2023 XR, knee, 1 or 2 view No observ ation record ed. [place] [id number], [place], [address], 01/15/2024 14:00:02 12/16/19 24 12/16/2023 XR, hip + pelvi s, unila teral , 2 or 3 view No observ ation record ed. [address], [place], [address], 01/15/2024 13:58:26 12/16/19 24 12/16/2023 imagi ng/di agnos tic resul t No observ ation record ed. [address], [place], [address], 01/15/2024 14:00:43 02/25/20 24 02/23/2024 XR, chest No observ ation record ed. [place] [id number], [place], [address], 06/10/2024 16:24:05 02/25/20 24 02/23/2024 CT, angio gram, chest , w/ contr ast No observ ation record ed. [place] [id number], [place], [address], 06/10/2024 16:24:41 02/25/20 24 02/23/2024 XR, knee No observ ation record ed. [place] [id number], [place], [address], 06/10/2024 16:25:03 04/05/20 24 04/04/2024 CT, angio gram, head + neck, w/ contr ast No observ ation record ed. [address], [place], [address], 06/10/2024 16:25:42 04/05/20 24 04/04/2024 CT, angio gram, head + neck, w/ contr ast No observ ation record ed. [address], [place], [address], 06/10/2024 16:26:06 04/05/20 24 04/04/2024 CT, brain , w/ contr ast No observ ation record ed. [address], [place], [address], 06/10/2024 16:26:31 04/05/20 24 04/04/2024 CT, angio gram, head, w/ contr ast No observ ation record ed. [address], [place], [address], 06/10/2024 16:27:01 04/05/20 24 04/05/2024 elect magdalena huertas am No observ ation record ed. [address], [place], [address], 06/10/2024 16:27:21 01/06/20 25 01/05/2025 imagi ng/di agnos tic resul t No observ ation record ed. [facility] [address], [place], [address], 01/05/2025 16:48:59 Result Notes None recorded. 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 2 10:02:22 Plantar fascial fibromat osis 09214372 Completed 201710/02/2017 Problem Code: M72.2; Problem Code Type: ICD-10; Not Available [facility] 2 21:52:14 Hyperten sive disorder 68776109 Active 2018 Problem Code: I10; Problem Code Type: ICD-10; Not Available [facility] 21:52:11 Multiple cysts of breast 988887192 Active 2018 Not Available [facility] 21:52:12 Screenin g mammogra phy Completed 201801/03/2022 Problem Code: Z12.31; Problem Code Type: ICD-10; EMELY garg [employer] 2 10:02:22 Endocrin e/metabo lic screenin g Completed 201901/03/2022 Problem Code: Z13.29; Problem Code Type: ICD-10; EMELY garg [employer] 2 10:02:22 Finding of body mass index 234633868 Completed 201901/03/2022 Problem Code: Z68.41; Problem Code Type: ICD-10; EMELY garg [employer] 2 10:02:22 Nicotine dependen ce 05663296 Active 2020 Problem Code: F17.200; Problem Code Type: ICD-10; Not Available [facility] 2 21:52:11 General examinat ion of patient Completed 202007/08/2020 Not Available [facility] 21:52:12 Body mass index 40+ - severely obese 919499913 Completed 202001/03/2022 EMELY garg [employer] 2 10:02:22 Polyalgi a 934650192 Completed 202001/03/2022 Problem Code: M79.89; Problem Code Type: ICD-10; [employer] 2 10:02:22 Edema 907598549 Completed 202001/03/2022 [employer]ELY [employer] 2 10:02:22 Obesity 436342609 Active 2020 Not Available [facility] 21:52:11 Chronic fatigue syndrome 51325163 Active 2020 Problem Code: R53.82; Problem Code Type: ICD-10; Not Available [facility] 21:52:12 Screenin g for malignan t neoplasm of colon Completed 202001/03/2022 EMELY STILL [employer] 2 10:02:22 On examinat ion - inspecti on of blood Completed 202001/03/2022 [employer]ELY [employer] 2 10:02:22 Hyperlip idemia 05379419 Active 2020 Problem Code: E78.5; Problem Code Type: ICD-10; Not Available [facility] 2 21:52:11 Body mass index 40+ - severely obese 543693666 Completed 202004/18/2021 [employer]ELY [employer] 2 10:02:22 Body mass index 30+ - obesity 791478582 Completed 202101/03/2022 Problem Code: Z68.43; Problem Code Type: ICD-10; [employer] 2 10:02:22 Type 2 diabetes mellitus without complica tion 716636614 Active 2021 Not Available [facility] 21:52:11 Epilepti c seizure 743172720 Active 2021 Problem Code: G40.509; Problem Code Type: ICD-10; EMELY STILL null, [employer] 2 10:02:52 Cardiac pacemake r in situ 568457759 Active 2021 Problem Code: Z95.0; Problem Code Type: ICD-10; Not Available [facility] 2 21:52:15 Localize d swelling , mass and lump, neck Active 2021 Problem Code: R22.1; Problem Code Type: ICD-10; Not Available [facility] 2 21:52:14 Pain in right foot 07995469378 9107 Active [address], [address] , [employer] 4 13:11:04 Fracture of phalanx of foot 70837403 Active [address], [address] , [employer] 4 16:55:26 Type 2 diabetes mellitus 32129866 Active 2024 Bonnie Jolly null, [employer] 5 15:25:38 Senile osteopor osis 50106356 Active 2024 Bonnie Diaz null, [employer] 5 12:15:09 Postcoit al bleeding 93332313 Active 2024 Bonnie Diaz null, [employer] 5 12:16:01 Diabetes mellitus 96126369 Active 2024 Bonnie Diaz null, [employer] 5 11:14:24 Ulcer of left foot 031165144 Active 2024 Bonnie Diaz null, [employer] 5 11:27:10 Notes:Some problems listed i n Documents: #[id number], #[id number], #[id number] could not be added to this patient's chart. Please review these documents and add these problems to the patient's chart manually as needed. Problem Notes None recorded. Procedures Surgical History Date Name Laterality Status Provider Name and Address Organization Details Recorded Time 4 Most Recent Mammogram completed BonnieBee [employer] 05/26/2023 12:22:46 2 cardiac pacemaker procedure completed Not Available [facility] 12/13/2021 22:56:09 Knee Surgery completed Bonnie Sponduu 01/22/2024 13:57:31 Imaging Results None recorded. Procedure Notes None recorded. Medical Equipment None Reported. Allergies No known drug allergies Medications Name Sig Start Date Stop Date Status Note LastModified by Organization Details LastModified Time losartan 50 mg tablet TAKE 1 TABLET BY MOUTH ONCE DAILY active Not Available Not Available No t Available furosemid e 40 mg tablet take 1 tablet (40 mg) by oral route once daily x3 days. take with KCL 08/30 completed Not Available Not Available Not Available latanopro st 0.005 % eye drops INSTILL 1 DROP INTO EACH EYE AT BEDTIME active Not Available Not Available No t Available atorvasta tin 40 mg tablet TAKE 1 TABLET BY MOUTH ONCE DAILY 01/21 completed Not Available Not Available Not Available doxycycli ne hyclate 100 mg capsule TAKE 1 CAPSULE BY MOUTH TWICE DAILY FOR INFECTIO N FOR 10 DAYS active Not Available Not Available No t Available atorvasta tin 20 mg tablet Take 1 tablet by mouth once a day 2024 active Not Available Not Available Not Avai lable RA Nicotine 7 mg/24hr transderm al 24 hour patch Apply 1 patch every day by transder mal route. 05/06 completed Not Available Not Available Not Available levetirac etam 500 mg tablet TAKE 1 TABLET BY MOUTH TWICE DAILY 07/27 completed Not Available Not Available Not Available hydrocodo ne 5 mg-acetam inophen 325 mg tablet TAKE 1 TABLET BY MOUTH EVERY 6 HOURS NEEDED FOR 14 DAYS 05/06 completed Not Available Not Available Not Available glipizide ER 10 mg tablet, extended release 24 hr one tablet by mouth po bid before breakfas t and the evening meal. 03/01 completed Not Available Not Available Not Available glipizide 10 mg tablet TAKE 1 TABLET BY MOUTH TWICE DAILY BEFORE MEAL(S) active Not Available Not Available No t Available Accu-Chek Softclix Lancets USE LANCETS TO CHECK BLOOD SUGAR DIRECTED BEFORE MEALS AND AT BEDTIME active Not Available Not Available No t Available clopidogr el 75 mg tablet TAKE 1 TABLET BY MOUTH ONCE DAILY FOR BLOOD THINNER 07/25 completed d/c at hospital Not Available Not Available Not Available sulfameth oxazole 800 mg-trimet hoprim 160 mg tablet TAKE 1 TABLET BY MOUTH TWICE DAILY FOR 10 DAYS 01/03 completed Not Available Not Available Not Available aspirin 81 mg tablet,de layed release take 1 tablet (81 mg) by oral route once daily 10/19 completed Not Available Not Available Not Available doxycycli ne monohydra te 100 mg tablet TAKE 1 TABLET BY MOUTH TWICE DAILY FOR 10 TO 14 DAYS 05/21 completed Not Available Not Available Not Available tramadol 50 mg tablet TAKE ONE TABLET BY MOUTH EVERY 6 HOURS FOR 7 DAYS 11/19 completed Not Available Not Available Not Available bisoprolo l fumarate 5 mg tablet TAKE 1 TABLET BY MOUTH ONCE DAILY FOR BLOOD PRESSURE active Not Available Not Available No t Available cephalexi n 500 mg capsule Take 1 capsule every 6 hours by oral route for 7 days. 01/12 completed Not Available Not Available Not Available pantopraz ole 40 mg tablet,de layed release take 1 tablet by mouth twice a day 05/21 completed Not Available Not Available Not Available neomycin- polymyxin -dexameth 3.5 mg/mL-10, 000 unit/mL-0 .1% eye drops INSTILL 1 DROP INTO THE RIGHT EYE 4 TIMES DAILY FOR 7 DAYS 05/21 completed Not Available Not Available Not Available glimepiri de 4 mg tablet take 1 tablet (4 mg) by oral route once daily 10/19 completed Not Available Not Available Not Available gabapenti n 300 mg capsule take 1 capsule (300 mg) by oral route 2 times per day 10/19 completed Not Available Not Available Not Available furosemid e 20 mg tablet TAKE 1 TABLET BY MOUTH EVERY OTHER DAY active Not Available Not Available No t Available ergocalci ferol (vitamin D2) 1,250 mcg (50,000 unit) capsule TAKE 1 CAPSULE BY MOUTH ONCE EVERY MONTH active Not Available Not Available No t Available levofloxa wilver 750 mg tablet TAKE 1 TABLET BY MOUTH ONCE DAILY 12/29 completed Not Available Not Available Not Available albuterol sulfate HFA 90 mcg/actua tion aerosol inhaler INHALE 2 PUFFS BY MOUTH EVERY 6 HOURS NEEDED FOR SHORTNES S OF BREATH FOR WHEEZING active Not Available Not Available No t Available losartan 50 mg-hydroc hlorothia zide 12.5 mg tablet take 1 tablet by oral route once daily 10/14 completed Not Available Not Available Not Available pioglitaz one 30 mg tablet TAKE 1 TABLET BY MOUTH ONCE DAILY IN THE EVENING active Not Available Not Available No t Available oxybutyni n chloride 5 mg tablet TAKE 1 TABLET BY MOUTH ONCE DAILY active Not Available Not Available No t Available metformin ER 500 mg tablet,ex tended release 24 hr take 1 tablet (500 mg) by oral route once daily with the evening meal 10/19 completed Not Available Not Available Not Available glipizide 5 mg tablet TAKE 1 TABLET BY MOUTH TWICE DAILY BEFORE MEAL(S) 01/03 completed Not Available Not Available Not Available Vitamin B-12 1,000 mcg tablet TAKE 1 TABLET BY MOUTH EVERY DAY FOR 90 DAYS active Not Available Not Available No t Available nicotine 7 mg/24 hr daily transderm al patch APPLY 1 PATCH TOPICALL Y ONCE DAILY 05/06 completed Not Available Not Available Not Available oxycodone 5 mg tablet Take 1 tablet every 8 hours by oral route as needed. 05/06 completed Not Available Not Available Not Available sitaglipt in phosphate 50 mg tablet take 1 tablet (50 mg) by oral route once daily 02/08 completed Not Available Not Available Not Available cholecalc iferol (vitamin D3) 1,250 mcg (50,000 unit) capsule TAKE 1 CAPSULE BY MOUTH ONCE A WEEK active Not Available Not Available No t Available ferrous sulfate 324 mg (65 mg iron) tablet,de layed release TAKE 1 TABLET BY MOUTH ONCE DAILY active Not Available Not Available No t Available Dulera 100 mcg-5 mcg/actua tion HFA aerosol inhaler INHALE 2 PUFFS BY MOUTH TWICE DAILY active Not Available Not Available No t Available Xarelto 15 mg tablet TAKE 1 TABLET BY MOUTH DAILY MUST TAKE WITH EVENING MEAL. 07/25 completed Not Available Not Available Not Available Xarelto 20 mg tablet TAKE 1 TABLET BY MOUTH ONCE DAILY WITH EVENING MEAL active Not Available Not Available No t Available potassium chloride ER 20 mEq tablet,ex tended release take 1 tablet (20 meq) by oral route once daily with food x3 days. take with lasix 08/30 completed Not Available Not Available Not Available Trulicity 1.5 mg/0.5 mL subcutane ous pen injector Inject 1.5 mg every week by subcutan eous route for 90 days. active Not Available Not Available No t Available Trulicity 0.75 mg/0.5 mL subcutane ous pen injector INJECT 0.75MG UNDER THE SKIN EVERY WEEK FOR 4 WEEKS, THEN 1.5MG EVERY WEEK 11/19 completed Not Available Not Available Not Available Accu-Chek Guide test strips USE FOR TESTING BLOOD SUGAR BEFORE MEALS AND AT BEDTIME active Not Available Not Available No t Available Accu-Chek Guide Glucose Meter USE DIRECTED BEFORE MEALS AND AT BEDTIME 2023 active Not Available Not Available Not Avai lable Tymlos 80 mcg/dose (3,120 mcg/1.56 mL) subcutane ous pen injector Inject 1 microgra m every day by subcutan eous route at bedtime. active bone doc Not Available Not Available No t Available Vitals Date Recorded Body height Heart rate Oxygen saturation Oxygen saturation in Arterial blood by Pulse oximetry Systolic And Diastolic Provider Name and Address Organization Details Last Updated DateTime 5 172.72 cm 82 /min 95 % 95 % 105/68 mm[Hg] [employer] 5 14:24:27 Date Recorded Body height Heart rate Oxygen saturation Oxygen saturation in Arterial blood by Pulse oximetry Systolic And Diastolic Provider Name and Address Organization Details Last Updated DateTime 5 172.72 cm 72 /min 92 % 92 % 134/79 mm[Hg] [employer] 5 14:41:19 Date Recorded Body height Body mass index (BMI) Body weight Heart rate Oxygen saturation Oxygen saturation in Arterial blood by Pulse oximetry Systolic And Diastolic Systolic And Diastolic Systolic And Diastolic Provider Name and Address Organization Details Last Updated DateTime 4 172.72 cm 51.1 kg/m2 477244. 14 g 70 /min 93 % 93 % 153/72 mm[Hg] 150/77 mm[Hg] 138/65 mm[Hg] Anais Rubio [employer] 4 09:09:59 Date Recorded Body height Heart rate Oxygen saturation Oxygen saturation in Arterial blood by Pulse oximetry Body temperature Systolic And Diastolic Provider Name and Address Organization Details Last Updated DateTime 5 172.72 cm 61 /min 97 % 97 % 97.6 [degF] 131/65 mm[Hg] Bonnie Diaz [employer] 5 11:14:52 Date Recorded Body height Heart rate Oxygen saturation Oxygen saturation in Arterial blood by Pulse oximetry Systolic And Diastolic Provider Name and Address Organization Details Last Updated DateTime 4 172.72 cm 74 /min 94 % 94 % 92/57 mm[Hg] Bonnie Diaz [employer] 4 13:54:37 Social History Question Answer Notes LastModified by Organizat ion Details LastModified Time Tobacco Smoking Status Former Smoker Bonnie Diaz britany [employer] 05/06/2024 14:20:26 Do You Have An Advance Directive? No [email or web address] Information not available 01/03/2022 Are You Blind Or Do You Have Difficulty Seeing? No [email or web address] Information not available 01/03/2022 What Is Your Level Of Caffeine Consumption? Occasional Information not available 08/20/2023 Are You A Caregiver? Yes [email or web address] Information not available 04/14/2022 In The 14 Days Before Symptom Onset, Have You Had Close Contact With A Laboratory-confir med COVID-19 While That Case Was Ill? No [email or web address] Information not available 01/03/2022 In The 14 Days Before Symptom Onset, Have You Had Close Contact With A Person Who Is Under Investigation For COVID-19 While That Person Was Ill? No [email or web address] Information not available 01/03/2022 Have You Been To An Area Known To Be High Risk For COVID-19? No [email or web address] Information not available 01/03/2022 Are You Deaf Or Do You Have Serious Difficulty Hearing? No [email or web address] Information not available 01/03/2022 When Did You Quit Smoking? 1-5yearssincel julinahid Information not available 05/06/2024 Do You Have A Medical Power Of Director Of Archives? No [email or web address] Information not available 01/03/2022 What Was The Date Of Your Most Recent Tobacco Screening? 12/29/2024 Information not available 12/29/2024 What Is Your Current Pack Years? [email or web address] ars [email or web address] Information not available 01/03/2022 What Is Your Relationship Status? Single Information not available 01/03/2022 Do You Use Your Seat Belt Or Car Seat Routinely? Yes [email or web address] Information not available 04/14/2022 Are You Passively Exposed To Smoke? Yes [email or web address] Information no t available 04/14/2022 Are There Any Smokers In Your House? Yes [email or web address] Information not available 04/14/2022 How Much Tobacco Do You Smoke? 0.5 PPD Information not available 01/03/2022 Has Tobacco Cessation Counseling Been Provided? Yes Information not available 05/21/2023 On What Date Was Tobacco Cessation Counseling Provided? 12/29/2024 Information not available 12/29/2024 Have You Recently Traveled Abroad? No [email or web address] Information not available 01/03/2022 Do You Have Difficulty Walking Or Climbing Stairs? No [email or web address] Information not available 01/03/2022 Are You Currently In School? No [email or web address] Information not available 04/14/2022 Sex: Female Functional Status Question Answer Note LastModified by Organizat ion Details LastModified Time Do you use any illicit or recreational drugs? No Information not available 08/20/2023 What is your level of alcohol consumption? None [email or web address] Information not available 01/03/2022 Do you have transportation difficulties? No [email or web address] Information not available 01/03/2022 Are you able to walk independently without assistance or assistive devices? YESWOREST [email or web address] Information not available 01/03/2022 Do you have difficulty doing errands alone? No [email or web address] Information not available 01/03/2022 Are you able to care for yourself independently? Yes [email or web address] Information not available 01/03/2022 Do you have difficulty dressing, bathing, grooming, or toileting? No [email or web address] Information not available 01/03/2022 Mental Status Question Answer Note LastModified by Organization D etails LastModified Time Do you have difficulty concentrating, remembering or making decisions? No [email or web address] Information no t available 01/03/2022 Family History Relationship Description Onset Age of this Age Resolved Age Notes LastModified by Organization Details LastModified Time Unspecified Relation Family history of Rheumatoid arthritis [email or web address] Not available 01/03 10:03:04 Mother Family history of diabetes mellitus type 2 [email or web address] Not available 01/03 10:03:27 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 Condition Response Diabetes Y Hospitalizations N Emergency room visit since last appointm ent. N Hypertension Y High Cholesterol Y Gynecological History Statement/Question Response Date of Last Pap Smear Most Recent Mammogram 05/18/2023 Obstetrics History GPAL:G 0 P 0 0 0 0 Immunizations Vaccine Type Date Status Note Provider Name and Address Organization Details Recorded Time pneumococcal polysaccharide PPV23 cancelled patient objection Michelle Gray APRN [address] [place], [address], [employer] 08/20/2023 10:06:02 zoster recombinant 024 completed Michelle Gray APRN [address] [place], [address], [employer] 08/20/2023 10:06:02 zoster recombinant 024 completed Anais garg, [employer] 11/20/2023 17:53:49 Tdap 022 completed EMELY garg, [employer] 04/14/2022 11:52:55 Influenza, split virus, quadrivalent, PF 019 completed EMELY garg [facility] [employer] 04/14/2022 11:52:55 Tdap 024 completed Not Available [facility] 12/29/2024 11:05:47 Influenza, split virus, quadrivalent, PF 022 completed ALYCIA Gray [address] [place] [address], [address], [facility] [employer] 01/03/2022 10:44:25 Past Encounters Encounter ID Performer Location Encounter Start Date Encounter Closed Date Diagnosis/Indication Diagnosis SNOMED-CT Code Diagnosis ICD10 Code Diagnosis IMO Codes Diagnosis Note [id number] Michelle Gray [place] [id number] 01/03/2022 10:09:16 01/03/2022 10:46:08 Type 2 diabetes mellitus without complication 755605856 E11.9 Hyperlipidemia 28648749 E78.5 Hypertensive disorder 38 341649 I10 Nicotine dependence 5629 4008 F17.200 Administra tion of influenza vaccine 16586212 Z23 [id number] Michelle Gray [address] [address] 04/14/2022 11:49:18 04/14/2022 13:11:25 Type 2 diabetes mellitus without complication 812641985 E11.9 Hyperlipidemia 28207735 E78.5 Hypertensive disorder 38 545683 I10 Body mass index 40+ - severely obese 914505009 Z68.43 [id number] Michelle Gray [place] [id number] 05/25/2022 08:13:48 05/25/2022 08:57:07 Anemia 354769408 D64.9 Serum crea tinine above reference range 803214973 R79.89 Chronic fa tigue syndrome 87836181 R53.82 Hyperlipidemia 10182468 E78.5 Upper gastrointestinal bleeding 00204105 K92.89 Body mass index 40+ - severely obese 023218885 Z68.43 [id number] Isaac [address] [place] [address] 07/25/2022 10:19:15 07/25/2022 11:08:04 Type 2 diabetes mellitus without complication 296685789 E11.9 Hypertensive disorder 38 076973 I10 Hyperlipidemia 68929516 E78.5 Epileptic seizure 123200 000 G40.509 Body mass index 40+ - severely obese 829101960 Z68.43 [id number] [place] [address] 10/24/2022 11:15:55 10/24/2022 12:10:19 Hypertensive disorder 01876490 I10 Type 2 yovani betes mellitus without complication 864448789 E11.9 Body mass index 40+ - severely obese 100513147 Z68.43 [id number] [place] [address] 05/21/2023 11:23:23 05/21/2023 11:52:00 Type 2 diabetes mellitus without complication 577028702 E11.9 Pain of le ft elbow joint 8258155887 7549676 M25.522 Fatigue 81214381 R53.83 Hyperlipidemia 69268253 E78.5 Vitamin D deficiency 347 40552 E55.9 Hypertensive disorder 38 516479 I10 Body mass index 40+ - severely obese 135154772 Z68.43 [id number] [place] [address] 08/20/2023 08:55:37 08/20/2023 09:44:54 Diabetes mellitus 68804936 E11.9 pt declined dm foot exam, she states that she would like to do it at next visit. Colon canc er screening declined 5066163941 9109 Z53.20 states that she will think about doing the cologuard. Active or passive immunization 818977221 Z23 Shingles VIS given Vaccine de clined by patient 3141583323 02 Z28.20 Pneumococc al VIS given for pt education. Adult heal th examination 698741860 Z00.00 Hyperlipidemia 63427763 E78.5 Hypertensive disorder 38 345669 I10 Type 2 yovani betes mellitus without complication 641638214 E11.9 Body mass index 40+ - severely obese 527218228 Z68.43 [id number] BLAIRE DIAZ, [place] [address] 10/18/2023 12:54:19 10/18/2023 13:24:58 Pain in right foot 7438413995 06671 M79.634 [id number] [place] [address] 11/20/2023 08:54:05 11/20/2023 09:46:44 Type 2 diabetes mellitus without complication 163803112 E11.9 Hyperlipidemia 73140589 E78.5 Hypertensive disorder 38 896738 I10 Active or passive immunization 052269116 Z23 Body mass index 40+ - severely obese 256302754 Z68.43 [id number] [place] [address] 01/22/2024 13:42:08 01/22/2024 14:33:01 Fracture of femur 78593745 S72.90XA Nicotine dependence 5629 4008 F17.200 Unsteady when walking 22 256266 R26.89 Body mass index 40+ - severely obese 528337005 Z68.43 [id number] [place] [address] 05/06/2024 13:51:57 05/06/2024 15:20:08 Type 2 diabetes mellitus without complication 820714434 E11.9 Hypertensive disorder 38 236778 I10 Hyperlipidemia 85689292 E78.5 Chronic ob structive pulmonary disease 43965177 J44.9 Body mass index 40+ - severely obese 975668088 Z68.43 [id number] [place] [address] 09/12/2024 14:21:02 09/12/2024 15:57:13 Fatigue 50951557 R53.83 2992639 Mixed hyperlipidemia 267 561698 E78.2 17875 Vitamin D deficiency 347 63222 E55.9 42143 Cobalamin deficiency 190 539581 E53.8 92319 Pain of ri ght knee joint 0188858314 04741 M25.561 736764 Edema of l ower extremity 066756879 R60.0 33158 Type 2 yovani betes mellitus 01022076 E11.9 97675486 Type 2 yovani betes mellitus without complication 263613376 E11.9 Hyperlipidemia 22102465 E78.5 Hypertensive disorder 38 847943 I10 Chronic ob structive pulmonary disease 26462214 J44.9 Body mass index 40+ - severely obese 277503806 Z68.43 [id number] Michelle Gray[address] [address] 12/29/2024 11:04:50 12/29/2024 11:49:35 Diabetes mellitus 96754717 E11.9 19829 pt declined dm foot exam, she states that she would like to do it at next visit. Ulcer of left foot 97100 1006 L97.529 65950559 Type 2 yovani betes mellitus without complication 965278937 E11.9 Hyperlipidemia 28741666 E78.5 Cobalamin deficiency 190 728656 E53.8 Cellulitis of right lower limb 7274806544 9701761 L03.115 565111 Body mass index 40+ - severely obese 946895893 E66.01 Z68.43 [id number] Goals Section Goal Description Progress Status Start Date LastModified by Organization Details LastModified Time Blood Glucose Maintains blood glucose within target range NoChange active 2023 Ema Cho Information not available 07/24/2023 16:12:21 Hemoglobin A1C Lowers or maintains hemoglobin A1C (HbA1c) as per care team recommendati on(s) [TARGET: less than or equal to 7%] NoChange active 2023 Ema Cho Information not available 07/24/2023 16:12:21 Follow-up Appointment( s) Attends referral and/or follow-up appointment( s) as per care team recommendati on(s) NoChange active 2023 Ema Cho Information not available 07/24/2023 16:12:21 Blood Pressure Maintains blood pressure goal as defined by care team NoChange active 2023 Ema Cho Information not available 07/24/2023 16:12:21 Health Concerns Section Related Observation LastModified by Organization Detai ls LastModified Time None Recorded Concern Status LastModified by Organization Details LastModified Time Epileptic seizure Active Ema Cho Not Available 16:00:59 Hypertensive disorder Active Ema Cho Not Availabl e 07/24/2023 16:01:07 Hyperlipidemia Active Ema Cho Not Available 07/23 16:01:15 Type 2 diabetes mellitus without complication Active Ema Cho Not Available 07/24/2023 16:01 :33 Advance Directives Directive N: Payers Insurance Date Sequence Insurance Name Policy Number Policy William Covered Member ID William Member ID Guarantor Name 12/26/2024 [place] [employer] - [facility] Bailey F Camacho [id number] Bailey Camacho 11/22/2022 1 [place] Bailey Camacho [id number] Bailey Camacho 03/28/2023 [place] Bailey F Camacho [id number] Bailey Camacho 11/10/2022 3 [place] [id number] Bailey F Camacho [id number] Bailey Camacho 05/06/2024 1 [place] [id number] Bailey F Camacho [id number] Bailey Janice 09/12/2024 1 [employer] (MEDICARE REPLACEMENT/A DVANTAGE - HMO) Bailey F Camacho [id number] Bailey Camacho 03/28/2023 1 [place] Bailey F Camacho [id number] Bailey Camacho 03/16/2023 1 UNSPECIFIED REMIT PAYOR Bailey Camacho 12/26/2024 2 [place] [facility] CHO[facility] - FFS/TRADITION AL Baileyzahra Camacho [id number] Bailey Camacho 09/12/2023 2 [place] [id number] Bailey Camacho [id number] Bailey Camacho 09/12/2024 1 [place] [id number] Bailey Camacho [id number] Bailey Camacho 12/26/2024 1 [facility] (MEDICARE REPLACEMENT/A DVANTAGE - HMO) [id number] Bailey Camacho [id number] Bailey Camacho Notes Date Note Type Note Provider Name and Address Organization Details Recorded Time 11/20/2023 text/html pt here today for medication refills. pt states shes doing well on current medication regime and has no new complaints today. pt states that joset gave her the wrong dose of trulicity, they filled the 0.75 mg dose. but pt has only taken that for the past 3 weeks. pt has also lost 16 lbs in the past 3 months. A1C is 5.8, 6.4 at last visit. pt to continue current medication regime. Anais garg, [employer] 11/20/2023 17:55:55 01/22/2024 text/html pt here today for a rehab d/c f/u. pt states that she was camping with her family and stepped off the concrete onto the gravel and fell and broke her femur on 12/15, went to [facility] and was tx to where she had sx and then went to [facility] for rehab. she stayed the 20 days her insurance paid for and had to leave. pt states that she is still in alot of pain and is having a friend stay with her. pt states that she has a hospital bed, home health and PT has been to her house once. i ordered a bedside toilet for her. pt states that she lays in the hospital bed most of the day due to the pain. pt states that she only has 2 percocet left. and she alternates with tylenol. i highly advised pt to sit up in chair, with RLE elevated, at least 2 hours in am and 2 hours in pm or at least 1 hour at each mealtime. otherwise she is at high risk for PNA and clots. pt voiced understanding and states that she will start doing that. pt appears to be very uncomfortable and in pain. i told pt that i will send her in 2 more weeks of pain med and she will need to alternate with tylenol/ibuprofen and only take for severe pain. when this is out we can do another pain med, like tramadol, if pt needs. pt voiced understanding. on exam, RLE 3+pitting edema, heading incision around 4in above and below knee with steri strips intact. no s/s o infection. pt also states that she has not had a cig since 12/14 and was prescribed smoking patches and needs a refill. i will refill same dose as hospital prescribed. Michelle Gray, ALYCIA [address] [place], [address], [employer], [employer] 01/22/2024 16:22:45 05/06/2024 text/html 68 year old female here for rehab follow up. [facility] following 2nd surgery on right knee for wash out. She was doing PT there and now needs home health/PT referral to continue exercises. She has done some exercises at home since discharge. She last saw [facility] today to healing eval. He clare labs today and is currently happy with healing. Right knee mildly swollen, but not erythema/warmth/fev er. WIll order referral today.She also wants to review medication list following discharge. reviewed list with patient and patient understands which she is to take. A1C 7.5, 5.7 at last visit here in nov. pt states that she was only taking insulin in hospital/rehab. Michelle Gray, INCINERATOR OPERATOR [address] [place], [address], [employer] 05/06/2024 17:59:55 09/12/2024 text/html pt here today for medication refills. pt states that she has been doing well on current medication regime. states that due to her knee she has been dependent on other people cooking her meals. A1C 5.4, 7.4 at last visit. pt to continue current diabetic diet and medication regime. pt states that she has not seen her burning machine operator in about 6 months. i highly advised pt to reschedule her appt with burning machine operator for a f/u. pt states that she just got finished with HH PT and that for the past week her BLE have been swelling and she can barely walk. states that she cant even preparation center coordinator the shower that it hurts so bad. pt broke her right leg with sx repair in 12/2023 and a clean out for infection in 03/2024. pt states that she typically sits in her lift chair all day until she has to go to the bathroom or get something from the kitchen. states that she typically uses her walker but for the last week she hasnt got up very much and she has used her wheelchair if she has to go to the bathroom. pt was unable to weigh today because she couldnt stand up. on exam, pt has BLE 2-3+ edema. pt legs are tight, no weeping. pt states that she has been taking the lasix daily, instead of every other day, and some days she takes 2, and it is not helping. pt states that she just has so much pain in her right knee. on exam, right knee looks WNL other than a little swelling. no redness or warmth, or drainage. pt states that her next ortho appt is 11/04. i highly advised pt to call ortho and see if they can get her in sooner. i will order OP PT. advised pt to get up q 1-2 and walk her house a couple of times, while awake, with her walker. recommended pt to get compression stockings and pt states they wont make them big enough for me. advised pt to eat a low sodium diet. pt states that she eat alot of processed foods. i will order labwork on pt. Michelle Gray APRN [address] [facility], [place], [address], [facility] [employer] 09/12/2024 16:28:16 12/29/2024 text/html pt here today for medication refills. pt states shes doing well on current medication regime. A1C 5.3. pt to continue current diabetic medication regime, diet and exercise. pt presents today with LLE ulcers, edema and weeping. pt states that it has been like this for a while . pt has been basically wheelchair bound for around a year due to a left broken leg that required sx. pt was [facility] and then did home PT. pt states that she can barely bare wt on either leg. pt states that she gets around at home with a walker but not very far. she sits in the wheelchair to cook her meals. someone has to be there before she will take a bath so she only takes a bath 1-2 times weekly. and it is very difficult for her to get in/out of shower. today pt LLE appears okay just very dry. RE is purple/aby, calf area is weeping, some ulcers on calf, large ulcer on great toe, 2nd toe and on foot, entire foot, ankle and lower leg has wet scales like they havent been washed in a long time. toe nails thick and yellow. will try to clean as best as we can today and apply abx ointment and clean dsg. i will order podiatry referral, home health referral. if podiatry is unable to help will order vascular and wound care referral. Michelle Gray APRN [address] [facility], [place], [address], [facility] [employer] 12/29/2024 12:52:25 OBGyn Episode No OBEpisode recorded.
--- OUTSIDE RECORDS SUMMARY | 2025-01-12 10:48 | XMS_ITS | Clinical Summary ---
Author Organization [facility] Address [facility] [place] [address] Phone Care Team Providers Care Trouble Lineman Name Role Phone Unavailable Primary Care Provider [...] EST Impressions 05/24/2023 1:52 PM EST Negative ([id number]) ~ RECOMMENDATION: Routine screening mammogram in 1 [...] the next mammogram, in accordance with the [employer] and the Society of Breast Imaging recommendations. Narrative 05/24/2023 1:52 PM EST Procedure:MM MAMMO DIGITAL PAM SCREEN BILAT ~ Reason for exam: screening, asymptomatic. Z12.31-Encounter for screening mammogram for malignant neoplasm of [id number]-[id number]-CM ~ MM MAMMO DIGITAL PAM SCREEN BILAT [...] for screening mammogram for malignant neoplasm of [id number]-[id number]-CM ~ MM MAMMO DIGITAL PAM SCREEN BILAT Bilateral CC and MLO view(s) were taken. There are scattered fibroglandular densities. Prior study comparison: Compared with prior studies the most recentbeing outside studies dated December 21, 2009 No mammographic evidence of malignancy. ~ IMPRESSION: Negative ([id number]-5) ~ RECOMMENDATION: Routine screening mammogram in 1 [...] the next mammogram, in accordance with the [employer] and the Society of Breast Imaging recommendations. us Not In Epic Provider IMG MAMMOGRAPHY ORDERABLES Final Result from Last 3 Months or Most Recently Relevant to Health Maintenance Insurance MEDICARE ADVANTAGE MR
--- OUTSIDE RECORDS SUMMARY | 2025-01-12 10:48 | XMS_ITS | Encounter Summary ---
Author Organization Healthcare Address [address] [place] [address] Care Team Providers Care Manufacturing Engineering Director Name Role Phone IsaacMichelle ALYCIA Primary Care Provider [phone] Encounter Details Date Type Department Care Team ([facility] st Contact Info) Description 10/14/2024 Telephone [facility] [address] [facility], [address] [place] [address] Becky Moralez APRN [address] [place] [address] Social History Tobacco Use Types Packs/Day Years Used Date Smoking Tobacco: Former Cigarettes 1 47.8 S tarted: 1978 Passive Smoke Exposure: Past [...] and Family Not on file 02/25/2024 Attends Islam Services Not on file 02/24 Active Member [...] place to sleep or slept in a care home (including now)? No 12/19/2023 PHQ-9 Answer [...] any time in the past 12 m [facility], were you homeless or living in a care home (including now)? No 02/25/2024 AUDIT-C Answer [...] Upcoming Encounters Date Type Department Care Team ([facility] Contact Info) Description 02/05/2025 10:00 AM EDT Office Visit [facility] [address] [place] [address] Carmen Houser MD [address] [facility] [address] [place] [address] 02/24/2025 10:40 AM EST [facility] Visit [facility] [address] [facility], [address] [place] [address] Becky Moralez APRN [address] [facility] [address] [place] [address] 03/17/2025 9:30 AM EST Appointment [facility] Radiology [address], [address] [place] [address] 03/17/2025 10:10 AM EST Office Visit [facility] Orthopaedic Surgery & Sports Medicine [address] [place] [address] Terry Santoyo MD [address] [facility] [address] [place] [address] documented as of this encounter [...] documented as of this encounter Care Teams Manufacturing Engineering Director Relationship Specialty Start Date End Date Michelle Gray APRN [address] [place] [id number] PCP - General 11/17/23 documented as of this encounter
--- OUTSIDE RECORDS SUMMARY | 2025-01-12 10:48 | XMS_ITS | Encounter Summary ---
Author Organization Healthcare Address [address] [place] [address] Care Team Providers Care Boiler Cleaner Name Role Phone Michelle Gray APRN Primary Care Provider [phone] Encounter Details Date Type Department Care Team (Late st Contact Info) Description 01/05/2025 Telephone [facility] [address] [place] [address] Carmen Houser MD [address] [facility] [address] [place] [address] Social History Tobacco Use Types Packs/Day Years [...] and Family Not on file 02/25/2024 Attends Mormonism Services Not on file 02/24 Active Member [...] place to sleep or slept in a fci (including now)? No 12/19/2023 PHQ-9 Answer Date [...] any time in the past 12 m [facility], were you homeless or living in a fci (including now)? No 02/25/2024 AUDIT-C Answer Date Recorded Frequency of Alcohol Consumption Not on file 10/23/2024 Q2: How many drinks containi ng alcohol do you have on a typical day when you are drinking? Patient does not drink Frequency of Binge Drinking Not on file 10/07 Utilities Answer Date Recorded In the past 12 months has [employer], gas, oil, or water company threatened [...] Description 02/05/2025 10:00 AM EDT Office Visit [facility] [address] [place] [address] Carmen Houser MD [address] [facility] [address] [place] [address] 02/24/2025 10:40 AM EST [facility] Visit [facility] [address] [facility], [address] [place] [address] Becky Moralez APRN [address] [facility] [address] [place] [address] 03/17/2025 9:30 AM EST Appointment [facility] Radiology [address] [place] [address] 03/17/2025 10:10 AM EST Office Visit [facility] Orthopaedic Surgery & Sports Medicine [address] [place] [address] Terry Santoyo MD [address] [place] [address] documented as of this encounter [...] documented as of this encounter Care Teams Boiler Cleaner Relationship Specialty Start Date End Date Michelle Gray APRN [address] [place], [place] [id number] PCP - General 11/17/23 documented as of this encounter
--- OUTSIDE RECORDS SUMMARY | 2025-01-12 10:48 | XMS_ITS | Encounter Summary ---
Author Organization [facility] Address [address] [place] [address] Care Team Providers Care Edge Baster Name Role Phone Michelle Gray ALYCIA Primary Care Provider [phone] Reason for Visit * Reason Onset Date Comments HCN Clinical Concern/Question 10/14/2024 Encounter Details Date Type Department Care Team (Late st Contact Info) Description 10/14/2024 Telephone [facility], [facility] Mineral Metabolism [address] [facility], [address] [place] [address] Becky Moralez APRN [address] [place] [address] HCN Clinical Concern/Question Social History [...] and Family Not on file 02/25/2024 Attends Spiritism Services Not on file 02/24 Active Member [...] place to sleep or slept in a mcc (including now)? No 12/19/2023 PHQ-9 Answer Date [...] any time in the past 12 m [facility], were you homeless or living in a mcc (including now)? No 02/25/2024 AUDIT-C Answer Date Recorded Frequency of Alcohol Consumption Not on file 10/23/2024 Q2: How many drinks containi ng alcohol do you have on a typical day when you are drinking? Patient does not drink Frequency of Binge Drinking Not on file 10/07 Utilities Answer Date Recorded In the past 12 months has th e [employer], gas, oil, or water company threatened to [...] 1:06 PM EDT Faxed lab orders to [facility] [place] and informed patient. Fax confirmation received. P# [phone]. F# [phone]. * Telephone Encounter - Kiara Rascon - 10/14/2024 8:34 AM EDT Clinical Concern/Question Reason for Call: Patient would like her lab orders faxed to her PCP at [facility], fax number is [phone]. Best contact number: [phone] (home) Optimal time of day to reach caller: ANYTIME Additional comments/information from caller: None Note: Please do not reply to this message. Follow-up communication and further actions as a result of this message need to be communicated with the patient directly, if the patient is not active onMyChart. If the patient is active on MyChart, they will receive notification of the communication/outcome via [facility]. documented in this encounter Plan of Treatment Upcoming Encounters Date Type Department Care Team ([facility] st Contact Info) Description 02/05/2025 10:00 AM EDT Office Visit [facility] [address] [place] [address] Carmen Houser MD [address] [facility] [address] [place] [address] 02/24/2025 10:40 AM EST Office Visit [facility] Bone [facility] Mineral Metabolism [address] [facility], [address] [place] [address] Becky Moralez APRN [address] [facility] [address] [place] [address] 03/17/2025 9:30 AM EST Appointment [facility] Radiology [address], [address] [place] [address] 03/17/2025 10:10 AM EST Office Visit [facility] Orthopaedic Surgery & Sports Medicine [address], [address] [place] [address] Terry Santoyo MD [address] [place] [address] documented as of this encounter Visit Diagnoses [...] documented as of this encounter Care Teams Edge Baster Relationship Specialty Start Date End Date Michelle Gray APRN [address] [place] [address] PCP - General 11/17/23 documented as of this encounter
--- OUTSIDE RECORDS SUMMARY | 2025-01-12 10:48 | XMS_ITS | Clinical Summary ---
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 More globus sensation, can follow up [...] Transfuse 1 u PRBC ; Repeat H&H Niupy-nw-wuwfdjq kidney injury 12/18/2023 12/28/2024 Overview (12/23/2023): Contacted [...] Encounters Date Type Department Care Team Description 01/05/2025 Telephone [facility] [address] [place] [address] Carmen Houser MD 12/16/2024 Telephone [facility] [address] [place] [address] Valentina Brown, PharmD Medication Therapy Management 11/11/2024 8:50 AM EDT Office Visit [facility] Orthopaedic Surgery & Sports Medicine [address], [address] [place] [address] Terry Santoyo MD 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 [address] [facility], [address] [place] [address] Nam Swanson, PharmD 10/31/2024 Telephone [facility] [address] [facility], [address] [place] [address] Becky Moralez APRN 10/23/2024 12:20 PM EDT Office Visit [facility] [address] [facility], [address] [place] [address] Becky Moralez APRN Osteopenia, unspecified location (Primary Dx); Mononeuropathy due to type 2 diabetes mellitus ([facility]); Gastroesophageal reflux disease without esophagitis; Vitamin D deficiency; Chronic kidney disease, unspecified CKD stage; Closed fracture of right femur, unspecified fracture morphology, unspecified portion of femur, initial encounter 10/23/2024 10:48 AM EDT - 10/23/2024 11:59 PM EDT Hospital Encounter [facility] [address] [facility], [address] [place] [address] Age-related osteoporosis without current pathological fracture Discharge Disposition: Home or Self Care 10/23/2024 9:30 AM EDT Office Visit [facility] [address] [place] [address] Carmen Houser MD 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 ([facility]) (Primary Dx) 10/23/2024 Travel 10/22/2024 Travel 10/22/2024 Telephone [facility] [address] [facility], [address] [place] [address] Bassem Tejada 10/20/2024 Travel 10/15/2024 Telephone [facility] [address] [facility], [address] [place] [address] Bassem Tejada 10/14/2024 [facility] Nephrology, Bone & Mineral Metabolism [address] [facility], [address] [place] [address] Becky Moralez APRN HCN Clinical Concern/Question 10/14/2024 Telephone [facility] Nephrology, Bone & Mineral Metabolism [address] [facility], [address] [place] [address] Becky Moralez APRN from Last 3 Months Immunizations Immunization Administration [...] Tobacco: Former Cigarettes 1 47.8 S tarted: 1977 Passive Smoke Exposure: Past [...] and Family Not on file 02/25/2024 Attends [employer] Not on file 02/24 Active Member [...] place to sleep or slept in a jail (including now)? No 12/19/2023 PHQ-9 Answer Date [...] time in the past 12 m [facility], were you homeless or living in a jail (including now)? No 02/25/2024 AUDIT-C Answer Date [...] Description 02/05/2025 10:00 AM EDT Office Visit [facility] [address] [place] [address] Carmen Houser MD [address] [facility] [address] [place] [address] 02/24/2025 10:40 AM EST Office Visit [facility] [address] [facility], [address] [place] [address] Becky Moralez APRN [address] [place] [address] 03/17/2025 9:30 AM EST Appointment [facility] [address] [place] [address] 03/17/2025 10:10 AM EST Office Visit [facility] [address], [address] [place] [address] Terry Santoyo MD [address] [place] [address] Health Maintenance Due Date Last Done Comments [facility]-Diabetes: Hemoglobin A1C 1955 [facility]-Medicare Annual Wellness (AWV) 1955 [facility]-Infant/Child/Adol SDOH Screenings 1955 Diabetes: Dental Exam 09/09/1967 [facility]-Pneumococcal Vaccine: 50+ Years (1 of 2 - PCV) 1976 CT Colonography 2002 Colonoscopy 2002 FIT-DNA 2002 FIT 2002 FOBT 2002 Sigmoidoscopy 2002 [facility]-Colorectal Cancer Screening 2002 [facility]-RSV Vaccine: 60+ Years or (1 - Risk 60-74 years 1-dose series) 2017 [facility]- SDOH Screenings 08/24/2024 [facility]-Adult SDOH Screenings 08/24/2024 02/25/2024 MNB-[id number]-50 Vaccine ( season) 2024 [facility]-Influenza Vaccine (#1) 12/08/202403/23, 01/03/2022, 01/03/2022, Additional history exists [facility]-Breast Cancer Screening 05/18/2025 05/18/2023, 0 05/18/2023 [facility]-Bone Density Scan 10/23/2025 10/23/2024 [facility]-Depression Screening 10/23/2025 10/23/2024, 07/08 [facility]-DTaP,Tdap,and Td Vaccines (3 - Td or [...] this topic Medical Devices Implanted Type Area Jeep Mechanic Device Identifier Shelf Expiration Date Model / Serial / Lot Nail Femoral Retro T2 Alpha 12mm X 400mm - S. - [id number] Implanted:Qty: 1 on 12/17/2023 by Terry Santoyo MD at [facility] Nail Right: Femur [employer] ([facility])-[id number] 02/06/2033 [id number] / . / Wire Radha Trocar Point Small 2mm X 150mm - [id number] Implanted:Qty: 6 on 12/17/2023 by Terry Santoyo MD at [facility] Pin Right: Femur Synthes [facility]-[id number] 12/16/2024 292.20 / / Plate Fixator Temp Ao Fitting - [id number] Implanted:Qty: 1 on 12/17/2023 by Terry Santoyo MD at [facility] Plate Right: Femur [employer] ([facility])-[id number] 12/16/2024 [id number] / / Screw Locking T2 D5xl45 - [id number] Implanted:Qty: 1 on 12/17/2023 by Terry Santoyo MD at [facility] Screw Right: Femur [employer] ([facility])-[id number] 07/07/2033 [id number] / / Screw 3.5mm Ti Cortex Selftap 65mm - S. - [id number] Implanted:Qty: 1 on 12/17/2023 by Terry Santoyo MD at [facility] Screw Right: Femur [employer] ([facility])-[id number] 12/16/2024 [id number] / . / Screw 3.5mm Ti Cortex Selftap 70mm - [id number] Implanted:Qty: 1 on 12/17/2023 by Terry Santoyo MD at [facility] Screw Right: Femur [employer] [facility][id number] 12/16/2024 [id number] / / Screw Locking Adv T2 T2 D5xl85 - [id number] Implanted:Qty: 1 on 12/17/2023 by Terry Santoyo MD at [facility] Screw Right: Femur [employer] ([facility])-[id number] 10/06/2033 [id number] / / Screw Locking Adv T2 T2 D5xl65 - [id number] Implanted:Qty: 1 on 12/17/2023 by Terry Santoyo MD at [facility] Screw Right: Femur [employer] ([facility])-[id number] 10/07/2031 [id number] / / Screw Locking Adv T2 T2 D5xl80 - [id number] Implanted:Qty: 1 on 12/17/2023 by Terry Santoyo MD at [facility] Screw Right: Femur [employer] [facility][id number] 10/06/2033 2361-5080S / / Screw Locking Adv T2 T2 D5xl70 - [id number] Implanted:Qty: 1 on 12/17/2023 by Terry Santoyo MD at [facility] Screw Right: Femur [employer] [facility][id number] 09/06/2033 2361-5070S / / Screw Locking T2 D5x37.5 - [id number] Implanted:Qty: 1 on 12/17/2023 by Terry Santoyo MD at [facility] Screw Right: Femur [employer] [facility][id number] 10/06/2033 2360-5037S / / Washer Tit Screw 4mm - [id number] Implanted:Qty: 3 on 12/17/2023 by Terry Santoyo MD at [facility] Washer Right: Femur [employer] [facility][id number] 12/16/2024 [id number] / / Procedures Procedure Name Priority Date/Time Associated Diagnosis Comments SEDIMENTATION RATE, AUTOMATED Routine 11/11/2024 10:15 AM EDT 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 CBC WITH AUTO DIFFERENTIAL Routine 11/11/2024 10:15 AM EDT 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 (CMS/HCC) COMPREHENSIVE METABOLIC PANEL, PLASMA Routine 11/11/2024 10:15 AM EDT 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 (CMS/[facility]) C-REACTIVE PROTEIN, PLASMA Routine 11/11/2024 10:15 AM EDT 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 (CMS/[facility]) XR FEMUR RIGHT 2+ VIEWS Routine 11/11/2024 [...] Sedimentation Rate, Automated (11/11/2024 10:15 AM EDT) Pathologist [facility] Sedimentation Rate 32(H) <30 mm/hr 2024 11:28 AM EDT [facility] Blood Venous blood specimen / Unknown Venipuncture / Unknown 11/11/2024 10:15 AM EDT 11/11/2024 10:15 AM EDT us Cheryl CASH LAB BLOOD ORDERABLES Final Re sult [facility] [address] [place] [address] * (ABNORMAL) CBC and differential (11/11/2024 10:15 AM EDT) Pathologist [facility] WBC Count 4.64 3.70 - 10.30 10*3/uL LAB HEMATOLOGY METHOD 11/11/2024 11:05 AM EDT [facility] RBC Count 3.51(L) 3.90 - 5.20 10*6/uL LAB HEMATOLOGY METHOD 11/11/2024 11:05 AM EDT [facility] HGB 10.3(L) 11.2 - 15.7 g/dL LAB HEMATOLOGY METHOD 11/11/2024 11:05 AM EDT [facility] HCT 33.6(L) 34.0 - 45.0 % LAB HEMATOLOGY METHOD 11/11/2024 11:05 AM EDT [facility] Platelet Count 179 155 - 369 10*3/uL LAB HEMATOLOGY METHOD 11/11/2024 11:05 AM EDT [facility] MCV 96 79 - 98 fL LAB HEMATOLOGY METHOD 11/11/2024 11:05 AM EDT [facility] MCH 29.3 26.0 - 32.0 pg LAB HEMATOLOGY METHOD 11/11/2024 11:05 AM EDT [facility] MCHC 30.7 30.7 - 35.5 g/dL LAB HEMATOLOGY METHOD 11/11/2024 11:05 AM EDT [facility] RDW 17.5(H) 11.5 - 14.5 % LAB HEMATOLOGY METHOD 11/11/2024 11:05 AM EDT [facility] MPV 10.2 8.8 - 12.5 fL LAB HEMATOLOGY METHOD 11/11/2024 11:05 AM EDT [facility] nRBC 0.0 <=0.0 per 100 WBCs LAB HEMATOLOGY METHOD 11/11/2024 11:05 AM EDT [facility] Differential Type Automated LAB HEMATOLOGY METHOD 11/11/2024 11:05 AM EDT [facility] Neutrophils % 68 % LAB HEMATOLOGY METHOD 11/11/2024 11:05 AM EDT [facility] Lymphocytes % 16 % LAB HEMATOLOGY METHOD 11/11/2024 11:05 AM EDT [facility] Monocytes % 9 % LAB HEMATOLOGY METHOD 11/11/2024 11:05 AM EDT [facility] Eosinophils % 5 % LAB HEMATOLOGY METHOD 11/11/2024 11:05 AM EDT [facility] Basophils % 1 % LAB HEMATOLOGY METHOD 11/11/2024 11:05 AM EDT [facility] Immature Granulocytes % 1 % LAB HEMATOLOGY METHOD 11/11/2024 11:05 AM EDT [facility] Neutrophils Absolute 3.21 1.60 - 6.10 10*3/uL LAB HEMATOLOGY METHOD 11/11/2024 11:05 AM EDT [facility] Lymphocytes Absolute 0.73(L) 1.20 - 3.90 10*3/uL LAB HEMATOLOGY METHOD 11/11/2024 11:05 AM EDT [facility] Monocytes Absolute 0.40 0.30 - 0.90 10*3/uL LAB HEMATOLOGY METHOD 11/11/2024 11:05 AM EDT [facility] Eosinophils Absolute 0.24 0.00 - 0.50 10*3/uL LAB HEMATOLOGY METHOD 11/11/2024 11:05 AM EDT [facility] Basophils Absolute 0.03 0.00 - 0.10 10*3/uL LAB HEMATOLOGY METHOD 11/11/2024 11:05 AM EDT [facility] Immature Granulocytes Absolute 0.03 0.00 - 0.06 10*3/uL LAB HEMATOLOGY METHOD 11/11/2024 11:05 AM EDT [facility] Blood Venous blood specimen / Unknown Venipuncture / Unknown 11/11/2024 10:15 AM EDT 11/11/2024 10:15 AM EDT Narrative [facility] - 11/11/2024 11:05 AM EDT Therapeutic decision making should be based on absolute values, rather than percentages. us Carmen Houser MD LAB BLOOD ORDERABLES Final Res ult Performing Organization Address [facility] Co de Phone Number [facility] [address] [place] [address] * C-reactive protein (11/11/2024 10:15 AM EDT) CRP, Plasma <3.0 <=8.0 mg/L 11/11/2024 11:51 AM EDT [facility] Blood Venous blood specimen / Unknown Venipuncture / Unknown 11/11/2024 10:15 AM EDT 11/11/2024 10:15 AM EDT Narrative [facility] - 11/11/2024 11:51 AM EDT This CRP test is appropriate for assessment of infection, systemic inflammation and/or tissue injury. To assess cardiovascular disease risk order high sensitivity CRP (CRPH). us Carmen Houser MD LAB BLOOD ORDERABLES Final Res ult Performing Organization Address [facility]/ZIP Co de Phone Number [facility] [address] [place] [address] * (ABNORMAL) Comprehensive metabolic panel (11/11/2024 10:15 AM EDT) Glucose, Plasma 87 74 - 99 mg/dL 11/11/2024 11:51 AM EDT [facility] BUN, Plasma 39(H) 8 - 23 mg/dL 11/11/2024 11:51 AM EDT [facility] Creatinine, Plasma 1.16(H) 0.60 - 1.10 mg/dL 11/11/2024 11:51 AM EDT [facility] BUN/Creatinine Ratio 34 11/11/2024 11:51 AM EDT [facility] Sodium, Plasma 144 136 - 145 mmol/L 11/11/2024 11:51 AM EDT [facility] Potassium, Plasma 4.6 3.6 - 4.9 mmol/L 11/11/2024 11:51 AM EDT [facility] Chloride, Plasma 110(H) 97 - 107 mmol/L 11/11/2024 11:51 AM EDT [facility] CO2, Plasma 23 22 - 29 mmol/L 11/11/2024 11:51 AM EDT [facility] Anion Gap 11 6 - 16 mmol/L 11/11/2024 11:51 AM EDT [facility] Total Calcium, Plasma 9.5 8.9 - 10.2 mg/dL 11/11/2024 11:51 AM EDT [facility] Total Protein 7.0 6.3 - 7.9 g/dL 11/11/2024 11:51 AM EDT [facility] Albumin, Plasma 4.0 3.5 - 5.2 g/dL 11/11/2024 11:51 AM EDT [facility] AST, Plasma 20 10 - 35 U/L 11/11/2024 11:51 AM EDT [facility] ALT, Plasma 17 10 - 35 U/L 11/11/2024 11:51 AM EDT [facility] Alkaline Phosphatase, Plasma 87 46 - 142 U/L 11/11/2024 11:51 AM EDT [facility] Total Bilirubin, Plasma 0.4 0.2 - 1.1 mg/dL 11/11/2024 11:51 AM EDT [facility] eGFRcr 51.8 mL/min/1.7 3m*2 11/11/2024 11:51 AM EDT [facility] Comment:Reported eGFRcr in m L/min/1.73m2 is based the CKD-EPI 2020 equation that does not use a race coefficient. Blood Venous blood specimen / Unknown Venipuncture / Unknown 11/11/2024 10:15 AM EDT 11/11/2024 10:15 AM EDT us Carmen Houser MD LAB BLOOD ORDERABLES Final Res ult [facility] [address] [place] [address] * XR Knee Right 4+ Views (11/11/2024 [...] osteoarthritis of the right knee with unchanged xeoi-lm-riox articulation in both the medial and lateral [...] Severe osteoarthritis of the right knee with pkatzbulylthu-lt-eybk articulation in both the medial and lateral [...] osteoarthritis of the right knee with unchanged czah-ef-ilgg articulation in both the medial and lateral [...] Severe osteoarthritis of the right knee with nbxfwkiavnwtz-zk-qhzl articulation in both the medial and lateral [...] Ionized calcium, serum (10/23/2024 12:47 PM EDT) Pathologist [facility] Ionized Calcium, Serum 5.0 4.6 - 5.3 mg/dL LAB HEMATOLOGY METHOD 10/23/2024 2:30 PM EDT [facility] Blood Venous blood specimen / Unknown Venipuncture / Unknown 10/23/2024 12:47 PM EDT 10/23/2024 12:48 PM EDT Becky Moralez ISSUE CLERK LAB BLOOD ORDERABLES Final Result Performing Organization Address [facility] Co de Phone Number [facility] [address] [place] [address] * (ABNORMAL) Cystatin C (10/23/2024 12:47 PM EDT) Cystatin C 2.37(H) 0.61 - 0.95 mg/L 10/23/2024 5:11 PM EDT [facility] Blood Venous blood specimen / Unknown Venipuncture / Unknown 10/23/2024 12:47 PM EDT 10/23/2024 12:48 PM EDT Becky Armstrong Mlmag ISSUE CLERK LAB BLOOD ORDERABLES Final Result Performing Organization Address City/[facility]/ZIP Co de Phone Number [facility] [address] [place] [address] * Vitamin D 1,25 Dihydroxy (10/23/2024 12:47 PM EDT) Pathologist [facility] VITAMIN D, 1, 25-DIHYDROXY 23.0 19.9 - 79.3 pg/mL 10/23/2024 5:49 PM EDT [facility] Blood Venous blood specimen / Unknown Venipuncture / Unknown 10/23/2024 12:47 PM EDT 10/23/2024 12:48 PM EDT Reginomaximiliano Moralez ISSUE CLERK LAB BLOOD ORDERABLES Final Result [facility] [address] [place] [address] * Vitamin D 25 Hydroxy (10/23/2024 12:47 PM EDT) [facility] Vitamin D 25 Hydroxy 62.6 20.0 - 80.0 ng/mL 10/23/2024 5:12 PM EDT [facility] Blood Venous blood specimen / Unknown Venipuncture / Unknown 10/23/2024 12:47 PM EDT 10/23/2024 12:48 PM EDT Narrative [facility] - 10/23/2024 5:12 PM EDT Testing performed on [employer] Wiper, standardized against NIST SRM 2972. When testing [...] ng/mL Possible toxicity: >100 ng/mL Becky Moralez ISSUE CLERK LAB BLOOD ORDERABLES Final Result [facility] [address] [place] [address] * PTH Intact Total (10/23/2024 12:47 PM EDT) Pathologist [facility] PTH Intact Total 65 9 - 77 pg/mL 10/23/2024 4:24 PM EDT [facility] Blood Venous blood specimen / Unknown Venipuncture / Unknown 10/23/2024 12:47 PM EDT 10/23/2024 12:48 PM EDT Narrative [facility] - 10/23/2024 4:24 PM EDT Assay performed by immunoassay at the [facility]. Performed on [employer] chemiluminescent immunoassay, tractable to the World Health Organization's first international standard for PTH from the [facility], Code 79/500. Results obtained from different test methods or kits cannot be used interchangeably. us Becky Moralez APRN LAB BLOOD ORDERABLES Final Result [facility] [address] [place] [address] * (ABNORMAL) Renal Function Panel, Plasma (10/23/2024 12:47 PM EDT) [facility] Glucose, Plasma 61(L) 74 - 99 mg/dL 10/23/2024 3:17 PM EDT [facility] BUN, Plasma 39(H) 8 - 23 mg/dL 10/23/2024 3:17 PM EDT [facility] Creatinine, Plasma 1.48(H) 0.60 - 1.10 mg/dL 10/23/2024 3:17 PM EDT [facility] BUN/Creatinine Ratio 26 10/23/2024 3:17 PM EDT [facility] Sodium, Plasma 141 136 - 145 mmol/L 10/23/2024 3:17 PM EDT [facility] Potassium, Plasma 4.5 3.6 - 4.9 mmol/L 10/23/2024 3:17 PM EDT [facility] Chloride, Plasma 109(H) 97 - 107 mmol/L 10/23/2024 3:17 PM EDT [facility] CO2, Plasma 23 22 - 29 mmol/L 10/23/2024 3:17 PM EDT [facility] Anion Gap 9 6 - 16 mmol/L 10/23/2024 3:17 PM EDT [facility] Total Calcium, Plasma 9.5 8.9 - 10.2 mg/dL 10/23/2024 3:17 PM EDT [facility] Phosphorus, Plasma 3.8 2.5 - 4.5 mg/dL 10/23/2024 3:17 PM EDT [facility] Albumin, Plasma 4.0 3.5 - 5.2 g/dL 10/23/2024 3:17 PM EDT [facility] eGFRcr 38.7 mL/min/1.7 3m*2 10/23/2024 3:17 PM EDT [facility] Comment:Reported eGFRcr in m L/min/1.73m2 is based the CKD-EPI 2020 equation that does not use a race coefficient. Blood Venous blood specimen / Unknown Venipuncture / Unknown 10/23/2024 12:47 PM EDT 10/23/2024 12:48 PM EDT us Becky Moralez APRN LAB BLOOD ORDERABLES Final Result Performing Organization Address City/State/[facility] Co de Phone Number [facility] [address] [place] [address] * Dexa Bone Density Axial Skeleton W VFA (10/23/2024 11:11 AM EDT) Anatomical Region Laterality Modality Body Radiographic Fe ging Narrative 11/02/2024 11:11 AM EDT [facility] [address] [place] [address] DXA Bone Densitometry Report: [ 10/23/2024] BMD test performed using the [employer] DXA System (analysis version: 14.10) manufactured by [employer] REFERRING PROVIDER: Dr. Becky Moralez APRN CLINICAL INFORMATION: osteoporosis PATIENT NAME: Bailey Camacho [...] Antibody - ED (12/16/2023 7:02 PM EDT) Hepatitis C Antibody Negative Negative 12/16/2023 8:02 PM EDT [facility] Blood Venous blood specimen / Unknown Venipuncture / Unknown 12/16/2023 7:02 PM EDT 12/16/2023 7:20 PM EDT us Heike Cruz LAB BLOOD ORDERABLES Final Resul t [facility] [address] [place] [phone] from Last 3 Months or Most Recently Relevant to Health Maintenance Insurance [facility] MEDICARE Advance Directives * Full Code (Latest Code Status on File) Date Activated Date Inactivated Comments 02/24/2024 7:10 AM 03/08/2024 3:38 PM Question Answer Comments Patient has decision-making capacity? Yes * Full Code Date Activated Date Inactivated Comments 12/16/2023 11:54 PM 12/25/2023 3:53 PM Question Answer Comments Patient has decision-making capacity? Yes Care Teams Highway Maintenance Crew Worker Relationship Specialty Start Date End Date Michelle Gray APRN [address] [place] [id number] PCP - General 11/17/23
--- OUTSIDE RECORDS SUMMARY | 2025-01-12 10:48 | XMS_ITS | Continuity of Care Document ---
Author Organization [facility] [employer]., [facility] Address [address] [place] [address] Care Team Providers Care Retarder Operator Name Role Phone JEFFERYBRITNI Chemical Research Worker SKYLAR DANIELS Business Mail Entry Clerk EMELIA FALL Neurologist MICHELLE GRAY Primary Care Provider EMA Candelario Rn New Graduate Assessment No assessment recorded. Plan of Treatment Reminders Order Date Submit Date Provider Last Modified By Organization Details Last Modified Time Details Appointments None recorded. Lab HbA1c (hemoglobin A1c), blood 2024 025 [email or web address] [facility], [address] [place] [address], [phone], 5 12:52:28 Referral carpenters helper referral - first available appt 2024 025 TYREL [facility], [address], [place], [address], 5 09:35:59 home health referral - DEE DEE. to help pt with bathing and LLE wound care 2024 025 cee [facility], [address], [place], [address], 5 15:56:28 Procedures None recorded. Surgeries None recorded. Imaging None recorded. Medication Orders cephalexin 500 mg capsule 2024 025 [facility], [address] [place] [address], [address], 05:02:28 atorvastati n 20 mg tablet 2024 025 [facility], [address] [place] [address], [address], 13:26:37 Accu-Chek Guide test strips 2024 025 [facility], [address] [place] [address], [address], 10:26:50 glipizide 10 mg tablet 2024 [facility], [address] [place] [address], [address], 10:36:00 Trulicity 1.5 mg/0.5 mL subcutaneou s pen injector 2024 025 [facility], [address] [place] [address], [address], 10:26:52 cyanocobala min (vit B-12) 1,000 mcg tablet 2024 025 [facility], [address] [place] [address], [address], 10:35:59 Patient TargetsNo targets recorded. Patient InstructionsNo instructions recorded. Reason for Referral Behavioral Health Therapist Referral for Ulce r of left foot first available appt Referring Physician: Michelle Gray, Family Medicine, Encounter Date: 12/29/2024 Home Health Referral for Ulc er of left foot DEE DEE. to help pt with bathing and LLE wound care Referring Physician: Michelle Gray Family Medicine, Encounter Date: 12/29/2024 Results Created Date Observation Date Name Description Value Unit Range Abnormal Flag Note LastModifiedBy Organization Detail LastModifiedTime 12/30/19 25 12/29/2024 HbA1c (hemo globi n A1c), blood HbA1c 5.3 Not Available [address], [place], [address], 12/29/2024 11:14:29 01/06/20 25 01/05/2025 imagi ng/di agnos tic resul t No observ ation record ed. [facility] [address], [place], [address], 01/05/2025 16:48:59 Result Notes None recorded. 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 2 10:02:22 Plantar fascial fibromat osis 46684179 Completed 201710/02/2017 Problem Code: M72.2; Problem Code Type: ICD-10; Not Available [facility] 2 21:52:14 Hyperten sive disorder 01524141 Active 2018 Problem Code: I10; Problem Code Type: ICD-10; Not Available [facility] 2 21:52:11 Multiple cysts of breast 610924618 Active 2018 Not Available [facility] 2 21:52:12 Screenin g mammogra phy Completed 201801/03/2022 Problem Code: Z12.31; Problem Code Type: ICD-10; EMELY garg [employer] 2 10:02:22 Endocrin e/metabo lic screenin g Completed 201901/03/2022 Problem Code: Z13.29; Problem Code Type: ICD-10; EMELY garg, [employer] 2 10:02:22 Finding of body mass index 071285952 Completed 201901/03/2022 Problem Code: Z68.41; Problem Code Type: ICD-10; EMELY garg, [employer] 2 10:02:22 Nicotine dependen ce 18413607 Active 2020 Problem Code: F17.200; Problem Code Type: ICD-10; Not Available [facility] 2 21:52:11 General examinat ion of patient Completed 202007/08/2020 Not Available [facility] 2 21:52:12 Body mass index 40+ - severely obese 866095327 Completed 202001/03/2022 EMELY garg, [employer] 2 10:02:22 Polyalgi a 835718561 Completed 202001/03/2022 Problem Code: M79.89; Problem Code Type: ICD-10; EMELY garg, [employer] 2 10:02:22 Edema 323044082 Completed 202001/03/2022 EMELY ISABELNER britany, [employer] 2 10:02:22 Obesity 796893712 Active 2020 Not Available [facility] 2 21:52:11 Chronic fatigue syndrome 98804212 Active 2020 Problem Code: R53.82; Problem Code Type: ICD-10; Not Available [facility] 2 21:52:12 Screenin g for malignan t neoplasm of colon Completed 202001/03/2022 EMELY ISABELNER [employer] 2 10:02:22 On examinat ion - inspecti on of blood Completed 202001/03/2022 EMELY garg, [employer] 2 10:02:22 Hyperlip idemia 53531916 Active 2020 Problem Code: E78.5; Problem Code Type: ICD-10; Not Available [facility] 2 21:52:11 Body mass index 40+ - severely obese 699324280 Completed 202004/18/2021 EMELY garg, [employer] 2 10:02:22 Body mass index 30+ - obesity 935361024 Completed 202101/03/2022 Problem Code: Z68.43; Problem Code Type: ICD-10; EMELY garg, [employer] 2 10:02:22 Type 2 diabetes mellitus without complica tion 791048582 Active 2021 Not Available [facility] 2 21:52:11 Epilepti c seizure 309090247 Active 2021 Problem Code: G40.509; Problem Code Type: ICD-10; EMELY garg, [employer] 2 10:02:52 Cardiac pacemake r in situ 437486452 Active 2021 Problem Code: Z95.0; Problem Code Type: ICD-10; Not Available [facility] 2 21:52:15 Localize d swelling , mass and lump, neck Active 2021 Problem Code: R22.1; Problem Code Type: ICD-10; Not Available [facility] 2 21:52:14 Pain in right foot 03754097599 9107 Active [address], [address] , [employer] 4 13:11:04 Fracture of phalanx of foot 78165643 Active [address], [address] , [employer] 4 16:55:26 Type 2 diabetes mellitus 24226601 Active 2024 Bonnie garg, [employer] 5 15:25:38 Senile osteopor osis 05627006 Active 2024 Bonnie garg, [employer] 5 12:15:09 Postcoit al bleeding 02556794 Active 2024 Bonnie garg, [employer] 5 12:16:01 Diabetes mellitus 88741083 Active 2024 Bonnie Diaz [email or web address], [employer] 5 11:14:24 Ulcer of left foot 524795497 Active 2024 Bonnieblake garg, [employer] 5 11:27:10 Notes:Some problems listed i n Documents: #[id number], #[id number], #[id number] could not be added to this patient's chart. Please review these documents and add these problems to the patient's chart manually as needed. Problem Notes None recorded. Procedures Surgical History Date Name Laterality Status Provider Name and Address Organization Details Recorded Time 4 Most Recent Mammogram completed [employer] 05/26/2023 12:22:46 2 cardiac pacemaker procedure completed Not Available [facility] 12/13/2021 22:56:09 Knee Surgery completed [employer] 01/22/2024 13:57:31 Imaging Results None recorded. Procedure [...] % 97.6 [degF] 131/65 mm[Hg] Bonnie Diaz [employer] 11:14:52 Social History Question Answer Notes LastModified by Organizat ion Details LastModified Time Tobacco Smoking Status Former Smoker Bonnie garg [employer] 05/06/2024 14:20:26 Do You Have An Advance Directive? No [email or web address] Information not available 01/03/2022 Are You Blind Or Do You Have Difficulty Seeing? No Information not available 01/03/2022 What Is Your Level Of Caffeine Consumption? Occasional Information not available 08/20/2023 Are You A Caregiver? Yes [email or web address] Information not available 04/14/2022 In The 14 Days Before Symptom Onset, Have You Had Close Contact With A Laboratory-confir med COVID-19 While That Case Was Ill? No [email or web address] Information not available 01/03/2022 In The 14 Days Before Symptom Onset, Have You Had Close Contact With A Person Who Is Under Investigation For COVID-19 While That Person Was Ill? No [email or web address] Information not available 01/03/2022 Have You Been To An Area Known To Be High Risk For COVID-19? No [email or web address] Information not available 01/03/2022 Are You Deaf Or Do You Have Serious Difficulty Hearing? No [email or web address] Information not available 01/03/2022 When Did You Quit Smoking? 1-5yearssincel sergey Information not available 05/06/2024 Do You Have A Medical Power Of Jeep Driver? No [email or web address] Information not available 01/03/2022 What Was The Date Of Your Most Recent Tobacco Screening? 12/29/2024 Information not available 12/29/2024 What Is Your Current Pack Years? 30joyceorewei linda [email or web address] Information not available 01/03/2022 What Is Your Relationship Status? Single [email or web address] Information not available 01/03/2022 Do You Use Your Seat Belt Or Car Seat Routinely? Yes [email or web address] Information not available 04/14/2022 Are You Passively Exposed To Smoke? Yes [email or web address] Information no t available 04/14/2022 Are There Any Smokers In Your House? Yes [email or web address] Information not available 04/14/2022 How Much Tobacco Do You Smoke? 0.5 PPD [email or web address] Information not available 01/03/2022 Has Tobacco Cessation Counseling Been Provided? Yes Information not available 05/21/2023 On What Date Was Tobacco Cessation Counseling Provided? 12/29/2024 Information not available 12/29/2024 Have You Recently Traveled Abroad? No [email or web address] Information not available 01/03/2022 Do You Have Difficulty Walking Or Climbing Stairs? No [email or web address] Information not available 01/03/2022 Are You Currently In School? No [email or web address] Information not available 04/14/2022 Sex: Female Functional Status Question Answer Note LastModified by Organizat ion Details LastModified Time Do you use any illicit or recreational drugs? No Information not available 08/20/2023 What is your level of alcohol consumption? None [email or web address] Information not available 01/03/2022 Do you have transportation difficulties? No [email or web address] Information not available 01/03/2022 Are you able to walk independently without assistance or assistive devices? YESWOREST [email or web address] Information not available 01/03/2022 Do you have difficulty doing errands alone? No [email or web address] Information not available 01/03/2022 Are you able to care for yourself independently? Yes [email or web address] Information not available 01/03/2022 Do you have difficulty dressing, bathing, grooming, or toileting? No [email or web address] Information not available 01/03/2022 Mental Status Question Answer Note LastModified by Organization D etails LastModified Time Do you have difficulty concentrating, remembering or making decisions? No Information no t available 01/03/2022 Family History Relationship Description Onset Age of this Age Resolved Age Notes LastModified by Organization Details LastModified Time Unspecified Relation Family history of Rheumatoid arthritis [email or web address] Not available 01/03 10:03:04 Mother Family history of diabetes mellitus type 2 Not available 01/03 10:03:27 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 Condition Response Diabetes Y Hospitalizations N Emergency room visit since last appointm ent. N High Cholesterol Y Hypertension Y Gynecological History Statement/Question Response Date of Last Pap Smear Most Recent Mammogram 05/18/2023 Obstetrics History GPAL:G 0 P 0 0 0 0 Immunizations Vaccine Type Date Status Note Provider Name and Address Organization Details Recorded Time pneumococcal polysaccharide PPV23 cancelled patient objection Michelle Gray APRN [address] [place] [address], [address], [employer] 08/20/2023 10:06:02 zoster recombinant 024 completed Michelle Gray APRN [address] [place] [address], [address], [employer] 08/20/2023 10:06:02 zoster recombinant 024 completed Anais Rubio null, [employer] 11/20/2023 17:53:49 Tdap 022 completed EMELY STILL null, [employer] 04/14/2022 11:52:55 Influenza, split virus, quadrivalent, PF 019 completed EMELY garg, [employer] 04/14/2022 11:52:55 Tdap 024 completed Not Available [facility] 12/29/2024 11:05:47 Influenza, split virus, quadrivalent, PF 022 completed Michelle Gray APRN [address] [place], [address], [place] [employer] 01/03/2022 10:44:25 Past Encounters Encounter ID Performer Location Encounter Start Date Encounter Closed Date Diagnosis/Indication Diagnosis SNOMED-CT Code Diagnosis ICD10 Code Diagnosis IMO Codes Diagnosis Note [id number] Michelle Gray, [address] [address] 12/29/2024 11:04:50 12/29/2024 11:49:35 Diabetes mellitus 97171848 E11.9 61465 pt declined dm foot exam, she states that she would like to do it at next visit. Ulcer of left foot 34681 1006 L97.529 14748368 Type 2 yovani betes mellitus without complication 158909921 E11.9 Hyperlipidemia 04210157 E78.5 Cobalamin deficiency 190 470666 E53.8 Cellulitis of right lower limb 7040765667 6829973 L03.115 317689 Body mass index 40+ - severely obese 425568900 E66.01 Z68.43 [id number] Goals Section Goal Description Progress Status Start [...] pressure goal as defined by care team NoCdiamond active 2023 Ema Cho Information not available [...] Ema Cho Not Available 07/24/2023 16:01 :33 Payers Encounter Date Sequence Insurance Name Policy Number Policy William Covered Member ID William Member ID Guarantor Name 12/29/2024 2 MEDICAID-[facility] CHOICES - FFS/TRADITIO NAL Bailey Camacho [id number] Bailey Camacho 12/29/[address] [facility] (MEDICARE REPLACEMENT/ ADVANTAGE - HMO) [id number] Bailey Camacho [id number] Bailey Camacho Notes Date Note Type Note Provider Name and Address Organization Details Recorded Time 12/29/2024 text/html pt here today for medication [...] leg that required sx. pt was [facility] for rehab and then did home [...] wound care referral. Michelle Gray APRN [address] [facility]3], [place], [address], [facility] [employer] 12/29/2024 12:52:25 OBGyn Episode No OBEpisode recorded.
--- OUTSIDE RECORDS SUMMARY | 2025-01-12 10:48 | XMS_ITS | Encounter Summary ---
Author Organization Healthcare Address [address] [place] [address] Care Team Providers Care Pigment Pumper Name Role Phone Michelle Gray APRN Primary Care Provider [phone] Reason for Visit * Reason Onset Date Comments Medication Therapy Management 12/16/2024 Encounter Details Date Type Department Care Team (Late st Contact Info) Description 12/16/2024 Telephone [facility] [address] [place] [phone] Valentina Brown, [place] [address] Medication Therapy Management Social History Tobacco Use [...] in the past 12 m [facility], were you homeless or living in a [...] the past 12 months has th e [employer], gas, oil, or water [employer] threatened to shut off services in your [...] 90 day fill 12/16/24 Valentina Brown PharmD [facility] MTM Team documented in this encounter Plan of Treatment Upcoming Encounters Date Type Department Care Team (Late st Contact Info) Description 02/05/2025 10:00 AM EDT Office Visit [facility] [address] [place] [address] Carmen Houser MD [address] [facility] [address] [place] [address] 02/24/2025 10:40 AM EST Office Visit [facility] [address] [facility], [address] [place] [address] Becky Moralez APRN [address] [facility] [address] [place] [address] 03/17/2025 9:30 AM EST Appointment [facility] [address], [address] [place] [address] 03/17/2025 10:10 AM EST Office Visit [facility] [address], [address] [place] [address] Terry Santoyo MD [address] [facility] [address] [place] [address] documented as of this encounter [...] documented as of this encounter Care Teams Pigment Pumper Relationship Specialty Start Date End Date Michelle Gray APRN [address] [place] [address] PCP - General 11/17/23 documented as of this encounter
--- NOTE | 2025-01-12 11:00 | US_ITS ---
FINAL REPORT CLINICAL HISTORY: Evaluation of Decreased Pedal Pulses, previous smoker, HTN, DM, HLD, ulcers on left great toe, 3rd toe, and 4th toe. Bilateral foot discoloration, worsening with laying flat. FINDINGS: ANKLE-BRACHIAL PRESSURE INDICES Pressure indices are as follows: RIGHT LOWER EXTREMITY: Ankle-brachial pressure index: 0.94 Comments: Borderline LEFT LOWER EXTREMITY: Ankle-brachial pressure index: 1.09 Comments: Normal IMPRESSION: Borderline obstructive peripheral vascular disease of the right lower extremity with no evidence of disease on the left. Reviewed, Interpreted and Dictated by Ale Escalante MD Transcribed by Araseli Niño Authenticated and [facility]
--- OUTSIDE RECORDS SUMMARY | 2025-03-03 20:00 | XMS_ITS | Clinical Summary ---
Author Organization Unknown Care Team Providers Care Frog Catcher Name Role Phone [employer], MONSERRAT Unavailable Unavailable NORRIS GUILLEN, JIN Unavailable Unavailable Payers Payer Name Policy Type Policy Number Effective Date Expira tion Date [facility].[id number] Problems Condition Name Condition Details Condition Category Status Onset Date Resolution Date Last Treatment Date Treating Clinician Comments NON-PRESSUR E CHRONIC ULCER OTH PRT LEFT FOOT W UNSP SEVERITY Active 12-29 00:00: 00 Allergies, Adverse Reactions, Alerts Allergy Name Allergy Type Status Severity Reaction(s) Onset Date Inactive Date Treating Clinician Comments NO KNOWN ALLERGIES Propensity to adverse reactions Active 01-04 13:50: 26 Vital Signs Vital Name Observation Time Observation Value Commen ts Temperature 2025-01-08 12:09:00.000 98.4 [degF] Temperature 2025-01-04 14:33:00.000 98.3 [degF] BMI (%) 2025-01-04 14:16:22.000 53 kg/m2 Height 2025-01-04 14:15:57.000 68 [in_us] Pulse 2025-01-08 12:09:00.000 60 /min Pulse 2025-01-07 16:45:00.000 60 /min Pulse 2025-01-04 14:33:00.000 64 /min O2 Saturation (%) 2025-01-07 16:45:00.000 96 % O2 Saturation (%) 2025-01-04 14:33:00.000 95 % Respirations 2025-01-08 12:09:00.000 18 /min Respirations 2025-01-07 16:45:00.000 18 /min Respirations 2025-01-04 14:33:00.000 16 /min Weight (lbs) 2025-01-04 14:16:22.000 352 [lb_av] Systolic Blood Pressure 2025-01-08 12:09:00.000 138 mm [Hg] Systolic Blood Pressure 2025-01-07 16:45:00.000 136 mm [Hg] Systolic Blood Pressure 2025-01-04 14:33:00.000 156 mm [Hg] Diastolic Blood Pressure 2025-01-08 12:09:00.000 66 mm [Hg] Diastolic Blood Pressure 2025-01-07 16:45:00.000 64 mm [Hg] Diastolic Blood Pressure 2025-01-04 14:33:00.000 80 mm [Hg] Plan of Treatment Planned Activity Planned Date Details Comments Future Scheduled Test RN TO OBSE RVE, ASSESS, EVALUATE, AND DEVELOP AN INDIVIDUALIZED PLAN OF CARE. AGENCY MAY ACCEPT ORDERS FROM CONSULTING PHYSICIANS JOHNNA TRIPLETT DRAFTER CIVIL ENGINEERING, BRITNI TUBBS FLIGHT TEST MECHANIC, SKYLAR DANIELS MD POWDER COAT PAINTER, EMELIA FALL MD NEUROLOGIST. RN TO OBSERVE AND ASSESS, INDUSTRIAL X RAY OPERATOR/SLIDE FASTENER REPAIRER TO OBSERVE FOR RISK FOR FALLS AND INSTRUCT IN FALL PREVENTION, HOME SAFETY, MEDICATION MANAGEMENT, INFECTION PREVENTION, AND NUTRITION MANAGEMENT. RN/INDUSTRIAL X RAY OPERATOR/SLIDE FASTENER REPAIRER NURSE MAY PERFORM O2 SATURATION LEVEL ON ADMISSION AND PRN, FOR RN TO ASSESS/INDUSTRIAL X RAY OPERATOR TO OBSERVE PATIENT, WITH NOTIFICATION TO THE PHYSICIAN IF SATURATION IS 90% IN THE ABSENCE OF MORE SPECIFIC PARAMETERS FROM THE PHYSICIAN. AGENCY MAY PERFORM A RESUMPTION OF CARE VISIT FOLLOWING ANY HOSPITAL ADMISSION. RN/INDUSTRIAL X RAY OPERATOR/SLIDE FASTENER REPAIRER TO MONITOR CO-MORBID CONDITIONS LISTED ON THE PLAN OF CARE AND ANY NEW CONDITIONS THAT PRESENT THEMSELVES DURING THIS EPISODE TO IDENTIFY CHANGES AND INTERVENE TO MINIMIZE COMPLICATIONS. [code = RN TO OBSERVE, ASSESS, EVALUATE, AND DEVELOP AN INDIVIDUALIZED PLAN OF CARE. AGENCY MAY ACCEPT ORDERS FROM CONSULTING PHYSICIANS JOHNNA TRIPLETT DRAFTER CIVIL ENGINEERING, BRITNI TUBBS FLIGHT TEST MECHANIC, SKYLAR DANIELS MD POWDER COAT PAINTER, EMELIA FALL MD NEUROLOGIST. RN TO OBSERVE AND ASSESS, INDUSTRIAL X RAY OPERATOR/SLIDE FASTENER REPAIRER TO OBSERVE FOR RISK FOR FALLS AND INSTRUCT IN FALL PREVENTION, HOME SAFETY, MEDICATION MANAGEMENT, INFECTION PREVENTION, AND NUTRITION MANAGEMENT. RN/INDUSTRIAL X RAY OPERATOR/SLIDE FASTENER REPAIRER NURSE MAY PERFORM O2 SATURATION LEVEL ON ADMISSION AND PRN, FOR RN TO ASSESS/INDUSTRIAL X RAY OPERATOR TO OBSERVE PATIENT, WITH NOTIFICATION TO THE PHYSICIAN IF SATURATION IS 90% IN THE ABSENCE OF MORE SPECIFIC PARAMETERS FROM THE PHYSICIAN. AGENCY MAY PERFORM A RESUMPTION OF CARE VISIT FOLLOWING ANY HOSPITAL ADMISSION. RN/INDUSTRIAL X RAY OPERATOR/SLIDE FASTENER REPAIRER TO MONITOR CO-MORBID CONDITIONS LISTED ON THE PLAN OF CARE AND ANY NEW CONDITIONS THAT PRESENT THEMSELVES DURING THIS EPISODE TO IDENTIFY CHANGES AND INTERVENE TO MINIMIZE COMPLICATIONS.] Future Scheduled Test MEDICATION MANAGEMENT; RN/INDUSTRIAL X RAY OPERATOR/SLIDE FASTENER REPAIRER TO REVIEW MEDICATIONS FOR INTERACTIONS, EFFECTIVENESS OF DRUG THERAPY, AND SIGNS/SYMPTOMS OF ADVERSE REACTIONS. MAY INSTRUCT AND REINFORCE MEDICATION TEACHING RELATED TO THE USE OF MEDICATIONS, DOSAGE, FREQUENCY, PURPOSE, SIDE EFFECTS, AND TO REPORT COMPLICATIONS. [code = MEDICATION MANAGEMENT; RN/INDUSTRIAL X RAY OPERATOR/SLIDE FASTENER REPAIRER TO REVIEW MEDICATIONS FOR INTERACTIONS, EFFECTIVENESS OF DRUG THERAPY, AND SIGNS/SYMPTOMS OF ADVERSE REACTIONS. MAY INSTRUCT AND REINFORCE MEDICATION TEACHING RELATED TO THE USE OF MEDICATIONS, DOSAGE, FREQUENCY, PURPOSE, SIDE EFFECTS, AND TO REPORT COMPLICATIONS.] Future Scheduled Test RISK FOR H OSPITALIZATION; RN TO ASSESS/TEACH, SLIDE FASTENER REPAIRER/INDUSTRIAL X RAY OPERATOR TO OBSERVE/TEACH PATIENT/CAREGIVER ON RISK FOR HOSPITALIZATION/EMERGENCY ROOM VISITS, TEACH SIGNS AND SYMPTOMS THAT PUT PATIENT AT RISK, WHEN TO NOTIFY NURSE/PHYSICIAN OF COMPLICATIONS/DECLINE, AND WHEN TO CALL 911. [code = RISK FOR HOSPITALIZATION; RN TO ASSESS/TEACH, SLIDE FASTENER REPAIRER/INDUSTRIAL X RAY OPERATOR TO OBSERVE/TEACH PATIENT/CAREGIVER ON RISK FOR HOSPITALIZATION/EMERGENCY ROOM VISITS, TEACH SIGNS AND SYMPTOMS THAT PUT PATIENT AT RISK, WHEN TO NOTIFY NURSE/PHYSICIAN OF COMPLICATIONS/DECLINE, AND WHEN TO CALL 911.] Future Scheduled Test CARDIOVASC ULAR SYSTEM; RN TO ASSESS/TEACH, INDUSTRIAL X RAY OPERATOR/SLIDE FASTENER REPAIRER TO OBSERVE/TEACH RELATED TO ALTERED CARDIOVASCULAR STATUS TO MINIMIZE COMPLICATIONS AND REDUCE HOSPITALIZATION. [code = CARDIOVASCULAR SYSTEM; RN TO ASSESS/TEACH, INDUSTRIAL X RAY OPERATOR/SLIDE FASTENER REPAIRER TO OBSERVE/TEACH RELATED TO ALTERED CARDIOVASCULAR STATUS TO MINIMIZE COMPLICATIONS AND REDUCE HOSPITALIZATION.] Future Scheduled Test HYPERTENSI ON MANAGEMENT; RN TO ASSESS AND TEACH, INDUSTRIAL X RAY OPERATOR/SLIDE FASTENER REPAIRER TO OBSERVE AND TEACH WARNING SIGNS AND SYMPTOMS TO AVOID HOSPITALIZATION. [code = HYPERTENSION MANAGEMENT; RN TO ASSESS AND TEACH, INDUSTRIAL X RAY OPERATOR/SLIDE FASTENER REPAIRER TO OBSERVE AND TEACH WARNING SIGNS AND SYMPTOMS TO AVOID HOSPITALIZATION.] Future Scheduled Test PACEMAKER MANAGEMENT; RN/INDUSTRIAL X RAY OPERATOR/SLIDE FASTENER REPAIRER TO PROVIDE SKILLED TEACHING AND ASSIST WITH MANAGEMENT OF PACEMAKER. [code = PACEMAKER MANAGEMENT; RN/INDUSTRIAL X RAY OPERATOR/SLIDE FASTENER REPAIRER TO PROVIDE SKILLED TEACHING AND ASSIST WITH MANAGEMENT OF PACEMAKER.] Future Scheduled Test RESPIRATOR Y SYSTEM MANAGEMENT; RN TO ASSESS AND TEACH, INDUSTRIAL X RAY OPERATOR/SLIDE FASTENER REPAIRER TO OBSERVE AND TEACH RELATED TO ALTERED RESPIRATORY STATUS TO MINIMIZE COMPLICATIONS AND REDUCE HOSPITALIZATION. [code = RESPIRATORY SYSTEM MANAGEMENT; RN TO ASSESS AND TEACH, INDUSTRIAL X RAY OPERATOR/SLIDE FASTENER REPAIRER TO OBSERVE AND TEACH RELATED TO ALTERED RESPIRATORY STATUS TO MINIMIZE COMPLICATIONS AND REDUCE HOSPITALIZATION.] Future Scheduled Test COPD MANAG EMENT; RN TO ASSESS AND TEACH, INDUSTRIAL X RAY OPERATOR/SLIDE FASTENER REPAIRER TO OBSERVE AND TEACH SIGNS/SYMPTOMS OF COPD EXACERBATION AND PROVIDE EARLY INTERVENTIONS TO MINIMIZE RISK OF HOSPITALIZATION. RN/INDUSTRIAL X RAY OPERATOR/SLIDE FASTENER REPAIRER TO INSTRUCT ON SELF-CARE MANAGEMENT INCLUDING BREATHING TECHNIQUES, AIRWAY CLEARANCE, AND PROPER USE OF COPD MEDICATIONS. RN TO ASSESS AND TEACH, INDUSTRIAL X RAY OPERATOR/SLIDE FASTENER REPAIRER TO OBSERVE AND TEACH PATIENT/CAREGIVER ABILITY TO MONITOR AND RECORD VITAL SIGNS INCLUDING PULSE OXIMETRY AND BLOOD PRESSURE. PULSE OXIMETER AND BP MONITOR TO BE PROVIDED IF NEEDED. [code = COPD MANAGEMENT; RN TO ASSESS AND TEACH, INDUSTRIAL X RAY OPERATOR/SLIDE FASTENER REPAIRER TO OBSERVE AND TEACH SIGNS/SYMPTOMS OF COPD EXACERBATION AND PROVIDE EARLY INTERVENTIONS TO MINIMIZE RISK OF HOSPITALIZATION. RN/INDUSTRIAL X RAY OPERATOR/SLIDE FASTENER REPAIRER TO INSTRUCT ON SELF-CARE MANAGEMENT INCLUDING BREATHING TECHNIQUES, AIRWAY CLEARANCE, AND PROPER USE OF COPD MEDICATIONS. RN TO ASSESS AND TEACH, INDUSTRIAL X RAY OPERATOR/SLIDE FASTENER REPAIRER TO OBSERVE AND TEACH PATIENT/CAREGIVER ABILITY TO MONITOR AND RECORD VITAL SIGNS INCLUDING PULSE OXIMETRY AND BLOOD PRESSURE. PULSE OXIMETER AND BP MONITOR TO BE PROVIDED IF NEEDED.] Future Scheduled Test SKIN INTEG RITY RN TO ASSESS AND TEACH, INDUSTRIAL X RAY OPERATOR/SLIDE FASTENER REPAIRER TO OBSERVE AND TEACH INTEGUMENTARY STATUS TO IDENTIFY CHANGES AND INTERVENE TO MINIMIZE COMPLICATIONS. PROVIDE SKILLED TEACHING OF GENERAL WOUND AND SKIN CARE AND PREVENTION RELATED TO POTENTIAL FOR OR ACTUAL ALTERED SKIN INTEGRITY [code = SKIN INTEGRITY RN TO ASSESS AND TEACH, INDUSTRIAL X RAY OPERATOR/SLIDE FASTENER REPAIRER TO OBSERVE AND TEACH INTEGUMENTARY STATUS TO IDENTIFY CHANGES AND INTERVENE TO MINIMIZE COMPLICATIONS. PROVIDE SKILLED TEACHING OF GENERAL WOUND AND SKIN CARE AND PREVENTION RELATED TO POTENTIAL FOR OR ACTUAL ALTERED SKIN INTEGRITY] Future Scheduled Test RN TO ASSE SS, INDUSTRIAL X RAY OPERATOR/SLIDE FASTENER REPAIRER TO OBSERVE LOWER EXTREMITY VENOUS STASIS ULCER(S) AND INTERVENE TO MINIMIZE COMPLICATIONS. PROVIDE SKILLED TEACHING TO PATIENT/CAREGIVER RELATED TO ALTERED SKIN INTEGRITY. REPORT SIGNIFICANT CHANGES IN STATUS TO PHYSICIAN FOR EARLY INTERVENTION [code = RN TO ASSESS, INDUSTRIAL X RAY OPERATOR/SLIDE FASTENER REPAIRER TO OBSERVE LOWER EXTREMITY VENOUS STASIS ULCER(S) AND INTERVENE TO MINIMIZE COMPLICATIONS. PROVIDE SKILLED TEACHING TO PATIENT/CAREGIVER RELATED TO ALTERED SKIN INTEGRITY. REPORT SIGNIFICANT CHANGES IN STATUS TO PHYSICIAN FOR EARLY INTERVENTION] Future Scheduled Test RN/INDUSTRIAL X RAY OPERATOR/SLIDE FASTENER REPAIRER TO PERFORM/TEACH VENOUS STASIS ULCER CARE TO LEFT LEG AREA: IRRIGATE/CLEANSE WITH WOUND CLEANSER, PAT DRY MAY APPLY SKIN BARRIER TO PERIWOUND AREA PRN TO PREVENT SKIN MACERATION AND PROTECT PERIWOUND APPLY MEDI HONEY TO WOUND BED COVER WITH ABSORBANT PAD APPLY AQUAPHOR TO DRY AREAS WRAP WITH ROLLED GAUZE AND COMPRESSION (MAGALI) WRAP SECURE WITH PAPER TAPE CHANGE DRESSING EVERY 2 X WEEKLY AND PRN FOR DISLODGEMENT OR INCREASED DRAINAGE. [code = RN/INDUSTRIAL X RAY OPERATOR/SLIDE FASTENER REPAIRER TO PERFORM/TEACH VENOUS STASIS ULCER CARE TO LEFT LEG AREA: IRRIGATE/CLEANSE WITH WOUND CLEANSER, PAT DRY MAY APPLY SKIN BARRIER TO PERIWOUND AREA PRN TO PREVENT SKIN MACERATION AND PROTECT PERIWOUND APPLY MEDI HONEY TO WOUND BED COVER WITH ABSORBANT PAD APPLY AQUAPHOR TO DRY AREAS WRAP WITH ROLLED GAUZE AND COMPRESSION (MAGALI) WRAP SECURE WITH PAPER TAPE CHANGE DRESSING EVERY 2 X WEEKLY AND PRN FOR DISLODGEMENT OR INCREASED DRAINAGE.] Future Scheduled Test PAIN MANAG EMENT; RN TO ASSESS AND TEACH, SLIDE FASTENER REPAIRER/INDUSTRIAL X RAY OPERATOR TO OBSERVE AND TEACH AND PROVIDE EDUCATION ON PAIN MANAGEMENT TECHNIQUES. [code = PAIN MANAGEMENT; RN TO ASSESS AND TEACH, SLIDE FASTENER REPAIRER/INDUSTRIAL X RAY OPERATOR TO OBSERVE AND TEACH AND PROVIDE EDUCATION ON PAIN MANAGEMENT TECHNIQUES.] Future Scheduled Test GENITOURIN REYNALDO MANAGEMENT; RN TO ASSESS AND TEACH, INDUSTRIAL X RAY OPERATOR/SLIDE FASTENER REPAIRER TO OBSERVE AND TEACH RELATED TO ALTERED GENITOURINARY STATUS TO MINIMIZE COMPLICATIONS AND REDUCE HOSPITALIZATION. [code = GENITOURINARY MANAGEMENT; RN TO ASSESS AND TEACH, INDUSTRIAL X RAY OPERATOR/SLIDE FASTENER REPAIRER TO OBSERVE AND TEACH RELATED TO ALTERED GENITOURINARY STATUS TO MINIMIZE COMPLICATIONS AND REDUCE HOSPITALIZATION.] Future Scheduled Test URINARY IN CONTINENCE MANAGEMENT; RN TO ASSESS AND TEACH, INDUSTRIAL X RAY OPERATOR/LVNTO OBSERVE AND TEACH MANAGEMENT OF URINARY INCONTINENCE. TEACH/INSTRUCT ON PREVENTING INFECTION AND SKIN BREAKDOWN. RN/INDUSTRIAL X RAY OPERATOR/SLIDE FASTENER REPAIRER MAY INSTRUCT IN BLADDER TRAINING PROGRAM INDICATED. [code = URINARY INCONTINENCE MANAGEMENT; RN TO ASSESS AND TEACH, INDUSTRIAL X RAY OPERATOR/LVNTO OBSERVE AND TEACH MANAGEMENT OF URINARY INCONTINENCE. TEACH/INSTRUCT ON PREVENTING INFECTION AND SKIN BREAKDOWN. RN/INDUSTRIAL X RAY OPERATOR/SLIDE FASTENER REPAIRER MAY INSTRUCT IN BLADDER TRAINING PROGRAM INDICATED.] Future Scheduled Test ANEMIA MAN AGEMENT; RN TO ASSESS AND TEACH, SLIDE FASTENER REPAIRER/INDUSTRIAL X RAY OPERATOR TO OBSERVE AND TEACH AND PROVIDE EDUCATION ON ANEMIA. [code = ANEMIA MANAGEMENT; RN TO ASSESS AND TEACH, SLIDE FASTENER REPAIRER/INDUSTRIAL X RAY OPERATOR TO OBSERVE AND TEACH AND PROVIDE EDUCATION ON ANEMIA.] Future Scheduled Test RN TO ASSE SS AND TEACH, INDUSTRIAL X RAY OPERATOR/SLIDE FASTENER REPAIRER TO OBSERVE AND TEACH FOR SIGNS AND SYMPTOMS OF SEPSIS AND/OR POST-SEPSIS SYNDROME AND INTERVENE TO MINIMIZE COMPLICATIONS. RN/INDUSTRIAL X RAY OPERATOR/SLIDE FASTENER REPAIRER TO PROVIDE SKILLED TEACHING TO PATIENT/CAREGIVER ON SEPSIS AND SELF-MANAGEMENT TECHNIQUES. RN/INDUSTRIAL X RAY OPERATOR/SLIDE FASTENER REPAIRER TO MONITOR PATIENT/CAREGIVER ADHERENCE TO MONITOR AND RECORD VITAL SIGNS INCLUDING TEMPERATURE, HEART RATE, RESPIRATIONS, AND SYMPTOMS. RN/INDUSTRIAL X RAY OPERATOR/SLIDE FASTENER REPAIRER TO PROVIDE SNF TO ACCOMPLISH THE PATIENT S PERSONAL GOAL. [code = RN TO ASSESS AND TEACH, INDUSTRIAL X RAY OPERATOR/SLIDE FASTENER REPAIRER TO OBSERVE AND TEACH FOR SIGNS AND SYMPTOMS OF SEPSIS AND/OR POST-SEPSIS SYNDROME AND INTERVENE TO MINIMIZE COMPLICATIONS. RN/INDUSTRIAL X RAY OPERATOR/SLIDE FASTENER REPAIRER TO PROVIDE SKILLED TEACHING TO PATIENT/CAREGIVER ON SEPSIS AND SELF-MANAGEMENT TECHNIQUES. RN/INDUSTRIAL X RAY OPERATOR/SLIDE FASTENER REPAIRER TO MONITOR PATIENT/CAREGIVER ADHERENCE TO MONITOR AND RECORD VITAL SIGNS INCLUDING TEMPERATURE, HEART RATE, RESPIRATIONS, AND SYMPTOMS. RN/INDUSTRIAL X RAY OPERATOR/SLIDE FASTENER REPAIRER TO PROVIDE SNF TO ACCOMPLISH THE PATIENT S PERSONAL GOAL.] Future Scheduled Test OCCUPATION AL THERAPIST TO EVALUATE FOR ADLS [code = OCCUPATIONAL THERAPIST TO EVALUATE FOR ADLS] Future Scheduled Test PRN VISITS ; NUMBER OF RN/INDUSTRIAL X RAY OPERATOR/SLIDE FASTENER REPAIRER VISITS: RN/INDUSTRIAL X RAY OPERATOR/SLIDE FASTENER REPAIRER TO PERFORM: WOUND ASSESSMENT FOR THE FOLLOWING REASONS: EXACERBATION TO WOUND ASSESSMENT [code = PRN VISITS; NUMBER OF RN/INDUSTRIAL X RAY OPERATOR/SLIDE FASTENER REPAIRER VISITS: RN/INDUSTRIAL X RAY OPERATOR/SLIDE FASTENER REPAIRER TO PERFORM: WOUND ASSESSMENT FOR THE FOLLOWING REASONS: EXACERBATION TO WOUND ASSESSMENT] Future Scheduled Test AGENCY MAY PERFORM A RESUMPTION OF CARE VISIT FOLLOWING ANY HOSPITAL ADMISSION. OT TO EVALUATE, OBSERVE / ASSESS, AND MONITOR, ARLINE TO OBSERVE AND MONITOR, PROVIDE SKILLED THERAPEUTIC INTERVENTION, ACTIVITY, EDUCATION, AND TRAINING TO ADDRESS;FUNCTIONAL TRANSFERS, HOME EQUIPMENT/ADAPTATIONS RECOMMENDATIONS ACTIVITIES OF DAILY LIVING (OT/ARLINE) CHAIR TRANSFERS (OT/OBIEE REPORT DEVELOPER) TOILET TRANSFER (OT/ARLINE) OT / ARLINE TO EDUCATE ON DIABETES SELF- MANAGEMENT OT/ARLINE TO MONITOR FOR AND REPORT EARLY SIGNS OF ANTICOAGULANT TOXICITY TO THE PHYSICIAN AND/OR THE RN CLINICAL SOAKER FOR PHYSICIAN NOTIFICATION AND TO PROVIDE PATIENT/CAREGIVER EDUCATION ON ANTICOAGULANT THERAPY OT/OBIEE REPORT DEVELOPER TO MONITOR FOR HYPO/HYPERGLYCEMIA AND CONDUCT ROUTINE FOOT INSPECTIONS. RECORD PATIENT REPORTED BLOOD SUGAR LEVELS AND NOTIFY PHYSICIAN AND/OR THE RN CLINICAL SOAKER FOR PHYSICIAN NOTIFICATION IF BLOOD SUGAR LEVELS ARE OUTSIDE ORDERED PARAMETERS. TEACH PATIENT/CAREGIVER ON DAILY FOOT INSPECTIONS. [code = AGENCY MAY PERFORM A RESUMPTION OF CARE VISIT FOLLOWING ANY HOSPITAL ADMISSION. OT TO EVALUATE, OBSERVE / ASSESS, AND MONITOR, OBIEE REPORT DEVELOPER TO OBSERVE AND MONITOR, PROVIDE SKILLED THERAPEUTIC INTERVENTION, ACTIVITY, EDUCATION, AND TRAINING TO ADDRESS;FUNCTIONAL TRANSFERS, HOME EQUIPMENT/ADAPTATIONS RECOMMENDATIONS ACTIVITIES OF DAILY LIVING (OT/ARLINE) CHAIR TRANSFERS (OT/OBIEE REPORT DEVELOPER) TOILET TRANSFER (OT/ARLINE) OT / OBIEE REPORT DEVELOPER TO EDUCATE ON DIABETES SELF- MANAGEMENT OT/ARLINE TO MONITOR FOR AND REPORT EARLY SIGNS OF ANTICOAGULANT TOXICITY TO THE PHYSICIAN AND/OR THE RN CLINICAL SOAKER FOR PHYSICIAN NOTIFICATION AND TO PROVIDE PATIENT/CAREGIVER EDUCATION ON ANTICOAGULANT THERAPY OT/ARLINE TO MONITOR FOR HYPO/HYPERGLYCEMIA AND CONDUCT ROUTINE FOOT INSPECTIONS. RECORD PATIENT REPORTED BLOOD SUGAR LEVELS AND NOTIFY PHYSICIAN AND/OR THE RN CLINICAL SOAKER FOR PHYSICIAN NOTIFICATION IF BLOOD SUGAR LEVELS ARE OUTSIDE ORDERED PARAMETERS. TEACH PATIENT/CAREGIVER ON DAILY FOOT INSPECTIONS.] Goal Patient Goal - WOUND HEALING Goal Provider Goal - A PLAN OF CARE WILL BE ESTABLISHED THAT MEETS THE PATIENT S NEEDS. PATIENT WILL DEMONSTRATE OXYGEN SATURATION WITHIN NORMAL LIMITS OR PATIENT S OPTIMAL LEVEL ESTABLISHED BY THE PHYSICIAN THROUGHOUT CARE. CHANGES TO CO-MORBID CONDITIONS AND ANY NEW CONDITIONS WILL BE IDENTIFIED AND REPORTED TO THE PHYSICIAN. Goal Provider Goal - PATIENT/CAREGIVER TO VERBALIZE, AND CONSISTENTLY DEMONSTRATE EFFECTIVE, SAFE MANAGEMENT OF MEDICATION INCLUDING KNOWLEDGE OF EFFECTIVENESS, POTENTIAL SIDE EFFECTS AND DRUG REACTIONS AND WHEN TO CONTACT THE APPROPRIATE CARE PROVIDER. PATIENT/CAREGIVER WILL BE ABLE TO VERBALIZE UNDERSTANDING OF MEDICATION REGIMEN AND ACCURATELY TAKE MEDICATIONS PRESCRIBED WITHOUT ADVERSE EFFECTS BY 9 WEEKS. Goal Provider Goal - PATIENT/CAREGIVER WILL VERBALIZE UNDERSTANDING OF SIGNS AND SYMPTOMS THAT PUT THE PATIENT AT RISK FOR HOSPITALIZATION /EMERGENCY ROOM VISITS, WHEN TO NOTIFY NURSE/PHYSICIAN OF COMPLICATIONS/DECLINE AND WHEN TO CALL 911. Goal Provider Goal - PATIENT / CAREGIVER WILL VERBALIZE/DEMONSTRATE UNDERSTANDING OF MEASURES TO MANAGE ALTERED CARDIOVASCULAR STATUS BY 6 WEEKS. Goal Provider Goal - PATIENT / CAREGIVER WILL VERBALIZE/DEMONSTRATE AN ABILITY TO ADHERE TO SELF-MANAGEMENT OF HTN TO MINIMIZE COMPLICATIONS AND AVOID HOSPITALIZATION BY END OF EPISODE. Goal Provider Goal - PATIENT / CAREGIVER WILL VERBALIZE/DEMONSTRATE UNDERSTANDING OF CARE AND MANAGEMENT OF PACEMAKER BY END OF EPISODE. Goal Provider Goal - PATIENT / CAREGIVER WILL VERBALIZE/DEMONSTRATE UNDERSTANDING OF MEASURES TO MANAGE ALTERED RESPIRATORY STATUS BY END OF EPISODE. Goal Provider Goal - PATIENT / CAREGIVER WILL VERBALIZE/DEMONSTRATE AN ABILITY TO ADHERE TO SELF-MANAGEMENT OF COPD TO MINIMIZE COMPLICATIONS AND AVOID HOSPITALIZATION BY END OF EPISODE. Goal Provider Goal - CHANGES IN SKIN INTEGRITY STATUS WILL BE IDENTIFIED AND REPORTED TO THE PHYSICIAN FOR PROMPT INTERVENTION. PATIENT / CAREGIVER WILL VERBALIZE/DEMONSTRATE ADEQUATE KNOWLEDGE OF INTEGUMENTARY STATUS AND APPROPRIATE MEASURES TO PROMOTE SKIN INTEGRITY AND PREVENT INJURY BY 9 WEEKS. Goal Provider Goal - CHANGES IN SKIN INTEGRITY STATUS WILL BE IDENTIFIED AND REPORTED TO THE PHYSICIAN FOR PROMPT INTERVENTION. PATIENT / CAREGIVER WILL VERBALIZE/DEMONSTRATE ADEQUATE KNOWLEDGE OF INTEGUMENTARY STATUS AND APPROPRIATE MEASURES TO PROMOTE SKIN INTEGRITY AND PREVENT INJURY BY 9 WEEKS. Goal Provider Goal - PATIENT / CAREGIVER WILL VERBALIZE UNDERSTANDING OF VENOUS STASIS ULCER INCLUDING BUT NOT LIMITED TO DEFINITION, SIGNS AND SYMPTOMS OF COMPLICATIONS AND PRESCRIBED TREATMENT REGIME BY 9 WEEKS. Goal Provider Goal - PATIENT / CAREGIVER WILL VERBALIZE / DEMONSTRATE UNDERSTANDING OF PAIN CONTROL MEASURES BY 4 WEEKS. Goal Provider Goal - PATIENT / CAREGIVER WILL VERBALIZE/DEMONSTRATE UNDERSTANDING OF MEASURES TO MANAGE ALTERED GENITOURINARY STATUS BY END OF EPISODE. Goal Provider Goal - PATIENT/CAREGIVER WILL VERBALIZE/DEMONSTRATE UNDERSTANDING OF CARE AND MANAGEMENT OF URINARY INCONTINENCE BY 7 WEEKS. Goal Provider Goal - PATIENT/CAREGIVER WILL VERBALIZE UNDERSTANDING OF CARE AND MANAGEMENT OF ANEMIA BY END OF EPISODE. Goal Provider Goal - SIGNS OF SEPSIS WILL BE IDENTIFIED PROMPTLY, AND INTERVENTIONS INITIATED TO MINIMIZE SEVERITY AND RISK OF HOSPITALIZATION. POST-SEPSIS SYNDROME INTERVENTIONS WILL BE REVIEWED WITH THE PATIENT/CAREGIVER, IF APPLICABLE. PATIENT / CAREGIVER WILL VERBALIZE/DEMONSTRATE AN ABILITY TO ADHERE TO SELF-MANAGEMENT AT DISCHARGE BY 6 WEEKS. Goal Provider Goal - Goal Provider Goal - Goal Provider Goal - OT LTG: PATIENT WILL DEMONSTRATE IMPROVEMENT IN MODIFIED CARMELLA INDEX SCORE FROM 69 TO 80 INDICATING DECREASED DEPENDENCY ON CAREGIVER ASSISTANCE WITH ACTIVITIES OF DAILY LIVING WITHIN 6 WEEKS OT STG: PATIENT WILL DEMONSTRATE IMPROVED ABILITY TO PERFORM CHAIR TRANSFERS TO REDUCE THE RISK OF SKIN BREAKDOWN AND IMPROVE PARTICIPATION IN ADLS FROM MINIMAL A TO SBA UTILIZING SAFE MEASURES AND PRACTICES WITHIN 4 WEEKS OT LTG: PATIENT WILL DEMONSTRATE IMPROVED ABILITY TO PERFORM CHAIR TRANSFERS TO REDUCE THE RISK OF SKIN BREAKDOWN AND IMPROVE PARTICIPATION IN ADLS MINIMAL A FROM INDEPENDENT UTILIZING SAFE MEASURES AND PRACTICES WITHIN 6 WEEKS OT STG: PATIENT WILL DEMONSTRATE IMPROVED ABILITY TO PERFORM TOILET TRANSFERS TO REDUCE FALL RISK AND RISK OF INCONTINENCE AND UTI DEVELOPMENT FROM MINIMAL A TO SBA UTILIZING SAFE MEASURES AND PRACTICES WITHIN 4 WEEKS OT LTG: PATIENT WILL DEMONSTRATE IMPROVED ABILITY TO PERFORM TOILET TRANSFERS TO REDUCE FALL RISK AND RISK OF INCONTINENCE AND UTI DEVELOPMENT FROM MINIMAL A TO INDEPENDENT UTILIZING SAFE MEASURES AND PRACTICES WITHIN 6 WEEKS OT GOAL: PATIENT/CAREGIVER WILL BE ABLE TO IDENTIFY SIGNS OF HYPER- AND HYPOGLYCEMIA AND VERBALIZE HOW TO MANAGE SYMPTOMS. OT GOAL: PATIENT WILL NOT EXHIBIT SIGNS AND SYMPTOMS OF ANTICOAGULANT TOXICITY THROUGHOUT THE EPISODE OF CARE. OT LTG: PATIENT S BLOOD SUGAR WILL REMAIN WELL CONTROLLED THROUGHOUT EPISODE OF CARE AND PATIENT WILL NOT HAVE ANY SIGNS OF SKIN BREAKDOWN OR COMPLICATIONS THROUGHOUT EPISODE OF CARE. Encounters Start Date/Time End Date/Time Encounter Type Admission Type [facility]ending [facility] Department Encounter ID Discharge Date Discharge Status Discharge Condition Discharge Reason Percent Goals Met 2025-01-04 00:00:00 2025-03-04 00:00:00 Outpatient NEW ADMISSION JIN PISANO [facility] [id number] 12.16
--- OUTSIDE RECORDS SUMMARY | 2025-03-03 20:00 | XMS_ITS | Clinical Summary ---
Author Organization Unknown Care Team Providers Care Provider Relations Rep Name Role Phone ZORAIDA FIELD COORDINATOR, MONSERRAT Unavailable Unavailable NORRIS GUILLEN, JIN Unavailable Unavailable Payers Payer Name Policy Type Policy Number Effective Date Expira tion Date [id number] Problems Condition Name Condition Details Condition Category [...] ACCEPT ORDERS FROM CONSULTING PHYSICIANS JOHNNA TRIPLETT INVESTIGATIONS CHIEF, BRITNI TUBBS SLEEVER, SKYLAR DANIELS MD PROFILE GRINDER, EMELIA FALL MD NEUROLOGIST. RN TO OBSERVE AND ASSESS, ENVIRONMENTAL AID/DEPENDENCY DIRECTOR TO OBSERVE FOR RISK FOR FALLS AND INSTRUCT IN FALL PREVENTION, HOME SAFETY, MEDICATION MANAGEMENT, INFECTION PREVENTION, AND NUTRITION MANAGEMENT. RN/ENVIRONMENTAL AID/DEPENDENCY DIRECTOR NURSE MAY PERFORM O2 SATURATION LEVEL ON ADMISSION AND PRN, FOR RN TO ASSESS/ENVIRONMENTAL AID TO OBSERVE PATIENT, WITH NOTIFICATION TO THE PHYSICIAN IF SATURATION IS 90% IN THE ABSENCE OF MORE SPECIFIC PARAMETERS FROM THE PHYSICIAN. AGENCY MAY PERFORM A RESUMPTION OF CARE VISIT FOLLOWING ANY HOSPITAL ADMISSION. RN/ENVIRONMENTAL AID/DEPENDENCY DIRECTOR TO MONITOR CO-MORBID CONDITIONS LISTED ON THE PLAN OF CARE AND ANY NEW CONDITIONS THAT PRESENT THEMSELVES DURING THIS EPISODE TO IDENTIFY CHANGES AND INTERVENE TO MINIMIZE COMPLICATIONS. [code = RN TO OBSERVE, ASSESS, EVALUATE, AND DEVELOP AN INDIVIDUALIZED PLAN OF CARE. AGENCY MAY ACCEPT ORDERS FROM CONSULTING PHYSICIANS JOHNNA TRIPLETT INVESTIGATIONS CHIEF, BRITNI TUBBS SLEEVER, SKYLAR DANIELS MD PROFILE GRINDER, EMELIA FALL MD NEUROLOGIST. RN TO OBSERVE AND ASSESS, ENVIRONMENTAL AID/DEPENDENCY DIRECTOR TO OBSERVE FOR RISK FOR FALLS AND INSTRUCT IN FALL PREVENTION, HOME SAFETY, MEDICATION MANAGEMENT, INFECTION PREVENTION, AND NUTRITION MANAGEMENT. RN/ENVIRONMENTAL AID/DEPENDENCY DIRECTOR NURSE MAY PERFORM O2 SATURATION LEVEL ON ADMISSION AND PRN, FOR RN TO ASSESS/ENVIRONMENTAL AID TO OBSERVE PATIENT, WITH NOTIFICATION TO THE PHYSICIAN IF SATURATION IS 90% IN THE ABSENCE OF MORE SPECIFIC PARAMETERS FROM THE PHYSICIAN. AGENCY MAY PERFORM A RESUMPTION OF CARE VISIT FOLLOWING ANY HOSPITAL ADMISSION. RN/ENVIRONMENTAL AID/DEPENDENCY DIRECTOR TO MONITOR CO-MORBID CONDITIONS LISTED ON THE PLAN OF CARE AND ANY NEW CONDITIONS THAT PRESENT THEMSELVES DURING THIS EPISODE TO IDENTIFY CHANGES AND INTERVENE TO MINIMIZE COMPLICATIONS.] Future Scheduled Test MEDICATION MANAGEMENT; RN/ENVIRONMENTAL AID/DEPENDENCY DIRECTOR TO REVIEW MEDICATIONS FOR INTERACTIONS, EFFECTIVENESS OF DRUG THERAPY, AND SIGNS/SYMPTOMS OF ADVERSE REACTIONS. MAY INSTRUCT AND REINFORCE MEDICATION TEACHING RELATED TO THE USE OF MEDICATIONS, DOSAGE, FREQUENCY, PURPOSE, SIDE EFFECTS, AND TO REPORT COMPLICATIONS. [code = MEDICATION MANAGEMENT; RN/ENVIRONMENTAL AID/DEPENDENCY DIRECTOR TO REVIEW MEDICATIONS FOR INTERACTIONS, EFFECTIVENESS OF DRUG THERAPY, AND SIGNS/SYMPTOMS OF ADVERSE REACTIONS. MAY INSTRUCT AND REINFORCE MEDICATION TEACHING RELATED TO THE USE OF MEDICATIONS, DOSAGE, FREQUENCY, PURPOSE, SIDE EFFECTS, AND TO REPORT COMPLICATIONS.] Future Scheduled Test RISK FOR H OSPITALIZATION; RN TO ASSESS/TEACH, DEPENDENCY DIRECTOR/ENVIRONMENTAL AID TO OBSERVE/TEACH PATIENT/CAREGIVER ON RISK FOR HOSPITALIZATION/EMERGENCY ROOM VISITS, TEACH SIGNS AND SYMPTOMS THAT PUT PATIENT AT RISK, WHEN TO NOTIFY NURSE/PHYSICIAN OF COMPLICATIONS/DECLINE, AND WHEN TO CALL 911. [code = RISK FOR HOSPITALIZATION; RN TO ASSESS/TEACH, DEPENDENCY DIRECTOR/ENVIRONMENTAL AID TO OBSERVE/TEACH PATIENT/CAREGIVER ON RISK FOR HOSPITALIZATION/EMERGENCY ROOM VISITS, TEACH SIGNS AND SYMPTOMS THAT PUT PATIENT AT RISK, WHEN TO NOTIFY NURSE/PHYSICIAN OF COMPLICATIONS/DECLINE, AND WHEN TO CALL 911.] Future Scheduled Test CARDIOVASC ULAR SYSTEM; RN TO ASSESS/TEACH, ENVIRONMENTAL AID/DEPENDENCY DIRECTOR TO OBSERVE/TEACH RELATED TO ALTERED CARDIOVASCULAR STATUS TO MINIMIZE COMPLICATIONS AND REDUCE HOSPITALIZATION. [code = CARDIOVASCULAR SYSTEM; RN TO ASSESS/TEACH, ENVIRONMENTAL AID/DEPENDENCY DIRECTOR TO OBSERVE/TEACH RELATED TO ALTERED CARDIOVASCULAR STATUS TO MINIMIZE COMPLICATIONS AND REDUCE HOSPITALIZATION.] Future Scheduled Test HYPERTENSI ON MANAGEMENT; RN TO ASSESS AND TEACH, ENVIRONMENTAL AID/DEPENDENCY DIRECTOR TO OBSERVE AND TEACH WARNING SIGNS AND SYMPTOMS TO AVOID HOSPITALIZATION. [code = HYPERTENSION MANAGEMENT; RN TO ASSESS AND TEACH, ENVIRONMENTAL AID/DEPENDENCY DIRECTOR TO OBSERVE AND TEACH WARNING SIGNS AND SYMPTOMS TO AVOID HOSPITALIZATION.] Future Scheduled Test PACEMAKER MANAGEMENT; RN/ENVIRONMENTAL AID/DEPENDENCY DIRECTOR TO PROVIDE SKILLED TEACHING AND ASSIST WITH MANAGEMENT OF PACEMAKER. [code = PACEMAKER MANAGEMENT; RN/ENVIRONMENTAL AID/DEPENDENCY DIRECTOR TO PROVIDE SKILLED TEACHING AND ASSIST WITH MANAGEMENT OF PACEMAKER.] Future Scheduled Test RESPIRATOR Y SYSTEM MANAGEMENT; RN TO ASSESS AND TEACH, ENVIRONMENTAL AID/DEPENDENCY DIRECTOR TO OBSERVE AND TEACH RELATED TO ALTERED RESPIRATORY STATUS TO MINIMIZE COMPLICATIONS AND REDUCE HOSPITALIZATION. [code = RESPIRATORY SYSTEM MANAGEMENT; RN TO ASSESS AND TEACH, ENVIRONMENTAL AID/DEPENDENCY DIRECTOR TO OBSERVE AND TEACH RELATED TO ALTERED RESPIRATORY STATUS TO MINIMIZE COMPLICATIONS AND REDUCE HOSPITALIZATION.] Future Scheduled Test COPD MANAG EMENT; RN TO ASSESS AND TEACH, ENVIRONMENTAL AID/DEPENDENCY DIRECTOR TO OBSERVE AND TEACH SIGNS/SYMPTOMS OF COPD EXACERBATION AND PROVIDE EARLY INTERVENTIONS TO MINIMIZE RISK OF HOSPITALIZATION. RN/ENVIRONMENTAL AID/DEPENDENCY DIRECTOR TO INSTRUCT ON SELF-CARE MANAGEMENT INCLUDING BREATHING TECHNIQUES, AIRWAY CLEARANCE, AND PROPER USE OF COPD MEDICATIONS. RN TO ASSESS AND TEACH, ENVIRONMENTAL AID/DEPENDENCY DIRECTOR TO OBSERVE AND TEACH PATIENT/CAREGIVER ABILITY TO MONITOR AND RECORD VITAL SIGNS INCLUDING PULSE OXIMETRY AND BLOOD PRESSURE. PULSE OXIMETER AND BP MONITOR TO BE PROVIDED IF NEEDED. [code = COPD MANAGEMENT; RN TO ASSESS AND TEACH, ENVIRONMENTAL AID/DEPENDENCY DIRECTOR TO OBSERVE AND TEACH SIGNS/SYMPTOMS OF COPD EXACERBATION AND PROVIDE EARLY INTERVENTIONS TO MINIMIZE RISK OF HOSPITALIZATION. RN/ENVIRONMENTAL AID/DEPENDENCY DIRECTOR TO INSTRUCT ON SELF-CARE MANAGEMENT INCLUDING BREATHING TECHNIQUES, AIRWAY CLEARANCE, AND PROPER USE OF COPD MEDICATIONS. RN TO ASSESS AND TEACH, ENVIRONMENTAL AID/DEPENDENCY DIRECTOR TO OBSERVE AND TEACH PATIENT/CAREGIVER ABILITY TO MONITOR AND RECORD VITAL SIGNS INCLUDING PULSE OXIMETRY AND BLOOD PRESSURE. PULSE OXIMETER AND BP MONITOR TO BE PROVIDED IF NEEDED.] Future Scheduled Test SKIN INTEG RITY RN TO ASSESS AND TEACH, ENVIRONMENTAL AID/DEPENDENCY DIRECTOR TO OBSERVE AND TEACH INTEGUMENTARY STATUS TO IDENTIFY CHANGES AND INTERVENE TO MINIMIZE COMPLICATIONS. PROVIDE SKILLED TEACHING OF GENERAL WOUND AND SKIN CARE AND PREVENTION RELATED TO POTENTIAL FOR OR ACTUAL ALTERED SKIN INTEGRITY [code = SKIN INTEGRITY RN TO ASSESS AND TEACH, ENVIRONMENTAL AID/DEPENDENCY DIRECTOR TO OBSERVE AND TEACH INTEGUMENTARY STATUS TO IDENTIFY CHANGES AND INTERVENE TO MINIMIZE COMPLICATIONS. PROVIDE SKILLED TEACHING OF GENERAL WOUND AND SKIN CARE AND PREVENTION RELATED TO POTENTIAL FOR OR ACTUAL ALTERED SKIN INTEGRITY] Future Scheduled Test RN TO ASSE SS, ENVIRONMENTAL AID/DEPENDENCY DIRECTOR TO OBSERVE LOWER EXTREMITY VENOUS STASIS ULCER(S) AND INTERVENE TO MINIMIZE COMPLICATIONS. PROVIDE SKILLED TEACHING TO PATIENT/CAREGIVER RELATED TO ALTERED SKIN INTEGRITY. REPORT SIGNIFICANT CHANGES IN STATUS TO PHYSICIAN FOR EARLY INTERVENTION [code = RN TO ASSESS, ENVIRONMENTAL AID/DEPENDENCY DIRECTOR TO OBSERVE LOWER EXTREMITY VENOUS STASIS ULCER(S) AND INTERVENE TO MINIMIZE COMPLICATIONS. PROVIDE SKILLED TEACHING TO PATIENT/CAREGIVER RELATED TO ALTERED SKIN INTEGRITY. REPORT SIGNIFICANT CHANGES IN STATUS TO PHYSICIAN FOR EARLY INTERVENTION] Future Scheduled Test RN/ENVIRONMENTAL AID/DEPENDENCY DIRECTOR TO PERFORM/TEACH VENOUS STASIS ULCER CARE TO [...] FOR DISLODGEMENT OR INCREASED DRAINAGE. [code = RN/ENVIRONMENTAL AID/DEPENDENCY DIRECTOR TO PERFORM/TEACH VENOUS STASIS ULCER CARE TO [...] MANAG EMENT; RN TO ASSESS AND TEACH, DEPENDENCY DIRECTOR/ENVIRONMENTAL AID TO OBSERVE AND TEACH AND PROVIDE EDUCATION ON PAIN MANAGEMENT TECHNIQUES. [code = PAIN MANAGEMENT; RN TO ASSESS AND TEACH, DEPENDENCY DIRECTOR/ENVIRONMENTAL AID TO OBSERVE AND TEACH AND PROVIDE EDUCATION ON PAIN MANAGEMENT TECHNIQUES.] Future Scheduled Test GENITOURIN REYNALDO MANAGEMENT; RN TO ASSESS AND TEACH, ENVIRONMENTAL AID/DEPENDENCY DIRECTOR TO OBSERVE AND TEACH RELATED TO ALTERED GENITOURINARY STATUS TO MINIMIZE COMPLICATIONS AND REDUCE HOSPITALIZATION. [code = GENITOURINARY MANAGEMENT; RN TO ASSESS AND TEACH, ENVIRONMENTAL AID/DEPENDENCY DIRECTOR TO OBSERVE AND TEACH RELATED TO ALTERED GENITOURINARY STATUS TO MINIMIZE COMPLICATIONS AND REDUCE HOSPITALIZATION.] Future Scheduled Test URINARY IN CONTINENCE MANAGEMENT; RN TO ASSESS AND TEACH, ENVIRONMENTAL AID/LVNTO OBSERVE AND TEACH MANAGEMENT OF URINARY INCONTINENCE. TEACH/INSTRUCT ON PREVENTING INFECTION AND SKIN BREAKDOWN. RN/ENVIRONMENTAL AID/DEPENDENCY DIRECTOR MAY INSTRUCT IN BLADDER TRAINING PROGRAM INDICATED. [code = URINARY INCONTINENCE MANAGEMENT; RN TO ASSESS AND TEACH, ENVIRONMENTAL AID/LVNTO OBSERVE AND TEACH MANAGEMENT OF URINARY INCONTINENCE. TEACH/INSTRUCT ON PREVENTING INFECTION AND SKIN BREAKDOWN. RN/ENVIRONMENTAL AID/DEPENDENCY DIRECTOR MAY INSTRUCT IN BLADDER TRAINING PROGRAM INDICATED.] Future Scheduled Test ANEMIA MAN AGEMENT; RN TO ASSESS AND TEACH, DEPENDENCY DIRECTOR/ENVIRONMENTAL AID TO OBSERVE AND TEACH AND PROVIDE EDUCATION ON ANEMIA. [code = ANEMIA MANAGEMENT; RN TO ASSESS AND TEACH, DEPENDENCY DIRECTOR/ENVIRONMENTAL AID TO OBSERVE AND TEACH AND PROVIDE EDUCATION ON ANEMIA.] Future Scheduled Test RN TO ASSE SS AND TEACH, ENVIRONMENTAL AID/DEPENDENCY DIRECTOR TO OBSERVE AND TEACH FOR SIGNS AND SYMPTOMS OF SEPSIS AND/OR POST-SEPSIS SYNDROME AND INTERVENE TO MINIMIZE COMPLICATIONS. RN/ENVIRONMENTAL AID/DEPENDENCY DIRECTOR TO PROVIDE SKILLED TEACHING TO PATIENT/CAREGIVER ON SEPSIS AND SELF-MANAGEMENT TECHNIQUES. RN/ENVIRONMENTAL AID/DEPENDENCY DIRECTOR TO MONITOR PATIENT/CAREGIVER ADHERENCE TO MONITOR AND RECORD VITAL SIGNS INCLUDING TEMPERATURE, HEART RATE, RESPIRATIONS, AND SYMPTOMS. RN/ENVIRONMENTAL AID/DEPENDENCY DIRECTOR TO PROVIDE SHELTER TO ACCOMPLISH THE PATIENT S PERSONAL GOAL. [code = RN TO ASSESS AND TEACH, ENVIRONMENTAL AID/DEPENDENCY DIRECTOR TO OBSERVE AND TEACH FOR SIGNS AND SYMPTOMS OF SEPSIS AND/OR POST-SEPSIS SYNDROME AND INTERVENE TO MINIMIZE COMPLICATIONS. RN/ENVIRONMENTAL AID/DEPENDENCY DIRECTOR TO PROVIDE SKILLED TEACHING TO PATIENT/CAREGIVER ON SEPSIS AND SELF-MANAGEMENT TECHNIQUES. RN/ENVIRONMENTAL AID/DEPENDENCY DIRECTOR TO MONITOR PATIENT/CAREGIVER ADHERENCE TO MONITOR AND RECORD VITAL SIGNS INCLUDING TEMPERATURE, HEART RATE, RESPIRATIONS, AND SYMPTOMS. RN/ENVIRONMENTAL AID/DEPENDENCY DIRECTOR TO PROVIDE SHELTER TO ACCOMPLISH THE PATIENT S PERSONAL GOAL.] Future Scheduled Test OCCUPATION AL THERAPIST TO EVALUATE FOR ADLS [code = OCCUPATIONAL THERAPIST TO EVALUATE FOR ADLS] Future Scheduled Test PRN VISITS ; NUMBER OF RN/ENVIRONMENTAL AID/DEPENDENCY DIRECTOR VISITS: RN/ENVIRONMENTAL AID/DEPENDENCY DIRECTOR TO PERFORM: WOUND ASSESSMENT FOR THE FOLLOWING REASONS: EXACERBATION TO WOUND ASSESSMENT [code = PRN VISITS; NUMBER OF RN/ENVIRONMENTAL AID/DEPENDENCY DIRECTOR VISITS: RN/ENVIRONMENTAL AID/DEPENDENCY DIRECTOR TO PERFORM: WOUND ASSESSMENT FOR THE FOLLOWING REASONS: EXACERBATION TO WOUND ASSESSMENT] Future Scheduled Test AGENCY MAY PERFORM A RESUMPTION OF CARE VISIT FOLLOWING ANY HOSPITAL ADMISSION. OT TO EVALUATE, OBSERVE / ASSESS, AND MONITOR, ARLINE TO OBSERVE AND MONITOR, PROVIDE SKILLED THERAPEUTIC INTERVENTION, ACTIVITY, EDUCATION, AND TRAINING TO ADDRESS;FUNCTIONAL TRANSFERS, HOME EQUIPMENT/ADAPTATIONS RECOMMENDATIONS ACTIVITIES OF DAILY LIVING (OT/ARLINE) CHAIR TRANSFERS (OT/TOY PACKER) TOILET TRANSFER (OT/ARLINE) OT / ARLINE TO EDUCATE ON DIABETES SELF- MANAGEMENT OT/ARLINE TO MONITOR FOR AND REPORT EARLY SIGNS OF ANTICOAGULANT TOXICITY TO THE PHYSICIAN AND/OR THE RN CLINICAL GENDER STUDIES PROFESSOR FOR PHYSICIAN NOTIFICATION AND TO PROVIDE PATIENT/CAREGIVER EDUCATION ON ANTICOAGULANT THERAPY OT/TOY PACKER TO MONITOR FOR HYPO/HYPERGLYCEMIA AND CONDUCT ROUTINE FOOT INSPECTIONS. RECORD PATIENT REPORTED BLOOD SUGAR LEVELS AND NOTIFY PHYSICIAN AND/OR THE RN CLINICAL GENDER STUDIES PROFESSOR FOR PHYSICIAN NOTIFICATION IF BLOOD SUGAR LEVELS ARE OUTSIDE ORDERED PARAMETERS. TEACH PATIENT/CAREGIVER ON DAILY FOOT INSPECTIONS. [code = AGENCY MAY PERFORM A RESUMPTION OF CARE VISIT FOLLOWING ANY HOSPITAL ADMISSION. OT TO EVALUATE, OBSERVE / ASSESS, AND MONITOR, TOY PACKER TO OBSERVE AND MONITOR, PROVIDE SKILLED THERAPEUTIC INTERVENTION, ACTIVITY, EDUCATION, AND TRAINING TO ADDRESS;FUNCTIONAL TRANSFERS, HOME EQUIPMENT/ADAPTATIONS RECOMMENDATIONS ACTIVITIES OF DAILY LIVING (OT/ARLINE) CHAIR TRANSFERS (OT/TOY PACKER) TOILET TRANSFER (OT/ARLINE) OT / TOY PACKER TO EDUCATE ON DIABETES SELF- MANAGEMENT OT/ARLINE TO MONITOR FOR AND REPORT EARLY SIGNS OF ANTICOAGULANT TOXICITY TO THE PHYSICIAN AND/OR THE RN CLINICAL GENDER STUDIES PROFESSOR FOR PHYSICIAN NOTIFICATION AND TO PROVIDE PATIENT/CAREGIVER EDUCATION ON ANTICOAGULANT THERAPY OT/ARLINE TO MONITOR FOR HYPO/HYPERGLYCEMIA AND CONDUCT ROUTINE FOOT INSPECTIONS. RECORD PATIENT REPORTED BLOOD SUGAR LEVELS AND NOTIFY PHYSICIAN AND/OR THE RN CLINICAL GENDER STUDIES PROFESSOR FOR PHYSICIAN NOTIFICATION IF BLOOD SUGAR LEVELS [...] End Date/Time Encounter Type Admission Type Attending [facility] [place] Department Encounter ID Discharge Date Discharge Status Discharge Condition Discharge Reason Percent Goals Met 2025-01-04 00:00:00 2025-03-04 00:00:00 Outpatient NEW ADMISSION [facility] [id number] 12.16
== END 2025-01-12 23:59 | disposition home or self-care (01) ==
LOC: RT 10:46
PROVIDERS: PCP Nurse Practitioner; Visit Provider Podiatrist
DX: I70.201 Unspecified atherosclerosis of native arteries of extremities, right leg (principal)
CPT/HCPCS: 93923

== ENCOUNTER 2025-02-03 09:52 | Outpatient (CLI) | payer MEDICARE, MEDICAID, SELFPAY ==
--- OUTSIDE RECORDS SUMMARY | 2025-02-03 10:09 | XMS_ITS | Encounter Summary ---
Author Organization [facility] Address [address] [place] [address] Care Team Providers Care Title Search Manager Name Role Phone Michelle Gray ALYCIA Primary Care Provider [phone] Reason for Referral * Medications - Authorized Specialty Diagnoses / Procedures Referred By Contac t Referred To Contact Diagnoses Age-related osteoporosis without current pathological fracture Becky Moralez APRN [address] [address] Phone: tel: fax: Referral ID Status Reason Start Date Expiration Date V isits Requested Visits Authorized [id number] Authorized 10/31/2024 04/08/2025 1 1 Reason for Visit * Reason Onset Date Comments Med Refill 01/26/2025 Encounter Details Date Type Department Care Team (Late st Contact Info) Description 01/26/2025 Refill [facility] [address] , [address] [place] [address] Negro Katz MD [address] [place] [address] Age-related osteoporosis without current pathological fracture (Primary Dx) Social History Tobacco Use Types [...] and Family Not on file 02/25/2024 Attends Shinto Services Not on file 02/24 Active Member [...] place to sleep or slept in a intermediate (including now)? No 12/19/2023 PHQ-9 Answer Date [...] any time in the past 12 m [facility], were you homeless or living in a intermediate (including now)? No 02/25/2024 AUDIT-C Answer Date [...] encounter Miscellaneous Notes * Telephone Encounter - Nati Luna PharmD - 01/26/2025 10:13 AM EDT 1 medication(s) has been approved per protocol. documented in this encounter Plan of Treatment Upcoming Encounters Date Type Department Care Team (Late st Contact Info) Description 02/24/2025 10:40 AM EST Office Visit [facility] [address], [address] [place] [address] Becky Moralez APRN [address] [place] [address] 03/17/2025 9:30 AM EST Appointment [facility] [address], [address] [place] [address] 03/17/2025 10:10 AM EST Office Visit [facility]opa[facility] Surgery [facility] Medicine [address], [address] [place] [address] Terry Santoyo MD [address] [place] [address] documented as of this encounter Visit Diagnoses Diagnosis Age-related osteoporosis without current pathological fracture- Primary documented in this encounter Additional Health Concerns Assessment Noted Time PHQ-9 Depression Total Score: 0 07/25/19 25 9:22 AM EDT A fall risk assessment has been complete d for the patient 11/11/2024 9:18 AM EDT A Body Mass Index follow-up plan has been documented for the patient 11/11/2024 9:51 AM EDT documented as of this encounter Care Teams Title Search Manager Relationship Specialty Start Date End Date Michelle Gray APRN [address] [place] [address] PCP - General 11/17/23 documented as of this encounter
[2025-02-03 10:10] LABS: Hematocrit 33.3 % (37.0-47.0); Hemoglobin 10.3 g/dL (12.2-16.2); Immature Granulocytes % 0.2 %; Mean Corpuscular HGB Conc 30.9 g/dL (31.8-35.4); Mean Corpuscular Hemoglobin 29.9 pg (27.0-31.2); Mean Corpuscular Volume 96.5 fl (81-99); Nucleated Red Blood Cells % 0 %; Platelet Count 206 K/mm3 (142-424); Red Blood Count 3.45 M/mm3 (4.20-5.40); Red Cell Distribution Width-SD 64.4 fL; White Blood Count 5.2 K/mm3 (4.8-10.8)
--- OUTSIDE RECORDS SUMMARY | 2025-02-03 10:10 | XMS_ITS | Clinical Summary ---
Author Organization [facility] Address [facility] [place] [address] Phone Care Team Providers Care Advanced Seal Delivery System Name Role Phone Unavailable Primary Care Provider [...] 09/09/2007 Bone Density Screening 2022 COVID-19 Vaccine (1 - 2024-2 6 season) 2024 Influenza Vaccine (#1) 2024 2, [...] EST Impressions 05/24/2023 1:52 PM EST Negative ([id number]) ~ RECOMMENDATION: Routine screening mammogram in 1 [...] the next mammogram, in accordance with the [employer] and the Society of Breast Imaging recommendations. Narrative 05/24/2023 1:52 PM EST Procedure:MM MAMMO DIGITAL PAM SCREEN BILAT ~ Reason for exam: screening, asymptomatic. Z12.31-Encounter for screening mammogram for malignant neoplasm of qeuzyo-YTQ-59-CM ~ MM MAMMO DIGITAL PAM SCREEN BILAT [...] for screening mammogram for malignant neoplasm of capqgt-APD-31-CM ~ MM MAMMO DIGITAL PAM SCREEN BILAT Bilateral CC and MLO view(s) were taken. There are scattered fibroglandular densities. Prior study comparison: Compared with prior studies the most recentbeing outside studies dated December 21, 2009 No mammographic evidence of malignancy. ~ IMPRESSION: Negative ([id number]) ~ RECOMMENDATION: Routine screening mammogram in 1 [...] the next mammogram, in accordance with the [employer] and the Society of Breast Imaging recommendations. us Not In Epic Provider IMG MAMMOGRAPHY ORDERABLES Final Result from Last 3 Months or Most Recently Relevant to Health Maintenance Insurance MEDICARE ADVANTAGE MR
--- OUTSIDE RECORDS SUMMARY | 2025-02-03 10:10 | XMS_ITS | Continuity of Care Document ---
Author Organization [facility] [employer] [facility] Address [address] [place] [address] Care Team Providers Care Dairy Frozen Manager Name Role Phone JEFFERYBRITNI Medical Insurance Clerk SKYLAR DANIELS Shoemaking Cutter EMELIA FALL Neurologist MICHELLE GRAY Primary Care Provider EMA Candelario Supervisory Aide Assessment No assessment recorded. Plan of Treatment Reminders Order Date Submit Date Provider Last Modified By Organization Details Last Modified Time Details Appointments None recorded. Lab HbA1c (hemoglobin A1c), blood 2024 025 [facility], [address] [place] [address], [phone], 12:52:28 Referral manager biostatistics referral - first available appt 2024 025 [facility], [address], [place], [address], 09:35:59 home health referral - DEE DEE. to help pt with bathing and LLE wound care 2024 025 TYREL Carroll - Malka Medrano, [address], [place], [address], 10:22:27 Procedures None recorded. Surgeries None recorded. Imaging None recorded. Medication Orders cephalexin 500 mg capsule 2024 025 [facility], [address] [place] [address], [address], 05:02:28 atorvastati n 20 mg tablet 2024 025 [facility], [address] [place] [address], [address], 13:26:37 Accu-Chek Guide test strips 2024 025 [facility], [address] [place] [address], [address], 10:26:50 glipizide 10 mg tablet 2024 025 [facility], [address] [place] [address], [address], 10:36:00 Trulicity 1.5 mg/0.5 mL subcutaneou s pen injector 2024 025 [facility], [address] [place] [address], [address], 10:26:52 cyanocobala min (vit B-12) 1,000 mcg tablet 2024 025 [facility], [address] [place] [address], [address], 10:35:59 Patient TargetsNo targets recorded. Patient InstructionsNo instructions recorded. 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 [address], [place], [address], 01/05/2025 16:48:59 01/13/20 25 01/12/2025 imagi ng/di agnos tic resul t No observ ation record ed. [address], [place], [address], 01/12/2025 14:52:59 Result Notes None recorded. 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 10:02:22 Plantar fascial fibromat osis 63306538 Completed 201710/02/2017 Problem Code: M72.2; Problem Code Type: ICD-10; Not Available [facility] 21:52:14 Hyperten sive disorder 65135576 Active 2018 Problem Code: I10; Problem Code Type: ICD-10; Not Available [facility] 21:52:11 Multiple cysts of breast 824961129 Active 2018 Not Available [facility] 2 21:52:12 Screenin g mammogra phy Completed 201801/03/2022 Problem Code: Z12.31; Problem Code Type: ICD-10; EMELYYUAN STILL britany, [employer] 2 10:02:22 Endocrin e/metabo lic screenin g Completed 201901/03/2022 Problem Code: Z13.29; Problem Code Type: ICD-10; EMELY TESSY britany, [employer] 2 10:02:22 Finding of body mass index 124453124 Completed 201901/03/2022 Problem Code: Z68.41; Problem Code Type: ICD-10; EMELY ISABELNER britany, [employer] 2 10:02:22 Nicotine dependen ce 51336525 Active 2020 Problem Code: F17.200; Problem Code Type: ICD-10; Not Available [facility] 2 21:52:11 General examinat ion of patient Completed 202007/08/2020 Not Available [facility] 2 21:52:12 Body mass index 40+ - severely obese 575381748 Completed 202001/03/2022 EMELY ISABELNER britany, [employer] 2 10:02:22 Polyalgi a 428105776 Completed 202001/03/2022 Problem Code: M79.89; Problem Code Type: ICD-10; EMELY ISABELNER britany, [employer] 2 10:02:22 Edema 266001474 Completed 202001/03/2022 EMELY ISABELNER britany, [employer] 2 10:02:22 Obesity 057360079 Active 2020 Not Available [facility] 2 21:52:11 Chronic fatigue syndrome 97223325 Active 2020 Problem Code: R53.82; Problem Code Type: ICD-10; Not Available [facility] 2 21:52:12 Screenin g for malignan t neoplasm of colon Completed 202001/03/2022 [facility] [employer] 2 10:02:22 On examinat ion - inspecti on of blood Completed 202001/03/2022 [facility] [facility] [employer] 2 10:02:22 Hyperlip idemia 62612631 Active 2020 Problem Code: E78.5; Problem Code Type: ICD-10; Not Available [facility] 2 21:52:11 Body mass index 40+ - severely obese 428893636 Completed 202004/18/2021 [facility] [employer] 2 10:02:22 Body mass index 30+ - obesity 104386845 Completed 202101/03/2022 Problem Code: Z68.43; Problem Code Type: ICD-10; [employer] 2 10:02:22 Type 2 diabetes mellitus without complica tion 042615870 Active 2021 Not Available [facility] 2 21:52:11 Epilepti c seizure 089529194 Active 2021 Problem Code: G40.509; Problem Code Type: ICD-10; [employer] 2 10:02:52 Cardiac pacemake r in situ 693779099 Active 2021 Problem Code: Z95.0; Problem Code Type: ICD-10; Not Available [facility] 21:52:15 Localize d swelling , mass and lump, neck Active 2021 Problem Code: R22.1; Problem Code Type: ICD-10; Not Available [facility] 21:52:14 Pain in right foot 19798728805 9107 Active 2023 ALLYSON BROOKS-[address], [address] , [employer] 4 13:11:04 Fracture of phalanx of foot 27023528 Active 2023 BLAIRE EMILY [address], [address] , [employer] 4 16:55:26 Type 2 diabetes mellitus 50396648 Active 2024 Bonnie Diaz Yoono, [employer] 5 15:25:38 Senile osteopor osis 14835600 Active 2024 Bonnie Jolly [employer], [employer] 5 12:15:09 Postcoit al bleeding 85886656 Active 2024 Bonnie Diaz Yoono, [employer] 5 12:16:01 Diabetes mellitus 06142217 Active 2024 Bonnie Jolly Yoon[employer], [employer] 5 11:14:24 Ulcer of left foot 627851753 Active 2024 Bonnie Jolly [employer], [employer] 5 11:27:10 Notes:Some problems listed i n Documents: #[id number], #[id number], #[id number] could not be added to this patient's chart. Please review these documents and add these problems to the patient's chart manually as needed. Problem Notes None recorded. Procedures Surgical History Date Name Laterality Status Provider Name and Address Organization Details Recorded Time 4 Most Recent Mammogram completed [email or web address] 05/26/2023 12:22:46 2 cardiac pacemaker procedure completed Not Available [facility] 12/13/2021 22:56:09 Knee Surgery completed [email or web address] 01/22/2024 13:57:31 Imaging Results None recorded. Procedure [...] 1 TABLET BY MOUTH EVERY OTHER DAY 2024 active Not Available Not Available Not Avai lable ergocalci ferol (vitamin D2) 1,250 mcg (50,000 [...] 100 mcg-5 mcg/actua tion HFA aerosol inhaler Inhale 2 puffs by mouth twice daily 2024 active Not Available Not Available Not Avai lable Xarelto 15 mg tablet TAKE 1 TABLET [...] % 97.6 [degF] 131/65 mm[Hg] Bonnie Diaz [employer]. 11:14:52 Social History Question Answer Notes LastModified by Organizat ion Details LastModified Time Tobacco Smoking Status Former Smoker Bonnie garg [employer] 05/06/2024 14:20:26 Do You Have An Advance Directive? No [email or web address] Information not available 01/03/2022 Are You Blind Or Do You Have Difficulty Seeing? No [email or web address] Information not available 01/03/2022 What Is Your Level Of Caffeine Consumption? Occasional Information not available 08/20/2023 Are You A Caregiver? Yes [email or web address] Information not available 04/14/2022 In The 14 Days Before Symptom Onset, Have You Had Close Contact With A Laboratory-confir med COVID-19 While That Case Was Ill? No [email or web address] Information not available 01/03/2022 In The 14 Days Before Symptom Onset, Have You Had Close Contact With A Person Who Is Under Investigation For COVID-19 While That Person Was Ill? No Information not available 01/03/2022 Have You Been To An Area Known To Be High Risk For COVID-19? No [email or web address] Information not available 01/03/2022 Are You Deaf Or Do You Have Serious Difficulty Hearing? No [email or web address] Information not available 01/03/2022 When Did You Quit Smoking? 1-5yearssincel sergey Information not available 05/06/2024 Do You Have A Medical Power Of Senior Managing Director? No [email or web address] Information not available 01/03/2022 What Was The Date Of Your Most Recent Tobacco Screening? 12/29/2024 Information not available 12/29/2024 What Is Your Current Pack Years? [email or web address] ars [email or web address] Information not available 01/03/2022 What Is Your Relationship Status? Single [email or web address] Information not available 01/03/2022 Do You Use Your Seat Belt Or Car Seat Routinely? Yes [email or web address] Information not available 04/14/2022 Are You Passively Exposed To Smoke? Yes [email or web address] Information no t available 04/14/2022 Are There Any Smokers In Your House? Yes [email or web address] Information not available 04/14/2022 How Much Tobacco Do You Smoke? 0.5 PPD [email or web address] Information not available 01/03/2022 Has Tobacco Cessation Counseling Been Provided? Yes Information not available 05/21/2023 On What Date Was Tobacco Cessation Counseling Provided? 12/29/2024 Information not available 12/29/2024 Have You Recently Traveled Abroad? No [email or web address] Information not available 01/03/2022 Do You Have Difficulty Walking Or Climbing Stairs? No [email or web address] Information not available 01/03/2022 Are You Currently In School? No [email or web address] Information not available 04/14/2022 Sex: Female Functional Status Question Answer Note LastModified by Organizat ion Details LastModified Time Do you use any illicit or recreational drugs? No Information not available 08/20/2023 What is your level of alcohol consumption? None Information not available 01/03/2022 Do you have transportation difficulties? No [email or web address] Information not available 01/03/2022 Are you able to walk independently without assistance or assistive devices? YESWOREST [email or web address] Information not available 01/03/2022 Do you have difficulty doing errands alone? No [email or web address] Information not available 01/03/2022 Are you able to care for yourself independently? Yes [email or web address] Information not available 01/03/2022 Do you have difficulty dressing, bathing, grooming, or toileting? No [email or web address] Information not available 01/03/2022 Mental Status Question Answer Note LastModified by Organization D etails LastModified Time Do you have difficulty concentrating, remembering or making decisions? No [email or web address] Information no t available 01/03/2022 Family History Relationship Description Onset Age of this Age Resolved Age Notes LastModified by Organization Details LastModified Time Unspecified Relation Family history of Rheumatoid arthritis [email or web address] Not available 01/03 10:03:04 Mother Family history of diabetes mellitus type 2 [email or web address] Not available 01/03 10:03:27 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 Condition [...] Organization Details Recorded Time pneumococcal polysaccharide PPV23 024 cancelled patient objection Michelle Gray APRN [address] [place] [address], [address], [employer] 08/20/2023 10:06:02 zoster recombinant 024 completed Michelle Gray APRN [address] [place], [address], [employer] 08/20/2023 10:06:02 zoster recombinant 024 completed Anais garg, [employer] 11/20/2023 17:53:49 Tdap 022 completed EMELY garg, [employer] 04/14/2022 11:52:55 Influenza, split virus, quadrivalent, PF 019 completed EMELY garg, [employer] 04/14/2022 11:52:55 Tdap 024 completed Not Available [employer] 12/29/2024 11:05:47 Influenza, split virus, quadrivalent, PF 022 completed Michelle GrayALYCIA [address] [place], [address], [facility] [employer] 01/03/2022 10:44:25 Past Encounters Encounter ID Performer Location Encounter Start Date Encounter Closed Date Diagnosis/Indication Diagnosis SNOMED-CT Code Diagnosis ICD10 Code Diagnosis IMO Codes Diagnosis Note [id number] Michelle Gray, ALYCIA [address] [address] 12/29/2024 11:04:50 12/29/2024 11:49:35 Diabetes mellitus 08068280 E11.9 69629 pt declined dm foot exam, she states that she would like to do it at next visit. Ulcer of left foot 27579 1006 L97.529 [id number] Type 2 yovani betes mellitus without complication 521079086 E11.9 Hyperlipidemia 98654353 E78.5 Cobalamin deficiency 190 965529 E53.8 Cellulitis of right lower limb 1576908200 3167141 L03.115 601838 Body mass index 40+ - severely obese 780213234 E66.01 Z68.43 [id number] Goals Section Goal Description Progress Status Start [...] William Member ID Guarantor Name 12/29/2024 2 [place] [employer] CHO[employer] - FFS/TRADITIO NAL Bailey Camacho [id number] Bailey Camacho 12/29/2024 1 [facility] (MEDICARE REPLACEMENT/ ADVANTAGE - HMO) [place]DSNP Bailey Camacho [id number] Bailey Camacho Notes Date Note Type Note [...] leg that required sx. pt was in [facility] home for rehab and then did home [...] and wound care referral. Michelle Gray APRN [address] [place] [address], [address], [facility] [employer] 12/29/2024 12:52:25 OBGyn Episode No OBEpisode recorded.
--- OUTSIDE RECORDS SUMMARY | 2025-02-03 10:10 | XMS_ITS | Encounter Summary ---
Author Organization Healthcare Address [address] [place] [address] Care Team Providers Care Machine Designer Name Role Phone Michelle Gray APRN Primary Care Provider [phone] Encounter Details Date Type Department Care Team (Late st Contact Info) Description 01/05/2025 Telephone [facility] [address] [place] [address] Carmen Houser MD [address] [facility] [address] [place] [address] Social History Tobacco Use Types [...] and Family Not on file 02/25/2024 Attends Buddhist Services Not on file 02/24 Active Member [...] any time in the past 12 m [facility], were you homeless or living [...] Recorded In the past 12 months has [employer], gas, oil, or water company threatened to [...] [facility] [address] [facility], [address] [place] [address] Becky Moralez APRN [address] [facility] [address] [place] [address] 03/17/2025 9:30 AM EST Appointment [facility] [address], [address] [place] [address] 03/17/2025 10:10 AM EST Office Visit [facility] Orthopa[facility] Surgery [facility] Medicine [address] [place] [address] Terry Santoyo MD [address] [facility] [address] [place] [address] documented as of this encounter [...] documented as of this encounter Care Teams Machine Designer Relationship Specialty Start Date End Date Michelle Gray APRN [address] [place] [address] PCP - General 11/17/23 documented as of this encounter
--- OUTSIDE RECORDS SUMMARY | 2025-02-03 10:10 | XMS_ITS | Data Portability ---
Author Organization [place] [employer], [employer] [facility] Address [address] [place] [address] Care Team Providers Care Sampler First Name Role Phone BRITNI GIL Graduate Fellow SKYLAR DANIELS Disk Recordist [phone] EMELIA FALL Neurologist MICHELLE GRAY Primary Care Provider EMA Candelario Hockey Player Assessment Encounter Date Assessment Date Assessment LastModified by Organization Details LastModified Time 11/20/2023 11/20/2023 Patient presented for medication refill. Patient tolerating medication well at current dose without adverse effects. Refilled as below. Discussed plan with patient, who expressed understanding . Follow up as noted below. [email or web address] [id number] Not available 11/20/2023 09:47:09 Plan of Treatment Reminders Order Date Submit Date Provider Last Modified By Organization Details Last Modified Time Details Appointments None recorded. Lab HbA1c (hemoglobin A1c), blood [address], [address] [place] [address], [id number], 5 12:52:28 lipid panel, serum 2024 025 [facility], [address] [place] [address], [place], [address], 5 07:07:55 HbA1c (hemoglobin A1c), blood [address], [address] [place] [address], [phone], 5 16:30:47 CBC w/ auto diff 2024 025 [facility]), [address] [place], [address], 5 07:07:54 CMP, serum or plasma 2024 025 [facility]), [address] [place], [address], 5 07:07:55 TSH + free T4, serum 2024 025 [facility]), [address] [place], [address], 5 07:07:54 vitamin D, 25-hydroxy, total, serum 2024 025 [facility]), [address] [place], [address], 5 07:07:56 cobalamin and folate panel, serum 2024 025 [facility]), [address] [place] [address], [address], 5 07:07:56 HbA1c (hemoglobin A1c), blood [address], [address] [place] [address], [phone], 5 18:20:28 HbA1c (hemoglobin A1c), blood [address], [address] [place] [address], [phone], 4 09:36:24 Referral housekeeper home referral - first available appt 2024 [facility], [address], [place], [address], 09:35:59 home health referral - DEE DEE. to help pt with bathing and LLE wound care 2024 [facility], [address], [place], [address], 10:22:27 physical therapist referral - Eval and Treat 2024 [facility], [address] [place], [address], 12:38:00 Procedures None recorded. Surgeries None recorded. Imaging None recorded. Medication Orders cephalexin 500 mg capsule 2024 [facility], [address] [place] [address], [address], 05:02:28 atorvastati n 20 mg tablet 2024 [facility], [address] [place] [address], [address], 13:26:37 Accu-Chek Guide test strips 2024 [facility], [address] [place] [address], [address], 10:26:50 glipizide 10 mg tablet 2024 [facility], [address] [place] [address], [address], 10:36:00 Trulicity 1.5 mg/0.5 mL subcutaneou s pen injector 2024 [facility], [address] [place] [address], [address], 5 10:26:52 cyanocobala min (vit B-12) 1,000 mcg tablet 2024 025 [facility], [address] [place] [address], [address], 10:35:59 bisoprolol fumarate 5 mg tablet 2024 025 [facility], [address] [place] [address], [address], 16:27:58 furosemide 20 mg tablet 2024 025 [place] [address], [address] [place] [address], [address], 16:27:57 losartan 50 mg tablet 2024 025 [facility], [address] [place] [address], [address], 5 16:27:54 Xarelto 20 mg tablet 2024 025 [place] [address], [address] [place] [address], [address], 5 16:27:56 Dulera 100 mcg-5 mcg/actuati on HFA aerosol inhaler 2024 025 [place] [address], [address] [place] [address], [address], 5 16:27:51 atorvastati n 20 mg tablet 2024 025 [place] [address], [address] [place] [address], [address], 5 16:27:56 Accu-Chek Guide test strips 2024 025 [place] [address], [address] [place], [address], 5 16:27:53 glipizide 10 mg tablet 2024 025 [facility], [address] [place] [address], [address], 5 16:27:52 pioglitazon e 30 mg tablet 2024 025 [facility], [address] [place] [address], [address], 5 16:27:53 Trulicity 1.5 mg/0.5 mL subcutaneou s pen injector 2024 025 [facility], [address] [place] [address], [address], 5 16:27:56 bisoprolol fumarate 5 mg tablet 2024 025 [facility], [address] [place] [address], [address], 5 17:59:30 furosemide 20 mg tablet 2024 025 [facility], [address] [place] [address], [address], 5 17:59:28 losartan 50 mg tablet 2024 025 [facility], [address] [place] [address], [address], 5 17:59:27 Xarelto 20 mg tablet 2024 025 [facility], [address] [place] [address], [address], 5 17:59:28 glipizide 10 mg tablet 2024 025 [facility], [address] [place] [address], [address], 5 17:59:33 pioglitazon e 30 mg tablet 2024 025 [facility] [address], [address] [place] [address], [address], 5 17:59:29 Trulicity 1.5 mg/0.5 mL subcutaneou s pen injector 2024 025 [facility], [address] [place] [address], [address], 5 17:59:32 Dulera 100 mcg-5 mcg/actuati on HFA aerosol inhaler 2024 025 [facility], [address] [place] [address], [address], 5 17:59:27 atorvastati n 20 mg tablet 2024 025 [facility], [address] [place] [address], [address], 5 17:59:29 Nicoderm CQ 7 mg/24 hr daily transdermal patch 2023 025 [facility], [address] [place] [address], [address], 5 14:19:12 hydrocodone 5 mg-acetamin ophen 325 mg tablet 2023 025 [facility] [address], [address] [place] [address], [address], 5 14:18:27 furosemide 20 mg tablet 2023 024 [facility], [address] [place] [address], [address], 4 09:36:27 losartan 50 mg tablet 2023 024 [facility], [address] [place] [address], [address], 4 09:36:31 Accu-Chek Guide test strips 2023 [facility], [address] [place] [address], [address], 4 09:36:28 glipizide 10 mg tablet 2023 [facility], [address] [place] [address], [address], 4 09:36:31 pioglitazon e 30 mg tablet 2023 [facility], [address] [place] [address], [address], 4 09:36:30 Trulicity 1.5 mg/0.5 mL subcutaneou s pen injector 2023 [facility], [address] [place] [address], [address], 4 09:36:29 atorvastati n 40 mg tablet 2023 [place] [address], [address] [place] [address], [address], 4 13:55:07 Patient TargetsNo targets recorded. Patient InstructionsNo instructions recorded. Reason for Referral Physical Therapist Referral for Pain of right knee joint Eval and Treat Referring Physician: [facility], Encounter Date: 09/12/2024 Marine Equipment Preservation Inspector Referral for Ulce r of left foot first available appt Referring Physician: Family [facility]na Medicine, Encounter Date: 12/29/2024 Home Health Referral for Ulc er of left foot DEE DEE. to help pt with bathing and LLE wound care Referring Physician: Family [facility], Encounter Date: 12/29/2024 Results Created Date Observation Date Name Description Value Unit Range Abnormal Flag Note LastModifiedBy Organization Detail LastModifiedTime 11/20/19 24 11/20/2023 HbA1c (hemo globi n A1c), blood HbA1c 5.8 Not Available [address], [address], 11/20/2023 09:11:07 05/06/19 25 05/06/2024 HbA1c (hemo globi n A1c), blood HbA1c 7.5 Not Available [address], [address], 05/06/2024 14:27:47 06/03/19 25 06/04/2024 CBC WITH DIFFE RENTI AL/PL ATELE T WBC 5.7 x10e3 /uL 3.4-10 .8 normal Not Available [facility] ([facility]) [address] [place], [address], 06/04/2024 13:08:39 06/03/19 25 06/04/2024 CBC WITH DIFFE RENTI AL/PL ATELE T RBC 3.35 x10e6 /uL 3.77-5 .28 below low normal Not Available [facility] ([facility]) [address] [place], [address], 06/04/2024 13:08:39 06/03/19 25 06/04/2024 CBC WITH DIFFE RENTI AL/PL ATELE T hemoglobin 9.8 g/dL 11.1-1 5.9 below low normal Not Available [facility] ([facility]) [address] [place], [address], 06/04/2024 13:08:39 06/03/19 25 06/04/2024 CBC WITH DIFFE RENTI AL/PL ATELE T hematocrit 31.1 % 34.0-4 6.6 below low normal Not Available [facility] ([facility]) [address] [place], [address], 06/04/2024 13:08:39 06/03/19 25 06/04/2024 CBC WITH DIFFE RENTI AL/PL ATELE T MCV 93 fL 79-97 normal Not Available [facility] ([facility]) [address] [facility], [place], [address], 06/04/2024 13:08:39 06/03/19 25 06/04/2024 CBC WITH DIFFE RENTI AL/PL ATELE T MCH 29.3 pg 26.6-3 3.0 normal Not Available [facility] ([facility]) [address] [facility], [place], [address], 06/04/2024 13:08:39 06/03/19 25 06/04/2024 CBC WITH DIFFE RENTI AL/PL ATELE T MCHC 31.5 g/dL 31.5-3 5.7 normal Not Available [facility] ([facility]) [address] [facility], [place], [address], 06/04/2024 13:08:39 06/03/19 25 06/04/2024 CBC WITH DIFFE RENTI AL/PL ATELE T RDW 15.0 % 11.7-1 5.4 Not Available [facility] ([facility]) [address] [facility], [place], [address], 06/04/2024 13:08:39 06/03/19 25 06/04/2024 CBC WITH DIFFE RENTI AL/PL ATELE T platelets 234 x10e3 /uL 150-45 0 normal Not Available [facility] ([facility]) [address] [facility], [place], [address], 06/04/2024 13:08:39 06/03/19 25 06/04/2024 CBC WITH DIFFE RENTI AL/PL ATELE T neutrophils 76 % not estab. normal Not Available [facility] ([facility]) [address] [place], [address], 06/04/2024 13:08:39 06/03/19 25 06/04/2024 CBC WITH DIFFE RENTI AL/PL ATELE T lymphs 16 % not estab. normal Not Available [facility] ([facility]) [address] [facility], [place], [address], 06/04/2024 13:08:39 06/03/19 25 06/04/2024 CBC WITH DIFFE RENTI AL/PL ATELE T monocytes 7 % not estab. normal Not Available [facility] ([facility]) [address] [facility], [place], [address], 06/04/2024 13:08:39 06/03/19 25 06/04/2024 CBC WITH DIFFE RENTI AL/PL ATELE T eos 1 % not estab. normal Not Available [facility] ([facility]) [address] [facility], [place], [address], 06/04/2024 13:08:39 06/03/19 25 06/04/2024 CBC WITH DIFFE RENTI AL/PL ATELE T basos 0 % not estab. normal Not Available [facility] ([facility]) [address] [place], [address], 06/04/2024 13:08:39 06/03/19 25 06/04/2024 CBC WITH DIFFE RENTI AL/PL ATELE T immature cells REDUCING MACHINE OPERATOR Not Available [facility] ([facility]) [address] [place], [address], 06/04/2024 13:08:39 06/03/19 25 06/04/2024 CBC WITH DIFFE RENTI AL/PL ATELE T neutrophils (absolute) 4.3 x10e3 /uL 1.4-7. 0 normal Not Available [facility] ([facility]) [address] [place], [address], 06/04/2024 13:08:39 06/03/19 25 06/04/2024 CBC WITH DIFFE RENTI AL/PL ATELE T lymphs (absolute) 0.9 x10e3 /uL 0.7-3. 1 normal Not Available [facility] ([facility]) [address] [place], [address], 06/04/2024 13:08:39 06/03/19 25 06/04/2024 CBC WITH DIFFE RENTI AL/PL ATELE T monocytes(ab solute) 0.4 x10e3 /uL 0.1-0. 9 normal Not Available [facility] ([facility]) [address] [place], [address], 06/04/2024 13:08:39 06/03/19 25 06/04/2024 CBC WITH DIFFE RENTI AL/PL ATELE T eos (absolute) 0.1 x10e3 /uL 0.0-0. 4 normal Not Available [facility] ([facility]) [address] [place], [address], 06/04/2024 13:08:39 06/03/19 25 06/04/2024 CBC WITH DIFFE RENTI AL/PL ATELE T baso (absolute) 0.0 x10e3 /uL 0.0-0. 2 normal Not Available [facility] ([facility]) [address] [place], [address], 06/04/2024 13:08:39 06/03/19 25 06/04/2024 CBC WITH DIFFE RENTI AL/PL ATELE T immature granulocytes 0 % not estab. Not Available [facility] ([facility]) [address] [place], [address], 06/04/2024 13:08:39 06/03/19 25 06/04/2024 CBC WITH DIFFE RENTI AL/PL ATELE T immature grans (abs) 0.0 x10e3 /uL 0.0-0. 1 Not Available [facility] ([facility]) [address] [place], [address], 06/04/2024 13:08:39 06/03/19 25 06/04/2024 CBC WITH DIFFE RENTI AL/PL ATELE T NRBC REDUCING MACHINE OPERATOR Not Available [facility] ([facility]) [address] [facility], [place], [address], 06/04/2024 13:08:39 06/03/19 25 06/04/2024 CBC WITH DIFFE RENTI AL/PL ATELE T hematology comments: REDUCING MACHINE OPERATOR Not Available [facility] ([facility]) [address] [facility], [place], [address], 06/04/2024 13:08:39 06/03/19 25 06/04/2024 COMP. METAB OLIC PANEL (14) glucose 120 mg/dL 70-99 above high normal Not Available [facility] ([facility]) [address] [place], [address], 06/04/2024 13:08:40 06/03/19 25 06/04/2024 COMP. METAB OLIC PANEL (14) BUN 38 mg/dL 8-27 above high normal Not Available [facility] ([facility]) [address] [place], [address], 06/04/2024 13:08:40 06/03/19 25 06/04/2024 COMP. METAB OLIC PANEL (14) creatinine 1.41 mg/dL 0.57-1 .00 above high normal Not Available [facility] ([facility]) [address] [place], [address], 06/04/2024 13:08:40 06/03/19 25 06/04/2024 COMP. METAB OLIC PANEL (14) eGFR 41 mL/mi n/1.7 3 >59 below low normal Not Available [facility] ([facility]) [address] [place], [address], 06/04/2024 13:08:40 06/03/19 25 06/04/2024 COMP. METAB OLIC PANEL (14) BUN/creatini ne ratio 27 12-28 normal Not Available [facility] ([facility]) [address] [facility] [place], [address], 06/04/2024 13:08:40 06/03/19 25 06/04/2024 COMP. METAB OLIC PANEL (14) sodium 142 mmol/ L 134-14 4 normal Not Available [facility] ([facility]) [address] [facility] [place], [address], 06/04/2024 13:08:40 06/03/19 25 06/04/2024 COMP. METAB OLIC PANEL (14) potassium 4.2 mmol/ L 3.5-5. 2 normal Not Available [facility] ([facility]) [address] [facility] [place], [address], 06/04/2024 13:08:40 06/03/19 25 06/04/2024 COMP. METAB OLIC PANEL (14) chloride 107 mmol/ L 96-106 above high normal Not Available [facility] ([facility]) [address] [facility] [place], [address], 06/04/2024 13:08:40 06/03/19 25 06/04/2024 COMP. METAB OLIC PANEL (14) carbon dioxide, total 21 mmol/ L 20-29 normal Not Available [facility] ([facility]) [address] [place], [address], 06/04/2024 13:08:40 06/03/19 25 06/04/2024 COMP. METAB OLIC PANEL (14) calcium 8.5 mg/dL 8.7-10 .3 below low normal Not Available [facility] ([facility]) [address] [facility] [place], [address], 06/04/2024 13:08:40 06/03/19 25 06/04/2024 COMP. METAB OLIC PANEL (14) protein, total 6.5 g/dL 6.0-8. 5 normal Not Available [facility] ([facility]) [address] [facility] [place], [address], 06/04/2024 13:08:40 06/03/19 25 06/04/2024 COMP. METAB OLIC PANEL (14) albumin 3.6 g/dL 3.9-4. 9 below low normal Not Available [facility] ([facility]) [address] [facility] [place], [address], 06/04/2024 13:08:40 06/03/19 25 06/04/2024 COMP. METAB OLIC PANEL (14) globulin, total 2.9 g/dL 1.5-4. 5 Not Available [facility] ([facility]) [address] [facility] [place], [address], 06/04/2024 13:08:40 06/03/19 25 06/04/2024 COMP. METAB OLIC PANEL (14) bilirubin, total 0.3 mg/dL 0.0-1. 2 normal Not Available [facility] ([facility]) [address] [facility] [place], [address], 06/04/2024 13:08:40 06/03/19 25 06/04/2024 COMP. METAB OLIC PANEL (14) alkaline phosphatase 82 IU/L 44-121 normal Not Available [facility] ([facility]) [address] [place], [address], 06/04/2024 13:08:40 06/03/19 25 06/04/2024 COMP. METAB OLIC PANEL (14) AST (SGOT) 13 IU/L 0-40 normal Not Available [facility] ([facility]) [address] [place], [address], 06/04/2024 13:08:40 06/03/19 25 06/04/2024 COMP. METAB OLIC PANEL (14) ALT (SGPT) 7 IU/L 0-32 normal Not Available [facility] ([facility]) [address] [facility] [place], [address], 06/04/2024 13:08:40 06/03/19 25 06/04/2024 C-ELLYN CTIVE PROTE IN, QUANT C-reactive protein, quant <1 mg/L 0-10 Not Available [facility] ([facility]) [address] [facility] [place], [address], 06/04/2024 13:08:41 09/13/19 25 09/13/2024 TSH+F REE T4 TSH 4.300 uIU/m L 0.450- 4.500 normal Not Available [facility] ([facility]) [address] [facility] [place], [address], 09/13/2024 07:07:54 09/13/19 25 09/13/2024 TSH+F REE T4 T4,free(dire ct) 1.13 NG/dL 0.82-1 .77 normal Not Available [facility] ([facility]) [address] [facility] [place], [address], 09/13/2024 07:07:54 09/13/19 25 09/13/2024 CBC WITH DIFFE RENTI AL/PL ATELE T WBC 5.6 x10e3 /uL 3.4-10 .8 normal Not Available [facility] ([facility]) [address] [facility] [place], [address], 09/13/2024 07:07:54 09/13/19 25 09/13/2024 CBC WITH DIFFE RENTI AL/PL ATELE T RBC 3.33 x10e6 /uL 3.77-5 .28 below low normal Not Available [facility] ([facility]) [address] [facility] [place], [address], 09/13/2024 07:07:54 09/13/19 25 09/13/2024 CBC WITH DIFFE RENTI AL/PL ATELE T hemoglobin 9.6 g/dL 11.1-1 5.9 below low normal Not Available [facility] ([facility]) [address] [place], [address], 09/13/2024 07:07:54 09/13/19 25 09/13/2024 CBC WITH DIFFE RENTI AL/PL ATELE T hematocrit 31.6 % 34.0-4 6.6 below low normal Not Available [facility] ([facility]) [address] [facility], [place], [address], 09/13/2024 07:07:54 09/13/19 25 09/13/2024 CBC WITH DIFFE RENTI AL/PL ATELE T MCV 95 fL 79-97 normal Not Available [facility] ([facility]) [address] [facility], [place], [address], 09/13/2024 07:07:54 09/13/19 25 09/13/2024 CBC WITH DIFFE RENTI AL/PL ATELE T MCH 28.8 pg 26.6-3 3.0 normal Not Available [facility] ([facility]) [address] [place], [address], 09/13/2024 07:07:54 09/13/19 25 09/13/2024 CBC WITH DIFFE RENTI AL/PL ATELE T MCHC 30.4 g/dL 31.5-3 5.7 below low normal Not Available [facility] ([facility]) [address] [place], [address], 09/13/2024 07:07:54 09/13/19 25 09/13/2024 CBC WITH DIFFE RENTI AL/PL ATELE T RDW 15.2 % 11.7-1 5.4 Not Available [facility] ([facility]) [address] [place], [address], 09/13/2024 07:07:54 09/13/19 25 09/13/2024 CBC WITH DIFFE RENTI AL/PL ATELE T platelets 201 x10e3 /uL 150-45 0 normal Not Available [facility] ([facility]) [address] [facility], [place], [address], 09/13/2024 07:07:54 09/13/19 25 09/13/2024 CBC WITH DIFFE RENTI AL/PL ATELE T neutrophils 71 % not estab. normal Not Available [facility] ([facility]) [address] [facility], [place], [address], 09/13/2024 07:07:54 09/13/19 25 09/13/2024 CBC WITH DIFFE RENTI AL/PL ATELE T lymphs 16 % not estab. normal Not Available [facility] ([facility]) [address] [facility], [place], [address], 09/13/2024 07:07:54 09/13/19 25 09/13/2024 CBC WITH DIFFE RENTI AL/PL ATELE T monocytes 9 % not estab. normal Not Available [facility] ([facility]) [address] [facility], [place], [address], 09/13/2024 07:07:54 09/13/19 25 09/13/2024 CBC WITH DIFFE RENTI AL/PL ATELE T eos 4 % not estab. normal Not Available [facility] ([facility]) [address] [place], [address], 09/13/2024 07:07:54 09/13/19 25 09/13/2024 CBC WITH DIFFE RENTI AL/PL ATELE T basos 0 % not estab. normal Not Available [facility] ([facility]) [address] [place], [address], 09/13/2024 07:07:54 09/13/19 25 09/13/2024 CBC WITH DIFFE RENTI AL/PL ATELE T immature cells REDUCING MACHINE OPERATOR Not Available [facility] ([facility]) [address] [place], [address], 09/13/2024 07:07:54 09/13/19 25 09/13/2024 CBC WITH DIFFE RENTI AL/PL ATELE T neutrophils (absolute) 4.0 x10e3 /uL 1.4-7. 0 normal Not Available [facility] ([facility]) [address] [facility], [place], [address], 09/13/2024 07:07:54 09/13/19 25 09/13/2024 CBC WITH DIFFE RENTI AL/PL ATELE T lymphs (absolute) 0.9 x10e3 /uL 0.7-3. 1 normal Not Available [facility] ([facility]) [address] [place], [address], 09/13/2024 07:07:54 09/13/19 25 09/13/2024 CBC WITH DIFFE RENTI AL/PL ATELE T monocytes(ab solute) 0.5 x10e3 /uL 0.1-0. 9 normal Not Available [facility] ([facility]) [address] [place], [address], 09/13/2024 07:07:54 09/13/19 25 09/13/2024 CBC WITH DIFFE RENTI AL/PL ATELE T eos (absolute) 0.2 x10e3 /uL 0.0-0. 4 normal Not Available [facility] ([facility]) [address] [place], [address], 09/13/2024 07:07:54 09/13/19 25 09/13/2024 CBC WITH DIFFE RENTI AL/PL ATELE T baso (absolute) 0.0 x10e3 /uL 0.0-0. 2 normal Not Available [facility] ([facility]) [address] [place], [address], 09/13/2024 07:07:54 09/13/19 25 09/13/2024 CBC WITH DIFFE RENTI AL/PL ATELE T immature granulocytes 0 % not estab. Not Available [facility] ([facility]) [address] [facility], [place], [address], 09/13/2024 07:07:54 09/13/19 25 09/13/2024 CBC WITH DIFFE RENTI AL/PL ATELE T immature grans (abs) 0.0 x10e3 /uL 0.0-0. 1 Not Available [facility] ([facility]) [address] [facility], [place], [address], 09/13/2024 07:07:54 09/13/19 25 09/13/2024 CBC WITH DIFFE RENTI AL/PL ATELE T NRBC REDUCING MACHINE OPERATOR Not Available [facility] ([facility]) [address] [facility], [place], [address], 09/13/2024 07:07:54 09/13/19 25 09/13/2024 CBC WITH DIFFE RENTI AL/PL ATELE T hematology comments: REDUCING MACHINE OPERATOR Not Available [facility] ([facility]) [address] [facility], [place], [address], 09/13/2024 07:07:54 09/13/19 25 09/13/2024 COMP. METAB OLIC PANEL (14) glucose 53 mg/dL 70-99 below low normal Not Available [facility] ([facility]) [address] [facility], [place], [address], 09/13/2024 07:07:55 09/13/19 25 09/13/2024 COMP. METAB OLIC PANEL (14) BUN 42 mg/dL 8-27 above high normal Not Available [facility] ([facility]) [address] [facility], [place], [address], 09/13/2024 07:07:55 09/13/19 25 09/13/2024 COMP. METAB OLIC PANEL (14) creatinine 1.33 mg/dL 0.57-1 .00 above high normal Not Available [facility] ([facility]) [address] [facility] [place], [address], 09/13/2024 07:07:55 09/13/19 25 09/13/2024 COMP. METAB OLIC PANEL (14) eGFR 44 mL/mi n/1.7 3 >59 below low normal Not Available [facility] ([facility]) [address] [place], [address], 09/13/2024 07:07:55 09/13/19 25 09/13/2024 COMP. METAB OLIC PANEL (14) BUN/creatini ne ratio 32 12-28 above high normal Not Available [facility] ([facility]) [address] [place], [address], 09/13/2024 07:07:55 09/13/19 25 09/13/2024 COMP. METAB OLIC PANEL (14) sodium 141 mmol/ L 134-14 4 normal Not Available [facility] ([facility]) [address] [place], [id number], 09/13/2024 07:07:55 09/13/19 25 09/13/2024 COMP. METAB OLIC PANEL (14) potassium 4.4 mmol/ L 3.5-5. 2 normal Not Available [facility] ([facility]) [address] [place], [id number], 09/13/2024 07:07:55 09/13/19 25 09/13/2024 COMP. METAB OLIC PANEL (14) chloride 106 mmol/ L 96-106 normal Not Available [facility] ([facility]) [address] [place], [id number], 09/13/2024 07:07:55 09/13/19 25 09/13/2024 COMP. METAB OLIC PANEL (14) carbon dioxide, total 20 mmol/ L 20-29 normal Not Available [facility] ([facility]) [address] [facility] [place], [address], 09/13/2024 07:07:55 09/13/19 25 09/13/2024 COMP. METAB OLIC PANEL (14) calcium 9.2 mg/dL 8.7-10 .3 normal Not Available [facility] ([facility]) [address] [place], [address], 09/13/2024 07:07:55 09/13/19 25 09/13/2024 COMP. METAB OLIC PANEL (14) protein, total 6.7 g/dL 6.0-8. 5 normal Not Available [facility] ([facility]) [address] [place], [address], 09/13/2024 07:07:55 09/13/19 25 09/13/2024 COMP. METAB OLIC PANEL (14) albumin 3.9 g/dL 3.9-4. 9 normal Not Available [facility] ([facility]) [address] [place], [address], 09/13/2024 07:07:55 09/13/19 25 09/13/2024 COMP. METAB OLIC PANEL (14) globulin, total 2.8 g/dL 1.5-4. 5 Not Available [facility] ([facility]) [address] [place], [address], 09/13/2024 07:07:55 09/13/19 25 09/13/2024 COMP. METAB OLIC PANEL (14) bilirubin, total 0.5 mg/dL 0.0-1. 2 normal Not Available [facility] ([facility]) [address] [place], [address], 09/13/2024 07:07:55 09/13/19 25 09/13/2024 COMP. METAB OLIC PANEL (14) alkaline phosphatase 93 IU/L 44-121 normal Not Available [facility]) [address] [place], [address], 09/13/2024 07:07:55 09/13/19 25 09/13/2024 COMP. METAB OLIC PANEL (14) AST (SGOT) 14 IU/L 0-40 normal Not Available [facility] ([facility]) [address] [facility] [place], [address], 09/13/2024 07:07:55 09/13/19 25 09/13/2024 COMP. METAB OLIC PANEL (14) ALT (SGPT) 10 IU/L 0-32 normal Not Available [facility] ([facility]) [address] [facility] [place], [address], 09/13/2024 07:07:55 09/13/19 25 09/13/2024 LIPID PANEL cholesterol, total 77 mg/dL 100-19 9 below low normal Not Available [facility] ([facility]) [address] [place], [address], 09/13/2024 07:07:55 09/13/19 25 09/13/2024 LIPID PANEL triglyceride s 52 mg/dL 0-149 normal Not Available [facility] ([facility]) [address] [place], [address], 09/13/2024 07:07:55 09/13/19 25 09/13/2024 LIPID PANEL HDL cholesterol 36 mg/dL >39 below low normal Not Available [facility] ([facility]) [address] [place], [address], 09/13/2024 07:07:55 09/13/19 25 09/13/2024 LIPID PANEL VLDL cholesterol darío 13 mg/dL 5-40 Not Available [facility] ([facility]) [address] [place], [address], 09/13/2024 07:07:55 09/13/19 25 09/13/2024 LIPID PANEL LDL chol calc (nih) 28 mg/dL 0-99 Not Available [facility] ([facility]) [address] [place], [address], 09/13/2024 07:07:55 09/13/19 25 09/13/2024 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 Not Available [facility] ([facility]) [address] [facility], [place], [address], 09/13/2024 07:07:56 09/13/19 25 09/13/2024 VITAM IN [...] Wally bateman [place]: The [facility] Press . 2. Kingsley morales MF, Joe ey [place], Antonio off-F errar i KELLEY, et al. Evalu ation , treat ment, and preve ntion of vitam in D defic iency : an Endoc rine Socie ty clini darío pract ice guide line. JCEM. 2010; 96(7) :1911 -30. Not Available [facility] ([facility]) [address] [facility], [place], [address], 09/13/2024 07:07:56 09/13/19 25 09/12/2024 HbA1c (hemo globi n A1c), blood HbA1c 5.4 Not Available [address], [address], 09/12/2024 15:25:57 10/03/1910/03/2024 URINA LYSIS , COMPL ETE specific gravity 1.021 1.005- 1.030 normal Not Available [facility] ([facility]) [address] [facility], [place], [address], 10/03/2024 06:09:14 10/03/19 25 10/03/2024 URINA LYSIS , COMPL ETE pH 6.0 5.0-7. 5 normal Not Available [facility] ([facility]) [address] [place], [address], 10/03/2024 06:09:14 10/03/19 25 10/03/2024 URINA LYSIS , COMPL ETE urine-color Yellow yellow Not Available [facility] [address] [place], [address], 10/03/2024 06:09:14 10/03/19 25 10/03/2024 URINA LYSIS , COMPL ETE appearance Clear clear Not Available [facility] ([facility]) [address] [place], [address], 10/03/2024 06:09:14 10/03/19 25 10/03/2024 URINA LYSIS , COMPL ETE WBC esterase Negati ve negati ve Not Available [facility] ([facility]) [address] [place], [address], 10/03/2024 06:09:14 10/03/19 25 10/03/2024 URINA LYSIS , COMPL ETE protein Trace negati ve/tra ce Not Available [facility] ([facility]) [address] [facility], [place], [address], 10/03/2024 06:09:14 10/03/19 25 10/03/2024 URINA LYSIS , COMPL ETE glucose Negati ve negati ve Not Available [facility] ([facility]) [address] [place], [address], 10/03/2024 06:09:14 10/03/19 25 10/03/2024 URINA LYSIS , COMPL ETE ketones Negati ve negati ve Not Available [facility] ([facility]) [address] [place], [address], 10/03/2024 06:09:14 10/03/19 25 10/03/2024 URINA LYSIS , COMPL ETE occult blood Negati ve negati ve Not Available [facility] ([facility]) [address] [place], [address], 10/03/2024 06:09:14 10/03/19 25 10/03/2024 URINA LYSIS , COMPL ETE bilirubin Negati ve negati ve Not Available [facility] ([facility]) [address] [place], [address], 10/03/2024 06:09:14 10/03/19 25 10/03/2024 URINA LYSIS , COMPL ETE urobilinogen ,semi-qn 0.2 mg/dL 0.2-1. 0 normal Not Available [facility] ([facility]) [address] [place], [address], 10/03/2024 06:09:14 10/03/19 25 10/03/2024 URINA LYSIS , COMPL ETE nitrite, urine Negati ve negati ve Not Available [facility] ([facility]) [address] [facility], [place], [address], 10/03/2024 06:09:14 10/03/19 25 10/03/2024 URINA LYSIS , COMPL ETE microscopic examination Commen t Micro scopi c follo ws if indic ated. Not Available [facility] ([facility]) [address] [facility], [place], [address], 10/03/2024 06:09:14 10/03/19 25 10/03/2024 URINA LYSIS , COMPL ETE microscopic examination See below: Micro scopi c was indic ated and was perfo rmed. Not Available [facility] ([facility]) [address] [facility], [place], [address], 10/03/2024 06:09:14 10/03/19 25 10/03/2024 URINA LYSIS , COMPL ETE WBC None seen /hpf 0 - 5 Not Available [facility] ([facility]) [address] [facility], [place], [address], 10/03/2024 06:09:14 10/03/19 25 10/03/2024 URINA LYSIS , COMPL ETE RBC None seen /hpf 0 - 2 Not Available [facility] ([facility]) [address] [facility], [place], [address], 10/03/2024 06:09:14 10/03/19 25 10/03/2024 URINA LYSIS , COMPL ETE epithelial cells (non renal) 0-10 /hpf 0 - 10 Not Available [facility] ([facility]) [address] [place], [address], 10/03/2024 06:09:14 10/03/19 25 10/03/2024 URINA LYSIS , COMPL ETE epithelial cells (renal) REDUCING MACHINE OPERATOR Not Available [facility] [address] [place], [address], 10/03/2024 06:09:14 10/03/19 25 10/03/2024 URINA LYSIS , COMPL ETE casts None seen /lpf none seen Not Available [facility] ([facility]) [address], [place], [address], 10/03/2024 06:09:14 10/03/19 25 10/03/2024 URINA LYSIS , COMPL ETE cast type REDUCING MACHINE OPERATOR Not Available [facility] ([facility]) [address], [place], [address], 10/03/2024 06:09:14 10/03/19 25 10/03/2024 URINA LYSIS , COMPL ETE crystals REDUCING MACHINE OPERATOR Not Available [facility] ([facility]) [address], [place], [address], 10/03/2024 06:09:14 10/03/19 25 10/03/2024 URINA LYSIS , COMPL ETE crystal type REDUCING MACHINE OPERATOR Not Available [facility] ([facility]) [address], [place], [address], 10/03/2024 06:09:14 10/03/19 25 10/03/2024 URINA LYSIS , COMPL ETE mucus threads REDUCING MACHINE OPERATOR Not Available [facility] ([facility]) [address] [facility], [place], [address], 10/03/2024 06:09:14 10/03/1910/03/2024 URINA LYSIS , COMPL ETE bacteria None seen none seen/f ew Not Available [facility] ([facility]) [address], [place], [address], 10/03/2024 06:09:14 10/03/19 25 10/03/2024 URINA LYSIS , COMPL ETE yeast REDUCING MACHINE OPERATOR Not Available [facility] ([facility]) [address], [place], [address], 10/03/2024 06:09:14 10/03/19 25 10/03/2024 URINA LYSIS , COMPL ETE trichomonas REDUCING MACHINE OPERATOR Not Available [facility] ([facility]) [address] [place], [address], 10/03/2024 06:09:14 10/03/19 25 10/03/2024 URINA LYSIS , COMPL ETE comment REDUCING MACHINE OPERATOR Not Available [facility] ([facility]) [address] [place], [address], 10/03/2024 06:09:14 10/18/19 25 10/18/2024 PROTE IN ELEC + INTER P, SERUM protein, total 6.8 g/dL 6.0-8. 5 normal Not Available [facility] ([facility]) [address] [facility], [place], [address], 10/20/2024 15:07:45 10/18/19 25 10/18/2024 PROTE IN ELEC + INTER P, SERUM please note: Commen t [facility] follo w via compu ter, mail, or couri renetta ingram. Not Available [facility] ([facility]) [address] [place], [address], 10/20/2024 15:07:45 10/18/19 25 10/20/2024 PROTE IN ELEC + INTER P, SERUM albumin 3.3 g/dL 2.9-4. 4 Not Available [facility] ([facility]) [address] [place], [address], 10/20/2024 15:07:45 10/18/19 25 10/20/2024 PROTE IN ELEC + INTER P, SERUM deyod-3-ilqv ulin 0.3 g/dL 0.0-0. 4 Not Available [facility] ([facility]) [address] [place], [address], 10/20/2024 15:07:45 10/18/19 25 10/20/2024 PROTE IN ELEC + INTER P, SERUM aeitr-8-idpg ulin 0.7 g/dL 0.4-1. 0 Not Available [facility] ([facility]) [address] [place], [address], 10/20/2024 15:07:45 10/18/19 25 10/20/2024 PROTE IN ELEC + INTER P, SERUM beta globulin 1.0 g/dL 0.7-1. 3 Not Available [facility] ([facility]) [address] [place], [address], 10/20/2024 15:07:45 10/18/19 25 10/20/2024 PROTE IN ELEC + INTER P, SERUM gamma globulin 1.5 g/dL 0.4-1. 8 Not Available [facility] ([facility]) [address] [place], [address], 10/20/2024 15:07:45 10/18/19 25 10/20/2024 PROTE IN ELEC + INTER P, SERUM M-spike Not Observ ed g/dL not observ ed Not Available [facility] ([facility]) [address] [place], [address], 10/20/2024 15:07:45 10/18/19 25 10/20/2024 PROTE IN ELEC + INTER P, SERUM globulin, total 3.5 g/dL 2.2-3. 9 Not Available [facility] ([facility]) [address] [place], [address], 10/20/2024 15:07:45 10/18/19 25 10/20/2024 PROTE IN ELEC + INTER P, SERUM A/G ratio 0.9 0.7-1. 7 Not Available [facility] ([facility]) [address] [place], [address], 10/20/2024 15:07:45 10/18/19 25 10/20/2024 PROTE IN ELEC + INTER P, SERUM P E interpretati on, S Commen t The SPE alexsandra rn appea rs unrem arkab le. Evide nce of monoc lonal prote in is not appar ent. Not Available [facility] ([facility]) [address] [facility], [place], [address], 10/20/2024 15:07:45 10/18/19 25 10/20/2024 PROTE IN ELEC + INTER P, SERUM pdf . Not Available [facility] ([facility]) [address] [facility], [place], [address], 10/20/2024 15:07:45 10/18/19 25 10/18/2024 CALCI UM, RANDO M URINE calcium, urine <0.8 mg/dL not estab. Monika ified by el cosme jay sis Not Available [facility] ([facility]) [address] [facility], [place], [address], 10/20/2024 15:07:46 10/18/19 25 10/18/2024 PHOSP HORUS , RANDO M URINE phosphorus, urine 57.9 mg/dL not estab. Not Available [facility] ([facility]) [address] [facility], [place], [address], 10/20/2024 15:07:47 10/18/19 25 10/18/2024 CREAT ININE , URINE creatinine, urine 107.2 mg/dL not estab. normal Not Available [facility] ([facility]) [address] [facility], [place], [address], 10/20/2024 15:07:48 12/30/19 25 12/29/2024 HbA1c (hemo globi n A1c), blood HbA1c 5.3 Not Available [address], [address], 12/29/2024 11:14:29 12/16/19 24 12/16/2023 XR, femur , 2 or more view No observ ation record ed. [facility] [address], [place], [address], 01/15/2024 13:59:21 12/16/19 24 12/16/2023 XR, knee, 1 or 2 view No observ ation record ed. [place] [address], [place], [address], 01/15/2024 14:00:02 12/16/19 24 12/16/2023 XR, hip + pelvi s, unila teral , 2 or 3 view No observ ation record ed. [address], [place], [address], 01/15/2024 13:58:26 12/16/19 24 12/16/2023 imagi ng/di agnos tic resul t No observ ation record ed. [place] [id number], [place], [address], 01/15/2024 14:00:43 02/25/20 24 02/23/2024 XR, chest No observ ation record ed. [place] [address], [place], [address], 06/10/2024 16:24:05 02/25/20 24 02/23/2024 CT, angio gram, chest , w/ contr ast No observ ation record ed. [place] [address], [place], [address], 06/10/2024 16:24:41 02/25/20 24 02/23/2024 XR, knee No observ ation record ed. [place] [id number], [place], [address], 06/10/2024 16:25:03 04/05/20 24 04/04/2024 CT, angio gram, head + neck, w/ contr ast No observ ation record ed. [address], [place], [place], [address], 06/10/2024 16:25:42 04/05/20 24 04/04/2024 CT, angio gram, head + neck, w/ contr ast No observ ation record ed. [address], [place], [place], [address], 06/10/2024 16:26:06 04/05/20 24 04/04/2024 CT, brain , w/ contr ast No observ ation record ed. [address], [place], [place], [address], 06/10/2024 16:26:31 04/05/20 24 04/04/2024 CT, angio gram, head, w/ contr ast No observ ation record ed. [address], [place], [place], [address], 06/10/2024 16:27:01 04/05/20 24 04/05/2024 elect magdalena huertas am No observ ation record ed. [address], [place], [place], [address], 06/10/2024 16:27:21 01/06/20 25 01/05/2025 imagi ng/di agnos tic resul t No observ ation record ed. [facility] [address], [place], [place], [address], 01/05/2025 16:48:59 01/13/20 25 01/12/2025 imagi ng/di agnos tic resul t No observ ation record ed. [facility] [address], [place], [place], [address], 01/12/2025 14:52:59 Result Notes None recorded. 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 10:02:22 Plantar fascial fibromat osis 93629661 Completed 201710/02/2017 Problem Code: M72.2; Problem Code Type: ICD-10; Not Available [facility] 21:52:14 Hyperten sive disorder 60155861 Active 2018 Problem Code: I10; Problem Code Type: ICD-10; Not Available [facility] 21:52:11 Multiple cysts of breast 108695106 Active 2018 Not Available [facility] 21:52:12 Screenin g mammogra phy Completed 201801/03/2022 Problem Code: Z12.31; Problem Code Type: ICD-10; EMELY garg [employer] 10:02:22 Endocrin e/metabo lic screenin g Completed 201901/03/2022 Problem Code: Z13.29; Problem Code Type: ICD-10; EMELY garg [employer] 2 10:02:22 Finding of body mass index 049914441 Completed 201901/03/2022 Problem Code: Z68.41; Problem Code Type: ICD-10; EMELY garg [employer] 2 10:02:22 Nicotine dependen ce 12792288 Active 2020 Problem Code: F17.200; Problem Code Type: ICD-10; Not Available [facility] 21:52:11 General examinat ion of patient Completed 202007/08/2020 Not Available [facility] 2 21:52:12 Body mass index 40+ - severely obese 201810087 Completed 202001/03/2022 EMELY ISABELNER britany, [employer] 2 10:02:22 Polyalgi a 494845964 Completed 202001/03/2022 Problem Code: M79.89; Problem Code Type: ICD-10; EMELY ISABELNER [place], [employer] 2 10:02:22 Edema 282421836 Completed 202001/03/2022 EMELY ISABELNER [place], [employer] 2 10:02:22 Obesity 387284729 Active 2020 Not Available [facility] 2 21:52:11 Chronic fatigue syndrome 04234337 Active 2020 Problem Code: R53.82; Problem Code Type: ICD-10; Not Available [facility] 2 21:52:12 Screenin g for malignan t neoplasm of colon Completed 202001/03/2022 EMELY ISABELNER [place], [employer] 2 10:02:22 On examinat ion - inspecti on of blood Completed 202001/03/2022 EMELY ISABELNER [place], [employer] 2 10:02:22 Hyperlip idemia 54522858 Active 2020 Problem Code: E78.5; Problem Code Type: ICD-10; Not Available [facility] 2 21:52:11 Body mass index 40+ - severely obese 178994045 Completed 202004/18/2021 EMELY ISABELNER [place]ritany, [employer] 2 10:02:22 Body mass index 30+ - obesity 588730022 Completed 202101/03/2022 Problem Code: Z68.43; Problem Code Type: ICD-10; EMELY TESSY [email or web address] 2 10:02:22 Type 2 diabetes mellitus without complica tion 258293908 Active 2021 Not Available [facility] 2 21:52:11 Epilepti c seizure 801067010 Active 2021 Problem Code: G40.509; Problem Code Type: ICD-10; EMELY ISABELNER [place]ritany, [employer] 2 10:02:52 Cardiac pacemake r in situ 573095118 Active 2021 Problem Code: Z95.0; Problem Code Type: ICD-10; Not Available [facility] 2 21:52:15 Localize d swelling , mass and lump, neck Active 2021 Problem Code: R22.1; Problem Code Type: ICD-10; Not Available [facility] 2 21:52:14 Pain in right foot 06509934657 9107 Active [address], [address] , [employer] 4 13:11:04 Fracture of phalanx of foot 76724205 Active [address], [address] , [employer] 4 16:55:26 Type 2 diabetes mellitus 54484765 Active 2024 Bonnie garg, [employer] 5 15:25:38 Senile osteopor osis 47899650 Active 2024 Bonnie garg, [employer] 5 12:15:09 Postcoit al bleeding 91734051 Active 2024 Bonnie garg, [employer] 5 12:16:01 Diabetes mellitus 52472496 Active 2024 Bonnie garg, [employer] 5 11:14:24 Ulcer of left foot 145965632 Active 2024 [employer] 5 11:27:10 Notes:Some problems listed i n Documents: #[id number], #[id number], #[id number] could not be added to this patient's chart. Please review these documents and add these problems to the patient's chart manually as needed. Problem Notes None recorded. Procedures Surgical History Date Name Laterality Status Provider Name and Address Organization Details Recorded Time 4 Most Recent Mammogram completed Bonnie Diaz [employer] 05/26/2023 12:22:46 2 cardiac pacemaker procedure completed Not Available [facility] 12/13/2021 22:56:09 Knee Surgery completed [employer]alonso [employer] 01/22/2024 13:57:31 Imaging Results None recorded. Procedure [...] 95 % 95 % 105/68 mm[Hg] Bonnie Diaz [facility] [employer] 5 14:24:27 Date Recorded Body height Heart rate Oxygen saturation Oxygen saturation in Arterial blood by Pulse oximetry Systolic And Diastolic Provider Name and Address Organization Details Last Updated DateTime 5 172.72 cm 72 /min 92 % 92 % 134/79 mm[Hg] Bonnie Diaz [employer] 5 14:41:19 Date Recorded Body height Body mass index (BMI) Body weight Heart rate Oxygen saturation Oxygen saturation in Arterial blood by Pulse oximetry Systolic And Diastolic Systolic And Diastolic Systolic And Diastolic Provider Name and Address Organization Details Last Updated DateTime 4 172.72 cm 51.1 kg/m2 223352. 14 g 70 /min 93 % 93 % 153/72 mm[Hg] 150/77 mm[Hg] 138/65 mm[Hg] Anais Rubio [employer] 4 09:09:59 Date Recorded Body height Heart rate Oxygen saturation Oxygen saturation in Arterial blood by Pulse oximetry Body temperature Systolic And Diastolic Provider Name and Address Organization Details Last Updated DateTime 5 172.72 cm 61 /min 97 % 97 % 97.6 [degF] 131/65 mm[Hg] Bonnie Diaz [employer] 5 11:14:52 Date Recorded Body height Heart rate Oxygen saturation Oxygen saturation in Arterial blood by Pulse oximetry Systolic And Diastolic Provider Name and Address Organization Details Last Updated DateTime 4 172.72 cm 74 /min 94 % 94 % 92/57 mm[Hg] Bonnie Diaz [employer] 4 13:54:37 Social History Question Answer Notes LastModified by Organizat ion Details LastModified Time Tobacco Smoking Status Former Smoker Bonnie Diaz britany [employer] 05/06/2024 14:20:26 Do You Have An Advance Directive? No [email or web address] Information not available 01/03/2022 Are You Blind Or Do You Have Difficulty Seeing? No [email or web address] Information not available 01/03/2022 What Is Your Level Of Caffeine Consumption? Occasional Information not available 08/20/2023 Are You A Caregiver? Yes [email or web address] Information not available 04/14/2022 In The 14 Days Before Symptom Onset, Have You Had Close Contact With A Laboratory-confir med COVID-19 While That Case Was Ill? No [email or web address] Information not available 01/03/2022 In The 14 Days Before Symptom Onset, Have You Had Close Contact With A Person Who Is Under Investigation For COVID-19 While That Person Was Ill? No [email or web address] Information not available 01/03/2022 Have You Been To An Area Known To Be High Risk For COVID-19? No Information not available 01/03/2022 Are You Deaf Or Do You Have Serious Difficulty Hearing? No Information not available 01/03/2022 When Did You Quit Smoking? 1-5yearssincel sergey Information not available 05/06/2024 Do You Have A Medical Power Of Cable Coverer? No [email or web address] Information not available 01/03/2022 What Was The Date Of Your Most Recent Tobacco Screening? 12/29/2024 Information not available 12/29/2024 What Is Your Current Pack Years? [email or web address] ars [email or web address] Information not available 01/03/2022 What Is Your Relationship Status? Single [email or web address] Information not available 01/03/2022 Do You Use Your Seat Belt Or Car Seat Routinely? Yes [email or web address] Information not available 04/14/2022 Are You Passively Exposed To Smoke? Yes [email or web address] Information no t available 04/14/2022 Are There Any Smokers In Your House? Yes [email or web address] Information not available 04/14/2022 How Much Tobacco Do You Smoke? 0.5 PPD [email or web address] Information not available 01/03/2022 Has Tobacco Cessation Counseling Been Provided? Yes Information not available 05/21/2023 On What Date Was Tobacco Cessation Counseling Provided? 12/29/2024 Information not available 12/29/2024 Have You Recently Traveled Abroad? No [email or web address] Information not available 01/03/2022 Do You Have Difficulty Walking Or Climbing Stairs? No Information not available 01/03/2022 Are You Currently In School? No [email or web address] Information not available 04/14/2022 Sex: Female Functional Status Question Answer Note LastModified by Organizat ion Details LastModified Time Do you use any illicit or recreational drugs? No Information not available 08/20/2023 What is your level of alcohol consumption? None [email or web address] Information not available 01/03/2022 Do you have transportation difficulties? No [email or web address] Information not available 01/03/2022 Are you able to walk independently without assistance or assistive devices? YESWOREST [email or web address] Information not available 01/03/2022 Do you have difficulty doing errands alone? No [email or web address] Information not available 01/03/2022 Are you able to care for yourself independently? Yes [email or web address] Information not available 01/03/2022 Do you have difficulty dressing, bathing, grooming, or toileting? No [email or web address] Information not available 01/03/2022 Mental Status Question Answer Note LastModified by Organization D etails LastModified Time Do you have difficulty concentrating, remembering or making decisions? No Information no t available 01/03/2022 Family History Relationship Description Onset Age of this Age Resolved Age Notes LastModified by Organization Details LastModified Time Unspecified Relation Family history of Rheumatoid arthritis [email or web address] Not available 01/03 10:03:04 Mother Family history of diabetes mellitus type 2 [email or web address] Not available 01/03 10:03:27 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 Condition Response Hospitalizations N Diabetes Y Emergency room visit since last appointm ent. N Hypertension Y High Cholesterol Y Gynecological History Statement/Question Response Date of Last Pap Smear Most Recent Mammogram 05/18/2023 Obstetrics History GPAL:G 0 P 0 0 0 0 Immunizations Vaccine Type Date Status Note Provider Name and Address Organization Details Recorded Time pneumococcal polysaccharide PPV23 024 cancelled patient objection Michelle Gray APRN [address] [place], [address], [employer] 08/20/2023 10:06:02 zoster recombinant 024 completed Michelle Gray APRN [address] [place], [address], [employer] 08/20/2023 10:06:02 zoster recombinant 024 completed Anais Rubio null, [facility] [employer] 11/20/2023 17:53:49 Tdap 022 completed EMELY STILL null, [facility] 04/14/2022 11:52:55 Influenza, split virus, quadrivalent, PF 019 completed EMELY STILL null, [facility] 04/14/2022 11:52:55 Tdap 024 completed Not Available [facility] 12/29/2024 11:05:47 Influenza, split virus, quadrivalent, PF 022 completed Michelle Gray APRN [address] [place] [address], [address], [facility] [employer] 01/03/2022 10:44:25 Past Encounters Encounter ID Performer Location Encounter Start Date Encounter Closed Date Diagnosis/Indication Diagnosis SNOMED-CT Code Diagnosis ICD10 Code Diagnosis IMO Codes Diagnosis Note [id number] ryan Gray [address] 0 01/03/2022 10:09:16 01/03/2022 10:46:08 Type 2 diabetes mellitus without complication 068844781 E11.9 Hyperlipidemia 49513472 E78.5 Hypertensive disorder 38 139583 I10 Nicotine dependence 5629 4008 F17.200 Administra tion of influenza vaccine 79223602 Z23 [id number] Michelle Gray [place] [id number] 04/14/2022 11:49:18 04/14/2022 13:11:25 Type 2 diabetes mellitus without complication 213280757 E11.9 Hyperlipidemia 96975417 E78.5 Hypertensive disorder 38 209281 I10 Body mass index 40+ - severely obese 669472682 Z68.43 [id number] [place] [address] 05/25/2022 08:13:48 05/25/2022 08:57:07 Anemia 453848816 D64.9 Serum crea tinine above reference range 267264388 R79.89 Chronic fa tigue syndrome 17462558 R53.82 Hyperlipidemia 48238241 E78.5 Upper gastrointestinal bleeding 36375169 K92.89 Body mass index 40+ - severely obese 337514214 Z68.43 [id number] Michelle Gray [place] [id number] 07/25/2022 10:19:15 07/25/2022 11:08:04 Type 2 diabetes mellitus without complication 131652634 E11.9 Hypertensive disorder 38 793395 I10 Hyperlipidemia 24217854 E78.5 Epileptic seizure 976125 000 G40.509 Body mass index 40+ - severely obese 675729548 Z68.43 [id number] Michelle Gray [place] [id number] 10/24/2022 11:15:55 10/24/2022 12:10:19 Hypertensive disorder 70622491 I10 Type 2 yovani betes mellitus without complication 004866478 E11.9 Body mass index 40+ - severely obese 127916228 Z68.43 [id number] [place] [address] 05/21/2023 11:23:23 05/21/2023 11:52:00 Type 2 diabetes mellitus without complication 292700021 E11.9 Pain of le ft elbow joint 6905793148 1835559 M25.522 Fatigue 97432988 R53.83 Hyperlipidemia 42719107 E78.5 Vitamin D deficiency 347 64863 E55.9 Hypertensive disorder 38 343890 I10 Body mass index 40+ - severely obese 812609259 Z68.43 [id number] Michelle Gray [place] [id number] 08/20/2023 08:55:37 08/20/2023 09:44:54 Diabetes mellitus 29842826 E11.9 pt declined dm foot exam, she states that she would like to do it at next visit. Colon canc er screening declined 9903969835 9109 Z53.20 states that she will think about doing the cologuard. Active or passive immunization 293624091 Z23 Shingles VIS given Vaccine de clined by patient 7887213452 02 Z28.20 Pneumococc al VIS given for pt education. Adult heal th examination 296064508 Z00.00 Hyperlipidemia 93280657 E78.5 Hypertensive disorder 38 132527 I10 Type 2 yovani betes mellitus without complication 013586304 E11.9 Body mass index 40+ - severely obese 501835384 Z68.43 [id number] BLAIRE DIAZ, [address] 0 10/18/2023 12:54:19 10/18/2023 13:24:58 Pain in right foot 2457456981 81205 M79.083 [id number] [place] [address] 11/20/2023 08:54:05 11/20/2023 09:46:44 Type 2 diabetes mellitus without complication 430502622 E11.9 Hyperlipidemia 10247370 E78.5 Hypertensive disorder 38 461570 I10 Active or passive immunization 189786065 Z23 Body mass index 40+ - severely obese 803442402 Z68.43 [id number] [place] [address] 01/22/2024 13:42:08 01/22/2024 14:33:01 Fracture of femur 24126387 S72.90XA Nicotine dependence 5629 4008 F17.200 Unsteady when walking 22 770619 R26.89 Body mass index 40+ - severely obese 700641713 Z68.43 [id number] [place] [address] 05/06/2024 13:51:57 05/06/2024 15:20:08 Type 2 diabetes mellitus without complication 539844715 E11.9 Hypertensive disorder 38 823973 I10 Hyperlipidemia 59310003 E78.5 Chronic ob structive pulmonary disease 22121015 J44.9 Body mass index 40+ - severely obese 269832508 Z68.43 [id number] [place] [address] 09/12/2024 14:21:02 09/12/2024 15:57:13 Fatigue 09192015 R53.83 9770919 Mixed hyperlipidemia 267 588338 E78.2 22321 Vitamin D deficiency 347 30870 E55.9 77919 Cobalamin deficiency 190 941178 E53.8 65943 Pain of ri ght knee joint 6614740343 37032 M25.561 470977 Edema of l ower extremity 052712443 R60.0 75666 Type 2 yovani betes mellitus 49652681 E11.9 47016499 Type 2 yovani betes mellitus without complication 386418626 E11.9 Hyperlipidemia 41827870 E78.5 Hypertensive disorder 38 650658 I10 Chronic ob structive pulmonary disease 36425557 J44.9 Body mass index 40+ - severely obese 835084977 Z68.43 4058586 [id number] Michelle Gray [place] [address] 0 12/29/2024 11:04:50 12/29/2024 11:49:35 Diabetes mellitus 47822982 E11.9 42321 pt declined dm foot exam, she states that she would like to do it at next visit. Ulcer of left foot 38121 1006 L97.529 69568707 Type 2 yovani betes mellitus without complication 197380110 E11.9 Hyperlipidemia 12465671 E78.5 Cobalamin deficiency 190 031501 E53.8 Cellulitis of right lower limb 8395790096 9923175 L03.115 969831 Body mass index 40+ - severely obese 886470456 E66.01 Z68.43 [id number] Goals Section Goal Description Progress Status Start [...] s) as per care team recommendati on(s) NoCdiamond active 2023 Ema Cho Information not available 07/24/2023 16:12:21 Blood Pressure Maintains blood pressure goal as defined by care team NoCubaldoge active 2023 Ema Cho Information not available [...] 12/26/2024 [place] [employer] - [facility] Baileyzahra Camacho [id number] Bailey Janice 11/22/2022 1 [place]MED[place]ACEMENT H[place] Baileyzahra Camacho [id number] Bailey Janice 03/28/2023 [place] Baileyzahra Camacho [id number] Bailey Janice 11/10/2022 3 [place] [id number] Bailey Ernesto MalikCamacho [id number] Bailey Janice 05/06/2024 1 [place] [id number] Bailey Ernesto MalikCamacho [id number] Bailey Janice 09/12/2024 1 [employer] (MEDICARE REPLACEMENT/A DVANTAGE - HMO) Baileyzahra Malikaker [id number] Bailey Janice 03/28/2023 1 [place] Bailey Camacho [id number] Bailey Camacho 03/16/2023 1 UNSPECIFIED REMIT PAYOR Bailey Camacho 12/26/2024 2 MEDICAID-[facility] CHOICES - FFS/TRADITION AL Bailey Camacho [id number] Bailey Camacho 09/12/2023 2 [place] [id number] Bailey Camacho [id number] Bailey Camacho 09/12/2024 1 [place] [id number] Bailey Camacho [id number] Bailey Camacho 12/26/2024 1 [facility] (MEDICARE REPLACEMENT/A DVANTAGE - HMO) [id number] Bailey Camacho [id number] Bailey Camacho Notes Date Note Type Note [...] to continue current medication regime. Anais garg, [facility] [employer] 11/20/2023 17:55:55 01/22/2024 text/html pt here today for a rehab d/c f/u. pt states that she was camping with her family and stepped off the concrete onto the gravel and fell and broke her femur on 12/15, went to [facility] and was tx to where she had sx and then went to [facility] for rehab. she stayed the 20 days [...] as hospital prescribed. Michelle Gray, ALYCIA [address] [place], [address], [employer] 01/22/2024 16:22:45 05/06/2024 text/html 68 year old female here for rehab follow up. She was discharged last from the residential/rehab following 2nd surgery on right knee for [...] only taking insulin in hospital/rehab. Michelle Gray, DIGITAL MEDIA DESIGNER [address] [place], [address], [employer] 05/06/2024 17:59:55 09/12/2024 text/html pt here today for medication refills. pt states that she has been doing well on current medication regime. states that due to her knee she has been dependent on other people cooking her meals. A1C 5.4, 7.4 at last visit. pt to continue current diabetic diet and medication regime. pt states that she has not seen her building construction engineer in about 6 months. i highly advised pt to reschedule her appt with building construction engineer for a f/u. pt states that she just got finished with PT and that for the past week her BLE have been swelling and she can barely walk. 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 [...] i will order labwork on pt. Michelle Gray, ALYCIA [address] [facility], [place], [address], [facility] [employer] 09/12/2024 16:28:16 12/29/2024 text/html pt here [...] that required sx. pt was in [facility] for rehab and then [...] wound care referral. Michelle Gray APRN [address] [facility], [place], [address], [facility] [employer] 12/29/2024 12:52:25 OBGyn Episode No OBEpisode recorded.
--- OUTSIDE RECORDS SUMMARY | 2025-02-03 10:10 | XMS_ITS | Encounter Summary ---
Author Organization Healthcare Address [address] [place] [address] Care Team Providers Care Script Developer Name Role Phone Michelle Gray APRN Primary Care Provider [phone] Reason for Visit * Reason Onset Date Comments Medication Therapy Management 12/16/2024 Encounter Details Date Type Department Care Team (Late st Contact Info) Description 12/16/2024 Telephone [facility] [address] [place] [phone] Valentina Brown, [place] [address] Medication Therapy Management Social History Tobacco Use [...] and Family Not on file 02/25/2024 Attends [employer] Services Not on file 02/24 Active Member [...] place to sleep or slept in a senior living (including now)? No 12/19/2023 PHQ-9 Answer Date [...] any time in the past 12 m [facility], were you homeless or living in a senior living (including now)? No 02/25/2024 AUDIT-C Answer Date Recorded Frequency of Alcohol Consumption Not on file 10/23/2024 Q2: How many drinks containi ng alcohol do you have on a typical day when you are drinking? Patient does not drink Frequency of Binge Drinking Not on file 10/07 Utilities Answer Date Recorded In the past 12 months has th e [employer], gas, oil, or water [email or web address] threatened to shut off services in your [...] 90 day fill 12/16/24 Valentina Brown PharmD [facility] MTM Team documented in this encounter Plan of Treatment Upcoming Encounters Date Type Department Care Team (Late st Contact Info) Description 02/24/2025 10:40 AM EST Office Visit [facility] [address], [address] [place] [address] Becky Moralez APRN [address] [place] [address] 03/17/2025 9:30 AM EST Appointment [facility] [address] [place] [phone] 03/17/2025 10:10 AM EST Office Visit [facility] [address], [address] [place] [address] Terry Santoyo MD [address] [place] [address] documented as of this encounter [...] documented as of this encounter Care Teams Script Developer Relationship Specialty Start Date End Date Michelle Gray APRN [address] [place] [address] PCP - General 11/17/23 documented as of this encounter
--- OUTSIDE RECORDS SUMMARY | 2025-02-03 10:10 | XMS_ITS | Clinical Summary ---
Author Organization [facility] Address [address] [place] [address] Care Team Providers Care Rn Dialysis Name Role Phone Michelle Gray APRN Primary Care Provider [phone] Allergies No known active allergies Medications dulaglutide [...] 05/12/19 25 Active Vitamin D3 1.25 MG (61261 UT) capsule Take 1 capsule by mouth [...] split. 30 tablet 2 10/24/19 25 Active pen needle, diabetic (B-D UF III MINI PEN NEEDLES) 31G X 5 MM misc 1 each daily. Use with Tymlos 100 each 11 11/01/19 25 Active Trulicity 1.5 MG/0.5ML solution auto-injector INJECT 1 PEN SUBCUTANEOUSLY ONCE A WEEK 10/28/19 25 Active Abaloparatide (Tymlos) 3120 MCG/1.56ML solution pen-injectorIndi cations:Age-rela ricardo osteoporosis without current pathological fracture Inject 80 mcg under the skin daily. 1.56 mL 01/27/20 25 Active Abaloparatide (Tymlos) 3120 MCG/1.56ML solution pen-injector Inject 80 mcg under the skin daily. 1.56 mL 2 11/01/19 25 025 Discontin ued(Reord er) Active Problems Problem Noted Date Diagnosed Date [...] Enterococcus 03/27/2024 Insomnia 03/27/2024 Muscle atrophy 03/27/2024 Obstructive sleep apnea syndrome 03/27/2024 PAF (paroxysmal atrial fibrillation) 03/27/2024 Pulmonary embolism 03/27/2024 Unsteadiness on feet 03/27/2024 Vitamin D deficiency 03/27/2024 Class III obesity with body mass index (BMI) of 40.0 or higher 03/04/2024 Arthritis, septic 02/23/2024 Difficulty swallowing 12/25/2023 Overview (12/25/2023): WOOD SCRAP HANDLER consulted More globus sensation, can follow up [...] 04/2024 Acute kidney injury 07/24/2024 12/29/19 25 Muscle weakness 03/27/2024 01/25/2025 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 02/24/20 24 09/18/2024 ABLA (acute blood loss anemia) 12/19/2023 09/18/2024 Overview (12/22/2023): 12/18: 1 U PRBC for hgb 6.6 Hgb stable 7.5 Trend H&H 12/20: 6.9; Transfuse 1 u PRBC ; Repeat H&H Jteia-cg-ewqjceu kidney injury 12/18/2023 12/28/2024 Overview (12/23/2023): Contacted [...] Encounters Date Type Department Care Team Description 01/26/2025 [facility] [address], [address] [place] [address] Negro Katz MD Age-related osteoporosis without current pathological fracture (Primary Dx) 01/05/2025 Telephone [facility] [address] [place] [address] Carmen Houser MD 12/16/2024 Telephone [facility] [address] [place] [address] Valentina Brown, PharmD Medication Therapy Management 11/11/2024 8:50 AM EDT Office Visit [facility] Orthopaedic Surgery & Sports Medicine [address], 1[address] [place] [address] Terry Santoyo MD 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) 11/11/2024 8:27 AM EDT - 11/11/2024 11:59 PM EDT Hospital Encounter [facility] Radiology [address], 1[address] [place] [address] 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 Discharge Disposition: Home or Self Care 11/11/2024 Travel 11/09/2024 Travel from Last 3 Months Immunizations Immunization Administration [...] and Family Not on file 02/25/2024 Attends Orthodox Services Not on file 02/24 Active Member [...] At any time in the past 12 [facility], were you homeless or living in [...] 02/24/2025 10:40 AM EST Office Visit [facility] [address], [address] [place] [address] Becky Moralez APRN [address] [place] [address] 03/17/2025 9:30 AM EST Appointment [facility] Radiology [address], [address] [place] [address] 03/17/2025 10:10 AM EST Office Visit [facility] Orthopaedic Surgery & Sports Medicine [address], [address] [place] [address] Terry Santoyo MD [address] [place] [address] Health Maintenance Due Date Last Done Comments [facility]-Diabetes: Hemoglobin A1C 1957 [facility]-Medicare Annual Wellness (AWV) 1955 [facility]-/Child/Adol SDOH Screenings 1955 Diabetes: Dental Exam 09/09/1967 [facility]-Pneumococcal Vaccine: 50+ Years (1 of 2 - PCV) 1976 CT Colonography 2002 Colonoscopy 2002 FIT-DNA 2002 FIT 2002 FOBT 2002 Sigmoidoscopy 2002 [facility]-Colorectal Cancer Screening 2002 [facility]-RSV Vaccine: 60+ Years or (1 - Risk 60-74 years 1-dose series) 2017 [facility]- SDOH Screenings 08/24/2024 [facility]-Adult SDOH Screenings 08/24/2024 02/25/2024 [id number] Vaccine ( season) 2024 [facility]-Influenza Vaccine (#1) [...] this topic Medical Devices Implanted Type Area Grain Receiver Device Identifier Shelf Expiration Date Model / Serial / Lot Nail Femoral Retro T2 Alpha 12mm X 400mm - S. - [id number] Implanted:Qty: 1 on 12/17/2023 by Terry Santoyo MD at [facility] Nail Right: Femur [employer] ([facility])-[id number] 02/06/2033 [id number] / . / Wire Radha Trocar Point Small 2mm X 150mm - [id number] Implanted:Qty: 6 on 12/17/2023 by Terry Santoyo MD at [facility] Pin Right: Femur [employer] [id number] 12/16/2024 292.20 / / Plate Fixator Temp Ao Fitting - [id number] Implanted:Qty: 1 on 12/17/2023 by Terry Santoyo MD at [facility] Plate Right: Femur [employer] ([facility])-[id number] 12/16/2024 [id number] / / Screw Locking T2 D5xl45 - [id number] Implanted:Qty: 1 on 12/17/2023 by Terry Santoyo MD at [facility] Screw Right: Femur [employer] ([facility])-[id number] 07/07/2033 [id number] / / Screw 3.5mm Ti Cortex Selftap 65mm - S. - [id number] Implanted:Qty: 1 on 12/17/2023 by Terry Santoyo MD at [facility] Screw Right: Femur [employer] ([facility])-[id number] 12/16/2024 [id number] / . / Screw 3.5mm Ti Cortex [employer]ft[employer] 70mm - [id number] Implanted:Qty: 1 on 12/17/2023 by Terry Santoyo MD at [facility] Screw Right: Femur [employer] ([facility])-[id number] 68 12/16/2024 [id number] / / Screw Locking Adv T2 T2 D5xl85 - [id number] Implanted:Qty: 1 on 12/17/2023 by Terry Santoyo MD at [facility] Screw Right: Femur [employer] ([facility])-[id number] 68 10/06/2033 [id number] / / Screw Locking Adv T2 T2 D5xl65 - [id number] Implanted:Qty: 1 on 12/17/2023 by Terry Santoyo MD at [facility] Screw Right: Femur [employer] ([employer])-[id number] 68 10/07/2031 [id number] / / Screw Locking Adv T2 T2 D5xl80 - [id number] Implanted:Qty: 1 on 12/17/2023 by Terry Santoyo MD at [facility] Screw Right: Femur [employer] ([facility])-[id number] 68 10/06/2033 [id number] / / Screw Locking Adv T2 T2 D5xl70 - [id number] Implanted:Qty: 1 on 12/17/2023 by Terry Santoyo MD at [facility] Screw Right: Femur [employer] ([facility])-[id number] 68 09/06/2033 [id number] / / Screw Locking T2 D5x37.5 - [id number] Implanted:Qty: 1 on 12/17/2023 by Terry Santoyo MD at [facility] Screw Right: Femur [employer] ([facility])-[id number] 68 10/06/2033 [id number] / / Washer Tit Screw 4mm - [id number] Implanted:Qty: 3 on 12/17/2023 by Terry Santoyo MD at [facility] Washer Right: Femur [employer] ([employer])-[id number] 12/16/2024 [id number] / / Procedures Procedure Name Priority Date/Time [...] right knee due to other bacteria (CMS/HCC) C-REACTIVE PROTEIN, PLASMA Routine 11/11/2024 10:15 AM EDT 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 ([facility]/HCC) XR FEMUR RIGHT 2+ VIEWS Routine 11/11/2024 9:18 AM EDT 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 XR KNEE RIGHT 4+ VIEWS Routine 11/11/2024 9:18 AM EDT 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 DEXA BONE DENSITY AXIAL SKELETON W VFA Routine 10/23/2024 11:11 AM EDT Age-related osteoporosis without current pathological fracture HEPATITIS C ANTIBODY - ED W/REFLEX TO HCV QUANT PCR STAT 12/16/2023 7:02 PM EDT from Last 3 Months or Most Recently Relevant to Health Maintenance Results * (ABNORMAL) Sedimentation Rate, Automated (11/11/2024 10:15 AM EDT) Pathologist [facility] Sedimentation Rate 32(H) <30 mm/hr 2024 11:28 AM EDT [facility] Blood Venous blood specimen / Unknown Venipuncture / Unknown 11/11/2024 10:15 AM EDT 11/11/2024 10:15 AM EDT us Cheryl CASH LAB BLOOD ORDERABLES Final Re sult [facility] [address] [place] [address] * (ABNORMAL) CBC and differential (11/11/2024 10:15 AM EDT) Pathologist [facility] WBC Count 4.64 3.70 - 10.30 10*3/uL LAB HEMATOLOGY METHOD 11/11/2024 11:05 AM EDT [facility] RBC Count 3.51(L) 3.90 - 5.20 10*6/uL LAB HEMATOLOGY METHOD 11/11/2024 11:05 AM EDT [facility] HGB 10.3(L) 11.2 - 15.7 g/dL LAB HEMATOLOGY METHOD 11/11/2024 11:05 AM EDT [facility] HCT 33.6(L) 34.0 - 45.0 % LAB HEMATOLOGY METHOD 11/11/2024 11:05 AM EDT [facility] Platelet Count 179 155 - 369 10*3/uL LAB HEMATOLOGY METHOD 11/11/2024 11:05 AM EDT [facility] MCV 96 79 - 98 fL LAB HEMATOLOGY METHOD 11/11/2024 11:05 AM EDT [facility] MCH 29.3 26.0 - 32.0 pg LAB HEMATOLOGY METHOD 11/11/2024 11:05 AM EDT [facility] MCHC 30.7 30.7 - 35.5 g/dL LAB HEMATOLOGY METHOD 11/11/2024 11:05 AM EDT [facility] RDW 17.5(H) 11.5 - 14.5 % LAB HEMATOLOGY METHOD 11/11/2024 11:05 AM EDT [facility] MPV 10.2 8.8 - 12.5 fL LAB HEMATOLOGY METHOD 11/11/2024 11:05 AM EDT [facility] nRBC 0.0 <=0.0 per 100 WBCs LAB HEMATOLOGY METHOD 11/11/2024 11:05 AM EDT [facility] Differential Type Automated LAB HEMATOLOGY METHOD 11/11/2024 11:05 AM EDT [facility] Neutrophils % 68 % LAB HEMATOLOGY METHOD 11/11/2024 11:05 AM EDT [facility] Lymphocytes % 16 % LAB HEMATOLOGY METHOD 11/11/2024 11:05 AM EDT [facility] Monocytes % 9 % LAB HEMATOLOGY METHOD 11/11/2024 11:05 AM EDT [facility] Eosinophils % 5 % LAB HEMATOLOGY METHOD 11/11/2024 11:05 AM EDT [facility] Basophils % 1 % LAB HEMATOLOGY METHOD 11/11/2024 11:05 AM EDT [facility] Immature Granulocytes % 1 % LAB HEMATOLOGY METHOD 11/11/2024 11:05 AM EDT [facility] Neutrophils Absolute 3.21 1.60 - 6.10 10*3/uL LAB HEMATOLOGY METHOD 11/11/2024 11:05 AM EDT [facility] Lymphocytes Absolute 0.73(L) 1.20 - 3.90 10*3/uL LAB HEMATOLOGY METHOD 11/11/2024 11:05 AM EDT [facility] Monocytes Absolute 0.40 0.30 - 0.90 10*3/uL LAB HEMATOLOGY METHOD 11/11/2024 11:05 AM EDT [facility] Eosinophils Absolute 0.24 0.00 - 0.50 10*3/uL LAB HEMATOLOGY METHOD 11/11/2024 11:05 AM EDT [facility] Basophils Absolute 0.03 0.00 - 0.10 10*3/uL LAB HEMATOLOGY METHOD 11/11/2024 11:05 AM EDT [facility] Immature Granulocytes Absolute 0.03 0.00 - 0.06 10*3/uL LAB HEMATOLOGY METHOD 11/11/2024 11:05 AM EDT [facility] Blood Venous blood specimen / Unknown Venipuncture / Unknown 11/11/2024 10:15 AM EDT 11/11/2024 10:15 AM EDT Narrative [facility] - 11/11/2024 11:05 AM EDT Therapeutic decision making should be based on absolute values, rather than percentages. us Carmen Houser MD LAB BLOOD ORDERABLES Final Res ult [facility] [address] [place] [address] * C-reactive protein (11/11/2024 10:15 AM EDT) CRP, Plasma <3.0 <=8.0 mg/L 11/11/2024 11:51 AM EDT [facility] Blood Venous blood specimen / Unknown Venipuncture / Unknown 11/11/2024 10:15 AM EDT 11/11/2024 10:15 AM EDT Narrative [facility] - 11/11/2024 11:51 AM EDT This CRP test is appropriate for assessment of infection, systemic inflammation and/or tissue injury. To assess cardiovascular disease risk order high sensitivity CRP (CRPH). us Carmen Houser MD LAB BLOOD ORDERABLES Final Res ult [facility] [address] [place] [address] * (ABNORMAL) Comprehensive metabolic panel (11/11/2024 10:15 AM EDT) Glucose, Plasma 87 74 - 99 mg/dL 11/11/2024 11:51 AM EDT [facility] BUN, Plasma 39(H) 8 - 23 mg/dL 11/11/2024 11:51 AM EDT [facility] Creatinine, Plasma 1.16(H) 0.60 - 1.10 mg/dL 11/11/2024 11:51 AM EDT [facility] BUN/Creatinine Ratio 34 11/11/2024 11:51 AM EDT [facility] Sodium, Plasma 144 136 - 145 mmol/L 11/11/2024 11:51 AM EDT [facility] Potassium, Plasma 4.6 3.6 - 4.9 mmol/L 11/11/2024 11:51 AM EDT [facility] Chloride, Plasma 110(H) 97 - 107 mmol/L 11/11/2024 11:51 AM EDT [facility] CO2, Plasma 23 22 - 29 mmol/L 11/11/2024 11:51 AM EDT [facility] Anion Gap 11 6 - 16 mmol/L 11/11/2024 11:51 AM EDT [facility] Total Calcium, Plasma 9.5 8.9 - 10.2 mg/dL 11/11/2024 11:51 AM EDT [facility] Total Protein 7.0 6.3 - 7.9 g/dL 11/11/2024 11:51 AM EDT [facility] Albumin, Plasma 4.0 3.5 - 5.2 g/dL 11/11/2024 11:51 AM EDT [facility] AST, Plasma 20 10 - 35 U/L 11/11/2024 11:51 AM EDT [facility] ALT, Plasma 17 10 - 35 U/L 11/11/2024 11:51 AM EDT [facility] Alkaline Phosphatase, Plasma 87 46 - 142 U/L 11/11/2024 11:51 AM EDT [facility] Total Bilirubin, Plasma 0.4 0.2 - 1.1 mg/dL 11/11/2024 11:51 AM EDT [facility] eGFRcr 51.8 mL/min/1.7 3m*2 11/11/2024 11:51 AM EDT [facility] Comment:Reported eGFRcr in m L/min/1.73m2 is based the CKD-EPI 2020 equation that does not use a race coefficient. Blood Venous blood specimen / Unknown Venipuncture / Unknown 11/11/2024 10:15 AM EDT 11/11/2024 10:15 AM EDT us Carmen Houser MD LAB BLOOD ORDERABLES Final Res ult [facility] [address] [place] [address] * XR Knee Right 4+ Views (11/11/2024 [...] osteoarthritis of the right knee with unchanged nvgs-qq-qnwu articulation in both the medial and lateral [...] Severe osteoarthritis of the right knee with kolgkfmtcyqdj-ul-zfjg articulation in both the medial and lateral [...] osteoarthritis of the right knee with unchanged rjaa-pf-jfbw articulation in both the medial and lateral [...] Severe osteoarthritis of the right knee with txsypwnoiyerb-bh-deot articulation in both the medial and lateral [...] IMG XR PROCEDURES Final Re sult * Dexa Bone Density Axial Skeleton W VFA (10/23/2024 11:11 AM EDT) Anatomical Region Laterality Modality Body Radiographic Fe ging Narrative 11/02/2024 11:11 AM EDT [facility] [address] [place] [address] DXA Bone Densitometry Report: [ 10/23/2024] BMD test performed using the [employer] DXA System (analysis version: 14.10) manufactured by [employer]. REFERRING PROVIDER: Dr. Becky Moralez APRN CLINICAL INFORMATION: osteoporosis PATIENT NAME: Bailey Caamcho PATIENT AGE: 69 y.o. LEGAL SEX: female [...] Antibody Negative Negative 12/16/2023 8:02 PM EDT [facility] Blood Venous blood specimen / Unknown Venipuncture / Unknown 12/16/2023 7:02 PM EDT 12/16/2023 7:20 PM EDT us Heike Cruz LAB BLOOD ORDERABLES Final Resul t [facility] [address] [place] [address] from Last 3 Months or Most Recently Relevant to Health Maintenance Insurance [facility] MEDICARE Advance Directives * Full Code (Latest Code Status on File) Date Activated Date Inactivated Comments 02/24/2024 7:10 AM 03/08/2024 3:38 PM Question Answer Comments Patient has decision-making capacity? Yes * Full Code Date Activated Date Inactivated Comments 12/16/2023 11:54 PM 12/25/2023 3:53 PM Question Answer Comments Patient has decision-making capacity? Yes Care Teams Rn Dialysis Relationship Specialty Start Date End Date Michelle Gray APRN [address] [place] [address] PCP - General 11/17/23
[2025-02-03 11:12] LABS: Free T4 (Free Thyroxine) 1.33 ng/dl (0.78-2.19)
[2025-02-03 12:08] LABS: Alanine Aminotransferase 18 U/L (12-78); Albumin Level 4.0 g/dl (3.5-5.0); Alkaline Phosphatase 105 U/L (38-126); Anion Gap 14.4 mEq/L (5-15); Aspartate Amino Transferase 31 U/L (14-36); Bilirubin,Direct 0.4 mg/dl (0.0-0.4); Bilirubin,Indirect 0.5 mg/dL (0.0-0.9); Bilirubin,Total 0.9 mg/dl (0.2-1.3); Bilirubin,Unconjugated 0.5 mg/dL (0.0-1.1); Blood Urea Nitrogen 57 mg/dl (7-17); Calcium 9.2 mg/dl (8.4-10.2); Carbon Dioxide 27 mmol/L (22.0-30.0); Chloride 103 mmol/L (98-107); Cholesterol 78 mg/dl (140-200); Creatinine,Serum 1.50 mg/dl (0.52-1.04); Estimated Glomerular Filt Rate 35 ml/min (>60); GFR (African American) 42 ML/MIN (>60); Glucose 84 mg/dl (74-100); HDL Cholesterol 33 mg/dl (40-60); Magnesium 2.1 mg/dl (1.6-2.3); Potassium 5.4 mmoL/L (3.5-5.1); Sodium 139 mmol/L (136-145); Total Protein,Serum 7.1 g/dl (6.3-8.2); Triglycerides 100 mg/dl (30-150)
[2025-02-03 12:39] LABS: Thyroid Stimulating Hormone 2.82 uIU/mL (0.465-4.68)
--- OUTSIDE RECORDS SUMMARY | 2025-03-03 20:00 | XMS_ITS | Clinical Summary ---
Author Organization Unknown Care Team Providers Care Arc Furnace Operator Name Role Phone ZORAIDA INTEGRATION MANAGER, MONSERRAT Unavailable Unavailable NORRIS GUILLEN, JIN Unavailable Unavailable Payers Payer Name Policy Type Policy Number Effective Date Expira tion Date [facility].[id number] H [id number] Problems Condition Name Condition Details Condition Category Status Onset Date Resolution Date Last Treatment Date Treating Clinician Comments TYPE 2 DIABETES MELLITUS WITH FOOT ULCER Active 12-08 00:00: 00 NON-PRS CHRONIC ULCER OTH PRT LEFT FOOT WITH OTH SEVERITY Active 12-29 00:00: 00 NON-PRESSURE CHRONIC ULCER OF LEFT CALF WITH OTH SEVERITY Active 12-29 00:00: 00 ESSENTIAL (PRIMARY) HYPERTENSION Active 04-09 00:00: 00 AGE-RELATED OSTEOPOROSIS W/O CURRENT PATHOLOGICAL FRACTURE Active 04-09 00:00: 00 HYPERLIPIDEM IA, UNSPECIFIED Active 04-09 00:00: 00 EPILEPSY, UNSP, NOT INTRACTABLE, WITHOUT STATUS EPILEPTICUS Active 04-09 00:00: 00 PRESENCE OF CARDIAC PACEMAKER Active 04-09 00:00: 00 USP (CURRENT) USE OF ORAL HYPOGLYCEMIC DRUGS Active 04-09 00:00: 00 LNG TRM (CRNT) USE INJECTABLE NON-INSULIN ANTIDIABETIC DRUGS Active 04-09 00:00: 00 USP (CURRENT) USE OF ANTICOAGULAN TS Active 04-09 00:00: 00 Allergies, Adverse Reactions, Alerts Allergy Name Allergy Type Status Severity Reaction(s) Onset Date Inactive Date Treating Clinician Comments NO KNOWN ALLERGIES Propensity to adverse reactions Active 01-04 13:50: 26 Medications Ordered Medication Name Filled Medication Name Start Date Stop Date Current Medication? Ordering Clinician Indication Dosage Frequency Signature (SIG) Comments Components Accu-Chek Guide test strips 12-29 00:00: 00 Yes [id number] DIABETES 1 strip 2 TIMES DAILY 1 strip 2 TIMES DAILY (route: miscellane ous) Med Classific ation: Medical Supplies and Durable Medical Equipment (DME) Accu-Chek Softclix Lancets 12-29 00:00: 00 Yes [id number] DIABETES 1 each 2 TIMES DAILY 1 each 2 TIMES DAILY (route: miscellane ous) Med Classific ation: Medical Supplies and Durable Medical Equipment (DME) cephalexin 500 mg capsule 12-29 00:00: 00 01-06 23:59 :00 No [id number] ANTIBIOTIC 1 capsule EVERY 6 HOURS 1 capsule EVERY 6 HOURS (route: oral) Med Classific ation: Anti-Infe ctive Agents glipizide 10 mg tablet 12-29 00:00: 00 Yes [id number] DIABETES 1 tablet 2 TIMES DAILY 1 tablet 2 TIMES DAILY (route: oral) Med Classific ation: Endocrine Trulicity 1.5 mg/0.5 mL subcutaneou s pen injector 12-29 00:00: 00 Yes [id number] DIABETES 0.5 mL WEEKLY 0.5 mL WEEKLY (route: subcutaneo us) Med Classific ation: Endocrine atorvastati n 20 mg tablet 12-22 00:00: 00 Yes [id number] HYPERCHOLES TEROL 1 tablet DAILY 1 tablet DAILY (route: oral) Med Classific ation: Cardiovas cular Therapy Agents losartan 50 mg tablet 12-16 00:00: 00 Yes [id number] HYPERTENTIO N 1 tablet DAILY 1 tablet DAILY (route: oral) Med Classific ation: Cardiovas cular Therapy Agents oxybutynin chloride 5 mg tablet 12-16 00:00: 00 Yes [id number] OVERACTIVE BLADDER 1 tablet DAILY 1 tablet DAILY (route: oral) Med Classific ation: Genitouri nary Therapy bisoprolol fumarate 5 mg tablet 12-07 00:00: 00 Yes [id number] HYPERTENTIO N 1 tablet DAILY 1 tablet DAILY (route: oral) Med Classific ation: Cardiovas cular Therapy Agents Dulera 100 mcg-5 mcg/actuati on HFA aerosol inhaler 12-08 00:00: 00 Yes [id number] SOB OR WHEEZING 1 puff NEEDED 1 puff NEEDED (route: inhalation ) Med Classific ation: Respirato ry Therapy Agents ferrous fumarate 324 mg (106 mg iron) tablet 12-08 00:00: 00 Yes [id number] SUPPLIMENT 1 tablet DAILY 1 tablet DAILY (route: oral) Med Classific ation: Electroly te Balance-N utritiona l Products furosemide 20 mg tablet 04-09 00:00: 00 01-23 23:59 :00 No [id number] DIURETIC 1 tablet EVERY OTHER DAY 1 tablet EVERY OTHER DAY (route: oral) Med Classific ation: Cardiovas cular Therapy Agents pioglitazon e 30 mg tablet 12-08 00:00: 00 Yes [id number] DIABETES 1 tablet DAILY 1 tablet DAILY (route: oral) Med Classific ation: Endocrine Tymlos 80 mcg/dose (3,120 mcg/1.56 mL) subcutaneou s pen injector 12-08 00:00: 00 Yes [id number] OSTEOPOROSI S 80 mcg BEDTIME 80 mcg BEDTIME (route: subcutaneo us) Med Classific ation: Endocrine Vitamin B-12 1,000 mcg tablet 12-08 00:00: 00 Yes [id number] SUPPLIMENT 1 tablet DAILY 1 tablet DAILY (route: oral) Med Classific ation: Electroly te Balance-N utritiona l Products Vitamin D3 125 mcg (5,000 unit) tablet 12-08 00:00: 00 Yes [id number] SUPPLIMENT 1 tablet DAILY 1 tablet DAILY (route: oral) Med Classific ation: Electroly te Balance-N utritiona l Products Xarelto 20 mg tablet 12-08 00:00: 00 Yes [id number] ANTICOAGULA NT 1 tablet DAILY 1 tablet DAILY (route: oral) Med Classific ation: Hematolog ical Agents Farxiga 10 mg tablet 2024-04 00:00: 00 Yes [id number] DIURETIC/AN TIDIABETIC 1 tablet DAILY 1 tablet DAILY (route: oral) Med Classific ation: Endocrine furosemide 40 mg tablet 2024-04 017 00:00: 00 Yes [id number] DIURETIC 1 tablet DIRECTED 1 tablet DIRECTED (route: oral) Med Classific ation: Cardiovas cular Therapy Agents Vital Signs Vital Name Observation Time Observation Value Commen ts Temperature 2025-01-30 16:09:00.000 97.6 [degF] Temperature 2025-01-27 11:34:00.000 98.8 [degF] Temperature 2025-01-23 12:58:00.000 97.4 [degF] Temperature 2025-01-20 13:57:00.000 97.7 [degF] Temperature 2025-01-13 14:59:00.000 98.2 [degF] Temperature 2025-01-08 12:09:00.000 98.4 [degF] Temperature 2025-01-04 14:33:00.000 98.3 [degF] BMI (%) 2025-01-04 14:16:22.000 53 kg/m2 Height 2025-01-04 14:15:57.000 68 [in_us] Pulse 2025-01-30 16:09:00.000 63 /min Pulse 2025-01-30 16:04:00.000 63 /min Pulse 2025-01-27 11:34:00.000 60 /min Pulse 2025-01-23 12:58:00.000 60 /min Pulse 2025-01-20 13:57:00.000 60 /min Pulse 2025-01-19 13:18:00.000 65 /min Pulse 2025-01-13 14:59:00.000 60 /min Pulse 2025-01-08 12:09:00.000 60 /min Pulse 2025-01-07 16:45:00.000 60 /min Pulse 2025-01-04 14:33:00.000 64 /min O2 Saturation (%) 2025-01-30 16:09:00.000 95 % O2 Saturation (%) 2025-01-30 16:04:00.000 95 % O2 Saturation (%) 2025-01-23 12:58:00.000 97 % O2 Saturation (%) 2025-01-20 13:57:00.000 97 % O2 Saturation (%) 2025-01-19 13:18:00.000 96 % O2 Saturation (%) 2025-01-07 16:45:00.000 96 % O2 Saturation (%) 2025-01-04 14:33:00.000 95 % Respirations 2025-01-30 16:09:00.000 16 /min Respirations 2025-01-30 16:04:00.000 18 /min Respirations 2025-01-27 11:34:00.000 18 /min Respirations 2025-01-23 12:58:00.000 16 /min Respirations 2025-01-20 13:57:00.000 16 /min Respirations 2025-01-19 13:18:00.000 18 /min Respirations 2025-01-13 14:59:00.000 18 /min Respirations 2025-01-08 12:09:00.000 18 /min Respirations 2025-01-07 16:45:00.000 18 /min Respirations 2025-01-04 14:33:00.000 16 /min Weight (lbs) 2025-01-04 14:16:22.000 352 [lb_av] Systolic Blood Pressure 2025-01-30 16:09:00.000 140 mm [Hg] Systolic Blood Pressure 2025-01-30 16:04:00.000 140 mm [Hg] Systolic Blood Pressure 2025-01-27 11:34:00.000 143 mm [Hg] Systolic Blood Pressure 2025-01-23 12:58:00.000 138 mm [Hg] Systolic Blood Pressure 2025-01-20 13:57:00.000 136 mm [Hg] Systolic Blood Pressure 2025-01-19 13:18:00.000 130 mm [Hg] Systolic Blood Pressure 2025-01-13 14:59:00.000 146 mm [Hg] Systolic Blood Pressure 2025-01-08 12:09:00.000 138 mm [Hg] Systolic Blood Pressure 2025-01-07 16:45:00.000 136 mm [Hg] Systolic Blood Pressure 2025-01-04 14:33:00.000 156 mm [Hg] Diastolic Blood Pressure 2025-01-30 16:09:00.000 64 mm [Hg] Diastolic Blood Pressure 2025-01-30 16:04:00.000 64 mm [Hg] Diastolic Blood Pressure 2025-01-27 11:34:00.000 60 mm [Hg] Diastolic Blood Pressure 2025-01-23 12:58:00.000 84 mm [Hg] Diastolic Blood Pressure 2025-01-20 13:57:00.000 82 mm [Hg] Diastolic Blood Pressure 2025-01-19 13:18:00.000 60 mm [Hg] Diastolic Blood Pressure 2025-01-13 14:59:00.000 66 mm [Hg] Diastolic Blood Pressure 2025-01-08 12:09:00.000 66 mm [Hg] Diastolic Blood Pressure 2025-01-07 16:45:00.000 64 mm [Hg] Diastolic Blood Pressure 2025-01-04 14:33:00.000 80 mm [Hg] Plan of Treatment Planned Activity Planned Date Details Comments Future Scheduled Test RN TO OBSE RVE, ASSESS, EVALUATE, AND DEVELOP AN INDIVIDUALIZED PLAN OF CARE. AGENCY MAY ACCEPT ORDERS FROM CONSULTING PHYSICIANS JOHNNA TRIPLETT PRODUCE ASSOCIATE, BRITNI TUBBS PSYCHIATRIC SOCIAL WORKER SUPERVISOR, SKYLAR DANIELS MD WELDING SETTER, EMELIA FALL MD NEUROLOGIST. RN TO OBSERVE AND ASSESS, ED TECH/OUTSOLE LEVELER TO OBSERVE FOR RISK FOR FALLS AND INSTRUCT IN FALL PREVENTION, HOME SAFETY, MEDICATION MANAGEMENT, INFECTION PREVENTION, AND NUTRITION MANAGEMENT. RN/ED TECH/OUTSOLE LEVELER NURSE MAY PERFORM O2 SATURATION LEVEL ON ADMISSION AND PRN, FOR RN TO ASSESS/ED TECH TO OBSERVE PATIENT, WITH NOTIFICATION TO THE PHYSICIAN IF SATURATION IS 90% IN THE ABSENCE OF MORE SPECIFIC PARAMETERS FROM THE PHYSICIAN. AGENCY MAY PERFORM A RESUMPTION OF CARE VISIT FOLLOWING ANY HOSPITAL ADMISSION. RN/ED TECH/OUTSOLE LEVELER TO MONITOR CO-MORBID CONDITIONS LISTED ON THE PLAN OF CARE AND ANY NEW CONDITIONS THAT PRESENT THEMSELVES DURING THIS EPISODE TO IDENTIFY CHANGES AND INTERVENE TO MINIMIZE COMPLICATIONS. [code = RN TO OBSERVE, ASSESS, EVALUATE, AND DEVELOP AN INDIVIDUALIZED PLAN OF CARE. AGENCY MAY ACCEPT ORDERS FROM CONSULTING PHYSICIANS JOHNNA TRIPLETT PRODUCE ASSOCIATE, BRITNI TUBBS PSYCHIATRIC SOCIAL WORKER SUPERVISOR, SKYLAR DANIELS MD WELDING SETTER, EMELIA FALL MD NEUROLOGIST. RN TO OBSERVE AND ASSESS, ED TECH/OUTSOLE LEVELER TO OBSERVE FOR RISK FOR FALLS AND INSTRUCT IN FALL PREVENTION, HOME SAFETY, MEDICATION MANAGEMENT, INFECTION PREVENTION, AND NUTRITION MANAGEMENT. RN/ED TECH/OUTSOLE LEVELER NURSE MAY PERFORM O2 SATURATION LEVEL ON ADMISSION AND PRN, FOR RN TO ASSESS/ED TECH TO OBSERVE PATIENT, WITH NOTIFICATION TO THE PHYSICIAN IF SATURATION IS 90% IN THE ABSENCE OF MORE SPECIFIC PARAMETERS FROM THE PHYSICIAN. AGENCY MAY PERFORM A RESUMPTION OF CARE VISIT FOLLOWING ANY HOSPITAL ADMISSION. RN/ED TECH/OUTSOLE LEVELER TO MONITOR CO-MORBID CONDITIONS LISTED ON THE PLAN OF CARE AND ANY NEW CONDITIONS THAT PRESENT THEMSELVES DURING THIS EPISODE TO IDENTIFY CHANGES AND INTERVENE TO MINIMIZE COMPLICATIONS.] Future Scheduled Test MEDICATION MANAGEMENT; RN/ED TECH/OUTSOLE LEVELER TO REVIEW MEDICATIONS FOR INTERACTIONS, EFFECTIVENESS OF DRUG THERAPY, AND SIGNS/SYMPTOMS OF ADVERSE REACTIONS. MAY INSTRUCT AND REINFORCE MEDICATION TEACHING RELATED TO THE USE OF MEDICATIONS, DOSAGE, FREQUENCY, PURPOSE, SIDE EFFECTS, AND TO REPORT COMPLICATIONS. [code = MEDICATION MANAGEMENT; RN/ED TECH/OUTSOLE LEVELER TO REVIEW MEDICATIONS FOR INTERACTIONS, EFFECTIVENESS OF DRUG THERAPY, AND SIGNS/SYMPTOMS OF ADVERSE REACTIONS. MAY INSTRUCT AND REINFORCE MEDICATION TEACHING RELATED TO THE USE OF MEDICATIONS, DOSAGE, FREQUENCY, PURPOSE, SIDE EFFECTS, AND TO REPORT COMPLICATIONS.] Future Scheduled Test RISK FOR H OSPITALIZATION; RN TO ASSESS/TEACH, OUTSOLE LEVELER/ED TECH TO OBSERVE/TEACH PATIENT/CAREGIVER ON RISK FOR HOSPITALIZATION/EMERGENCY ROOM VISITS, TEACH SIGNS AND SYMPTOMS THAT PUT PATIENT AT RISK, WHEN TO NOTIFY NURSE/PHYSICIAN OF COMPLICATIONS/DECLINE, AND WHEN TO CALL 911. [code = RISK FOR HOSPITALIZATION; RN TO ASSESS/TEACH, OUTSOLE LEVELER/ED TECH TO OBSERVE/TEACH PATIENT/CAREGIVER ON RISK FOR HOSPITALIZATION/EMERGENCY ROOM VISITS, TEACH SIGNS AND SYMPTOMS THAT PUT PATIENT AT RISK, WHEN TO NOTIFY NURSE/PHYSICIAN OF COMPLICATIONS/DECLINE, AND WHEN TO CALL 911.] Future Scheduled Test CARDIOVASC ULAR SYSTEM; RN TO ASSESS/TEACH, ED TECH/OUTSOLE LEVELER TO OBSERVE/TEACH RELATED TO ALTERED CARDIOVASCULAR STATUS TO MINIMIZE COMPLICATIONS AND REDUCE HOSPITALIZATION. [code = CARDIOVASCULAR SYSTEM; RN TO ASSESS/TEACH, ED TECH/OUTSOLE LEVELER TO OBSERVE/TEACH RELATED TO ALTERED CARDIOVASCULAR STATUS TO MINIMIZE COMPLICATIONS AND REDUCE HOSPITALIZATION.] Future Scheduled Test HYPERTENSI ON MANAGEMENT; RN TO ASSESS AND TEACH, ED TECH/OUTSOLE LEVELER TO OBSERVE AND TEACH WARNING SIGNS AND SYMPTOMS TO AVOID HOSPITALIZATION. [code = HYPERTENSION MANAGEMENT; RN TO ASSESS AND TEACH, ED TECH/OUTSOLE LEVELER TO OBSERVE AND TEACH WARNING SIGNS AND SYMPTOMS TO AVOID HOSPITALIZATION.] Future Scheduled Test PACEMAKER MANAGEMENT; RN/ED TECH/OUTSOLE LEVELER TO PROVIDE SKILLED TEACHING AND ASSIST WITH MANAGEMENT OF PACEMAKER. [code = PACEMAKER MANAGEMENT; RN/ED TECH/OUTSOLE LEVELER TO PROVIDE SKILLED TEACHING AND ASSIST WITH MANAGEMENT OF PACEMAKER.] Future Scheduled Test RESPIRATOR Y SYSTEM MANAGEMENT; RN TO ASSESS AND TEACH, ED TECH/OUTSOLE LEVELER TO OBSERVE AND TEACH RELATED TO ALTERED RESPIRATORY STATUS TO MINIMIZE COMPLICATIONS AND REDUCE HOSPITALIZATION. [code = RESPIRATORY SYSTEM MANAGEMENT; RN TO ASSESS AND TEACH, ED TECH/OUTSOLE LEVELER TO OBSERVE AND TEACH RELATED TO ALTERED RESPIRATORY STATUS TO MINIMIZE COMPLICATIONS AND REDUCE HOSPITALIZATION.] Future Scheduled Test COPD MANAG EMENT; RN TO ASSESS AND TEACH, ED TECH/OUTSOLE LEVELER TO OBSERVE AND TEACH SIGNS/SYMPTOMS OF COPD EXACERBATION AND PROVIDE EARLY INTERVENTIONS TO MINIMIZE RISK OF HOSPITALIZATION. RN/ED TECH/OUTSOLE LEVELER TO INSTRUCT ON SELF-CARE MANAGEMENT INCLUDING BREATHING TECHNIQUES, AIRWAY CLEARANCE, AND PROPER USE OF COPD MEDICATIONS. RN TO ASSESS AND TEACH, ED TECH/OUTSOLE LEVELER TO OBSERVE AND TEACH PATIENT/CAREGIVER ABILITY TO MONITOR AND RECORD VITAL SIGNS INCLUDING PULSE OXIMETRY AND BLOOD PRESSURE. PULSE OXIMETER AND BP MONITOR TO BE PROVIDED IF NEEDED. [code = COPD MANAGEMENT; RN TO ASSESS AND TEACH, ED TECH/OUTSOLE LEVELER TO OBSERVE AND TEACH SIGNS/SYMPTOMS OF COPD EXACERBATION AND PROVIDE EARLY INTERVENTIONS TO MINIMIZE RISK OF HOSPITALIZATION. RN/ED TECH/OUTSOLE LEVELER TO INSTRUCT ON SELF-CARE MANAGEMENT INCLUDING BREATHING TECHNIQUES, AIRWAY CLEARANCE, AND PROPER USE OF COPD MEDICATIONS. RN TO ASSESS AND TEACH, ED TECH/OUTSOLE LEVELER TO OBSERVE AND TEACH PATIENT/CAREGIVER ABILITY TO MONITOR AND RECORD VITAL SIGNS INCLUDING PULSE OXIMETRY AND BLOOD PRESSURE. PULSE OXIMETER AND BP MONITOR TO BE PROVIDED IF NEEDED.] Future Scheduled Test SKIN INTEG RITY RN TO ASSESS AND TEACH, ED TECH/OUTSOLE LEVELER TO OBSERVE AND TEACH INTEGUMENTARY STATUS TO IDENTIFY CHANGES AND INTERVENE TO MINIMIZE COMPLICATIONS. PROVIDE SKILLED TEACHING OF GENERAL WOUND AND SKIN CARE AND PREVENTION RELATED TO POTENTIAL FOR OR ACTUAL ALTERED SKIN INTEGRITY [code = SKIN INTEGRITY RN TO ASSESS AND TEACH, ED TECH/OUTSOLE LEVELER TO OBSERVE AND TEACH INTEGUMENTARY STATUS TO IDENTIFY CHANGES AND INTERVENE TO MINIMIZE COMPLICATIONS. PROVIDE SKILLED TEACHING OF GENERAL WOUND AND SKIN CARE AND PREVENTION RELATED TO POTENTIAL FOR OR ACTUAL ALTERED SKIN INTEGRITY] Future Scheduled Test RN TO ASSE SS, ED TECH/OUTSOLE LEVELER TO OBSERVE LOWER EXTREMITY VENOUS STASIS ULCER(S) AND INTERVENE TO MINIMIZE COMPLICATIONS. PROVIDE SKILLED TEACHING TO PATIENT/CAREGIVER RELATED TO ALTERED SKIN INTEGRITY. REPORT SIGNIFICANT CHANGES IN STATUS TO PHYSICIAN FOR EARLY INTERVENTION [code = RN TO ASSESS, ED TECH/OUTSOLE LEVELER TO OBSERVE LOWER EXTREMITY VENOUS STASIS ULCER(S) AND INTERVENE TO MINIMIZE COMPLICATIONS. PROVIDE SKILLED TEACHING TO PATIENT/CAREGIVER RELATED TO ALTERED SKIN INTEGRITY. REPORT SIGNIFICANT CHANGES IN STATUS TO PHYSICIAN FOR EARLY INTERVENTION] Future Scheduled Test RN/ED TECH/OUTSOLE LEVELER TO PERFORM/TEACH VENOUS STASIS ULCER CARE TO [...] FOR DISLODGEMENT OR INCREASED DRAINAGE. [code = RN/ED TECH/OUTSOLE LEVELER TO PERFORM/TEACH VENOUS STASIS ULCER CARE TO [...] MANAG EMENT; RN TO ASSESS AND TEACH, OUTSOLE LEVELER/ED TECH TO OBSERVE AND TEACH AND PROVIDE EDUCATION ON PAIN MANAGEMENT TECHNIQUES. [code = PAIN MANAGEMENT; RN TO ASSESS AND TEACH, OUTSOLE LEVELER/ED TECH TO OBSERVE AND TEACH AND PROVIDE EDUCATION ON PAIN MANAGEMENT TECHNIQUES.] Future Scheduled Test GENITOURIN REYNALDO MANAGEMENT; RN TO ASSESS AND TEACH, ED TECH/OUTSOLE LEVELER TO OBSERVE AND TEACH RELATED TO ALTERED GENITOURINARY STATUS TO MINIMIZE COMPLICATIONS AND REDUCE HOSPITALIZATION. [code = GENITOURINARY MANAGEMENT; RN TO ASSESS AND TEACH, ED TECH/OUTSOLE LEVELER TO OBSERVE AND TEACH RELATED TO ALTERED GENITOURINARY STATUS TO MINIMIZE COMPLICATIONS AND REDUCE HOSPITALIZATION.] Future Scheduled Test URINARY IN CONTINENCE MANAGEMENT; RN TO ASSESS AND TEACH, ED TECH/LVNTO OBSERVE AND TEACH MANAGEMENT OF URINARY INCONTINENCE. TEACH/INSTRUCT ON PREVENTING INFECTION AND SKIN BREAKDOWN. RN/ED TECH/OUTSOLE LEVELER MAY INSTRUCT IN BLADDER TRAINING PROGRAM INDICATED. [code = URINARY INCONTINENCE MANAGEMENT; RN TO ASSESS AND TEACH, ED TECH/LVNTO OBSERVE AND TEACH MANAGEMENT OF URINARY INCONTINENCE. TEACH/INSTRUCT ON PREVENTING INFECTION AND SKIN BREAKDOWN. RN/ED TECH/OUTSOLE LEVELER MAY INSTRUCT IN BLADDER TRAINING PROGRAM INDICATED.] Future Scheduled Test ANEMIA MAN AGEMENT; RN TO ASSESS AND TEACH, OUTSOLE LEVELER/ED TECH TO OBSERVE AND TEACH AND PROVIDE EDUCATION ON ANEMIA. [code = ANEMIA MANAGEMENT; RN TO ASSESS AND TEACH, OUTSOLE LEVELER/ED TECH TO OBSERVE AND TEACH AND PROVIDE EDUCATION ON ANEMIA.] Future Scheduled Test RN TO ASSE SS AND TEACH, ED TECH/OUTSOLE LEVELER TO OBSERVE AND TEACH FOR SIGNS AND SYMPTOMS OF SEPSIS AND/OR POST-SEPSIS SYNDROME AND INTERVENE TO MINIMIZE COMPLICATIONS. RN/ED TECH/OUTSOLE LEVELER TO PROVIDE SKILLED TEACHING TO PATIENT/CAREGIVER ON SEPSIS AND SELF-MANAGEMENT TECHNIQUES. RN/ED TECH/OUTSOLE LEVELER TO MONITOR PATIENT/CAREGIVER ADHERENCE TO MONITOR AND RECORD VITAL SIGNS INCLUDING TEMPERATURE, HEART RATE, RESPIRATIONS, AND SYMPTOMS. RN/ED TECH/OUTSOLE LEVELER TO PROVIDE DETENTION TO ACCOMPLISH THE PATIENT S PERSONAL GOAL. [code = RN TO ASSESS AND TEACH, ED TECH/OUTSOLE LEVELER TO OBSERVE AND TEACH FOR SIGNS AND SYMPTOMS OF SEPSIS AND/OR POST-SEPSIS SYNDROME AND INTERVENE TO MINIMIZE COMPLICATIONS. RN/ED TECH/OUTSOLE LEVELER TO PROVIDE SKILLED TEACHING TO PATIENT/CAREGIVER ON SEPSIS AND SELF-MANAGEMENT TECHNIQUES. RN/ED TECH/OUTSOLE LEVELER TO MONITOR PATIENT/CAREGIVER ADHERENCE TO MONITOR AND RECORD VITAL SIGNS INCLUDING TEMPERATURE, HEART RATE, RESPIRATIONS, AND SYMPTOMS. RN/ED TECH/OUTSOLE LEVELER TO PROVIDE DETENTION TO ACCOMPLISH THE PATIENT S PERSONAL GOAL.] Future Scheduled Test OCCUPATION AL THERAPIST TO EVALUATE FOR ADLS [code = OCCUPATIONAL THERAPIST TO EVALUATE FOR ADLS] Future Scheduled Test PRN VISITS ; NUMBER OF RN/ED TECH/OUTSOLE LEVELER VISITS: RN/ED TECH/OUTSOLE LEVELER TO PERFORM: WOUND ASSESSMENT FOR THE FOLLOWING REASONS: EXACERBATION TO WOUND ASSESSMENT [code = PRN VISITS; NUMBER OF RN/ED TECH/OUTSOLE LEVELER VISITS: RN/ED TECH/OUTSOLE LEVELER TO PERFORM: WOUND ASSESSMENT FOR THE FOLLOWING REASONS: EXACERBATION TO WOUND ASSESSMENT] Future Scheduled Test AGENCY MAY PERFORM A RESUMPTION OF CARE VISIT FOLLOWING ANY HOSPITAL ADMISSION. OT TO EVALUATE, OBSERVE / ASSESS, AND MONITOR, ARLINE TO OBSERVE AND MONITOR, PROVIDE SKILLED THERAPEUTIC INTERVENTION, ACTIVITY, EDUCATION, AND TRAINING TO ADDRESS;FUNCTIONAL TRANSFERS, HOME EQUIPMENT/ADAPTATIONS RECOMMENDATIONS ACTIVITIES OF DAILY LIVING (OT/GRAIN MILL WORKER) CHAIR TRANSFERS (OT/GRAIN MILL WORKER) TOILET TRANSFER (OT/GRAIN MILL WORKER) OT / GRAIN MILL WORKER TO EDUCATE ON DIABETES SELF- MANAGEMENT OT/ARLINE TO MONITOR FOR AND REPORT EARLY SIGNS OF ANTICOAGULANT TOXICITY TO THE PHYSICIAN AND/OR THE RN CLINICAL CASH REGISTER OPERATOR FOR PHYSICIAN NOTIFICATION AND TO PROVIDE PATIENT/CAREGIVER EDUCATION ON ANTICOAGULANT THERAPY OT/GRAIN MILL WORKER TO MONITOR FOR HYPO/HYPERGLYCEMIA AND CONDUCT ROUTINE FOOT INSPECTIONS. RECORD PATIENT REPORTED BLOOD SUGAR LEVELS AND NOTIFY PHYSICIAN AND/OR THE RN CLINICAL CASH REGISTER OPERATOR FOR PHYSICIAN NOTIFICATION IF BLOOD SUGAR LEVELS ARE OUTSIDE ORDERED PARAMETERS. TEACH PATIENT/CAREGIVER ON DAILY FOOT INSPECTIONS. [code = AGENCY MAY PERFORM A RESUMPTION OF CARE VISIT FOLLOWING ANY HOSPITAL ADMISSION. OT TO EVALUATE, OBSERVE / ASSESS, AND MONITOR, GRAIN MILL WORKER TO OBSERVE AND MONITOR, PROVIDE SKILLED THERAPEUTIC INTERVENTION, ACTIVITY, EDUCATION, AND TRAINING TO ADDRESS;FUNCTIONAL TRANSFERS, HOME EQUIPMENT/ADAPTATIONS RECOMMENDATIONS ACTIVITIES OF DAILY LIVING (OT/ARLINE) CHAIR TRANSFERS (OT/ARLINE) TOILET TRANSFER (OT/GRAIN MILL WORKER) OT / GRAIN MILL WORKER TO EDUCATE ON DIABETES SELF- MANAGEMENT OT/GRAIN MILL WORKER TO MONITOR FOR AND REPORT EARLY SIGNS OF ANTICOAGULANT TOXICITY TO THE PHYSICIAN AND/OR THE RN CLINICAL CASH REGISTER OPERATOR FOR PHYSICIAN NOTIFICATION AND TO PROVIDE PATIENT/CAREGIVER EDUCATION ON ANTICOAGULANT THERAPY OT/GRAIN MILL WORKER TO MONITOR FOR HYPO/HYPERGLYCEMIA AND CONDUCT ROUTINE FOOT INSPECTIONS. RECORD PATIENT REPORTED BLOOD SUGAR LEVELS AND NOTIFY PHYSICIAN AND/OR THE RN CLINICAL CASH REGISTER OPERATOR FOR PHYSICIAN NOTIFICATION IF BLOOD SUGAR LEVELS [...] End Date/Time Encounter Type Admission Type Attending [facility] Care Department Encounter ID Discharge Date Discharge Status Discharge Condition Discharge Reason Percent Goals Met 2025-01-04 00:00:00 2025-03-04 00:00:00 Outpatient NEW ADMISSION [facility] [id number]
--- OUTSIDE RECORDS SUMMARY | 2025-03-03 20:00 | XMS_ITS | Clinical Summary ---
Author Organization Unknown Care Team Providers Care Associate Professor Of Musicology Name Role Phone [employer]IDA [employer]ER, MONSERRAT Unavailable Unavailable NORRIS GUILLEN, JIN Unavailable Unavailable Payers Payer Name Policy Type Policy Number Effective Date Expira tion Date [facility].HHAHRLY.[id number].[id number] H [id number] Problems Condition Name Condition Details Condition Category [...] OF CARDIAC PACEMAKER Active 04-09 00:00: 00 CUSTODIAL (CURRENT) USE OF ORAL HYPOGLYCEMIC DRUGS Active 04-09 00:00: 00 LNG TRM (CRNT) USE INJECTABLE NON-INSULIN ANTIDIABETIC DRUGS Active 04-09 00:00: 00 CUSTODIAL (CURRENT) USE OF ANTICOAGULAN TS Active 04-09 [...] Guide test strips 12-29 00:00: 00 Yes [id number] DIABETES 1 strip 2 TIMES DAILY 1 strip 2 TIMES DAILY (route: miscellane ous) Med Classific ation: Medical Supplies and Durable Medical Equipment (DME) Accu-Chek Softclix Lancets 12-29 00:00: 00 Yes [id number] DIABETES 1 each 2 TIMES DAILY 1 each 2 TIMES DAILY (route: miscellane ous) Med Classific ation: Medical Supplies and Durable Medical Equipment (DME) cephalexin 500 mg capsule 12-29 00:00: 00 01-06 23:59 :00 No [id number] ANTIBIOTIC 1 capsule EVERY 6 HOURS 1 capsule EVERY 6 HOURS (route: oral) Med Classific ation: Anti-Infe ctive Agents glipizide 10 mg tablet 12-29 00:00: 00 Yes [id number] DIABETES 1 tablet 2 TIMES DAILY 1 tablet 2 TIMES DAILY (route: oral) Med Classific ation: Endocrine Trulicity 1.5 mg/0.5 mL subcutaneou s pen injector 12-29 00:00: 00 Yes [id number] DIABETES 0.5 mL WEEKLY 0.5 mL WEEKLY (route: subcutaneo us) Med Classific ation: Endocrine atorvastati n 20 mg tablet 12-22 00:00: 00 Yes [id number] HYPERCHOLES TEROL 1 tablet DAILY 1 tablet DAILY (route: oral) Med Classific ation: Cardiovas cular Therapy Agents losartan 50 mg tablet 12-16 00:00: 00 Yes [id number] HYPERTENTIO N 1 tablet DAILY 1 tablet DAILY (route: oral) Med Classific ation: Cardiovas cular Therapy Agents oxybutynin chloride 5 mg tablet 12-16 00:00: 00 Yes [id number] OVERACTIVE BLADDER 1 tablet DAILY 1 tablet DAILY (route: oral) Med Classific ation: Genitouri nary Therapy bisoprolol fumarate 5 mg tablet 12-07 00:00: 00 Yes [id number] HYPERTENTIO N 1 tablet DAILY 1 tablet DAILY (route: oral) Med Classific ation: Cardiovas cular Therapy Agents Dulera 100 mcg-5 mcg/actuati on HFA aerosol inhaler 12-08 00:00: 00 Yes [id number] SOB OR WHEEZING 1 puff NEEDED 1 puff NEEDED (route: inhalation ) Med Classific ation: Respirato ry Therapy Agents ferrous fumarate 324 mg (106 mg iron) tablet 12-08 00:00: 00 Yes [id number] SUPPLIMENT 1 tablet DAILY 1 tablet DAILY (route: oral) Med Classific ation: Electroly te Balance-N utritiona l Products furosemide 20 mg tablet 04-09 00:00: 00 01-23 23:59 :00 No [id number] DIURETIC 1 tablet EVERY OTHER DAY 1 tablet EVERY OTHER DAY (route: oral) Med Classific ation: Cardiovas cular Therapy Agents pioglitazon e 30 mg tablet 12-08 00:00: 00 Yes [id number] DIABETES 1 tablet DAILY 1 tablet DAILY (route: oral) Med Classific ation: Endocrine Tymlos 80 mcg/dose (3,120 mcg/1.56 mL) subcutaneou s pen injector 12-08 00:00: 00 Yes [id number] OSTEOPOROSI S 80 mcg BEDTIME 80 mcg BEDTIME (route: subcutaneo us) Med Classific ation: Endocrine Vitamin B-12 1,000 mcg tablet 12-08 00:00: 00 Yes [id number] SUPPLIMENT 1 tablet DAILY 1 tablet DAILY (route: oral) Med Classific ation: Electroly te Balance-N utritiona l Products Vitamin D3 125 mcg (5,000 unit) tablet 12-08 00:00: 00 Yes [id number] SUPPLIMENT 1 tablet DAILY 1 tablet DAILY (route: oral) Med Classific ation: Electroly te Balance-N utritiona l Products Xarelto 20 mg tablet 12-08 00:00: 00 Yes [id number] ANTICOAGULA NT 1 tablet DAILY 1 tablet DAILY (route: oral) Med Classific ation: Hematolog ical Agents Farxiga 10 mg tablet 2024-04 00:00: 00 Yes [id number] DIURETIC/AN TIDIABETIC 1 tablet DAILY 1 tablet DAILY (route: oral) Med Classific ation: Endocrine furosemide 40 mg tablet 2024-04 017 00:00: 00 Yes [id number] DIURETIC 1 tablet DIRECTED 1 tablet DIRECTED [...] ACCEPT ORDERS FROM CONSULTING PHYSICIANS JOHNNA TRIPLETT LOT ATTENDANT, BRITNI TUBBS EDUCATIONAL GUIDANCE COUNSELOR, SKYLAR DANIELS MD INFORMATICS NURSE, EMELIA FALL MD NEUROLOGIST. RN TO OBSERVE AND ASSESS, SLUBBER RUNNER/SAMPLE DISPLAY PREPARER TO OBSERVE FOR RISK FOR FALLS AND INSTRUCT IN FALL PREVENTION, HOME SAFETY, MEDICATION MANAGEMENT, INFECTION PREVENTION, AND NUTRITION MANAGEMENT. RN/SLUBBER RUNNER/SAMPLE DISPLAY PREPARER NURSE MAY PERFORM O2 SATURATION LEVEL ON ADMISSION AND PRN, FOR RN TO ASSESS/SLUBBER RUNNER TO OBSERVE PATIENT, WITH NOTIFICATION TO THE PHYSICIAN IF SATURATION IS 90% IN THE ABSENCE OF MORE SPECIFIC PARAMETERS FROM THE PHYSICIAN. AGENCY MAY PERFORM A RESUMPTION OF CARE VISIT FOLLOWING ANY HOSPITAL ADMISSION. RN/SLUBBER RUNNER/SAMPLE DISPLAY PREPARER TO MONITOR CO-MORBID CONDITIONS LISTED ON THE PLAN OF CARE AND ANY NEW CONDITIONS THAT PRESENT THEMSELVES DURING THIS EPISODE TO IDENTIFY CHANGES AND INTERVENE TO MINIMIZE COMPLICATIONS. [code = RN TO OBSERVE, ASSESS, EVALUATE, AND DEVELOP AN INDIVIDUALIZED PLAN OF CARE. AGENCY MAY ACCEPT ORDERS FROM CONSULTING PHYSICIANS JOHNNA TRIPLETT LOT ATTENDANT, BRITNI TUBBS EDUCATIONAL GUIDANCE COUNSELOR, SKYLAR DANIELS MD INFORMATICS NURSE, EMELIA FALL MD NEUROLOGIST. RN TO OBSERVE AND ASSESS, SLUBBER RUNNER/SAMPLE DISPLAY PREPARER TO OBSERVE FOR RISK FOR FALLS AND INSTRUCT IN FALL PREVENTION, HOME SAFETY, MEDICATION MANAGEMENT, INFECTION PREVENTION, AND NUTRITION MANAGEMENT. RN/SLUBBER RUNNER/SAMPLE DISPLAY PREPARER NURSE MAY PERFORM O2 SATURATION LEVEL ON ADMISSION AND PRN, FOR RN TO ASSESS/SLUBBER RUNNER TO OBSERVE PATIENT, WITH NOTIFICATION TO THE PHYSICIAN IF SATURATION IS 90% IN THE ABSENCE OF MORE SPECIFIC PARAMETERS FROM THE PHYSICIAN. AGENCY MAY PERFORM A RESUMPTION OF CARE VISIT FOLLOWING ANY HOSPITAL ADMISSION. RN/SLUBBER RUNNER/SAMPLE DISPLAY PREPARER TO MONITOR CO-MORBID CONDITIONS LISTED ON THE PLAN OF CARE AND ANY NEW CONDITIONS THAT PRESENT THEMSELVES DURING THIS EPISODE TO IDENTIFY CHANGES AND INTERVENE TO MINIMIZE COMPLICATIONS.] Future Scheduled Test MEDICATION MANAGEMENT; RN/SLUBBER RUNNER/SAMPLE DISPLAY PREPARER TO REVIEW MEDICATIONS FOR INTERACTIONS, EFFECTIVENESS OF DRUG THERAPY, AND SIGNS/SYMPTOMS OF ADVERSE REACTIONS. MAY INSTRUCT AND REINFORCE MEDICATION TEACHING RELATED TO THE USE OF MEDICATIONS, DOSAGE, FREQUENCY, PURPOSE, SIDE EFFECTS, AND TO REPORT COMPLICATIONS. [code = MEDICATION MANAGEMENT; RN/SLUBBER RUNNER/SAMPLE DISPLAY PREPARER TO REVIEW MEDICATIONS FOR INTERACTIONS, EFFECTIVENESS OF DRUG THERAPY, AND SIGNS/SYMPTOMS OF ADVERSE REACTIONS. MAY INSTRUCT AND REINFORCE MEDICATION TEACHING RELATED TO THE USE OF MEDICATIONS, DOSAGE, FREQUENCY, PURPOSE, SIDE EFFECTS, AND TO REPORT COMPLICATIONS.] Future Scheduled Test RISK FOR H OSPITALIZATION; RN TO ASSESS/TEACH, SAMPLE DISPLAY PREPARER/SLUBBER RUNNER TO OBSERVE/TEACH PATIENT/CAREGIVER ON RISK FOR HOSPITALIZATION/EMERGENCY ROOM VISITS, TEACH SIGNS AND SYMPTOMS THAT PUT PATIENT AT RISK, WHEN TO NOTIFY NURSE/PHYSICIAN OF COMPLICATIONS/DECLINE, AND WHEN TO CALL 911. [code = RISK FOR HOSPITALIZATION; RN TO ASSESS/TEACH, SAMPLE DISPLAY PREPARER/SLUBBER RUNNER TO OBSERVE/TEACH PATIENT/CAREGIVER ON RISK FOR HOSPITALIZATION/EMERGENCY ROOM VISITS, TEACH SIGNS AND SYMPTOMS THAT PUT PATIENT AT RISK, WHEN TO NOTIFY NURSE/PHYSICIAN OF COMPLICATIONS/DECLINE, AND WHEN TO CALL 911.] Future Scheduled Test CARDIOVASC ULAR SYSTEM; RN TO ASSESS/TEACH, SLUBBER RUNNER/SAMPLE DISPLAY PREPARER TO OBSERVE/TEACH RELATED TO ALTERED CARDIOVASCULAR STATUS TO MINIMIZE COMPLICATIONS AND REDUCE HOSPITALIZATION. [code = CARDIOVASCULAR SYSTEM; RN TO ASSESS/TEACH, SLUBBER RUNNER/SAMPLE DISPLAY PREPARER TO OBSERVE/TEACH RELATED TO ALTERED CARDIOVASCULAR STATUS TO MINIMIZE COMPLICATIONS AND REDUCE HOSPITALIZATION.] Future Scheduled Test HYPERTENSI ON MANAGEMENT; RN TO ASSESS AND TEACH, SLUBBER RUNNER/SAMPLE DISPLAY PREPARER TO OBSERVE AND TEACH WARNING SIGNS AND SYMPTOMS TO AVOID HOSPITALIZATION. [code = HYPERTENSION MANAGEMENT; RN TO ASSESS AND TEACH, SLUBBER RUNNER/SAMPLE DISPLAY PREPARER TO OBSERVE AND TEACH WARNING SIGNS AND SYMPTOMS TO AVOID HOSPITALIZATION.] Future Scheduled Test PACEMAKER MANAGEMENT; RN/SLUBBER RUNNER/SAMPLE DISPLAY PREPARER TO PROVIDE SKILLED TEACHING AND ASSIST WITH MANAGEMENT OF PACEMAKER. [code = PACEMAKER MANAGEMENT; RN/SLUBBER RUNNER/SAMPLE DISPLAY PREPARER TO PROVIDE SKILLED TEACHING AND ASSIST WITH MANAGEMENT OF PACEMAKER.] Future Scheduled Test RESPIRATOR Y SYSTEM MANAGEMENT; RN TO ASSESS AND TEACH, SLUBBER RUNNER/SAMPLE DISPLAY PREPARER TO OBSERVE AND TEACH RELATED TO ALTERED RESPIRATORY STATUS TO MINIMIZE COMPLICATIONS AND REDUCE HOSPITALIZATION. [code = RESPIRATORY SYSTEM MANAGEMENT; RN TO ASSESS AND TEACH, SLUBBER RUNNER/SAMPLE DISPLAY PREPARER TO OBSERVE AND TEACH RELATED TO ALTERED RESPIRATORY STATUS TO MINIMIZE COMPLICATIONS AND REDUCE HOSPITALIZATION.] Future Scheduled Test COPD MANAG EMENT; RN TO ASSESS AND TEACH, SLUBBER RUNNER/SAMPLE DISPLAY PREPARER TO OBSERVE AND TEACH SIGNS/SYMPTOMS OF COPD EXACERBATION AND PROVIDE EARLY INTERVENTIONS TO MINIMIZE RISK OF HOSPITALIZATION. RN/SLUBBER RUNNER/SAMPLE DISPLAY PREPARER TO INSTRUCT ON SELF-CARE MANAGEMENT INCLUDING BREATHING TECHNIQUES, AIRWAY CLEARANCE, AND PROPER USE OF COPD MEDICATIONS. RN TO ASSESS AND TEACH, SLUBBER RUNNER/SAMPLE DISPLAY PREPARER TO OBSERVE AND TEACH PATIENT/CAREGIVER ABILITY TO MONITOR AND RECORD VITAL SIGNS INCLUDING PULSE OXIMETRY AND BLOOD PRESSURE. PULSE OXIMETER AND BP MONITOR TO BE PROVIDED IF NEEDED. [code = COPD MANAGEMENT; RN TO ASSESS AND TEACH, SLUBBER RUNNER/SAMPLE DISPLAY PREPARER TO OBSERVE AND TEACH SIGNS/SYMPTOMS OF COPD EXACERBATION AND PROVIDE EARLY INTERVENTIONS TO MINIMIZE RISK OF HOSPITALIZATION. RN/SLUBBER RUNNER/SAMPLE DISPLAY PREPARER TO INSTRUCT ON SELF-CARE MANAGEMENT INCLUDING BREATHING TECHNIQUES, AIRWAY CLEARANCE, AND PROPER USE OF COPD MEDICATIONS. RN TO ASSESS AND TEACH, SLUBBER RUNNER/SAMPLE DISPLAY PREPARER TO OBSERVE AND TEACH PATIENT/CAREGIVER ABILITY TO MONITOR AND RECORD VITAL SIGNS INCLUDING PULSE OXIMETRY AND BLOOD PRESSURE. PULSE OXIMETER AND BP MONITOR TO BE PROVIDED IF NEEDED.] Future Scheduled Test SKIN INTEG RITY RN TO ASSESS AND TEACH, SLUBBER RUNNER/SAMPLE DISPLAY PREPARER TO OBSERVE AND TEACH INTEGUMENTARY STATUS TO IDENTIFY CHANGES AND INTERVENE TO MINIMIZE COMPLICATIONS. PROVIDE SKILLED TEACHING OF GENERAL WOUND AND SKIN CARE AND PREVENTION RELATED TO POTENTIAL FOR OR ACTUAL ALTERED SKIN INTEGRITY [code = SKIN INTEGRITY RN TO ASSESS AND TEACH, SLUBBER RUNNER/SAMPLE DISPLAY PREPARER TO OBSERVE AND TEACH INTEGUMENTARY STATUS TO IDENTIFY CHANGES AND INTERVENE TO MINIMIZE COMPLICATIONS. PROVIDE SKILLED TEACHING OF GENERAL WOUND AND SKIN CARE AND PREVENTION RELATED TO POTENTIAL FOR OR ACTUAL ALTERED SKIN INTEGRITY] Future Scheduled Test RN TO ASSE SS, SLUBBER RUNNER/SAMPLE DISPLAY PREPARER TO OBSERVE LOWER EXTREMITY VENOUS STASIS ULCER(S) AND INTERVENE TO MINIMIZE COMPLICATIONS. PROVIDE SKILLED TEACHING TO PATIENT/CAREGIVER RELATED TO ALTERED SKIN INTEGRITY. REPORT SIGNIFICANT CHANGES IN STATUS TO PHYSICIAN FOR EARLY INTERVENTION [code = RN TO ASSESS, SLUBBER RUNNER/SAMPLE DISPLAY PREPARER TO OBSERVE LOWER EXTREMITY VENOUS STASIS ULCER(S) AND INTERVENE TO MINIMIZE COMPLICATIONS. PROVIDE SKILLED TEACHING TO PATIENT/CAREGIVER RELATED TO ALTERED SKIN INTEGRITY. REPORT SIGNIFICANT CHANGES IN STATUS TO PHYSICIAN FOR EARLY INTERVENTION] Future Scheduled Test RN/SLUBBER RUNNER/SAMPLE DISPLAY PREPARER TO PERFORM/TEACH VENOUS STASIS ULCER CARE TO [...] FOR DISLODGEMENT OR INCREASED DRAINAGE. [code = RN/SLUBBER RUNNER/SAMPLE DISPLAY PREPARER TO PERFORM/TEACH VENOUS STASIS ULCER CARE TO [...] MANAG EMENT; RN TO ASSESS AND TEACH, SAMPLE DISPLAY PREPARER/SLUBBER RUNNER TO OBSERVE AND TEACH AND PROVIDE EDUCATION ON PAIN MANAGEMENT TECHNIQUES. [code = PAIN MANAGEMENT; RN TO ASSESS AND TEACH, SAMPLE DISPLAY PREPARER/SLUBBER RUNNER TO OBSERVE AND TEACH AND PROVIDE EDUCATION ON PAIN MANAGEMENT TECHNIQUES.] Future Scheduled Test GENITOURIN REYNALDO MANAGEMENT; RN TO ASSESS AND TEACH, SLUBBER RUNNER/SAMPLE DISPLAY PREPARER TO OBSERVE AND TEACH RELATED TO ALTERED GENITOURINARY STATUS TO MINIMIZE COMPLICATIONS AND REDUCE HOSPITALIZATION. [code = GENITOURINARY MANAGEMENT; RN TO ASSESS AND TEACH, SLUBBER RUNNER/SAMPLE DISPLAY PREPARER TO OBSERVE AND TEACH RELATED TO ALTERED GENITOURINARY STATUS TO MINIMIZE COMPLICATIONS AND REDUCE HOSPITALIZATION.] Future Scheduled Test URINARY IN CONTINENCE MANAGEMENT; RN TO ASSESS AND TEACH, SLUBBER RUNNER/LVNTO OBSERVE AND TEACH MANAGEMENT OF URINARY INCONTINENCE. TEACH/INSTRUCT ON PREVENTING INFECTION AND SKIN BREAKDOWN. RN/SLUBBER RUNNER/SAMPLE DISPLAY PREPARER MAY INSTRUCT IN BLADDER TRAINING PROGRAM INDICATED. [code = URINARY INCONTINENCE MANAGEMENT; RN TO ASSESS AND TEACH, SLUBBER RUNNER/LVNTO OBSERVE AND TEACH MANAGEMENT OF URINARY INCONTINENCE. TEACH/INSTRUCT ON PREVENTING INFECTION AND SKIN BREAKDOWN. RN/SLUBBER RUNNER/SAMPLE DISPLAY PREPARER MAY INSTRUCT IN BLADDER TRAINING PROGRAM INDICATED.] Future Scheduled Test ANEMIA MAN AGEMENT; RN TO ASSESS AND TEACH, SAMPLE DISPLAY PREPARER/SLUBBER RUNNER TO OBSERVE AND TEACH AND PROVIDE EDUCATION ON ANEMIA. [code = ANEMIA MANAGEMENT; RN TO ASSESS AND TEACH, SAMPLE DISPLAY PREPARER/SLUBBER RUNNER TO OBSERVE AND TEACH AND PROVIDE EDUCATION ON ANEMIA.] Future Scheduled Test RN TO ASSE SS AND TEACH, SLUBBER RUNNER/SAMPLE DISPLAY PREPARER TO OBSERVE AND TEACH FOR SIGNS AND SYMPTOMS OF SEPSIS AND/OR POST-SEPSIS SYNDROME AND INTERVENE TO MINIMIZE COMPLICATIONS. RN/SLUBBER RUNNER/SAMPLE DISPLAY PREPARER TO PROVIDE SKILLED TEACHING TO PATIENT/CAREGIVER ON SEPSIS AND SELF-MANAGEMENT TECHNIQUES. RN/SLUBBER RUNNER/SAMPLE DISPLAY PREPARER TO MONITOR PATIENT/CAREGIVER ADHERENCE TO MONITOR AND RECORD VITAL SIGNS INCLUDING TEMPERATURE, HEART RATE, RESPIRATIONS, AND SYMPTOMS. RN/SLUBBER RUNNER/SAMPLE DISPLAY PREPARER TO PROVIDE FCI TO ACCOMPLISH THE PATIENT S PERSONAL GOAL. [code = RN TO ASSESS AND TEACH, SLUBBER RUNNER/SAMPLE DISPLAY PREPARER TO OBSERVE AND TEACH FOR SIGNS AND SYMPTOMS OF SEPSIS AND/OR POST-SEPSIS SYNDROME AND INTERVENE TO MINIMIZE COMPLICATIONS. RN/SLUBBER RUNNER/SAMPLE DISPLAY PREPARER TO PROVIDE SKILLED TEACHING TO PATIENT/CAREGIVER ON SEPSIS AND SELF-MANAGEMENT TECHNIQUES. RN/SLUBBER RUNNER/SAMPLE DISPLAY PREPARER TO MONITOR PATIENT/CAREGIVER ADHERENCE TO MONITOR AND RECORD VITAL SIGNS INCLUDING TEMPERATURE, HEART RATE, RESPIRATIONS, AND SYMPTOMS. RN/SLUBBER RUNNER/SAMPLE DISPLAY PREPARER TO PROVIDE FCI TO ACCOMPLISH THE PATIENT S PERSONAL GOAL.] Future Scheduled Test OCCUPATION AL THERAPIST TO EVALUATE FOR ADLS [code = OCCUPATIONAL THERAPIST TO EVALUATE FOR ADLS] Future Scheduled Test PRN VISITS ; NUMBER OF RN/SLUBBER RUNNER/SAMPLE DISPLAY PREPARER VISITS: RN/SLUBBER RUNNER/SAMPLE DISPLAY PREPARER TO PERFORM: WOUND ASSESSMENT FOR THE FOLLOWING REASONS: EXACERBATION TO WOUND ASSESSMENT [code = PRN VISITS; NUMBER OF RN/SLUBBER RUNNER/SAMPLE DISPLAY PREPARER VISITS: RN/SLUBBER RUNNER/SAMPLE DISPLAY PREPARER TO PERFORM: WOUND ASSESSMENT FOR THE FOLLOWING REASONS: EXACERBATION TO WOUND ASSESSMENT] Future Scheduled Test AGENCY MAY PERFORM A RESUMPTION OF CARE VISIT FOLLOWING ANY HOSPITAL ADMISSION. OT TO EVALUATE, OBSERVE / ASSESS, AND MONITOR, ARLINE TO OBSERVE AND MONITOR, PROVIDE SKILLED THERAPEUTIC INTERVENTION, ACTIVITY, EDUCATION, AND TRAINING TO ADDRESS;FUNCTIONAL TRANSFERS, HOME EQUIPMENT/ADAPTATIONS RECOMMENDATIONS ACTIVITIES OF DAILY LIVING (OT/WATER SOFTENER SERVICER AND INSTALLER) CHAIR TRANSFERS (OT/WATER SOFTENER SERVICER AND INSTALLER) TOILET TRANSFER (OT/WATER SOFTENER SERVICER AND INSTALLER) OT / WATER SOFTENER SERVICER AND INSTALLER TO EDUCATE ON DIABETES SELF- MANAGEMENT OT/ARLINE TO MONITOR FOR AND REPORT EARLY SIGNS OF ANTICOAGULANT TOXICITY TO THE PHYSICIAN AND/OR THE RN CLINICAL ACTIVE DIRECTORY ARCHITECT FOR PHYSICIAN NOTIFICATION AND TO PROVIDE PATIENT/CAREGIVER EDUCATION ON ANTICOAGULANT THERAPY OT/WATER SOFTENER SERVICER AND INSTALLER TO MONITOR FOR HYPO/HYPERGLYCEMIA AND CONDUCT ROUTINE FOOT INSPECTIONS. RECORD PATIENT REPORTED BLOOD SUGAR LEVELS AND NOTIFY PHYSICIAN AND/OR THE RN CLINICAL ACTIVE DIRECTORY ARCHITECT FOR PHYSICIAN NOTIFICATION IF BLOOD SUGAR LEVELS ARE OUTSIDE ORDERED PARAMETERS. TEACH PATIENT/CAREGIVER ON DAILY FOOT INSPECTIONS. [code = AGENCY MAY PERFORM A RESUMPTION OF CARE VISIT FOLLOWING ANY HOSPITAL ADMISSION. OT TO EVALUATE, OBSERVE / ASSESS, AND MONITOR, WATER SOFTENER SERVICER AND INSTALLER TO OBSERVE AND MONITOR, PROVIDE SKILLED THERAPEUTIC INTERVENTION, ACTIVITY, EDUCATION, AND TRAINING TO ADDRESS;FUNCTIONAL TRANSFERS, HOME EQUIPMENT/ADAPTATIONS RECOMMENDATIONS ACTIVITIES OF DAILY LIVING (OT/ARLINE) CHAIR TRANSFERS (OT/ARLINE) TOILET TRANSFER (OT/WATER SOFTENER SERVICER AND INSTALLER) OT / WATER SOFTENER SERVICER AND INSTALLER TO EDUCATE ON DIABETES SELF- MANAGEMENT OT/WATER SOFTENER SERVICER AND INSTALLER TO MONITOR FOR AND REPORT EARLY SIGNS OF ANTICOAGULANT TOXICITY TO THE PHYSICIAN AND/OR THE RN CLINICAL ACTIVE DIRECTORY ARCHITECT FOR PHYSICIAN NOTIFICATION AND TO PROVIDE PATIENT/CAREGIVER EDUCATION ON ANTICOAGULANT THERAPY OT/WATER SOFTENER SERVICER AND INSTALLER TO MONITOR FOR HYPO/HYPERGLYCEMIA AND CONDUCT ROUTINE FOOT INSPECTIONS. RECORD PATIENT REPORTED BLOOD SUGAR LEVELS AND NOTIFY PHYSICIAN AND/OR THE RN CLINICAL ACTIVE DIRECTORY ARCHITECT FOR PHYSICIAN NOTIFICATION IF BLOOD SUGAR LEVELS [...] End Date/Time Encounter Type Admission Type Attending [facility] Care Department Encounter ID Discharge Date Discharge Status Discharge Condition Discharge Reason Percent Goals Met 2025-01-04 00:00:00 2025-03-04 00:00:00 Outpatient NEW ADMISSION JIN PISANO [facility] [id number]
== END 2025-02-03 23:59 | disposition home or self-care (01) ==
LOC: LAB 15:28
PROVIDERS: PCP Nurse Practitioner; Visit Provider Physician Assistant
DX: I25.10 Atherosclerotic heart disease of native coronary artery without angina pectoris (principal); I10 Essential (primary) hypertension; E78.5 Hyperlipidemia, unspecified
CPT/HCPCS: 36415; 80048; 80061; 80076; 83735; 84439; 84443; 85025

== ENCOUNTER 2025-03-02 08:57 | Outpatient (CLI) | payer MEDICARE, MEDICAID, SELFPAY ==
--- OUTSIDE RECORDS SUMMARY | 2025-03-02 09:03 | XMS_ITS | Clinical Summary ---
Author Organization [facility] Address [facility] [place] [address] Phone Care Team Providers Care Aircraft Instrument Engineer Name Role Phone Unavailable Primary Care Provider [...] EST Impressions 05/24/2023 1:52 PM EST Negative ([id number]) ~ RECOMMENDATION: Routine screening mammogram in 1 [...] the next mammogram, in accordance with the [employer] and the Society of Breast Imaging recommendations. Narrative 05/24/2023 1:52 PM EST Procedure:MM MAMMO DIGITAL PAM SCREEN BILAT ~ Reason for exam: screening, asymptomatic. Z12.31-Encounter for screening mammogram for malignant neoplasm of qxxfwi-NBD-90-CM ~ MM MAMMO DIGITAL PAM SCREEN BILAT [...] for screening mammogram for malignant neoplasm of aatwyk-VWR-33-CM ~ MM MAMMO DIGITAL PAM SCREEN BILAT Bilateral CC and MLO view(s) were taken. There are scattered fibroglandular densities. Prior study comparison: Compared with prior studies the most recentbeing outside studies dated December 21, 2009 No mammographic evidence of malignancy. ~ IMPRESSION: Negative ([id number]) ~ RECOMMENDATION: Routine screening mammogram in 1 [...] the next mammogram, in accordance with the [employer] and the Society of Breast Imaging recommendations. us Not In Epic Provider IMG MAMMOGRAPHY ORDERABLES Final Result from Last 3 Months or Most Recently Relevant to Health Maintenance Insurance MEDICARE ADVANTAGE MR
--- OUTSIDE RECORDS SUMMARY | 2025-03-02 09:03 | XMS_ITS | Encounter Summary ---
Author Organization Healthcare Address [address] [place] [address] Care Team Providers Care Paster Hat Lining Name Role Phone Michelle Gray APRN Primary Care Provider [phone] Encounter Details Date Type Department Care Team (Late st Contact Info) Description 02/18/2025 Telephone [facility] [address], [address] [place] [address] Bassem Tejada Social History Tobacco Use Types Packs/Day Years Used Date Smoking Tobacco: Former Cigarettes 1 47.9 S tarted: 1978 Passive Smoke Exposure: Past [...] and Family Not on file 02/25/2024 Attends [employer] Services Not on file 02/24 Active Member [...] any time in the past 12 m onths, were you homeless or living in a [...] In the past 12 months has e [employer], [employer], oil, or water [employer] threatened to shut off services in your home? No 02/25/2024 Comments No Sex and Gender Information Value Date Recorded Sex Assigned at Female 02/24/2024 4:46 AM EST Legal Sex Female 7:06 PM EDT Gender Identity Not on file Sexual Orientation Not on file documented as of this encounter Miscellaneous Notes * Telephone Encounter - Olga Lidia Lizarraga LPN - 02/25/2025 12:05 PM EST Lab orders faxed to [facility] P# [phone] F# [phone]. Fax confirmation received. documented in this encounter Plan of Treatment Upcoming Encounters Date Type Department Care Team (Late st Contact Info) Description 03/17/2025 9:30 AM EST Appointment [facility] Radiology [address], [address]st [place] [address] 03/17/2025 10:10 AM EST Office Visit [facility]opa[facility] Surgery [facility] Medicine [address], [address] [place] [address] Terry Santoyo MD [address] [place] [address] 03/17/2025 11:30 AM EST Clinical Support [facility] [address], 2nd [place] [address] 03/30/2025 10:40 AM EST Office Visit [facility] [address], [address] [place] [address] Becky Moralez APRN [address] [place] [address] documented as of this encounter Visit Diagnoses [...] documented as of this encounter Care Teams Paster Hat Lining Relationship Specialty Start Date End Date Michelle Gray APRN [address] [place] [address] PCP - General 11/17/23 documented as of this encounter
--- OUTSIDE RECORDS SUMMARY | 2025-03-02 09:03 | XMS_ITS | Encounter Summary ---
Author Organization Healthcare Address [address] [place] [address] Care Team Providers Care Debt Collector Name Role Phone Michelle Gray APRN Primary Care Provider [phone] Encounter Details Date Type Department Care Team (Late st Contact Info) Description 02/18/2025 Telephone [facility] [address], [address] [place] [address] Bassem Tejada Social History Tobacco [...] and Family Not on file 02/25/2024 Attends [employer] Not on file 02/24 Active Member [...] place to sleep or slept in a long-term (including now)? No 12/19/2023 PHQ-9 Answer Date [...] were you homeless or living in a long-term (including now)? No 02/25/2024 AUDIT-C Answer Date Recorded Frequency of Alcohol Consumption Not on file 10/23/2024 Q2: How many drinks containi ng alcohol do you have on a typical day when you are drinking? Patient does not drink Frequency of Binge Drinking Not on file 10/07 Utilities Answer Date Recorded In the past 12 months has [employer], gas, oil, or water [employer] threatened to shut off services in your home? No 02/25/2024 Comments No Sex and Gender Information Value Date Recorded Sex Assigned at Female 02/24/2024 4:46 AM EST Legal Sex Female 7:06 PM EDT Gender Identity Not on file Sexual Orientation Not on file documented as of this encounter Miscellaneous Notes * Telephone Encounter - Bassem Tejada - 02/18/2025 1:55 PM EST Called pt regarding labs, pt did not answer lvm.pt called back she states she has not done labs andwell be gong on 03[facility]. documented in this encounter Plan of Treatment Upcoming Encounters Date Type Department Care Team (Late st Contact Info) Description 03/17/2025 9:[address] [facility] Radiology [address], [address] [place] [address] 03/17/2025 10:10 AM EST Office Visit [facility] Orthopaedic Surgery & Sports Medicine [address], [address] [place] [address] Terry Santoyo MD [address] [place] [address] 03/17/2025 11:30 AM EST Clinical Support [facility] [address], 2nd [place] [address] 03/30/2025 10:40 AM EST Office Visit [facility] [address], [address] [place] [address] Becky Moralez APRN [address] [place] [address] documented as of this encounter [...] documented as of this encounter Care Teams Debt Collector Relationship Specialty Start Date End Date Michelle Gray APRN [address] [place] [address] PCP - General 11/17/23 documented as of this encounter
--- OUTSIDE RECORDS SUMMARY | 2025-03-02 09:03 | XMS_ITS | Encounter Summary ---
Author Organization [facility] Address [address] [place] [address] Care Team Providers Care Brake Reliner Name Role Phone Michelle Gray ALYCIA Primary Care Provider [phone] Reason for Referral * Medications - Authorized Specialty Diagnoses / Procedures Referred By Contac t Referred To Contact Diagnoses Age-related osteoporosis without current pathological fracture Becky Moralez APRN [address] [address] Phone: tel: fax: Referral ID Status Reason Start Date Expiration Date V isits Requested Visits Authorized [id number] Authorized 10/31/2024 04/08/2025 1 1 Reason for Visit * Reason Onset Date Comments Med Refill 01/26/2025 Encounter Details Date Type Department Care Team (Late st Contact Info) Description 01/26/2025 Refill [facility] [address] , [address] [place] [address] Negro Katz MD [address] [place] [address] Age-related osteoporosis without current pathological [...] and Family Not on file 02/25/2024 Attends Congregation Services Not on file 02/24 Active Member [...] any time in the past [address] [facility], were you homeless or living in a [...] Info) Description 03/17/2025 9:30 AM EST Appointment [facility] Radiology [address], 1st [place] [address] 03/17/2025 10:10 AM EST Office Visit [facility] Orthopaedic Surgery & Sports Medicine [address], 1st Floor [address] [place] [address] Terry Santoyo MD [address] [place] [address] 03/17/2025 11:30 AM EST Clinical Support [facility] Lab [address], 2nd [place] [address] 03/30/2025 10:40 AM EST Office Visit [facility] [address], [address] [place] [address] Becky Moralez APRN [address] [place] [address] documented as of this encounter [...] documented as of this encounter Care Teams Brake Reliner Relationship Specialty Start Date End Date Michelle Gray APRN [address] [place] [id number] PCP - General 11/17/23 documented as of this encounter
--- OUTSIDE RECORDS SUMMARY | 2025-03-02 09:03 | XMS_ITS | Encounter Summary ---
Author Organization Healthcare Address [address] [place] [address] Care Team Providers Care Squeegee Operator Name Role Phone Michelle Gray APRN Primary Care Provider [phone] Encounter Details Date Type Department Care Team (Late st Contact Info) Description 02/03/2025 Telephone [facility] [address] [place] [address] Carmen Houser MD [address] [facility] [address] [place] [address] Social History Tobacco Use Types [...] and Family Not on file 02/25/2024 Attends Adventist Services Not on file 02/24 Active Member [...] place to sleep or slept in a halfway (including now)? No 12/19/2023 PHQ-9 Answer Date [...] any time in the past 12 m [facility], were you homeless or living in a halfway (including now)? No 02/25/2024 AUDIT-C Answer Date Recorded Frequency of Alcohol Consumption Not on file 10/23/2024 Q2: How many drinks containi ng alcohol do you have on a typical day when you are drinking? Patient does not drink Frequency of Binge Drinking Not on file 10/07 Utilities Answer Date Recorded In the past 12 months has [employer], gas, oil, or water company threatened to shut off services in your home? No 02/25/2024 Comments No Sex and Gender Information Value Date Recorded Sex Assigned at Female 02/24/2024 4:46 AM EST Legal Sex Female 7:06 PM EDT Gender Identity Not on file Sexual Orientation Not on file documented as of this encounter Miscellaneous Notes * Telephone Encounter - Maru Castillo - 02/03/2025 10:26 AM EDT LVM to call back and schedule with Mik documented in this encounter Plan of Treatment Upcoming Encounters Date Type Department Care Team (Late st Contact Info) Description 03/17/2025 9:30 AM EST Appointment [facility] Radiology [address], 1st [place] [address] 03/17/2025 10:10 AM EST Office Visit [facility] Orthopaedic Surgery & Sports Medicine [address], 1st Floor [address] [place] [address] Terry Santoyo MD [address] [place] [address] 03/17/2025 11:30 AM EST Clinical Support [facility] Lab [address], 2nd [place] [address] 03/30/2025 10:40 AM EST Office Visit [facility] [address] [facility], [address] [place] [address] Becky Moralez APRN [address] [place] [address] documented as of this encounter [...] documented as of this encounter Care Teams Squeegee Operator Relationship Specialty Start Date End Date Michelle Gray APRN [address] [place] [address] PCP - General 11/17/23 documented as of this encounter
--- OUTSIDE RECORDS SUMMARY | 2025-03-02 09:03 | XMS_ITS | Encounter Summary ---
Author Organization [facility] Address [address] [place] [address] Care Team Providers Care Air Conditioning Engineer Name Role Phone Michelle Gray APRN Primary Care Provider Encounter Details Date Type Department Care Team (Late st Contact Info) Description 02/12/2025 Telephone [facility] [address] [facility], [address] [place] [address] Bassem Tejada Social History Tobacco [...] and Family Not on file 02/25/2024 Attends Yarsanism Services Not on file 02/24 Active Member [...] No 02/25/2024 Housing Stability Vital Sign Answer Dikcson e Recorded In the last 12 months, [...] place to sleep or slept in a penitentiary (including now)? No 12/19/2023 PHQ-9 Answer Date [...] were you homeless or living in a penitentiary (including now)? No 02/25/2024 AUDIT-C Answer Date Recorded Frequency of Alcohol Consumption Not on file 10/23/2024 Q2: How many drinks containi ng alcohol do you have on a typical day when you are drinking? Patient does not drink Frequency of Binge Drinking Not on file 10/07 Utilities Answer Date Recorded In the past 12 months has e [employer], gas, oil, or water [employer] threatened to shut off services in your home? No 02/25/2024 Comments No Sex and Gender Information Value Date Recorded Sex Assigned at Female 02/24/2024 4:46 AM EST Legal Sex Female 7:06 PM EDT Gender Identity Not on file Sexual Orientation Not on file documented as of this encounter Miscellaneous Notes * Telephone Encounter - Bassem Tejada - 02/12/2025 10:33 AM EST Called pt regarding labs, pt did not answer lvm. documented in this encounter Plan of Treatment Upcoming Encounters Date Type Department Care Team (Late st Contact Info) Description 03/17/2025 9:30 AM EST Appointment [facility] Radiology [address], 1st [place] [address] 03/17/2025 10:10 AM EST Office Visit [facility] Orthopaedic Surgery & Sports Medicine [address], 1st Floor [address] [place] [address] Terry Santoyo MD [address] [place] [address] 03/17/2025 11:30 AM EST Clinical Support [facility] Lab [address], 2nd [place] [address] 03/30/2025 10:40 AM EST Office Visit [facility] [address] [facility], [address] [place] [address] Becky Moralez APRN [address] [address] documented as of this encounter Visit [...] documented as of this encounter Care Teams Air Conditioning Engineer Relationship Specialty Start Date End Date Michelle Gray APRN [address] [place], [place] [id number] PCP - General 11/17/23 documented as of this encounter
--- OUTSIDE RECORDS SUMMARY | 2025-03-02 09:03 | XMS_ITS | Encounter Summary ---
Author Organization Healthcare Address [address] [place] [address] Care Team Providers Care Cinder Man Name Role Phone Michelle Gray APRN Primary Care Provider [phone] Encounter Details Date Type Department Care Team (Late st Contact Info) Description 02/05/2025 Telephone [facility] [address] [place] [address] Carmen Houser MD [address] [facility] 100 [place] [address] Social History Tobacco Use Types [...] and Family Not on file 02/25/2024 Attends Sabianist Services Not on file 02/24 Active Member [...] No 02/25/2024 Housing Stability Vital Sign Answer Dicksno e Recorded In the last 12 months, [...] any time in the past 12 m [facility], were you homeless or living in [...] Recorded In the past 12 months has [employer], gas, oil, or water company threatened to shut off services in your home? No 02/25/2024 Comments No Sex and Gender Information Value Date Recorded Sex Assigned at Female 02/24/2024 4:46 AM EST Legal Sex Female 7:06 PM EDT Gender Identity Not on file Sexual Orientation Not on file documented as of this encounter Miscellaneous Notes * Telephone Encounter - Maru Castillo - 02/05/2025 2:37 PM EDT LVM to call back and schedule documented in this encounter Plan of Treatment Upcoming Encounters Date Type Department Care Team (Late st Contact Info) Description 03/17/2025 9:30 AM EST Appointment [facility] Radiology [address], 1st [place] [address] 03/17/2025 10:10 AM EST Office Visit [facility] Orthopaedic Surgery & Sports Medicine [address], 1st Floor [address] [place] [address] Terry Santoyo MD [address] [place] [address] 03/17/2025 11:30 AM EST Clinical Support [facility] Lab [address], 2nd [place] [address] 03/30/2025 10:40 AM EST Office Visit [facility] [address] [facility], [address] [place] [address] Becky Moralez APRN [address] [place] [address] documented as of this encounter [...] documented as of this encounter Care Teams Cinder Man Relationship Specialty Start Date End Date Michelle Gray APRN [address] [place] [id number] PCP - General 11/17/23 documented as of this encounter
--- OUTSIDE RECORDS SUMMARY | 2025-03-02 09:03 | XMS_ITS | Encounter Summary ---
Author Organization [facility] Address [address] [place] [address] Care Team Providers Care Fuel Manager Name Role Phone Michelle Gray APRN Primary Care Provider [phone] Encounter Details Date Type Department Care Team (Late st Contact Info) Description 02/12/2025 Telephone [facility] [address] [place] [address] Carmen Houser MD 3101 [facility] 100 [place] [address] Social History Tobacco Use Types [...] and Family Not on file 02/25/2024 Attends Confucianist Services Not on file 02/24 Active Member [...] place to sleep or slept in a snf (including now)? No 12/19/2023 PHQ-9 Answer Date [...] any time in the past 12 m [facility], were you homeless or living in a snf (including now)? 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 Will call if she want to schedule documented in this encounter Plan of Treatment Upcoming Encounters Date Type Department Care Team (Late st Contact Info) Description 03/17/2025 9:30 AM EST Appointment [facility] Radiology [address], 1st [place] [address] 03/17/2025 10:10 AM EST Office Visit [facility] Orthopaedic Surgery & Sports Medicine [address], 1st Floor [address] [place] [address] Trery Santoyo MD [address] [place] [address] 03/17/2025 11:30 AM EST Clinical Support [facility] Lab [address], 2nd [place] [address] 03/30/2025 10:40 AM EST Office Visit [facility] [address] [facility], [address] [place] [address] Becky Moralez APRN [address] [place] [address] documented as of this encounter [...] documented as of this encounter Care Teams Fuel Manager Relationship Specialty Start Date End Date Michelle Gray APRN [address] [place] [address] PCP - General 11/17/23 documented as of this encounter
--- OUTSIDE RECORDS SUMMARY | 2025-03-02 09:03 | XMS_ITS | Encounter Summary ---
Author Organization Healthcare Address [address] [place] [address] Care Team Providers Care Footwear Production Machine Operator Name Role Phone Michelle Gray APRN Primary Care Provider [phone] Encounter Details Date Type Department Care Team (Late st Contact Info) Description 01/05/2025 Telephone [facility] [address] [place] [address] Carmen Houser MD [address] [facility] 100 [place] [address] Social History Tobacco Use Types [...] and Family Not on file 02/25/2024 Attends Religion Services Not on file 02/24 Active Member [...] any time in the past 12 m [facility], were you homeless or living [...] Recorded In the past 12 months has [employer], gas, oil, or water company threatened [...] [facility] Radiology [address], 1st [place] [address] 03/17/2025 10:10 AM EST Office Visit [facility] Orthopaedic Surgery & Sports Medicine [address], 1st Floor [address] [place] [address] Terry Santoyo MD [address] [facility] [address] [place] [address] 03/17/2025 11:30 AM EST Clinical Support [facility] Lab [address], 2nd [place] [address] 03/30/2025 10:40 AM EST [facility] Visit [facility] [address], [address] [place] [address] Becky Moralez APRN [address] [place] [address] documented as of this encounter Visit Diagnoses [...] documented as of this encounter Care Teams Footwear Production Machine Operator Relationship Specialty Start Date End Date Michelle Gray APRN [address] [place] [address] PCP - General 11/17/23 documented as of this encounter
--- OUTSIDE RECORDS SUMMARY | 2025-03-02 09:03 | XMS_ITS | Clinical Summary ---
Author Organization [facility] Address [address] [place] [address] Care Team Providers Care Quartz Cutter Name Role Phone Michelle Gray APRN Primary Care Provider [phone] Allergies No known active allergies Medications dulaglutide [...] by mouth 1 (one) time each day. 11/30/20 24 Active losartan (Cozaar) 50 MG tablet Take 1 tablet by mouth daily. 05/12/19 25 Active Vitamin D3 1.25 MG (14435 UT) capsule Take 1 capsule by mouth [...] skin daily. 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, [address] [place] [address] Bassem Tejada 02/18/2025 [facility] Bone & Mineral Metabolism [address] [facility], [address] [place] [address] Bassem Tejada 02/12/[address] [address] Carmen Houser MD 02/12/2025 [facility] Bone [facility] Mineral Metabolism [address] [facility], [address] [place] [address] Bassem Tejada 02/05/[address] [address] Carmen Houser MD 02/03/[address] [address] Carmen Houser MD 01/26/2025 [facility] [address] [facility], [address] [place] [address] Negro Katz MD Age-related osteoporosis without current pathological fracture (Primary Dx) 01/05/[address] [address] Carmen Houser MD 12/16/2024 [facility] [address] [place] [address] Valentina Brown, PharmD Medication Therapy Management from Last 3 Months Immunizations Immunization Administration [...] Tobacco: Former Cigarettes 1 47.9 S tarted: 1977 Passive Smoke Exposure: Past [...] and Family Not on file 02/25/2024 Attends Restorationist Services Not on file 02/24 Active Member [...] place to sleep or slept in a assisted (including now)? No 12/19/2023 PHQ-9 Answer Date [...] time in the past 12 m [facility], were you homeless or living in a assisted (including now)? No 02/25/2024 AUDIT-C Answer Date Recorded Frequency of Alcohol Consumption Not on file 10/23/2024 Q2: How many drinks containi ng alcohol do you have on a typical day when you are drinking? Patient does not drink Frequency of Binge Drinking Not on file 10/07 Utilities Answer Date Recorded In the past 12 months has th e electric, gas, oil, or water [employer] threatened to shut off services in your [...] Info) Description 03/17/2025 9:30 AM EST Appointment [facility] Radiology [address], 1st [place] [address] 03/17/2025 10:10 AM EST Office Visit [facility] Orthopaedic Surgery & Sports Medicine [address], 1st Floor [address] [place] [address] Terry Santoyo MD [address] [facility] [address] [place] [address] 03/17/2025 11:30 AM EST Clinical Support [facility] Lab [address], 2nd [place] [address] 03/30/2025 10:40 AM EST [facility] [address] [place] [address] Becky Moralez APRN [address] [place] [address] Health Maintenance Due Date Last Done Comments [facility]-Diabetes: Hemoglobin A1C 1957 [facility]-Medicare Annual Wellness (AWV) 1955 [facility]-Infant/Child/Adol SDOH Screenings 1955 Diabetes: Dental Exam 09/09/1967 [facility]- SDOH Screenings 09/09/1975 [facility]-Adult SDOH Screenings 09/09/1975 [facility]-Pneumococcal Vaccine: 50+ Years (1 of 2 - PCV) 1976 CT Colonography 2002 Colonoscopy 2002 FIT-DNA 2002 FIT 2002 FOBT 2002 Sigmoidoscopy 2002 [facility]-Colorectal Cancer Screening 2002 [facility]-RSV Vaccine: 60+ Years or (1 - Risk 60-74 years 1-dose series) 2017 EZC-LYLLE-24 Vaccine (1 - 2024- season) 2024 [facility]-Influenza Vaccine (#1) 12/08/202403/23, 01/03/2022, [...] this topic Medical Devices Implanted Type Area Manager Nursing Device Identifier Shelf Expiration Date Model / Serial / Lot Nail Femoral Retro T2 Alpha 12mm X 400mm - S. - [id number] Implanted:Qty: 1 on 12/17/2023 by Terry Santoyo MD at [facility] Nail Right: Femur [employer] ([facility])-[id number] 02/06/2033 [id number] / . / Wire Radha Trocar Point Small 2mm X 150mm - [id number] Implanted:Qty: 6 on 12/17/2023 by Terry Santoyo MD at [facility] Pin Right: Femur [employer]ynthes [facility]-[id number] 12/16/2024 292.20 / / Plate Fixator Temp Ao Fitting - [id number] Implanted:Qty: 1 on 12/17/2023 by Terry Santoyo MD at [facility] Plate Right: Femur [employer] ([facility])-[id number] 12/16/2024 [id number] / / Screw Locking T2 D5xl45 - [id number] Implanted:Qty: 1 on 12/17/2023 by Terry Santoyo MD at [facility] Screw Right: Femur [employer] ([facility])-[id number] 07/07/2033 [id number] / / Screw 3.5mm Ti Cortex Selftap 65mm - S. - [id number] Implanted:Qty: 1 on 12/17/2023 by Terry Santoyo MD at [facility] Screw Right: Femur [employer] ([facility][id number] 12/16/2024 [id number] / . / Screw 3.5mm Ti Cortex Selftap 70mm - [id number] Implanted:Qty: 1 on 12/17/2023 by Terry Santoyo MD at [facility] Screw Right: Femur [employer] ([facility][id number] 12/16/2024 [id number] / / Screw Locking Adv T2 T2 D5xl85 - [id number] Implanted:Qty: 1 on 12/17/2023 by Terry Santoyo MD at [facility] Screw Right: Femur [employer] ([facility])-[id number] 10/06/2033 [id number] / / Screw Locking Adv T2 T2 D5xl65 - [id number] Implanted:Qty: 1 on 12/17/2023 by Terry Santoyo MD at [facility] Screw Right: Femur [employer] ([facility])-[id number] 10/07/2031 [id number] / / Screw Locking Adv T2 T2 D5xl80 - [id number] Implanted:Qty: 1 on 12/17/2023 by Terry Santoyo MD at [facility] Screw Right: Femur [employer] ([facility])-[id number] 68 10/06/2033 2361-5080S / / Screw Locking Adv T2 T2 D5xl70 - [id number] Implanted:Qty: 1 on 12/17/2023 by Terry Santoyo MD at [facility] Screw Right: Femur [employer] ([facility])-[id number] 09/06/2033 [id number] / / Screw Locking T2 D5x37.5 - [id number] Implanted:Qty: 1 on 12/17/2023 by Terry Santoyo MD at [facility] Screw Right: Femur [employer] ([facility])-[id number] 68 10/06/2033 2360-5037S / / Washer Tit Screw 4mm - [id number] Implanted:Qty: 3 on 12/17/2023 by Terry Santoyo MD at [facility] Washer Right: Femur [employer] ([facility][id number] 12/16/2024 [id number] / / Procedures Procedure Name Priority Date/Time Associated Diagnosis Comments DEXA BONE DENSITY AXIAL SKELETON W VFA Routine 10/23/2024 11:11 AM EDT Age-related osteoporosis without current pathological fracture HEPATITIS C ANTIBODY - ED W/REFLEX TO HCV QUANT PCR STAT 12/16/2023 7:02 PM EDT from Last 3 Months or Most Recently Relevant to Health Maintenance Results * Dexa Bone Density Axial Skeleton W VFA (10/23/2024 11:11 AM EDT) Anatomical Region Laterality Modality Body Radiographic Fe ging Narrative 11/02/2024 11:11 AM EDT [facility] [address] [place] [address] DXA Bone Densitometry Report: [ 10/23/2024] BMD test performed using the [employer] DXA System (analysis version: 14.10) manufactured by [employer]. REFERRING PROVIDER: Dr. Becky Moralez APRN CLINICAL [...] of change in BMD). us Becky Moralez LEGAL OFFICER IMG DXA PROCEDURES Final Re sult * Hepatitis C Antibody - ED (12/16/2023 7:02 PM EDT) Hepatitis C Antibody Negative Negative 12/16/2023 8:02 PM EDT [facility] Blood Venous blood specimen / Unknown Venipuncture / Unknown 12/16/2023 7:02 PM EDT 12/16/2023 7:20 PM EDT us Heike Cruz LAB BLOOD ORDERABLES Final Resul t [facility] [address] [place] [phone] from Last 3 Months or Most Recently Relevant to Health Maintenance Insurance [facility] MEDICARE Advance Directives * Full Code (Latest Code Status on File) Date Activated Date Inactivated Comments 02/24/2024 7:10 AM 03/08/2024 3:38 PM Question Answer Comments Patient has decision-making capacity? Yes * Full Code Date Activated Date Inactivated Comments 12/16/2023 11:54 PM 12/25/2023 3:53 PM Question Answer Comments Patient has decision-making capacity? Yes Care Teams Quartz Cutter Relationship Specialty Start Date End Date Michelle Gray APRN [address] [place] [address] PCP - General 11/17/23
[2025-03-02 10:07] LABS: 25-OH Vitamin D, Total 96.0 ng/mL (30-100)
[2025-03-02 10:43] LABS: Anion Gap 13.4 mEq/L (5-15); Blood Urea Nitrogen 52 mg/dl (7-17); Calcium 9.2 mg/dl (8.4-10.2); Carbon Dioxide 25 mmol/L (22.0-30.0); Chloride 103 mmol/L (98-107); Creatinine,Serum 1.90 mg/dl (0.52-1.04); Estimated Glomerular Filt Rate 26 ml/min (>60); GFR (African American) 32 ML/MIN (>60); Glucose 168 mg/dl (74-100); Potassium 4.4 mmoL/L (3.5-5.1); Sodium 137 mmol/L (136-145)
[2025-03-02 10:52] LABS: NT Pro Brain Natriuretic Pep. 1590 pg/mL (0-125)
[2025-03-02 11:24] LABS: Albumin Level 4.2 g/dl (3.5-5.0); Anion Gap 12.3 mEq/L (5-15); Blood Urea Nitrogen 53 mg/dl (7-17); Calcium 9.1 mg/dl (8.4-10.2); Carbon Dioxide 23 mmol/L (22.0-30.0); Chloride 105 mmol/L (98-107); Creatinine,Serum 2.00 mg/dl (0.52-1.04); Estimated Glomerular Filt Rate 25 ml/min (>60); GFR (African American) 30 ML/MIN (>60); Glucose 168 mg/dl (74-100); Phosphorous 4.3 mg/dl (2.5-4.5); Potassium 4.3 mmoL/L (3.5-5.1); Sodium 136 mmol/L (136-145)
== END 2025-03-02 23:59 | disposition home or self-care (01) ==
LOC: LAB 08:58
PROVIDERS: Nurse Practitioner Acute Care; PCP Nurse Practitioner; Visit Provider Physician Assistant
DX: I50.20 Unspecified systolic (congestive) heart failure (principal); M85.80 Other specified disorders of bone density and structure, unspecified site
CPT/HCPCS: 36415; 80048; 80069; 82306; 82523; 83880; 84080

== ENCOUNTER 2025-03-24 09:16 | Outpatient (CLI) | payer MEDICARE, MEDICAID, SELFPAY ==
--- OUTSIDE RECORDS SUMMARY | 2025-03-17 09:30 | XMS_ITS | Encounter Summary ---
Author Organization Healthcare Address [address] 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 [place], were you homeless or living in a halfway (including now)? No 02/25/2024 AUDIT-C Answer Date Recorded Frequency of Alcohol Consumption Not on file 10/23/2024 Q2: How many drinks containi ng alcohol do you have on a typical day when you are drinking? Patient does not drink 5 Frequency of Binge Drinking Not on file 10/07 Utilities Answer Date Recorded In the past 12 months has [employer], [employer], oil, or water [employer] threatened to shut off services in your home? No 02/25/2024 Comments No Sex and Gender Information Value Date Recorded Sex Assigned at Female 02/24/2024 4:46 AM EST Legal Sex Female 7:06 PM EDT Gender Identity Not on file Sexual Orientation Not on file documented as of this encounter Medications at Time of Discharge Abaloparatide (Tymlos) 3120 MCG/1.56ML solution pen-injectorIndic ations:Age-relate d osteoporosis without current pathological fracture Inject 80 mcg under the skin daily. 1.56 mL 5 Accu-Chek Guide Test test strip USE TO CHECK BLOOD GLUCOSE BEFORE MEAL(S) AND AT BEDTIME 5 Accu-Chek Softclix Lancets lancets USE TO CHECK BLOOD GLUCOSE BEFORE MEAL(S) AND AT BEDTIME 5 acetaminophen (Tylenol 8 Hour Arthritis Pain) 650 MG ER tablet Take 1 tablet by mouth every 8 hours as needed for mild pain. Do not crush, chew, or split. 30 tablet 2 5 albuterol 108 (90 Base) MCG/ACT inhaler Inhale 2 puffs every 6 (six) hours if needed for wheezing or shortness of breath. 4 atorvastatin (Lipitor) 20 MG tablet Take 1 tablet (20 mg) by mouth every night. 4 bisoprolol (Zebeta) 5 MG tablet Take 1 tablet (5 mg) by mouth 1 (one) time each day. 4 dulaglutide (Trulicity) 1.5 MG/0.5ML solution pen-injector inj. pen Inject 1.5 mg under the skin 1 (one) time per week. Dulera 100-5 MCG/ACT inhaler Inhale 2 puffs 2 times a day. 5 ferrous sulfate 324 (65 Fe) MG EC tablet Take 1 tablet by mouth daily. 5 furosemide (Lasix) 20 MG tablet Take 1 tablet (20 mg) by mouth every other day. 4 glipiZIDE (Glucotrol) 10 MG tablet Take 1 tablet (10 mg) by mouth 2 (two) times a day before meals. 4 losartan (Cozaar) 50 MG tablet Take 1 tablet by mouth daily. 5 oxybutynin (Ditropan) 5 MG tablet Take 1 tablet by mouth daily. 5 pen needle, diabetic (B-D UF III MINI PEN NEEDLES) 31G X 5 MM misc 1 each daily. Use with Tymlos 100 each 11 5 pioglitazone (Actos) 30 MG tablet Take 1 tablet (30 mg) by mouth 1 (one) time each day in the evening. 4 rivaroxaban (Xarelto) 20 MG tablet Take 1 tablet (20 mg) by mouth 1 (one) time each day with dinner. Take with food. 4 Trulicity 1.5 MG/0.5ML solution auto-injector INJECT 1 PEN SUBCUTANEOUSLY ONCE A WEEK 5 Vitamin D3 1.25 MG (95446 UT) capsule Take 1 capsule by mouth once a week 6 capsule 5 documented as of this encounter Plan of Treatment Upcoming Encounters Date Type Department Care Team (Late st Contact Info) Description 03/30/2025 10:40 AM EST Office Visit [facility] [address], [address] [place] [address] Becky Moralez APRN [address] [place] [address] 09/15/2025 8:30 AM EDT Office Visit [facility] [address] [place] [address] Terry Santoyo MD [address] [place] [address] documented as of this encounter Procedures Procedure Name Priority Date/Time Associated Diagnosis Comments XR KNEE RIGHT 3 VIEWS Routine 03/17/2025 10:11 AM EST 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 Severe tricompartmental osteoarthrosis redemonstrated with irregularity/erosion of the medial and lateral tibial plateau, similar to prior. CRITICAL RESULT: No. COMMUNICATION: Per this written report. Drafted by Matt Montes MD on 03/17/2025 10:36 AM Final report signed by Matt Montes MD on 03/17/2025 10:38 AM Narrative 03/17/2025 10:38 AM EST CLINICAL INDICATION: pain TECHNIQUE: XR KNEE RIGHT 3 VIEWS, XR FEMUR RIGHT 2+ VIEWS COMPARISON: [id number] FINDINGS: Overlying soft tissue obscures bone detail. Retrograde femoral nail is redemonstrated spanning a healing distal femoral fracture which is in similar alignment. No hardware failure or loosening. Vascular calcifications. 3 views of the right knee demonstrate severe femorotibial narrowing with irregularity of the peripheral aspect of the medial and lateral tibial plateau. Small density superiorly could represent loose body. Vascular calcifications. Procedure Note Matt Montes MD - 03/17/2025 CLINICAL INDICATION: pain TECHNIQUE: XR KNEE RIGHT 3 VIEWS, XR FEMUR RIGHT 2+ VIEWS COMPARISON: FINDINGS: Overlying soft tissue obscures bone detail. Retrograde femoral nail isredemonstrated spanning a healing distal femoral fracture which is insimilar alignment. No hardware failure or loosening. Vascularcalcifications. 3 views of the right knee demonstrate severe femorotibial narrowing withirregularity of the peripheral aspect of the medial and lateral tibialplateau. Small density superiorly could represent loose body. Vascularcalcifications. IMPRESSION: Femoral nail in place spanning a healing distal femoral fracture insimilar alignment without hardware failure or loosening. Severe tricompartmental osteoarthrosis redemonstrated withirregularity/erosion of the medial and lateral tibial plateau, similar toprior. CRITICAL RESULT: No. COMMUNICATION: Per this written report. Drafted by Matt Montes MD on 03/17/2025 10:36 AM Final report signed by Matt Montes MD on 03/17/2025 10:38 AM us Cheryl CASH IMG XR PROCEDURES Final Resul t * XR Femur Right 2+ Views (03/17/2025 10:11 AM EST) Anatomical Region Laterality Modality Lower Extremities, Femur Right Digital Radiography Impressions 03/17/2025 10:38 AM EST Femoral nail in place spanning a healing distal femoral fracture in similar alignment without hardware failure or loosening. Severe tricompartmental osteoarthrosis redemonstrated with irregularity/erosion of the medial and lateral tibial plateau, similar to prior. CRITICAL RESULT: No. COMMUNICATION: Per this written report. Drafted by Matt Montes MD on 03/17/2025 10:36 AM Final report signed by Matt Montes MD on 03/17/2025 10:38 AM Narrative 03/17/2025 10:38 AM EST CLINICAL INDICATION: pain TECHNIQUE: XR KNEE RIGHT 3 VIEWS, XR FEMUR RIGHT 2+ VIEWS COMPARISON: FINDINGS: Overlying soft tissue obscures bone detail. Retrograde femoral nail is redemonstrated spanning a healing distal femoral fracture which is in similar alignment. No hardware failure or loosening. Vascular calcifications. 3 views of the right knee demonstrate severe femorotibial narrowing with irregularity of the peripheral aspect of the medial and lateral tibial plateau. Small density superiorly could represent loose body. Vascular calcifications. Procedure Note Matt Montes MD - 03/17/2025 CLINICAL INDICATION: pain TECHNIQUE: XR KNEE RIGHT 3 VIEWS, XR FEMUR RIGHT 2+ VIEWS COMPARISON: FINDINGS: Overlying soft tissue obscures bone detail. Retrograde femoral nail isredemonstrated spanning a healing distal femoral fracture which is insimilar alignment. No hardware failure or loosening. Vascularcalcifications. 3 views of the right knee demonstrate severe femorotibial narrowing withirregularity of the peripheral aspect of the medial and lateral tibialplateau. Small density superiorly could represent loose body. Vascularcalcifications. IMPRESSION: Femoral nail in place spanning a healing distal femoral fracture insimilar alignment without hardware failure or loosening. Severe tricompartmental osteoarthrosis redemonstrated withirregularity/erosion of the medial and lateral tibial plateau, similar toprior. CRITICAL RESULT: No. COMMUNICATION: Per this written report. 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
--- OUTSIDE RECORDS SUMMARY | 2025-03-17 10:10 | XMS_ITS | Encounter Summary ---
Author Organization Healthcare Address [address] 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 No 12/19/2023 PHQ-9 Answer Date [...] any time in the past 12 m [facility], were you homeless or living in a chcf (including now)? No 02/25/2024 AUDIT-C Answer Date [...] Sign Reading Time Taken Comments Blood Pressure 139/78 03/17/2025 9:49 AM EST Pulse 64 03/17/2025 9:49 AM EST Temperature 36.6 C (97.8 F) 03/17/2025 9:49 AM EST Respiratory Rate - - Oxygen Saturation 97% 03/17/2025 9:49 AM EST Inhaled Oxygen Concentration - - Weight 154 kg (340 lb) 03/17/2025 9:49 AM EST Height 172.7 cm (5' 8 ) 03/17/2025 9:49 AM EST Body Mass Index 51.7 03/17/2025 9:49 AM EST documented in this encounter Miscellaneous Notes * Progress Notes - Macy Stephen PA - 03/17/2025 10:10 AM EST Chief Complaint: s/p I&D and IMN open right distal femur fracture DOS: 12/17/2023, non-operative management right medial tibial plateau fracture, s/p I&D right knee septic arthritis DOS: 02/24/2024 HPI: Bailey Camacho is a 69 y.o. female who presents to clinic for postoperative follow up s/p the above stated procedure. Patient has been doing well since visit. She has been WBAT on the RLE. She primarily ambulates with the use of a wheelchair, but does state since last visit she has been ambulating more. She has home health PT once per week. She overall feels her pain has improved. Inflammatory labs at last visit were grossly normal. She no longer follows with ID. She continues with Tymlos daily and has FU with bone mineral density at the end of the month. Denies fevers, chills, nausea, vomiting. Denies any numbness, tingling. Denies any further trauma or injury. Focused MSK Exam: Right lower extremity: Well-healed surgical incisions No erythema, ecchymosis Moderate edema knee and lower leg Knee ROM 0-100 Ankle ROM 10 dorsiflexion, 20 plantarflexion Strength 5/5 GSC/TA 3/5 KF/KE SILT L2-S1 +2 pt pulses XRAY: We ordered, reviewed, and interpreted the following images of the right femur which show interval healing of fracture with hardware in place no signs of loosening or failure We ordered, reviewed, and interpreted the following images of the right knee which show interval healing of fracture with hardware in place no signs of loosening or failure Assessment: 69 y.o. female who presents s/p I&D and IMN open right distal femur fracture DOS: 12/17/2023, non-operative management right medial tibial plateau fracture, s/p I&D right knee septic arthritis DOS: 02/24/2024 Plan: Patient is overall doing well. Discussed that her x-rays today do show signs of healing. She may continue to be WBAT and increase activities as tolerated. Continue with home health PT for ROM and strengthening. Continue with Tymlos per bone mineral density. We will plan on seeing patient back in 6 months, with imaging, with EM. The patient was given an opportunity to ask questions and all their questions were answered to their satisfaction. Macy Stephen PA-C Department of Orthopaedic Surgery and Sports Medicine Cosigned by Terry Santoyo MD at 03/17/2025 10:41 AM EST Associated attestation - Terry Santoyo MD - 03/17/2025 10:41 AM EST I attest to being involved in more than half the total time in patient care. documented in this encounter Plan of Treatment Upcoming Encounters Date Type Department Care Team (Late st Contact Info) Description 03/30/2025 10:40 AM EST Office Visit [facility] [address], [address] [place] [address] Becky Moralez APRN [address] [facility] [address] [place] [address] 09/15/2025 8:30 AM EDT Office Visit [facility] [address], [address] [place] [address] Terry Santoyo MD [address] 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
--- OUTSIDE RECORDS SUMMARY | 2025-03-24 09:24 | XMS_ITS | Encounter Summary ---
Author Organization Healthcare Address [address] [place] [address] Care Team Providers Care Jeweler Apprentice Name Role Phone Michelle Gray APRN Primary Care Provider [phone] Encounter Details Date Type Department Care Team (Late st Contact Info) Description 02/12/2025 Telephone [facility] [address] [place] [address] Carmen Houser MD [address] [facility] [address] [place] [address] Social History Tobacco Use Types [...] and Family Not on file 02/25/2024 Attends [employer] Not on file 02/24 Active Member [...] any time in the past 12 m [facility], were you homeless or [...] 02/12/2025 4:28 PM EST 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 Will call if she want to schedule documented in this encounter Plan of Treatment Upcoming Encounters Date Type Department Care Team (Late st Contact Info) Description 03/30/2025 10:40 AM EST Office Visit [facility] [address] [facility], [address] [place] [address] Becky Moralez APRN [address] [facility] [address] [place] [address] 09/15/2025 8:30 AM EDT Office Visit [facility] [address], 1[address] [place] [address] Terry Santoyo MD [address] [place] [address] documented as of this encounter [...] documented as of this encounter Care Teams Jeweler Apprentice Relationship Specialty Start Date End Date Michelle Gray APRN [address] [place] [address] PCP - General 11/17/23 documented as of this encounter
--- OUTSIDE RECORDS SUMMARY | 2025-03-24 09:24 | XMS_ITS | Clinical Summary ---
Author Organization [facility] Address [facility] [address] [place] [address] Phone Care Team Providers Care Contract Agent Name Role Phone Unavailable Primary Care Provider [...] EST Impressions 05/24/2023 1:52 PM EST Negative ([id number]) ~ RECOMMENDATION: Routine screening mammogram in 1 [...] the next mammogram, in accordance with the [employer] and the Society of Breast Imaging recommendations. Narrative 05/24/2023 1:52 PM EST Procedure:MM MAMMO DIGITAL PAM SCREEN BILAT ~ Reason for exam: screening, asymptomatic. Z12.31-Encounter for screening mammogram for malignant neoplasm of [id number] ~ MM MAMMO DIGITAL PAM SCREEN BILAT [...] for screening mammogram for malignant neoplasm of [id number] ~ MM MAMMO DIGITAL PAM SCREEN BILAT Bilateral CC and MLO view(s) were taken. There are scattered fibroglandular densities. Prior study comparison: Compared with prior studies the most recentbeing outside studies dated December 21, 2009 No mammographic evidence of malignancy. ~ IMPRESSION: Negative ([id number]) ~ RECOMMENDATION: Routine screening mammogram in 1 [...] the next mammogram, in accordance with the [employer] and the Society of Breast Imaging recommendations. us Not In Epic Provider IMG MAMMOGRAPHY ORDERABLES Final Result from Last 3 Months or Most Recently Relevant to Health Maintenance Insurance MEDICARE ADVANTAGE MR
--- OUTSIDE RECORDS SUMMARY | 2025-03-24 09:24 | XMS_ITS | Encounter Summary ---
Author Organization [facility] Address [address] [place] [address] Care Team Providers Care Railway Switch Operator Name Role Phone Michelle Gray APRN Primary Care Provider [phone] Reason for Visit * Reason Onset Date Comments Med Refill 01/26/2025 Encounter Details Date Type Department Care Team (Late st Contact Info) Description 01/26/2025 Refill [facility] [address] [facility], [address] [place] [address] Negro Katz MD [address] [facility] [address] [place] [address] Age-related osteoporosis without current pathological [...] any time in the past 12 m [facility], were you homeless or living in [...] Description 03/30/2025 10:40 AM EST Office Visit [facility] [address] [facility], [address] [place] [address] Becky Moralez APRN [address] [facility] [address] [place] [address] 09/15/2025 8:30 AM EDT Office Visit [facility] [address], [address] [place] [address] Terry Santooy MD [address] [place] [address] documented as of this encounter Visit Diagnoses [...] documented as of this encounter Care Teams Railway Switch Operator Relationship Specialty Start Date End Date Michelle Gray APRN [address] [place], [place] [id number] PCP - General 11/17/23 documented as of this encounter
--- OUTSIDE RECORDS SUMMARY | 2025-03-24 09:24 | XMS_ITS | Clinical Summary ---
Author Organization [facility] Address [address] [place] [address] Care Team Providers Care Textile Cutting Machine Operator Name Role Phone Michelle Gray APRN Primary Care Provider [phone] Allergies No known active allergies Medications dulaglutide [...] by mouth every other day. 03/08/20 Active Additional Information Patient taking differently: 40 mgOral Every other day,Pt states she takes med every other day., Reported on 03/17/2025 atorvastatin (Lipitor) 20 MG tablet Take 1 tablet (20 mg) by mouth every night. 03/08/20 Active Additional Information Patient taking differently: 40 mgOral Nightly, Reported on 03/17/2025 albuterol 108 (90 Base) MCG/ACT inhaler Inhale 2 puffs every 6 (six) hours if needed for wheezing or shortness of breath. 03/08/20 Active pioglitazone (Actos) 30 MG tablet Take 1 tablet (30 mg) by mouth 1 (one) time each day in the evening. 03/08/20 Active Additional Information Patient not taking.Reported on 03/17/2025 glipiZIDE (Glucotrol) 10 MG tablet Take 1 tablet (10 mg) by mouth 2 (two) times a day before meals. 03/08/20 Active bisoprolol (Zebeta) 5 MG tablet Take 1 tablet (5 mg) by mouth 1 (one) time each day. 03/08/20 Active losartan (Cozaar) 50 MG tablet Take 1 tablet by mouth daily. 05/12/19 25 Active Vitamin D3 1.25 MG (86476 UT) capsule Take 1 capsule by mouth [...] Take 1 tablet by mouth daily. 10/07/19 Active oxybutynin (Ditropan) 5 MG tablet Take [...] Use with Tymlos 100 each 11 11/01/19 Active Trulicity 1.5 MG/0.5ML solution auto-injector INJECT 1 PEN SUBCUTANEOUSLY ONCE A WEEK 10/28/19 25 Active Abaloparatide (Tymlos) 3120 MCG/1.56ML solution pen-injectorIndi cations:Age-rela ricardo osteoporosis without current pathological fracture Inject 80 mcg under the skin daily. 1.56 mL 03/03/20 25 Active Abaloparatide (Tymlos) 3120 MCG/1.56ML solution pen-injectorIndi cations:Age-rela ricardo osteoporosis without current pathological fracture Inject 80 mcg under the skin daily. 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 02/24/20 24 09/18/2024 ABLA (acute blood loss anemia) 12/19/2023 09/18/2024 Overview (12/22/2023): 12/18: 1 U PRBC for hgb 6.6 Hgb stable 7.5 Trend H&H 12/20: 6.9; Transfuse 1 u PRBC ; Repeat H&H Segfo-vg-gshcmiz kidney injury 12/18/2023 12/28/2024 Overview (12/23/2023): Contacted [...] Encounters Date Type Department Care Team Description 03/23/2025 Travel 03/17/2025 10:10 AM EST Office Visit [facility] Orthopaedic Surgery & Sports Medicine [address], [address] [place] [address] Terry Santoyo MD 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) 03/17/2025 9:30 AM EST - 03/17/2025 11:59 PM EST Hospital Encounter [facility] Radiology [address], [address] [place] [address] 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 Discharge Disposition: Home or Self Care 03/17/2025 Travel 03/11/2025 Travel 03/02/2025 Refill [facility] [address], [address] [place] [address] Becky Moralez APRN Age-related osteoporosis without current pathological fracture 02/18/2025 Telephone [facility] Bone & Mineral Metabolism [address], [address] [place] [phone] Bassem Tejada 02/18/2025 Telephone [facility] Mineral Metabolism [address], [address] [place] [address] Basesm Tejada 02/12/[address] [address] Carmen Houser MD 02/12/2025 Telephone [facility] Bone [facility] Mineral Metabolism [address] [facility], [address] [place] [address] Bassem Tejada 02/05/[address] [address] Carmen Houser MD 02/03/[address] [address] Carmen Houser MD 01/26/2025 Refill [facility] Mineral Metabolism [address] [facility], [address] [place] [address] Negro Katz MD Age-related osteoporosis without current pathological fracture (Primary Dx) 01/05/[address] [address] Carmen Houser MD from Last 3 Months Immunizations Immunization Administration [...] and Family Not on file 02/25/2024 Attends Jainism Services Not on file 02/24 Active Member [...] any time in the [facility] 12 m [facility], were you homeless or living in [...] F) 03/17/2025 9:49 AM EST Respiratory Rate 16 07/24/2024 9:24 AM EDT Oxygen Saturation 97% 03/17/2025 9:49 AM EST Inhaled Oxygen Concentration - - Weight 154 kg (340 lb) 03/17/2025 9:49 AM EST Height 172.7 cm (5' 8 ) 03/17/2025 9:49 AM EST Body Mass Index 51.7 03/17/2025 9:49 AM EST Plan of Treatment Upcoming Encounters Date Type Department Care Team (Late st Contact Info) Description 03/30/2025 10:40 AM EST Office Visit [facility] [address], [address] [place] [address] Becky Moralez APRN [address] [place] [address] 09/15/2025 8:30 AM EDT [facility] Visit [facility] [address], 1[address] [place] [address] Terry Santoyo MD [address] [place] [address] Health Maintenance Due Date Last [...] Vaccine: 60+ Years or (1 - Risk 50-74 years 1-dose series) 09/09/2007 [id number] Vaccine (1 - season) 2024 [facility]-Influenza Vaccine (#1) 12/08/202403/23, 01/03/2022, 01/03/2022, Additional history exists [facility]-Breast Cancer Screening 05/18/2025 05/18/2023, 0 05/18/2023 [facility]-Bone Density Scan 10/23/2025 10/23/2024 [facility]-Depression Screening 10/23/2025 10/23/2024, 04/10/2024 [facility]-DTaP,Tdap,and Td Vaccines (3 - Td or Tdap) 12/15/2033 12/16/2023, 11/07/2021 [facility]-Zoster Vaccines Completed 11/20/2023, [facility]-Hepatitis C Screening Completed 12/16/2023 [facility]-Obesity Intervention Completed 025, 11/11/2024, 10/23/2024, Additional history exists HPV Vaccines (No Doses Required) Completed [facility]-HIB Vaccines Aged Out No longer e [...] this topic Medical Devices Implanted Type Area Culinary Instructor Device Identifier Shelf Expiration Date Model / Serial / Lot Nail Femoral Retro T2 Alpha 12mm X 400mm - S. - [id number] Implanted:Qty: 1 on 12/17/2023 by Terry Santoyo MD at [facility] Nail Right: Femur [employer] [facility][id number] 02/06/2033 [id number] / . / Wire Radha Trocar Point Small 2mm X 150mm - [id number] Implanted:Qty: 6 on 12/17/2023 by Terry Santoyo MD at [facility] Pin Right: Femur [employer] [id number] 12/16/2024 292.20 / / Plate Fixator Temp Ao Fitting - [id number] Implanted:Qty: 1 on 12/17/2023 by Terry Santoyo MD at [facility] Plate Right: Femur [employer] ([facility][id number] 12/16/2024 [id number] / / Screw Locking T2 D5xl45 - [id number] Implanted:Qty: 1 on 12/17/2023 by Terry Santoyo MD at [facility] Screw Right: Femur [employer] ([facility][id number] 07/07/2033 [id number] / / Screw 3.5mm Ti Cortex Selftap 65mm - S. - [id number] Implanted:Qty: 1 on 12/17/2023 by Terry Santoyo MD at [facility] Screw Right: Femur [employer] ([facility][id number] 12/16/2024 [id number] / . / Screw 3.5mm Ti Cortex Selftap 70mm - [id number] Implanted:Qty: 1 on 12/17/2023 by Terry Santoyo MD at [facility] Screw Right: Femur [employer] ([facility][id number] 12/16/2024 [id number] / / Screw Locking Adv T2 T2 D5xl85 - [id number] Implanted:Qty: 1 on 12/17/2023 by Terry Santoyo MD at [facility] Screw Right: Femur [employer] ([facility][id number] 68 10/06/2033 [id number] / / Screw Locking Adv T2 T2 D5xl65 - [id number] Implanted:Qty: 1 on 12/17/2023 by Terry Santoyo MD at [facility] Screw Right: Femur [employer] ([facility])-[id number] 68 10/07/2031 [id number] / / Screw Locking Adv T2 T2 D5xl80 - [id number] Implanted:Qty: 1 on 12/17/2023 by Terry Santoyo MD at [facility] Screw Right: Femur [employer] ([facility])-[id number] 68 10/06/2033 [id number] / / Screw Locking Adv T2 T2 D5xl70 - [id number] Implanted:Qty: 1 on 12/17/2023 by Terry Santoyo MD at [facility] Screw Right: Femur [employer] ([facility])-[id number] 68 09/06/2033 [id number] / / Screw Locking T2 D5x37.5 - [id number] Implanted:Qty: 1 on 12/17/2023 by Terry Santoyo MD at [facility] Screw Right: Femur [employer] ([facility][id number] 10/06/2033 [id number] / / Washer Tit Screw 4mm - [id number] Implanted:Qty: 3 on 12/17/2023 by Terry Santoyo MD at [facility] Washer Right: Femur [employer] ([facility])-[id number] 12/16/2024 [id number] / / Procedures Procedure Name Priority Date/Time Associated Diagnosis Comments CALCIUM, RANDOM URINE Routine 03/17/2025 10:58 AM EST Age-related osteoporosis without current pathological fracture CREATININE, RANDOM URINE Routine 03/17/2025 10:58 AM EST Age-related osteoporosis without current pathological fracture PHOSPHORUS, URINE, RANDOM Routine 03/17/2025 10:58 AM EST Age-related osteoporosis without current pathological fracture PROTEIN ELECTROPHORESIS, PATHOLOGIST INTERPRETATION Routine 03/17/2025 10:57 AM EST Age-related osteoporosis without current pathological fracture TOTAL PROTEIN, SERUM Routine 03/17/2025 10:57 AM EST Age-related osteoporosis without current pathological fracture PROTEIN ELECTROPHORESIS, SERUM Routine 03/17/2025 10:57 AM EST Age-related osteoporosis without current pathological fracture PROTEIN ELECTROPHORESIS, SERUM Routine 03/17/2025 10:57 AM EST Age-related osteoporosis without current pathological fracture BONE SPECIFIC ALKALINE PHOSPHATASE Routine 03/17/2025 10:57 AM EST Osteopenia, unspecified location C-TELOPEPTIDE Routine 03/17/2025 10:57 AM EST Osteopenia, unspecified location RENAL FUNCTION PANEL, PLASMA Routine 03/17/2025 10:57 AM EST Osteopenia, unspecified location VITAMIN D 25 HYDROXY Routine 03/17/2025 10:57 AM EST Osteopenia, unspecified location XR KNEE RIGHT 3 VIEWS Routine 03/17/2025 [...] Recently Relevant to Health Maintenance Results * Phosphorus, Random, Urine (03/17/2025 10:58 AM EST) Phosphorus, Urine 44.0 mg/dL 03/17/2025 1:10 PM EST [facility] Urine Urine specimen obtained by clean catch procedure / Unknown Non-blood Collection / Unknown 03/17/2025 10:58 AM EST 03/17/2025 10:58 AM EST Becky Moralez APRN LAB URINE ORDERABLES Final Result [facility] [address] [place] [address] * Creatinine, Random, Urine (03/17/2025 10:58 AM EST) Creatinine, Urine 60 mg/dL 03/17/2025 12:31 PM EST [facility] Urine Urine specimen obtained by clean catch procedure / Unknown Non-blood Collection / Unknown 03/17/2025 10:58 AM EST 03/17/2025 10:58 AM EST Nathane Patti Mlmag PREVENTIVE MAINTENANCE COORDINATOR LAB URINE ORDERABLES Final Result Performing Organization Address City/[facility]/ZIP Co de Phone Number [facility] [address] [place] [address] * Calcium, Random, Urine (03/17/2025 10:58 AM EST) Calcium, Urine 1.5 mg/dL 03/17/2025 1:10 PM EST [facility] Urine Urine specimen obtained by clean catch procedure / Unknown Non-blood Collection / Unknown 03/17/2025 10:58 AM EST 03/17/2025 10:58 AM EST Becky Armstrong Mlack PREVENTIVE MAINTENANCE COORDINATOR LAB URINE ORDERABLES Final Result Performing Organization Address [facility] Co de Phone Number [facility] [address] [place] [address] * Bone Specific Alkaline Phosphatase (03/17/2025 10:57 AM EST) Bone Specific Alkaline Phosphatase 03/22/2025 3:39 PM EST [facility] Comment:See Scanned Report, Testing performed at [facility], [address] [place] [id number]. Sree Cabello MD, PHD, Senior Underwriting Assistant Blood Venous blood specimen / Unknown Venipuncture / Unknown 03/17/2025 10:57 AM EST 03/17/2025 10:59 AM EST Nathane A ack PREVENTIVE MAINTENANCE COORDINATOR LAB REF LAB BLOOD AND FLUID ORD Final Result Performing Organization Address City/[facility]/ZIP Co de Phone Number [facility] [address] [place] [address] * (ABNORMAL) Total Protein, Serum (03/17/2025 10:57 AM EST) Total Protein 7.8(H) 6.2 - 7.7 g/dL 03/17/2025 1:11 PM EST [facility] Blood Venous blood specimen / Unknown Venipuncture / Unknown 03/17/2025 10:57 AM EST 03/17/2025 10:59 AM EST Becky Moralez APRN LAB BLOOD ORDERABLES Final Result Performing Organization Address [facility] Co de Phone Number [facility] [address] [place] [address] * (ABNORMAL) Protein Electrophoresis, Serum (03/17/2025 10:57 AM EST) Albumin Electrophoresis, Serum 3.9 3.6 - 4.7 g/dL 03/18/2025 2:50 AM EST [facility] Alpha 1 Globulin Electrophoresis, Serum 0.3 0.2 - 0.4 g/dL 03/18/2025 2:50 AM EST [facility] Alpha 2 Globulin Electrophoresis, Serum 0.8 0.5 - 0.9 g/dL 03/18/2025 2:50 AM EST [facility] Beta 1 Globulin Electrophoresis, Serum 0.5 0.3 - 0.5 g/dL 03/18/2025 2:50 AM EST [facility] Beta 2 Globulin Electrophoresis, Serum 0.6(H) 0.2 - 0.5 g/dL 03/18/2025 2:50 AM EST [facility] Gamma Globulin Electrophoresis, Serum 1.6(H) 0.6 - 1.5 g/dL 03/18/2025 2:50 AM EST [facility] Interpretation, Serum Protein Electrophoresis Pathology report to follow. 03/18/2025 2:50 AM EST [facility] Blood Venous blood specimen / Unknown Venipuncture / Unknown 03/17/2025 10:57 AM EST 03/17/2025 10:59 AM EST Becky Moralez APRN LAB BLOOD ORDERABLES Final Result [facility] [address] [place] [address] * Protein electrophoresis serum, pathologist interpretation (03/17/2025 10:57 AM EST) Clinical Diagnosis, SPEP Age-related osteoporosis without current pathological fracture 03/18/2025 9:40 PM EST [facility] Interpretation , SPEP POLYCLONAL GAMMOPATHY: Serum protein electrophoresis reveals increased polyclonal immunoglobulins. Remaining pattern shows no significant abnormality. M protein(s) not observed. See comment. A resident was involved in the service. I attest I examined the relevant preparations for the specimens and confirmed the diagnosis or interpretation. 03/18/2025 9:40 PM EST [facility] Pathologist Signature, SPEP Reviewed by: Darrel Temple MD 03/18/2025 9:40 PM EST [facility] LAB CP ASR DISCLAIMER Yes 03/18/2025 9:40 PM EST [facility] Blood Venous blood specimen / Unknown Venipuncture / Unknown 03/17/2025 10:57 AM EST 03/17/2025 10:59 AM EST Narrative [facility] - 03/18/2025 9:40 PM EST Changes in the beta region may correspond to non-specific clinical findings such as inflammation. Consider quantitative serum kappa and lambda light chain studies if there is a clinical suspicion for a plasma cell dyscrasia. us Becky Moralez PREVENTIVE MAINTENANCE COORDINATOR LAB PATHOLOGY ORDERABLES Fi nal Result [facility] [address] [place] [address] * C-Telopeptide (03/17/2025 10:57 AM EST) C Telopeptide Beta Cross Linked Serum Result 1296 pg/mL 03/19/2025 5:35 AM EST [facility]) Blood Venous blood specimen / Unknown Venipuncture / Unknown 03/17/2025 10:57 AM EST 03/17/2025 10:59 AM EST Narrative [facility]) - 03/19/2025 5:35 AM EST Premenopausal Females: 136-689 pg/mL Postmenopausal Females: 177-1015 pg/mL REFERENCE INTERVAL: C-Telopeptide, Oyaz-Vhdct-Huuhjf, Serum Access complete set of age- and/or gender-specific reference intervals for this test in the [employer] ([employer]). Performed By: [facility] [address] [place] [address] Electrochemist: Sree Cabello MD, PhD CLIA Number: [id number] Becky Beardmag PREVENTIVE MAINTENANCE COORDINATOR LAB BLOOD ORDERABLES Final Result Performing Organization Address City/[facility] Co de Phone Number [facility] ([facility] [address] [place] [address] * Vitamin D 25 Hydroxy (03/17/2025 10:57 AM EST) Vitamin D 25 Hydroxy 65.4 20.0 - 80.0 ng/mL 03/17/2025 1:53 PM EST [facility] Blood Venous blood specimen / Unknown Venipuncture / Unknown 03/17/2025 10:57 AM EST 03/17/2025 10:59 AM EST Narrative [facility] - 03/17/2025 1:53 PM EST Testing performed on [employer], standardized against NIST SRM 2972. When testing [...] 80 ng/mL Possible toxicity: >100 ng/mL Becky Beardmag PREVENTIVE MAINTENANCE COORDINATOR LAB BLOOD ORDERABLES Final Result [facility] [address] [place] [address] * (ABNORMAL) Renal Function Panel, Plasma (03/17/2025 10:57 AM EST) Glucose, Plasma 132(H) 74 - 99 mg/dL 03/17/2025 12:21 PM EST [facility] BUN, Plasma 46(H) 8 - 23 mg/dL 03/17/2025 12:21 PM EST [facility] Creatinine, Plasma 1.37(H) 0.60 - 1.10 mg/dL 03/17/2025 12:21 PM EST [facility] BUN/Creatinine Ratio 34 03/17/2025 12:21 PM EST [facility] Sodium, Plasma 140 136 - 145 mmol/L 03/17/2025 12:21 PM EST [facility] Potassium, Plasma 4.3 3.6 - 4.9 mmol/L 03/17/2025 12:21 PM EST [facility] Chloride, Plasma 106 97 - 107 mmol/L 03/17/2025 12:21 PM EST [facility] CO2, Plasma 24 22 - 29 mmol/L 03/17/2025 12:21 PM EST [facility] Anion Gap 10 6 - 16 mmol/L 03/17/2025 12:21 PM EST [facility] Total Calcium, Plasma 9.5 8.9 - 10.2 mg/dL 03/17/2025 12:21 PM EST [facility] Phosphorus, Plasma 3.7 2.5 - 4.5 mg/dL 03/17/2025 12:21 PM EST [facility] Albumin, Plasma 4.2 3.5 - 5.2 g/dL 03/17/2025 12:21 PM EST [facility] eGFRcr 42.4 mL/min/1.7 3m*2 03/17/2025 12:21 PM EST [facility] Comment:Reported eGFRcr in m L/min/1.73m2 is based the CKD-EPI 2020 equation that does not use a race coefficient. Blood Venous blood specimen / Unknown Venipuncture / Unknown 03/17/2025 10:57 AM EST 03/17/2025 10:59 AM EST us Becky Moralez PREVENTIVE MAINTENANCE COORDINATOR LAB BLOOD ORDERABLES Final Result [facility] [address] [place] [address] * XR Knee Right 3 Views (03/17/2025 [...] Matt Montes MD on 03/17/2025 10:38 AM Cheryl CASH IMG XR PROCEDURES Final Resul t * Dexa Bone Density Axial Skeleton W VFA (10/23/2024 11:11 AM EDT) Anatomical Region Laterality Modality Body Radiographic Fe ging Narrative 11/02/2024 11:11 AM EDT [facility] [address] [place] [address] DXA Bone Densitometry Report: [ 10/23/2024] BMD test performed using the Transactiv DXA System (analysis version: 14.10) manufactured by [employer]. REFERRING PROVIDER: Dr. Becky Moralez APRN CLINICAL [...] and calculation of change in BMD). us Pena A Kishaack PREVENTIVE MAINTENANCE COORDINATOR IMG DXA PROCEDURES Final Re sult * Hepatitis C Antibody - ED (12/16/2023 7:02 PM EDT) Hepatitis C Antibody Negative Negative 12/16/2023 8:02 PM EDT [facility] Blood Venous blood specimen / Unknown Venipuncture / Unknown 12/16/2023 7:02 PM EDT 12/16/2023 7:20 PM EDT us Heike Cruz LAB BLOOD ORDERABLES Final Resul t [facility] [address] [place] [address] from Last 3 Months or Most Recently Relevant to Health Maintenance Insurance [facility] MEDICARE Advance Directives * Full Code (Latest Code Status on File) Date Activated Date Inactivated Comments 02/24/2024 7:10 AM 03/08/2024 3:38 PM Question Answer Comments Patient has decision-making capacity? Yes * Full Code Date Activated Date Inactivated Comments 12/16/2023 11:54 PM 12/25/2023 3:53 PM Question Answer Comments Patient has decision-making capacity? Yes Care Teams Textile Cutting Machine Operator Relationship Specialty Start Date End Date Michelle Gray APRN [address] [place] [address] PCP - General 11/17/23
--- OUTSIDE RECORDS SUMMARY | 2025-03-24 09:24 | XMS_ITS | Encounter Summary ---
Author Organization Healthcare Address [address] [place] [address] Care Team Providers Care Sulky Driver Name Role Phone Michelle Gray APRN Primary Care Provider [phone] Encounter Details Date Type Department Care Team (Latest Contact Info) Description 03/17/2025 Travel Social History Tobacco Use Types Packs/Day [...] and Family Not on file 02/25/2024 Attends Rastafarian Services Not on file 02/24 Active Member [...] any time in the past 12 m [facility], were you homeless or [...] the past 12 months has th e [employer], gas, oil, or water company threatened to [...] 03/30/2025 10:40 AM EST Office Visit [facility] [address] [facility], [address] [place] [address] Becky Moralez APRN [address] [facility] [address] [place] [address] 09/15/2025 8:30 AM EDT Office Visit [facility] [address] [place] [address] Terry Santoyo MD [address] [place] [address] documented as of this encounter [...] documented as of this encounter Care Teams Sulky Driver Relationship Specialty Start Date End Date Michelle Gray APRN [address] [place] [address] PCP - General 11/17/23 documented as of this encounter
--- OUTSIDE RECORDS SUMMARY | 2025-03-24 09:24 | XMS_ITS | Encounter Summary ---
Author Organization Healthcare Address [address] [place] [address] Care Team Providers Care Boom Operator Name Role Phone Michelle Gray APRN Primary Care Provider [phone] Encounter Details Date Type Department Care Team (Late st Contact Info) Description 02/03/2025 Telephone [facility] [address] [place] [address] Carmen Houser MD [address] [facility] [address] [place] [address] Social History Tobacco Use Types [...] and Family Not on file 02/25/2024 Attends Pentecostal Services Not on file 02/24 Active Member [...] place to sleep or slept in a skilled nursing (including now)? No 12/19/2023 PHQ-9 Answer Date [...] any time in the past 12 m [facility], were you homeless or living in a skilled nursing (including now)? No 02/25/2024 AUDIT-C Answer Date Recorded Frequency of Alcohol Consumption Not on file 10/23/2024 Q2: How many drinks containi ng alcohol do you have on a typical day when you are drinking? Patient does not drink Frequency of Binge Drinking Not on file 10/07 Utilities Answer Date Recorded In the past 12 months has [employer], gas, oil, or water company threatened [...] [facility] [address], [address] [place] [address] Becky Moralez APRN [address] [place] [address] 09/15/2025 8:30 AM EDT Office Visit [facility] Surgery [facility] [address], [address] [place] [address] Terry Santoyo MD [address] [facility] [address] [place] [address] documented as of this encounter [...] documented as of this encounter Care Teams Boom Operator Relationship Specialty Start Date End Date Michelle Gray APRN [address] [place] [address] PCP - General 11/17/23 documented as of this encounter
--- OUTSIDE RECORDS SUMMARY | 2025-03-24 09:24 | XMS_ITS | Encounter Summary ---
Author Organization Healthcare Address [address] [place] [address] Care Team Providers Care Home Inspector Name Role Phone Michelle Gray APRN Primary Care Provider [phone] Encounter Details Date Type Department Care Team (Late st Contact Info) Description 02/18/2025 Telephone [facility] [address] [facility], [address] [place] [address] Bassem Tejada Social History Tobacco [...] and Family Not on file 02/25/2024 Attends Faith Services Not on file 02/24 Active Member [...] any time in the past 12 m [facility], were you homeless or living [...] In the past 12 months has e [employer], gas, oil, or water [employer] threatened to shut off services in your [...] 12:05 PM EST Lab orders faxed to [facility] Scheduling P# [phone] F# [phone]. Fax confirmation received. documented in this encounter Plan of Treatment Upcoming Encounters Date Type Department Care Team (Late st Contact Info) Description 03/30/2025 10:40 AM EST [facility] [address] [facility], [address] [place] [address] Becky Moralez APRN [address] [facility] [address] [place] [address] 09/15/2025 8:30 AM EDT [facility] Visit [facility] [address], [address] [place] [address] Terry Santoyo MD [address] [place] [address] documented as of this encounter [...] documented as of this encounter Care Teams Home Inspector Relationship Specialty Start Date End Date Michelle Gray APRN [address] [place] [address] PCP - General 11/17/23 documented as of this encounter
--- OUTSIDE RECORDS SUMMARY | 2025-03-24 09:24 | XMS_ITS | Encounter Summary ---
Author Organization Healthcare Address [address] [place] [address] Care Team Providers Care Director Professional Services Name Role Phone Michelle Gray APRN Primary Care Provider [phone] Encounter Details Date Type Department Care Team (Late st Contact Info) Description 02/18/2025 Telephone [facility] [address] [facility], [address] [place] [address] Bassem Tejada Social History Tobacco [...] and Family Not on file 02/25/2024 Attends Rastafari Services Not on file 02/24 Active Member [...] any time in the past 12 m [facility], were you homeless or living [...] In the past 12 months has e [employer], gas, oil, or water [employer] threatened to shut off services in your [...] labs andwell be gong on 03/02 to [facility]. documented in this encounter Plan of Treatment Upcoming Encounters Date Type Department Care Team ([facility] st Contact Info) Description 03/30/2025 10:40 AM EST [facility] Visit [facility] [address] [facility], [address] [place] [address] Becky Moralez APRN [address] [facility] [address] [place] [address] 09/15/2025 8:30 AM EDT Office Visit [facility] Orthopaedic Surgery & Sports Medicine [address], 1[address] [place] [address] Terry Santoyo MD [address] [place] [address] documented as of this encounter [...] as of this encounter Care Teams Director Professional Services Relationship Specialty Start Date End Date Michelle Gray APRN [address] [place] [address] PCP - General 11/17/23 documented as of this encounter
--- OUTSIDE RECORDS SUMMARY | 2025-03-24 09:24 | XMS_ITS | Encounter Summary ---
Author Organization Healthcare Address [address] [place] [address] Care Team Providers Care Graduate Recruiter Name Role Phone Michelle Gray APRN Primary Care Provider [phone] Encounter Details Date Type Department Care Team (Late st Contact Info) Description 02/05/2025 Telephone [facility] [address] [place] [address] Carmen Houser MD [address] [facility] [address] [place] [address] Social History Tobacco Use Types [...] and Family Not on file 02/25/2024 Attends Anabaptist Services Not on file 02/24 Active Member [...] place to sleep or slept in a long term (including now)? No 12/19/2023 PHQ-9 Answer Date [...] any time in the past 12 m [facility], were you homeless or living in a long term (including now)? No 02/25/2024 AUDIT-C Answer Date Recorded Frequency of Alcohol Consumption Not on file 10/23/2024 Q2: How many drinks containi ng alcohol do you have on a typical day when you are drinking? Patient does not drink Frequency of Binge Drinking Not on file 10/07 Utilities Answer Date Recorded In the past 12 months has [employer], gas, oil, or water [employer] threatened to shut off services in your [...] 10:40 AM EST [facility] Visit [facility] [address] [facility], [address] [place] [address] Becky Moralez APRN [address] [facility] [address] [place] [address] 09/15/2025 8:30 AM EDT Office Visit [facility] Surgery [facility] Medicine [address], 1[address] [place] [address] Terry Santoyo MD [address] [facility] [address] [place] [address] documented as of this encounter [...] documented as of this encounter Care Teams Graduate Recruiter Relationship Specialty Start Date End Date Michelle Gray APRN [address] [place] [address] PCP - General 11/17/23 documented as of this encounter
--- OUTSIDE RECORDS SUMMARY | 2025-03-24 09:24 | XMS_ITS | Encounter Summary ---
Author Organization [facility] Address [address] [place] [address] Care Team Providers Care Salt Machine Operator Name Role Phone IsaacMichelle ALYCIA Primary Care Provider [phone] Reason for Visit * Reason Onset Date Comments Med Refill 03/02/2025 Encounter Details Date Type Department Care Team (Late st Contact Info) Description 03/02/2025 Refill [facility] [address] [facility], [address] [place] [address] Becky Moralez APRN [address] [place] [address] Age-related osteoporosis without current pathological fracture Social History Tobacco Use Types Packs/Day Years [...] any time in the past 12 m [facility], were you homeless or living in [...] encounter Miscellaneous Notes * Telephone Encounter - Cate Sparrow, PharmD - 03/02/2025 5:03 PM EST Refill request does not meet protocol. Sending to clinic for review. Additional info: Clarification required: looks like possibly clinic is awaiting labs to be completed?. Appt next month. documented in this encounter Plan of Treatment Upcoming Encounters Date Type Department Care Team (Late st Contact Info) Description 03/30/2025 10:40 AM EST Office Visit [email or web address] [address] [facility], [address] [place] [address] Becky Moralez APRN [address] [facility] [address] [place] [address] 09/15/2025 8:30 AM EDT Office Visit [facility]opa[facility] Surgery [facility] Sports Medicine [address], 1[address] [place] [address] Terry Santoyo MD [address] [place] [address] documented as of this encounter Visit Diagnoses Diagnosis Age-related osteoporosis without current pathological fracture documented in this encounter Additional Health Concerns Assessment Noted Time PHQ-9 Depression Total Score: 0 07/25/19 25 9:22 AM EDT A fall risk assessment has been complete d for the patient 11/11/2024 9:18 AM EDT A Body Mass Index follow-up plan has been documented for the patient 11/11/2024 9:51 AM EDT documented as of this encounter Care Teams Salt Machine Operator Relationship Specialty Start Date End Date Michelle Gray APRN [address] [place] [address] PCP - General 11/17/23 documented as of this encounter
--- OUTSIDE RECORDS SUMMARY | 2025-03-24 09:24 | XMS_ITS | Encounter Summary ---
Author Organization Healthcare Address [address] [place] [address] Care Team Providers Care Piano Mover Name Role Phone Michelle Gray APRN Primary Care Provider [phone] Encounter Details Date Type Department Care Team (Late st Contact Info) Description 02/12/2025 Telephone [facility] [address] [facility], [address] [place] [address] Bassem Tejada Social History Tobacco [...] and Family Not on file 02/25/2024 Attends [employer] Not on file 02/24 Active Member [...] any time in the past 12 m [facility], were you homeless or living [...] In the past 12 months has e [employer], gas, oil, or water [employer] threatened to shut off services in your [...] [facility] [address] [facility], [address] [place] [address] Becky Moralez APRN [address] [facility] [address] [place] [address] 09/15/2025 8:30 AM EDT Office Visit [facility] [address], 1[address] [place] [address] Terry Santoyo MD [address] [place] [address] documented as of this encounter [...] documented as of this encounter Care Teams Piano Mover Relationship Specialty Start Date End Date Michelle Gray APRN [address] [place] [address] PCP - General 11/17/23 documented as of this encounter
--- OUTSIDE RECORDS SUMMARY | 2025-03-24 09:24 | XMS_ITS | Encounter Summary ---
Author Organization Healthcare Address [address] [place] [address] Care Team Providers Care Gauge Maker Apprentice Name Role Phone Michelle Gray APRN Primary Care Provider [phone] Encounter Details Date Type Department Care Team (Latest Contact Info) Description 03/23/2025 Travel Social History Tobacco Use Types Packs/Day [...] time in the past 12 m [facility], were you homeless or living in [...] the past 12 months has th e [employer], gas, oil, or water company threatened to [...] 03/30/2025 10:40 AM EST Office Visit [facility] [address] [facility], [address] [place] [address] Becky Moralez APRN [address] [facility] [address] [place] [address] 09/15/2025 8:30 AM EDT Office Visit [facility] [address], 1[address] [place] [address] Terry Santoyo MD [address] [place] [address] documented as of this encounter [...] documented as of this encounter Care Teams Gauge Maker Apprentice Relationship Specialty Start Date End Date Michelle Gray APRN [address] [place] [address] PCP - General 11/17/23 documented as of this encounter
--- OUTSIDE RECORDS SUMMARY | 2025-03-24 09:24 | XMS_ITS | Encounter Summary ---
Author Organization Healthcare Address [address] [place] [address] Care Team Providers Care Crap Shooter Name Role Phone Michelle Gray APRN Primary Care Provider [phone] Encounter Details Date Type Department Care Team (Latest Contact Info) Description 03/11/2025 Travel Social History Tobacco Use Types Packs/Day [...] and Family Not on file 02/25/2024 Attends Judaism Services Not on file 02/24 Active Member [...] any time in the past 12 m [facility], were you homeless or living in a [...] 03/30/2025 10:40 AM EST Office Visit [facility] [address] [facility], [address] [place] [address] Becky Moralez APRN [address] [facility] [address] [place] [address] 09/15/2025 8:30 AM EDT [facility] [address], 1[address] [place] [address] Terry Santoyo MD [address] [place] [address] documented as of this encounter [...] documented as of this encounter Care Teams Crap Shooter Relationship Specialty Start Date End Date Michelle Gray APRN [address] [place] [address] PCP - General 11/17/23 documented as of this encounter
[2025-03-24 11:10] LABS: Anion Gap 12.8 mEq/L (5-15); Blood Urea Nitrogen 51 mg/dl (7-17); Calcium 9.6 mg/dl (8.4-10.2); Carbon Dioxide 24 mmol/L (22.0-30.0); Chloride 109 mmol/L (98-107); Creatinine,Serum 1.50 mg/dl (0.52-1.04); Estimated Glomerular Filt Rate 35 ml/min (>60); GFR (African American) 42 ML/MIN (>60); Glucose 140 mg/dl (74-100); Potassium 4.8 mmoL/L (3.5-5.1); Sodium 141 mmol/L (136-145)
--- NOTE | 2025-03-24 11:24 | XR_ITS ---
FINAL REPORT CLINICAL HISTORY: diabetic foot ulcer, r/o Osteomyelitis COMPARISON: 01/05/2025 FINDINGS: Three views show no evidence of acute displaced fracture or dislocation of the visualized bony architecture. Moderate degenerative changes are present in the hindfoot and midfoot. Osteopenia is present. No definite areas of bone destruction are identified. IMPRESSION: Moderate degenerative changes in the hindfoot and midfoot without acute osseous abnormality identified. Reviewed, Interpreted and Dictated by Lia Bruce MD Transcribed by Annette Abdi Authenticated and [facility]
== END 2025-03-24 23:59 | disposition home or self-care (01) ==
PROVIDERS: PCP Nurse Practitioner; Visit Provider Physician Assistant
DX: M19.072 Primary osteoarthritis, left ankle and foot (principal); E11.621 Type 2 diabetes mellitus with foot ulcer; L97.509 Non-pressure chronic ulcer of other part of unspecified foot with unspecified severity; L03.116 Cellulitis of left lower limb; I10 Essential (primary) hypertension
CPT/HCPCS: 36415; 73630; 80048; 87070; 87205